=== PATIENT | male | born 1945 | race Caucasian/White ===

== ENCOUNTER 2017-09-13 08:02 | Inpatient (IN) | payer OTHER, SELFPAY ==
[2017-09-13] VITALS (16 sets, daily range): BP systolic 104–134; BP diastolic 61–92; PULSE 96–114; RESP 16–30; TEMP 36.9–38; O2SAT 88–96; BMI 31.6; BMI 31.0
--- NOTE | 2017-09-13 08:27 | EKG12_ITS ---
Test Reason : CP Blood Pressure : / mmHG Vent. Rate : 109 BPM Atrial Rate : 109 BPM P-R Int : 166 ms QRS Dur : 096 ms QT Int : 342 ms P-R-T Axes : 026 -07 092 degrees QTc Int : 460 ms Sinus tachycardia Left ventricular hypertrophy T wave abnormality, consider lateral ischemia Abnormal ECG Confirmed by DALJIT SNYDER, TOMAS ([id number]), publishing editor TRINA ROBLES ([id number]) on 09/20/2017 8:33:10 AM Referred By: JOSÉ LUIS Confirmed By:TOMAS BOCANEGRA MD
--- NOTE | 2017-09-13 08:27 | RAD_ITS ---
STUDY: X-RAY CHEST REASON FOR EXAM: Male, 72 years old. Chest pain. TECHNIQUE: AP and lateral views of the chest. COMPARISON: Comparison is made with prior study dated January 01, 2016. FINDINGS: EKG liquids are seen. Mild increased markings at the lung bases suggestive of atelectasis and/or early infiltrates. There is no demonstrated pleural abnormality. Sternal cerclage wires and vascular clips are present from a prior sternotomy and coronary artery bypass graft procedure (CABG). Borderline cardiomegaly. Normal mediastinum and nandini. Normal visualized pulmonary arteries. There is atherosclerotic tortuosity of the aortic arch and descending thoracic aorta. There are degenerative changes of the visualized thoracic spine. Normal visualized ribs, clavicles, and shoulders. There is no demonstrated abnormality of the visualized soft tissue structures of the upper abdomen. RAD/Chest PA and Lateral IMPRESSION: Increased linear markings at the lung bases suggestive basilar atelectasis and/or infiltrates. Follow-up is recommended. Electronically Signed: Andrei Quezada MD at 9:35 EST Tel [phone], Service support ,
--- NOTE | 2017-09-13 08:51 | ED.DCSUM_ITS ---
- ER Visit Summary Date of Service: 09/13/17 Chief Complaint: Chest pain History of Present Illness: The patient is a [address] Peralta and Dr. Peña. He reports that he woke with a left-sided chest pain this morning approximately 5 AM. He describes as an intermittent pressure that lasts minutes at a time. Is 10 out of 10 at worst and 2 out of 10 currently. Is worsened by nothing although he is not walked around. Is also relieved by nothing. He is ports he has been nauseated and vomited twice. No blood in his emesis. There is no radiation of his pain. Patient also reports that he has developed a subjective fever and chills overnight. He denies a sore throat or cough. He reports that he has abdominal pain that is 3 out of 10 severity and a headache that is annoying. 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 He states he has had left ankle swelling ever since that time. He denies any calf pain. Physical Examination: Vitals: 99.6, 117/62, 112, 30, 89% on room air which is hypoxic General: Well-nourished and well-developed. Head: Normocephalic atraumatic. Neck: Supple, no lymphadenopathy. No JVD. Nontender. Cardiovascular: Tachycardic regular rhythm. No murmurs. Respiratory: No respiratory distress. Clear to auscultation bilaterally. Abdominal: Soft, nontender, nondistended, normal bowel sounds. No guarding, rebound, or peritoneal signs. Back: Nontender. Extremities: Nontender, no edema. Skin: Normal color, no rash. Neurologic: Alert and oriented ?3. Cranial nerves II through XII are intact. Normal strength and sensation. Psych: Normal affect. Test Results: EKG is sinus tach at 109. He does have LVH with T-wave inversions in leads I and aVL. There is no old EKG for comparison. Repeat EKG is unchanged. CBC is more for white count of 15.8, segment neutrophils of 91, monocytes of 5. Chem-7 is more for BUN of 26 and glucose of 129. Troponin is negative. D-dimer is elevated 0.63. Influenza is negative. Chest x-ray shows poor inspiration and cardiomegaly. We were unable to obtain a an IV in the antecubital that could be used for an appropriate contrast bolus. Because of this Dopplers of his legs were obtained. 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 No acute DVT. Emergency Department Course and Treatment: Patient had an IV placed. He was treated with aspirin. He was treated with morphine and Zofran IV. He is resting comfortably. Treatment Plan: Patient was discussed with Dr. stack. He will be admitted to the hospital for further evaluation and treatment. Disposition: Admitted in serious condition. Impression: 1. Chest pain, atypical. 2. Hypoxia. 3. ADRIANO score of 3. 4. Chronic thrombus right gastrocnemius vein. This note was generated with [employer] dictation software. It may contain incorrect words, spelling, and punctuation that were not noted in review of the chart prior to signing ED Disposition - Plan for ED Patient: Chief Complaint: Chest Pain
[2017-09-13] MEDS: 0.9% Normal Saline 1,000 ML 150 ML IV ×3 (09:20→20:30)
[2017-09-13] MEDS: Aspirin 81 MG TAB.CHEW 324 MG PO (09:20)
--- NOTE | 2017-09-13 09:25 | ED.RN ---
Pt took asa 81mg x2 at home. Only given 2 here per verbal order of dr felder
[2017-09-13 09:34] LABS: Absolute Lymphocyte Count 0.79 X10^3/ul (0.83-4.51); Absolute Neutrophil Count 14.4 X10^3/uL (2.0-7.7); Basophil# 0.03 X10^3/uL; Basophil% 0.2 % (0-1); Hematocrit 42.9 % (40-54); Hemoglobin 14.6 g/dl (13.0-16.5); Lymphocyte # 0.79 X10^3/ul (4.0); Mean Corpuscular Hgb 31.7 pg (27.0-32.0); Mean Corpuscular Volume 93.1 fL (80-94); Mean Platelet Vol. 9.8 fl (6.2-12.0); Monocyte% 3.8 % (0-10); Neutrophil # 14.36 X10^3/uL (2.7-7.7); Neutrophil % 90.7 % (47-70); Platelet Count 182 K/mm3 (150-450); RBC Distribution Width CV 14.9 % (11.6-14.6); RBC Distribution Width SD 48.7 fl (35.1-43.9); Red Blood Count 4.61 M/mm3 (4.6-6.2); White Blood Count 15.8 K/mm3 (4.4-11.0)
[2017-09-13 09:35] LABS: POSITIVE COUNT NO; POSITIVE DIFFERENTIAL NO; POSITIVE MORPHOLOGY NO
[2017-09-13 09:51] LABS: Anion Gap 8 (5-15); BUN 26 mg/dL (7-18); BUN/Creat Ratio 22.2 RATIO (10-20); Calcium,Total 9.1 mg/dL (8.5-10.1); Chloride 106 mmol/L (98-107); Creatinine, Serum 1.17 mg/dL (0.70-1.30); EST Glomerular Filtration Rate 65 mL/min (>60); Est Glom Filt Rate - Afr Amer 78 mL/min (>60); Estimated Creatinine Clearance 46.38 ml/min; Glucose 129 mg/dL (70-110); Potassium 3.8 mmol/L (3.5-5.1); Sodium Level 140 mmol/L (136-145)
--- NOTE | 2017-09-13 09:54 | EKG12_ITS ---
Test Reason : REPEAT EKG Blood Pressure : / mmHG Vent. Rate : 112 BPM Atrial Rate : 112 BPM P-R Int : 170 ms QRS Dur : 094 ms QT Int : 324 ms P-R-T Axes : 033 009 078 degrees QTc Int : 442 ms Sinus tachycardia with frequent Premature ventricular complexes Nonspecific T wave abnormality Abnormal ECG Confirmed by DAJLIT SNYDER, TOMAS ([id number]), film or videotape editor TRINA ROBLES ([id number]) on 09/20/2017 8:34:37 AM Referred By: JOSÉ LUIS Confirmed By:TOMAS BOCANEGRA MD
[2017-09-13 09:57] LABS: D-Dimer Quantitative (DVT/PE) 0.63 FEU/ug/m (0.27-0.49)
[2017-09-13] MEDS: Ondansetron 4 MG/2 ML Vial IV (10:08)
--- NOTE | 2017-09-13 10:11 | VDLE_ITS ---
Reason For Study: elevated D-Dimer RIGHT LEFT GSV is normal. CFV is compressible, spontaneous, phasic, CFV is compressible, spontaneous, phasic, competent, and demonstrates normal competent and demonstrates normal augmentation. augmentation. FV is compressible, spontaneous, phasic, FV is compressible, spontaneous, phasic, competent and demonstrates normal competent and demonstrates normal augmentation. augmentation. POP V is compressible, spontaneous, phasic, POP V is compressible, spontaneous, phasic, competent and demonstrates normal competent and demonstrates normal augmentation. augmentation. T/P Trunk is compressible. T/P Trunk is compressible. PTV is compressible. PTV is compressible. LT PerV is compressible. RT PerV is compressible. GSV has been harvested. Gastroc vein is partially compresible with bright intraluminal echoes consistent with chronic DVT. Procedure Exam performed portable in ED. The exam was diagnostic. A preliminary report was called and/or faxed to Dr. Lomax. Interpretation Summary No evidence for acute deep venous thrombosis bilateral lower extremities. 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 Surgically removed left great saphenous vein. Ordering Physician: Aquilino Lomax Performed By: Nigel Noriega RVT
--- NOTE | 2017-09-13 11:07 | NURSING ---
DR CRISTOBAL ORDONEZ
--- NOTE | 2017-09-13 11:14 | NURSING ---
PCU ACUTE DYSPNEA KITTOE
--- NOTE | 2017-09-13 12:19 | NURSING ---
TELLO, IV THERAPY, IN WITH PATIENT
[2017-09-13] MEDS: Enoxaparin 100 MG/ML Syringe 80 MG SC (13:00)
--- NOTE | 2017-09-13 13:00 | CT_ITS ---
STUDY: CTA CHEST REASON FOR EXAM: Male, 72 years old. Elevated d-dimer. Shortness of breath and chest pain. RADIATION DOSAGE (If Supplied By Facility): CTDIvol = ( 14.28 ) mGy, DLP = ( 583.76 ) mGycm TECHNIQUE: The examination was performed with the intravenous administration of 100 ml of Isovue 370 contrast material. Post-processing of the angiographic images was performed, with multiplanar reformation and 3D reconstruction. Individualized dose optimization techniques were used for this CT. COMPARISON: Comparison is made with prior chest radiograph done earlier in the day. FINDINGS: Normal enhancement of the main pulmonary artery and right and left pulmonary arteries. Normal enhancement of the bilateral peripheral pulmonary arteries. There is no demonstrated pulmonary embolism. Normal thoracic aorta and visualized great vessels. There is no demonstrated aortic dissection. Normal heart and pericardium. Normal mediastinum. Normal hilar regions. Normal visualized trachea and bronchi. The lungs are well expanded. Mild degree of increased markings at the lung bases suggestive of bibasilar atelectasis. This is slightly worse on the right side. There is also evidence of underlying bronchiectasis and scarring at the lung bases. Normal pleura. Normal chest wall structures. There are degenerative changes of thoracic spine. Small hiatal hernia. CT/CTA Chest W/WO Contrast IMPRESSION: Findings suggesting scarring and atelectasis at the lung bases. This is slightly worse on the right side. There is no evidence of pulmonary embolism. Electronically Signed: Andrei Quezada MD at 13:53 EST Tel [phone], Service support ,
--- NOTE | 2017-09-13 14:05 | PCM.HP.STD ---
Problem List (1) Acute chest pain Status: Acute (2) CAD (coronary artery disease) Status: Chronic (3) Essential (primary) hypertension Status: Chronic History of Present Illness Date of Admission: 09/13/17 Chief Complaint: Chest pain The patient is a 72 year old M with past medical history significant for CAD with previous CABG, essential hypertension sent with chest pain. Patient symptoms started on the morning of his admission. Pain was located in the retrosternal region. Patient did not relate the pain to any activity pain located both at rest as well as with activity. Patient also did complain of shortness of breath. Patient was seen in the emergency department workup did reveal elevated d-dimer CTA of the chest was however negative for PE subsequently admitted to a monitored bed for further management Past Medical History Past Medical History (Chronic Problems): Chronic Problems CAD (coronary artery disease) (Chronic) Essential (primary) hypertension (Chronic) Allergies No Known Allergies Allergy (Verified 09/13/17 08:11) Home Medications: Ambulatory Orders Medication Instructions Recorded Aspirin [Aspirin, Baby] 81 mg PO DAILY@0800 09/13/17 Surgical History: coronary bypass surgery Smoking Status: Never smoker - *Family History Maternal History Items: No pertinent history Review of Systems Constitutional: Denies: Anorexia, Chills, Fever, Night Sweats, Weight Change HEENT: Denies: Head Aches, Sinus Congestion, Sinus Drainage Cardiovascular: Reports: Chest Pain. Denies: Orthopnea, Palpitations, Paroxysmal Noc. Dyspnea Respiratory: Denies: Cough, Shortness of breath at rest Gastrointestinal: Denies: Abdominal Pain, Hematemesis, Hematochezia, Nausea, Melena, Vomiting Genitourinary: Denies: Dysuria, Frequency, Hematuria, Urgency Musculoskeletal: Denies: Joint Pain, Joint Tenderness Skin: Denies: Rash Neurological: Denies: Focal weakness, Numbness, Tingling Psychiatric: Denies: Homicidal Ideations, Suicidal Ideations Hematologic/ Lymphatic: Denies: Easy Bruising, Easy Bleeding VTE Information - Inpt Only VTE Present on Admission: No VTE Mechan Device Prophylaxis: Knee High MICHAEL Hose VTE Pharm Prophylaxis ordered?: Yes Patient Problems: Active and Suspected Problems Acute chest pain (Acute) Objective: GENERAL: cooperative HEENT: Clear conjunctiva, NECK; supple, normal thyroid, CHEST: Diminished to auscultation bilaterally, HEART: Regular S1 S2, no audible murmurs ABDOMEN: soft, non-tender, normoactive bowel sounds, RECTAL: deferred EXTREMITIES: No edema, no clubbing, no cyanosis. CLINICAL ASSISTANT: Awake, no lateralizing signs. SKIN: Rash - Physical Exam Vital Signs Temp Pulse Resp BP Pulse Ox 100.4 F H 100 22 H 108/65 93 09/13/17 12:52 09/13/17 13:02 09/13/17 13:02 09/13/17 13:02 09/13/17 13:02 Oxygen Flow Rate 3 Oxygen Delivery Method Nasal Cannula Laboratory Tests Past 24 Hrs 09/13/17 12:45 Troponin I < 0.02 Assessment/Plan Active and Suspected Problems Acute chest pain (Acute) Patient is a 72-year-old male with history of CAD with previous CABG presented with chest pain 1. Chest pain: Patient admitted to monitored bed ordered serial cardiac enzymes to rule out [place]. Also ordered a 2D echo with plans for patient undergo a nuclear stress test in a.m. if [place] is ruled out 2. CAD status post CABG 3. Essential hypertension blood pressure currently stable 4. History of recurrent kidney stones currently astigmatic 5. Obesity with BMI of 31.0 6. DVT prophylaxis SC Lovenox.
--- NOTE | 2017-09-13 14:20 | ECHOCS_ITS ---
Reason For Study: chest pain Procedure This was a 2D Doppler, Color Flow transthoracic echocardiogram. The study was technically limited. The study was technically difficult. Due to body habitus and severe hiccups. Contrast injection was performed. Left Ventricle Normal LV size. Mild segmental systolic dysfunction (see wall motion). The estimated ejection fraction is 50 %. Mid-inferoseptal : Hypokinetic. Mid-anteroseptal : Hypokinetic. Right Ventricle Normal RV size. Normal systolic function. Atria The left atrium is mildly enlarged. Normal right atrium. No doppler evidence for ASD. Mitral Valve There is mild mitral annular calcification. Mild focal mitral valve calcification of the anterior leaflet. Trivial mitral valve insufficiency. Tricuspid Valve The tricuspid valve is not well visualized. Trivial tricuspid valve insufficiency. Unable to estimate RV systolic pressure/pulmonary artery pressure due to technically difficult study. Aortic Valve Trisinus/trileaflet aortic valve. Mild focal aortic valve thickening. Mild focal aortic valve calcification. Pulmonic Valve The pulmonic valve is not well visualized. Trivial pulmonic valve insufficiency. Great Vessels Normal sized aortic root. Pericardium/Pleural No pericardial effusion. Medication Definity0.4ml given slow IV push to enhance endocardial definition. MMode/2D Measurements & Calculations LVIDd: 5.4 cm IVSd: 1.2 cm Ao root diam: 3.4 cm LVIDs: 4.4 cm LVPWd: 1.1 cm LA dimension: 4.5 cm FS: 17.5 % Doppler Measurements & Calculations MV E max yury: 68.9 cm/sec Lat Peak E' Yury: 12.0 cm/sec Ao V2 max: 131.0 cm/sec MV A max yury: 101.1 cm/sec E/E' lat: 5.8 Ao max P.9 mmHg MV E/A: 0.68 LV V1 max: 95.7 cm/sec PA V2 max: 133.9 cm/sec LV V1 max P.7 mmHg Interpretation Summary The study was technically difficult. Contrast injection was performed. Mild segmental systolic dysfunction (see wall motion). The estimated ejection fraction is 50 %. The left atrium is mildly enlarged. There is mild mitral annular calcification. Mild focal mitral valve calcification of the anterior leaflet. Trivial mitral valve insufficiency. Trivial tricuspid valve insufficiency. Mild focal aortic valve thickening. Mild focal aortic valve calcification. Trivial pulmonic valve insufficiency. Unable to estimate RV systolic pressure/pulmonary artery pressure due to technically difficult study. Ordering Physician: Bo Mike Referring Physician: Boy Peralta Performed By: Lydia Russ, RENETTA, RVT
[2017-09-13 14:50] LABS: Magnesium 1.7 mg/dL (1.6-2.6); Thyroid Stim Hormone (TSH) 0.36 uIU/mL (0.358-3.74)
[2017-09-13] MEDS: oxyCODONE 5 MG Tablet PO ×2 (16:20→20:40)
[2017-09-13] MEDS: Magnesium Hydroxide 30 ML UDC PO (22:49)
[2017-09-13] MEDS: 0.9% NaCl Peripheral Flush Adult/Peds IV (22:49)
[2017-09-14] VITALS (17 sets, daily range): BP systolic 97–114; BP diastolic 43–61; PULSE 86–103; RESP 18–20; TEMP 37–38.7; O2SAT 84–98
[2017-09-14] MEDS: 0.9% Normal Saline 1,000 ML 150 ML IV ×3 (03:42→20:50)
[2017-09-14] MEDS: Acetaminophen 325 MG Tablet 650 MG PO ×3 (03:44→17:00)
--- NOTE | 2017-09-14 05:17 | RAD_ITS ---
STUDY: X-RAY CHEST REASON FOR EXAM: Male, 72 years old. Fever TECHNIQUE: PA and lateral COMPARISON: September 13, 2017 FINDINGS: Lungs are expanded. There is slight elevation of the RIGHT hemidiaphragm which is chronic. There is discoid atelectasis or fibrosis at the RIGHT lung base. There are NO acute infiltrates. There is no demonstrated pleural abnormality. The heart is mildly enlarged. There has been open heart surgery. Normal mediastinum and nandini. Normal visualized pulmonary arteries. Normal visualized aortic arch and descending thoracic aorta. Normal visualized thoracic spine. Normal visualized ribs, clavicles, and shoulders. There is no demonstrated abnormality of the visualized soft tissue structures of the upper abdomen. RAD/Chest PA and Lateral IMPRESSION: Lungs are expanded. There is slight elevation of the RIGHT hemidiaphragm which is chronic. There is discoid atelectasis or fibrosis at the RIGHT lung base. There are NO acute infiltrates. There is no demonstrated pleural abnormality. The heart is mildly enlarged. There has been open heart surgery. Electronically Signed: Tyree Alicia MD at 6:30 EST , Service support ,
--- NOTE | 2017-09-14 05:55 | EKG12_ITS ---
Test Reason : AM EKG Blood Pressure : / mmHG Vent. Rate : 087 BPM Atrial Rate : 087 BPM P-R Int : 170 ms QRS Dur : 100 ms QT Int : 356 ms P-R-T Axes : 036 004 073 degrees QTc Int : 428 ms Normal sinus rhythm Nonspecific T wave abnormality Abnormal ECG When compared with ECG of 13-SEP-2017 10:01, MANUAL COMPARISON REQUIRED, DATA IS UNCONFIRMED Confirmed by DALJIT SNYDER, TOMAS ([id number]), news copy editor TRINA ROBLES ([id number]) on 09/20/2017 8:48:07 AM Referred By: CRISTOBAL Confirmed By:TOMAS BOCANEGRA MD
[2017-09-14 06:03] LABS: Hematocrit 36.6 % (40-54); Mean Corp Hgb Conc 32.8 g/gl (32-36); Mean Corpuscular Hgb 31.3 pg (27.0-32.0); Mean Corpuscular Volume 95.6 fL (80-94); Mean Platelet Vol. 9.8 fl (6.2-12.0); Platelet Count 139 K/mm3 (150-450); RBC Distribution Width CV 15.2 % (11.6-14.6); RBC Distribution Width SD 51.1 fl (35.1-43.9); Red Blood Count 3.83 M/mm3 (4.6-6.2); Scan Indicated on CBC? Y/N NO; White Blood Count 9.4 K/mm3 (4.4-11.0)
[2017-09-14 06:30] LABS: BUN 26 mg/dL (7-18); Creatinine, Serum 1.15 mg/dL (0.70-1.30); Glucose 112 mg/dL (70-110)
[2017-09-14 06:31] LABS: Anion Gap 5 (5-15); BUN/Creat Ratio 22.6 RATIO (10-20); Calcium,Total 7.8 mg/dL (8.5-10.1); Chloride 110 mmol/L (98-107); EST Glomerular Filtration Rate 66 mL/min (>60); Est Glom Filt Rate - Afr Amer 80 mL/min (>60); Estimated Creatinine Clearance 47.19 ml/min; Potassium 3.9 mmol/L (3.5-5.1); Sodium Level 141 mmol/L (136-145)
[2017-09-14 06:32] LABS: Lactic Acid 0.9 mmol/L (0.4-2.0)
--- NOTE | 2017-09-14 08:03 | STEWCON_ITS ---
Reason For Study: Chest pain, Dyspnea Stress Results Protocol: Dobutamine Maximum Predicted HR: 146 bpm Target HR: 124 bpm% Maximum Predicted HR: 88 % DurationHeart Rate Stage (mm:ss) (bpm) BPDos e Comment Baseline 62 105/65 Definity 2 CC Stage 1 3:00 91 160/5810.001 CC definity Stage 2 3:25 12 9 134/9420.001 CC Definity Recovery 100 129/8 0 1 CC Definity Stress Duration: 6:25 mm:ss Maximum Stress HR: 129 bpm Baseline Echocardiogram Findings The estimated ejection fraction is 55 %. Stress Echo Wall motion Data Resting WMIntermediate WMStress WM Resting Wall Motion Wall Motion Stress Basal anteroseptal: Mildly Baseline anteroseptal wall hypokinetic. remained hypokinetic, but all Mid-Anterior : Mildly other leos contracted normally hypokinetic. with peak infusion. EKG Data Normal intervals are noted. The patient was titrated from 10 mcg to a maximum of 20 mcg of dobutamine during the stress. The maximum heart rate attained was 127 beats per minute. This was 86% of maximum predicted heart rate. During dobutamine infusion, there were no ST or T wave changes noted to suggest ischemia. No clinical angina was noted. Interpretation Summary The estimated ejection fraction is 55 %. Baseline anteroseptal wall remained hypokinetic, but all other leos contracted normally with peak infusion. The patient was titrated from 10 mcg to a maximum of 20 mcg of dobutamine during the stress. Normal adequate dobutamine echocardiogram. Negative for ischemia by EKG and echocardiographic criteria. Patient had baseline anteroseptal hypokinesis which remained about the same during infusion. All other leos contracted normally. Appropriate blood pressure response to dobutamine. Test terminated due to the attainment of target heart rate. Patient had no anginal symptoms prior to or during infusion. Rare PVCs noted. Final LVEF is 65%. Decreased sensitivity due to poor echo windows and need for Definity agent. Ordering Physician: Bo Mike Referring Physician: Bo Mike Performed By: Lydia Russ, RENETTA, RVT
[2017-09-14] MEDS: Aspirin 81 MG TAB.CHEW PO (10:07)
[2017-09-14 10:20] LABS: Bacteria 0 SEEN /hpf (None Seen); Mucous, Urine 0 SEEN /hpf (<or=2+); Squamous Epithelial Cells - UA 0 SEEN /hpf (0-5)
[2017-09-14 10:23] LABS: Color, Urine Yellow (Yellow); Glucose, Dipstick Normal (Normal); Ketone-Dipstick 5 mg/dl (Negative); Leukocyte Esterase-Dipstick 25 /ul (Negative); Nitrite-Dipstick Negative (Negative); Occult Blood-Urine 150 /ul (Negative); Protein-Dipstick 30 mg/dl (Negative); Urine Bilirubin Dipstick Negative (Negative); Urine Clarity Clear (Clear); Urine Urobilinogen Normal (Normal)
[2017-09-14 10:31] LABS: Red Blood Cells-Urine 0-5 SEEN /hpf (0-5); White Blood Cells 0-5 SEEN /hpf (0-5)
--- NOTE | 2017-09-14 10:42 | PCM.PN.HOSP ---
Patient Problems: Active and Suspected Problems Acute chest pain (Acute) Subjective: Patient is a 72-year-old gentleman admitted with chest pain; currently undergoing evaluation on a monitored bed to rule out myocardial ischemia. Patient did develop fever during the night with T-max of 101.7 blood cultures were drawn. Patient was found to have developed a mild area of erythema with some warmth involving the right lower extremities and assessment of cellulitis made that on antibiotics per protocol Objective: GENERAL: cooperative HEENT: Clear conjunctiva, NECK; supple, normal thyroid, CHEST: Diminished to auscultation bilaterally, HEART: Regular S1 S2, no audible murmurs ABDOMEN: soft, non-tender, normoactive bowel sounds, RECTAL: deferred EXTREMITIES: Area of erythema involving the distal one third of the right lower extremity VICE PRESIDENT [employer]ET INSIGHTS: Awake, no lateralizing signs. SKIN: Described above Vitals/I&O's: Vital Signs Temp Pulse Resp BP Pulse Ox 98.7 F 88 18 106/61 84 09/14/17 06:35 09/14/17 07:02 09/14/17 08:24 09/14/17 06:35 09/14/17 07:20 Oxygen Flow Rate 3 Oxygen Delivery Method Nasal Cannula Weight: 82 kg Body Mass Index (BMI) 31.0 Intake and Output for Last 24 Hours 09/12/17 09/13/17 09/14/17 23:59 23:59 23:59 Intake Total 343 / 343 2417 / 2417 Output Total 500 / 500 Balance 343 / 343 7 / 191 Laboratory Results 09/13/17 12:45: Troponin I < 0.02 09/13/17 12:45: Magnesium 1.7, TSH 0.36 09/13/17 17:00: Troponin I < 0.02 09/13/17 22:35: Troponin I < 0.02 09/14/17 05:40: Sodium 141, Potassium 3.9, Chloride 110 H, Carbon Dioxide 26.0, Anion Gap 5, BUN 26 H, Creatinine 1.15, Estim Creat Clear Calc 47.19, Est GFR (MDRD) Af Amer 80, Est GFR (MDRD) Non-Af 66, BUN/Creatinine Ratio 22.6 H, Glucose 112 H, Calcium 7.8 L 09/14/17 05:40: WBC 9.4, RBC 3.83 L, Hgb 12.0 L, Hct 36.6 L, MCV 95.6 H, MCH 31.3, MCHC 32.8, RDW 15.2 H, RDW Differential 51.1 H, Plt Count 139 L, MPV 9.8 09/14/17 05:40: Lactic Acid 0.9 09/14/17 10:00: Urine Color Yellow, Urine Clarity Clear, Urine pH 5.0, Ur Specific Muir 1.020, Urine Protein 30 H, Urine Glucose (UA) Normal, Urine Ketones 5 H, Urine Occult Blood 150 H, Urine Nitrite Negative, Urine Bilirubin Negative, Urine Urobilinogen Normal, Ur Leukocyte Esterase 25 H, Urine RBC 0-5 SEEN, Urine WBC 0-5 SEEN, Ur Squamous Epith Cells 0 SEEN, Urine Bacteria 0 SEEN, Urine Mucus 0 SEEN Current Medications Acetaminophen (Tylenol) 650 mg PO Q6H PRN PRN PRN Reason: Fever > 100.5 Last Admin: 09/14/17 10:11 Dose: 650 mg Al Hydroxide/Mg Hydroxide (Mylanta Ii) 30 ml PO Q6H PRN PRN PRN Reason: Gastric Burning Aspirin (Aspirin, Baby) 81 mg PO DAILY@0800 [facility] Last Admin: 09/14/17 10:07 Dose: 81 mg Docusate Sodium (Colace) 200 mg PO BID PRN PRN PRN Reason: Constipation Enoxaparin Sodium (Lovenox) 40 mg SC DAILY@1000 [facility] Sodium Chloride () 1,000 mls @ 150 mls/hr IV .Q6H40M [facility] Last Admin: 09/14/17 03:42 Dose: 150 mls/hr Piperacillin Sod/Tazobactam Sod (Zosyn) 3.375 gm in 50 mls @ 12.5 mls/hr IV Q8 [facility] Vancomycin HCl 1,500 mg/ (Dextrose) 280 mls @ 250 mls/hr IV RX TO DOSE ONE Stop: 09/14/17 11:12 Magnesium Hydroxide (Milk Of Magnesia) 30 ml PO DAILY PRN PRN Reason: Constipation Last Admin: 09/13/17 22:49 Dose: 30 ml Morphine Sulfate (Morphine) 4 mg IV Q4H PRN PRN PRN Reason: SEVERE PAIN (6-10/10) Nitroglycerin (Nitrostat) 0.4 mg SUBLINGUAL Q5M PRN PRN Reason: CHEST PAIN Ondansetron HCl (Zofran) 4 mg IV Q8H PRN PRN PRN Reason: Nausea Oxycodone HCl (Oxyir) 5 mg PO Q4H PRN PRN PRN Reason: SEVERE PAIN (6-10/10) Last Admin: 09/13/17 20:40 Dose: 5 mg Sodium Chloride () 5 - 30 ml IV UD PRN PRN Reason: SALINE FLUSH Last Admin: 09/13/17 22:49 Dose: 10 ml Zolpidem Tartrate (Ambien (Generic)) 5 mg PO QHS PRN PRN PRN Reason: INSOMNIA Assessment/Plan Active and Suspected Problems Acute chest pain (Acute) Patient is a 72-year-old male with history of CAD with previous CABG presented with chest pain 1. Chest pain: Patient admitted to monitored bed ordered serial cardiac enzymes to rule out [place]. Also ordered a 2D echo with plans for patient undergo a nuclear stress test in a.m. if [place] is ruled out 2. Lower extremity cellulitis: Blood cultures were sent patient started on antibiotics per protocol 3. CAD status post CABG 4. Essential hypertension blood pressure currently stable 5. History of recurrent kidney stones currently astigmatic 6. Obesity with BMI of 31.0 7. DVT prophylaxis SC Lovenox. Code Visit OBSV E&M: 34328 Subsequent observation care L3
--- NOTE | 2017-09-14 10:45 | PN_ITS ---
Patient Problems: Active and Suspected Problems Acute chest pain (Acute) Subjective: Patient is a 72-year-old gentleman admitted with chest pain; currently undergoing evaluation on a monitored bed to rule out myocardial ischemia. Patient did develop fever during the night with T-max of 101.7 blood cultures were drawn. Patient was found to have developed a mild area of erythema with some warmth involving the right lower extremities and assessment of cellulitis made that on antibiotics per protocol Objective: GENERAL: cooperative HEENT: Clear conjunctiva, NECK; supple, normal thyroid, CHEST: Diminished to auscultation bilaterally, HEART: Regular S1 S2, no audible murmurs ABDOMEN: soft, non-tender, normoactive bowel sounds, RECTAL: deferred EXTREMITIES: Area of erythema involving the distal one third of the right lower extremity SECTION CHIEF: Awake, no lateralizing signs. SKIN: Described above Vitals/I&O's: Vital Signs Temp Pulse Resp BP Pulse Ox 98.7 F 88 18 106/61 84 09/14/17 06:35 09/14/17 07:02 09/14/17 08:24 09/14/17 06:35 09/14/17 07:20 Oxygen Flow Rate 3 Oxygen Delivery Method Nasal Cannula Weight: 82 kg Body Mass Index (BMI) 31.0 Intake and Output for Last 24 Hours 09/12/17 09/13/17 09/14/17 23:59 23:59 23:59 Intake Total 343 / 343 2417 / 2417 Output Total 500 / 500 Balance 343 / 343 7 / 191 Laboratory Results 09/13/17 12:45: Troponin I < 0.02 09/13/17 12:45: Magnesium 1.7, TSH 0.36 09/13/17 17:00: Troponin I < 0.02 09/13/17 22:35: Troponin I < 0.02 09/14/17 05:40: Sodium 141, Potassium 3.9, Chloride 110 H, Carbon Dioxide 26.0, Anion Gap 5, BUN 26 H, Creatinine 1.15, Estim Creat Clear Calc 47.19, Est GFR ( MDRD) Af Amer 80, Est GFR (MDRD) Non-Af 66, BUN/Creatinine Ratio 22.6 H, Glucose 112 H, Calcium 7.8 L 09/14/17 05:40: WBC 9.4, RBC 3.83 L, Hgb 12.0 L, Hct 36.6 L, MCV 95.6 H, MCH 31.3, MCHC 32.8, RDW 15.2 H, RDW Differential 51.1 H, Plt Count 139 L, MPV 9.8 09/14/17 05:40: Lactic Acid 0.9 09/14/17 10:00: Urine Color Yellow, Urine Clarity Clear, Urine pH 5.0, Ur Specific [place] 1.020, Urine Protein 30 H, Urine Glucose (UA) Normal, Urine Ketones 5 H, Urine Occult Blood 150 H, Urine Nitrite Negative, Urine Bilirubin Negative, Urine Urobilinogen Normal, Ur Leukocyte Esterase 25 H, Urine RBC 0-5 SEEN, Urine WBC 0-5 SEEN, Ur Squamous Epith Cells 0 SEEN, Urine Bacteria 0 SEEN , Urine Mucus 0 SEEN Current Medications Acetaminophen (Tylenol) 650 mg PO Q6H PRN PRN PRN Reason: Fever > 100.5 Last Admin: 09/14/17 10:11 Dose: 650 mg Al Hydroxide/Mg Hydroxide (Mylanta Ii) 30 ml PO Q6H PRN PRN PRN Reason: Gastric Burning Aspirin (Aspirin, Baby) 81 mg PO DAILY@0800 [facility] Last Admin: 09/14/17 10:07 Dose: 81 mg Docusate Sodium (Colace) 200 mg PO BID PRN PRN PRN Reason: Constipation Enoxaparin Sodium (Lovenox) 40 mg SC DAILY@1000 [facility] Sodium Chloride () 1,000 mls @ 150 mls/hr IV .Q6H40M [facility] Last Admin: 09/14/17 03:42 Dose: 150 mls/hr Piperacillin Sod/Tazobactam Sod (Zosyn) 3.375 gm in 50 mls @ 12.5 mls/hr IV Q8 [facility] Vancomycin HCl 1,500 mg/ (Dextrose) 280 mls @ 250 mls/hr IV RX TO DOSE ONE Stop: 09/14/17 11:12 Magnesium Hydroxide (Milk Of Magnesia) 30 ml PO DAILY PRN PRN Reason: Constipation Last Admin: 09/13/17 22:49 Dose: 30 ml Morphine Sulfate (Morphine) 4 mg IV Q4H PRN PRN PRN Reason: SEVERE PAIN (6-10/10) Nitroglycerin (Nitrostat) 0.4 mg SUBLINGUAL Q5M PRN PRN Reason: CHEST PAIN Ondansetron HCl (Zofran) 4 mg IV Q8H PRN PRN PRN Reason: Nausea Oxycodone HCl (Oxyir) 5 mg PO Q4H PRN PRN PRN Reason: SEVERE PAIN (6-10/10) Last Admin: 09/13/17 20:40 Dose: 5 mg Sodium Chloride () 5 - 30 ml IV UD PRN PRN Reason: SALINE FLUSH Last Admin: 09/13/17 22:49 Dose: 10 ml Zolpidem Tartrate (Ambien (Generic)) 5 mg PO QHS PRN PRN PRN Reason: INSOMNIA Assessment/Plan Active and Suspected Problems Acute chest pain (Acute) Patient is a 72-year-old male with history of CAD with previous CABG presented with chest pain 1. Chest pain: Patient admitted to monitored bed ordered serial cardiac enzymes to rule out NV. Also ordered a 2D echo with plans for patient undergo a nuclear stress test in a.m. if NV is ruled out 2. Lower extremity cellulitis: Blood cultures were sent patient started on antibiotics per protocol 3. CAD status post CABG 4. Essential hypertension blood pressure currently stable 5. History of recurrent kidney stones currently astigmatic 6. Obesity with BMI of 31.0 7. DVT prophylaxis SC Lovenox. Code Visit OBSV E&M: 36299 Subsequent observation care L3
[2017-09-14] MEDS: Piperacil/Tazobactam 3.375 GM/50 ML ML IV ×2 (11:39→21:01)
[2017-09-14] MEDS: Enoxaparin 40 MG/0.4 ML Syringe SC (11:39)
--- NOTE | 2017-09-14 14:58 | CASEMGMT ---
JEAN PIERRE SHUKLA completed chart review. 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 Patient did develop fever during the night with T-max of 101.7 blood cultures were drawn. Patient was found to have developed a mild area of erythema with some warmth involving the right lower extremity an assessment of cellulitis made. JEAN PIERRE SHUKLA assessment: Patient is established with PCP, Dr. Peralta, and uses [employer] for insurance. The patient lives with family and is currently up in the room with assist of x1. Patient's plan is to return home at discharge. Transition Planning/Care Coordination: Will need to follow-up with patient prior to discharge for final Transition Planning and Care Coordination needs. Dispo: Anticipate home with no needs.
[2017-09-14] MEDS: Zolpidem Tartrate 5 MG Tablet PO (21:01)
[2017-09-15] VITALS (16 sets, daily range): BP systolic 101–140; BP diastolic 53–67; PULSE 85–103; RESP 16–30; TEMP 36.6–37.7; O2SAT 91–96
[2017-09-15] MEDS: 0.9% Normal Saline 1,000 ML 150 ML IV (03:38)
[2017-09-15] MEDS: Piperacil/Tazobactam 3.375 GM/50 ML ML IV ×3 (05:20→22:10)
[2017-09-15] MEDS: 0.9% NaCl Peripheral Flush Adult/Peds IV (05:20)
[2017-09-15 05:40] LABS: Hematocrit 34.1 % (40-54); Hemoglobin 11.2 g/dl (13.0-16.5); Mean Corp Hgb Conc 32.8 g/gl (32-36); Mean Corpuscular Hgb 31.8 pg (27.0-32.0); Mean Corpuscular Volume 96.9 fL (80-94); Mean Platelet Vol. 10.1 fl (6.2-12.0); Platelet Count 131 K/mm3 (150-450); RBC Distribution Width CV 15.4 % (11.6-14.6); RBC Distribution Width SD 52.7 fl (35.1-43.9); Red Blood Count 3.52 M/mm3 (4.6-6.2); White Blood Count 7.5 K/mm3 (4.4-11.0)
[2017-09-15 05:52] LABS: Scan Indicated on CBC? Y/N NO
[2017-09-15 06:02] LABS: Anion Gap 7 (5-15); BUN 20 mg/dL (7-18); BUN/Creat Ratio 21.3 RATIO (10-20); Calcium,Total 7.6 mg/dL (8.5-10.1); Chloride 109 mmol/L (98-107); Creatinine, Serum 0.94 mg/dL (0.70-1.30); EST Glomerular Filtration Rate 83 mL/min (>60); Est Glom Filt Rate - Afr Amer 101 mL/min (>60); Estimated Creatinine Clearance 57.73 ml/min; Glucose 106 mg/dL (70-110); Potassium 4.1 mmol/L (3.5-5.1); Sodium Level 141 mmol/L (136-145)
[2017-09-15] MEDS: Enoxaparin 40 MG/0.4 ML Syringe SC (09:33)
[2017-09-15] MEDS: Aspirin 81 MG TAB.CHEW PO (09:33)
--- NOTE | 2017-09-15 11:06 | PCM.PN.HOSP ---
Patient Problems: Active and Suspected Problems Acute chest pain (Acute) Subjective: Patient lower extremity erythema more pronounced than previous days however remains afebrile. Was noted to be experiencing some dyspnea with minimal activity Objective: GENERAL: cooperative HEENT: Clear conjunctiva, NECK; supple, normal thyroid, CHEST: Diminished to auscultation bilaterally, HEART: Regular S1 S2, no audible murmurs ABDOMEN: soft, non-tender, normoactive bowel sounds, RECTAL: deferred EXTREMITIES: Area of erythema involving the distal one third of the right lower extremity OUTSIDE OPERATOR: Awake, no lateralizing signs. SKIN: Described above Vitals/I&O's: Vital Signs Temp Pulse Resp BP Pulse Ox 98.4 F 92 18 116/67 92 09/15/17 09:00 09/15/17 09:00 09/15/17 09:00 09/15/17 09:00 09/15/17 09:35 Oxygen Flow Rate 3 Oxygen Delivery Method Nasal Cannula Weight: 82 kg Body Mass Index (BMI) 31.0 Intake and Output for Last 24 Hours 09/13/17 09/14/17 09/15/17 23:59 23:59 23:59 Intake Total 343 / 343 5695 / 5695 1438 / 1438 Output Total 500 / 500 500 / 500 Balance 343 / 343 5195 / 5195 938 / 938 Laboratory Results 09/15/17 05:20: Sodium 141, Potassium 4.1, Chloride 109 H, Carbon Dioxide 25.0, Anion Gap 7, BUN 20 H, Creatinine 0.94, Estim Creat Clear Calc 57.73, Est GFR (MDRD) Af Amer 101, Est GFR (MDRD) Non-Af 83, BUN/Creatinine Ratio 21.3 H, Glucose 106, Calcium 7.6 L 09/15/17 05:20: WBC 7.5, RBC 3.52 L, Hgb 11.2 L, Hct 34.1 L, MCV 96.9 H, MCH 31.8, MCHC 32.8, RDW 15.4 H, RDW Differential 52.7 H, Plt Count 131 L, MPV 10.1 Current Medications Acetaminophen (Tylenol) 650 mg PO Q6H PRN PRN PRN Reason: Fever > 100.5 Last Admin: 09/14/17 17:00 Dose: 650 mg Al Hydroxide/Mg Hydroxide (Mylanta Ii) 30 ml PO Q6H PRN PRN PRN Reason: Gastric Burning Aspirin (Aspirin, Baby) 81 mg PO DAILY@0800 [facility] Last Admin: 09/15/17 09:33 Dose: 81 mg Docusate Sodium (Colace) 200 mg PO BID PRN PRN PRN Reason: Constipation Enoxaparin Sodium (Lovenox) 40 mg SC DAILY@1000 [facility] Last Admin: 09/15/17 09:33 Dose: 40 mg Piperacillin Sod/Tazobactam Sod (Zosyn) 3.375 gm in 50 mls @ 12.5 mls/hr IV Q8 [facility] Last Admin: 09/15/17 05:20 Dose: 12.5 mls/hr Vancomycin HCl 1,250 mg/ (Sodium Chloride) 275 mls @ 183.333 mls/hr IV Q24H COUNT INCLUDES THE [facility] Magnesium Hydroxide (Milk Of Magnesia) 30 ml PO DAILY PRN PRN Reason: Constipation Last Admin: 09/13/17 22:49 Dose: 30 ml Morphine Sulfate (Morphine) 4 mg IV Q4H PRN PRN PRN Reason: SEVERE PAIN (6-10/10) Nitroglycerin (Nitrostat) 0.4 mg SUBLINGUAL Q5M PRN PRN Reason: CHEST PAIN Ondansetron HCl (Zofran) 4 mg IV Q8H PRN PRN PRN Reason: Nausea Oxycodone HCl (Oxyir) 5 mg PO Q4H PRN PRN PRN Reason: SEVERE PAIN (6-10/10) Last Admin: 09/13/17 20:40 Dose: 5 mg Sodium Chloride () 5 - 30 ml IV UD PRN PRN Reason: SALINE FLUSH Last Admin: 09/15/17 05:20 Dose: 20 ml Zolpidem Tartrate (Ambien (Generic)) 5 mg PO QHS PRN PRN PRN Reason: INSOMNIA Last Admin: 09/14/17 21:01 Dose: 5 mg Assessment/Plan Active and Suspected Problems Acute chest pain (Acute) Patient is a 72-year-old male with history of CAD with previous CABG presented with chest pain 1. Chest pain: Patient admitted to monitored bed ordered serial cardiac enzymes to rule out CT. Also ordered a 2D echo with plans for patient undergo a nuclear stress test in a.m. if CT is ruled out 2. Lower extremity cellulitis: Blood cultures were sent patient started on antibiotics per protocol 3. CAD status post CABG 4. Essential hypertension blood pressure currently stable 5. History of recurrent kidney stones currently astigmatic 6. Obesity with BMI of 31.0 7. DVT prophylaxis SC Lovenox. Code Visit Inpatient E&M: 27733 Subs Hosp L2
[2017-09-15] MEDS: Furosemide 100 MG/10 ML Vial 60 MG IV (11:43)
[2017-09-16] VITALS (10 sets, daily range): BP systolic 114–138; BP diastolic 63–77; PULSE 88–92; RESP 18–24; TEMP 36.7–37.2; O2SAT 90–94
[2017-09-16] MEDS: 0.9% NaCl Peripheral Flush Adult/Peds IV ×2 (06:12→11:51)
[2017-09-16] MEDS: Piperacil/Tazobactam 3.375 GM/50 ML ML IV (06:13)
[2017-09-16 06:45] LABS: Hematocrit 37.3 % (40-54); Hemoglobin 11.9 g/dl (13.0-16.5); Mean Corp Hgb Conc 31.9 g/gl (32-36); Mean Corpuscular Hgb 30.4 pg (27.0-32.0); Mean Corpuscular Volume 95.4 fL (80-94); Mean Platelet Vol. 10.1 fl (6.2-12.0); Platelet Count 150 K/mm3 (150-450); Red Blood Count 3.91 M/mm3 (4.6-6.2); Scan Indicated on CBC? Y/N NO; White Blood Count 6.9 K/mm3 (4.4-11.0)
[2017-09-16 07:19] LABS: Anion Gap 7 (5-15); BUN 19 mg/dL (7-18); BUN/Creat Ratio 19.1 RATIO (10-20); Chloride 108 mmol/L (98-107); Creatinine, Serum 0.99 mg/dL (0.70-1.30); EST Glomerular Filtration Rate 78 mL/min (>60); Est Glom Filt Rate - Afr Amer 95 mL/min (>60); Estimated Creatinine Clearance 54.81 ml/min; Glucose 100 mg/dL (70-110); Potassium 3.7 mmol/L (3.5-5.1); Sodium Level 143 mmol/L (136-145)
[2017-09-16] MEDS: Aspirin 81 MG TAB.CHEW PO (08:12)
[2017-09-16] MEDS: Enoxaparin 40 MG/0.4 ML Syringe SC (09:12)
[2017-09-16] MEDS: Furosemide 100 MG/10 ML Vial 60 MG IV (11:50)
[2017-09-16] MEDS: Cephalexin 500 MG Capsule PO (13:29)
--- NOTE | 2017-09-16 16:04 | CON.PCM_ITS ---
Problem List (1) Cellulitis Status: Acute Reason for Consult: cellulitis Consulted by: Dr. Mike History of Present Illness: The patient is a 72 year old M who presented with chest pain. Reports starting with fever and chills 09/12, by 09/14, noticed RLE redness, warmth, and swelling. No drainage. Came to hospital, admitted on zosyn. Leg feeling better, no n /v/d. Abx narrowed to keflex today. No further fever. Full ROS performed and neg except as noted above. - Medical History Past Medical History (Chronic Problems): Chronic Problems CAD (coronary artery disease) (Chronic) Essential (primary) hypertension (Chronic) Allergies/Adverse Reactions: Allergies No Known Allergies Allergy (Verified 09/13/17 08:11) Home Medications: Ambulatory Orders Medication Instructions Recorded Aspirin [Aspirin, Baby] 81 mg PO DAILY@0800 09/13/17 Cephalexin [Keflex] 500 mg PO Q8 #15 capsule 09/16/17 - Social History SMOKING STATUS:: Former smoker Vital Signs Temp Pulse Resp BP Pulse Ox 98.4 F 89 18 115/69 94 09/16/17 14:40 09/16/17 14:40 09/16/17 14:40 09/16/17 14:40 09/16/17 14:40 Oxygen Flow Rate [At REST on 0 Room Air] Oxygen Flow Rate 3 Oxygen Delivery Method Room Air Weight: 82 kg Body Mass Index (BMI) 31.0 Microbiology Past 72 Hours 09/14/17 05:40 Blood Culture - Preliminary Blood Culture (Wb) - Anticubital Left No growth in 48 hours. 09/14/17 05:45 Blood Culture - Preliminary Blood Culture (Wb) - Anticubital Left No growth in 48 hours. Laboratory Tests Past 24 Hrs 09/16/17 09/16/17 05:55 05:55 WBC 6.9 RBC 3.91 L Hgb 11.9 L Hct 37.3 L MCV 95.4 H MCH 30.4 MCHC 31.9 L RDW 15.0 H RDW Differential 52.0 H Plt Count 150 MPV 10.1 Sodium 143 Potassium 3.7 Chloride 108 H Carbon Dioxide 28.0 Anion Gap 7 BUN 19 H Creatinine 0.99 Estim Creat Clear Calc 54.81 Est GFR (MDRD) Af Amer 95 Est GFR (MDRD) Non-Af 78 BUN/Creatinine Ratio 19.1 Glucose 100 Calcium 8.0 L - Other Studies Radiology: [] reviewed Other Studies: [] Route of nutrition/ use of supplements: [] Nutritional Intake: [] IV Site: [] [place]za Catheter: [] - Physical Exam General: Alert, Oriented x3, Cooperative, No apparent distress HEENT: Atraumatic, PERRLA, EOMI Neck: Supple, No Nodes Lungs: Clear to auscultation, Normal air movement Cardiovascular: Regular rate, Regular Rhythm, No murmurs Abdomen: Bowel Sounds Present, Soft, Non Tender, Non-Distended Extremities: Edema Skin: Rash Present - RLE ye/calf redness and warmth IV Site: Peripheral, without redness Musculoskeletal: No Tenderness to Palpation of Joints or Extremities Neurological: Cranial nerves II-XII grossly intact - Assessment/Plan Antibiotics: [] Assessment/Plan: [] Active and Suspected Problems Acute chest pain (Acute) RLE cellulitis - fever resolved, cxs neg. On keflex. Ok for d/c home on po keflex 500mg tid for 7 more days. Thank you, will follow, d/w clinical case manager.
--- NOTE | 2017-09-16 16:05 | PCM.DC ---
- Discharge Diagnoses Current Active Problems: Current Active and Chronic Problems Acute chest pain (Acute) CAD (coronary artery disease) (Chronic) Essential (primary) hypertension (Chronic) You will use the following diet at home:: Cardiac Discharge Activity: Return to Normal Activity Allergies/Adverse Reactions: Allergies No Known Allergies Allergy (Verified 09/13/17 08:11) Medications to take at Discharge Aspirin [Aspirin, Baby] 81 mg PO DAILY@0800 09/13/17 Cephalexin [Keflex] 500 mg PO Q8 #15 cap 09/16/17 The following prescriptions were given: Cephalexin [Keflex] 500 mg PO Q8 #15 cap Primary Care Physician: Boy Peralta MD [Primary Care Provider] - Please follow up with your Primary Care Physician in: in 5-7 days Proposed Discharge Date: 09/16/17
--- NOTE | 2017-09-16 16:44 | PCM.DC.SUM ---
Discharge Date and Diagnosis - Problem List Patient Problems: Active and Suspected Problems Acute chest pain (Acute) Cellulitis (Acute) Date of Admission: 09/13/17 Date of Discharge: 09/16/17 - Primary Discharge Diagnosis Active and Suspected Problems Acute chest pain (Acute) Cellulitis (Acute) - Secondary Discharge Diagnosis Chronic Problems CAD (coronary artery disease) (Chronic) Essential (primary) hypertension (Chronic) Hospital Course and Treatment Imaging Results: Clinical Impression(s) from Imaging Studies Chest X-Ray 09/13/17 08:27 IMPRESSION: Increased linear markings at the lung bases suggestive basilar atelectasis and/or infiltrates. Follow-up is recommended. Electronically Signed: Andrei Quezada MD at 9:35 EST Tel [phone], Service support , Chest CTA 09/13/17 13:00 IMPRESSION: Findings suggesting scarring and atelectasis at the lung bases. This is slightly worse on the right side. There is no evidence of pulmonary embolism. Electronically Signed: Andrei Quezada MD at 13:53 EST Tel [phone], Service support , Chest X-Ray 09/14/17 05:17 IMPRESSION: Lungs are expanded. There is slight elevation of the RIGHT hemidiaphragm which is chronic. There is discoid atelectasis or fibrosis at the RIGHT lung base. There are NO acute infiltrates. There is no demonstrated pleural abnormality. The heart is mildly enlarged. There has been open heart surgery. Electronically Signed: Tyree Alicia MD at 6:30 EST , Service support , Summary of Care Provided: Patient is a 72-year-old male with history of CAD with previous CABG presented with chest pain 1. Chest pain: Patient admitted to monitored bed ordered serial cardiac enzymes to rule out SC. Patient subsequently underwent a stress echo which was negative for stress-induced ischemia 2. Lower extremity cellulitis: Blood cultures were sent patient started on antibiotics per protocol (initially with Zosyn and vancomycin) and subsequently D escalated to Keflex. Patient was also seen in consultation by Dr. Gonzales with infectious diseases note and recommendations reviewed 3. CAD status post CABG 4. Essential hypertension blood pressure currently stable 5. History of recurrent kidney stones currently asymptomatic 6. Obesity with BMI of 31.0 7. DVT prophylaxis SC Lovenox. Discharge Activity: Return to Normal Activity Home Medications: Medications to take at Discharge Aspirin [Aspirin, Baby] 81 mg PO DAILY@0800 09/13/17 Cephalexin [Keflex] 500 mg PO Q8 #15 cap 09/16/17 Following Prescrptions Were Given to Patient: Cephalexin [Keflex] 500 mg PO Q8 #15 cap Primary Care Physician: Boy Peralta MD [Primary Care Provider] - Please follow up with your Primary Care Physician in: in 5-7 days Please Follow Up With: Boy Peralta MD Disposition: Home Minutes spent on discharge:: 35 Patient Condition:: Stable Meaningful Use Info Meaningful Use Diagnoses (Choose all that apply): None applicable Code Visit Inpatient E&M: 77907 Disch Hosp
--- NOTE | 2017-09-16 16:47 | DS.PCM_ITS ---
Discharge Date and Diagnosis - Problem List Patient Problems: Active and Suspected Problems Acute chest pain (Acute) Cellulitis (Acute) Date of Admission: 09/13/17 Date of Discharge: 09/16/17 - Primary Discharge Diagnosis Active and Suspected Problems Acute chest pain (Acute) Cellulitis (Acute) - Secondary Discharge Diagnosis Chronic Problems CAD (coronary artery disease) (Chronic) Essential (primary) hypertension (Chronic) Hospital Course and Treatment Imaging Results: Clinical Impression(s) from Imaging Studies Chest X-Ray 09/13/17 08:27 IMPRESSION: Increased linear markings at the lung bases suggestive basilar atelectasis and/or infiltrates. Follow-up is recommended. Electronically Signed: Andrei Quezada MD at 9:35 EST Tel [phone], Service support , Chest CTA 09/13/17 13:00 IMPRESSION: Findings suggesting scarring and atelectasis at the lung bases. This is slightly worse on the right side. There is no evidence of pulmonary embolism. Electronically Signed: Andrei Quezada MD at 13:53 EST Tel [phone], Service support , Chest X-Ray 09/14/17 05:17 IMPRESSION: Lungs are expanded. There is slight elevation of the RIGHT hemidiaphragm which is chronic. There is discoid atelectasis or fibrosis at the RIGHT lung base. There are NO acute infiltrates. There is no demonstrated pleural abnormality. The heart is mildly enlarged. There has been open heart surgery. Electronically Signed: Tyree Alicia MD at 6:30 EST , Service support , Summary of Care Provided: Patient is a 72-year-old male with history of CAD with previous CABG presented with chest pain 1. Chest pain: Patient admitted to monitored bed ordered serial cardiac enzymes to rule out MD. Patient subsequently underwent a stress echo which was negative for stress-induced ischemia 2. Lower extremity cellulitis: Blood cultures were sent patient started on antibiotics per protocol (initially with Zosyn and vancomycin) and subsequently D escalated to Keflex. Patient was also seen in consultation by Dr. Gonzales with infectious diseases note and recommendations reviewed 3. CAD status post CABG 4. Essential hypertension blood pressure currently stable 5. History of recurrent kidney stones currently asymptomatic 6. Obesity with BMI of 31.0 7. DVT prophylaxis SC Lovenox. Discharge Activity: Return to Normal Activity Home Medications: Medications to take at Discharge Aspirin [Aspirin, Baby] 81 mg PO DAILY@0800 09/13/17 Cephalexin [Keflex] 500 mg PO Q8 #15 cap 09/16/17 Following Prescrptions Were Given to Patient: Cephalexin [Keflex] 500 mg PO Q8 #15 cap Primary Care Physician: Boy Peralta MD [Primary Care Provider] - Please follow up with your Primary Care Physician in: in 5-7 days Please Follow Up With: Boy Peralta MD Disposition: Home Minutes spent on discharge:: 35 Patient Condition:: Stable Meaningful Use Info Meaningful Use Diagnoses (Choose all that apply): None applicable Code Visit Inpatient E&M: 17049 Disch Hosp
== END 2017-09-16 17:10 | disposition home or self-care (01) | DRG 313 ==
LOC: ED 08:31 → PCU 11:21
PROVIDERS: Internal Medicine; Admitting Provider Internal Medicine; Emergency Provider Emergency Medicine; Family Provider Family Medicine; PCP Family Medicine; Visit Provider Internal Medicine
DX: R07.9 Chest pain, unspecified (principal); I25.10 Atherosclerotic heart disease of native coronary artery without angina pectoris; I82.5Z1 Chronic embolism and thrombosis of unspecified deep veins of right distal lower extremity; L03.115 Cellulitis of right lower limb; E66.9 Obesity, unspecified; I10 Essential (primary) hypertension; Z87.442 Personal history of urinary calculi; Z95.1 Presence of aortocoronary bypass graft; Z68.31 Body mass index [BMI] 31.0-31.9, adult; Z87.891 Personal history of nicotine dependence
CPT/HCPCS: 36415; 71046; 71275; 80048; 81001; 83605; 83735; 84443; 84484; 85025; 85027; 85379; 87040; 87804; 93005; 93017; 93306; 93350; 93970; 99285; J7030; J7050; Q9957; Q9967; A4216; C8928; C8929; J1940; J2405

== ENCOUNTER 2018-07-14 15:49 | Observation (INO) | payer OTHER, SELFPAY ==
[2018-07-14] VITALS (11 sets, daily range): BP systolic 107–132; BP diastolic 53–73; PULSE 94–118; RESP 16–26; TEMP 36.8–37.3; O2SAT 90–96; BMI 33.7; BMI 31.4
--- NOTE | 2018-07-14 16:09 | EKG12_ITS ---
Test Reason : WEAKNESS/CP Blood Pressure : / mmHG Vent. Rate : 114 BPM Atrial Rate : 114 BPM P-R Int : 166 ms QRS Dur : 094 ms QT Int : 304 ms P-R-T Axes : 043 010 081 degrees QTc Int : 419 ms Sinus tachycardia Nonspecific T wave abnormality Abnormal ECG Confirmed by KATRIN SNYDER, NABEEL ([id number]), communications editor TRINA ROBLES ([id number] on 07/18/2018 3:44:20 PM Referred By: MATIAS Confirmed By:NABEEL WILKES MD
--- NOTE | 2018-07-14 16:11 | RAD_ITS ---
STUDY: X-RAY CHEST REASON FOR EXAM: Male, 73 years old. Chest pain TECHNIQUE: A single frontal view of the chest was obtained. COMPARISON: September 14, 2017 FINDINGS: The lungs are underaerated. There is stable scarring in the right lung base. There are no focal airspace opacities. There is no demonstrated pleural abnormality. There is mild enlargement of the cardiac silhouette. Sternotomy wires are present. The mediastinum and hilar regions are unremarkable. Normal visualized pulmonary arteries. There is atherosclerotic calcification of the thoracic aorta. There are diffuse degenerative changes of the visualized spine. There are degenerative changes in both shoulders. There may be old surgical resection of the distal right clavicle. There is no demonstrated abnormality of the visualized upper abdomen. RAD/Chest 1 View (Portable) IMPRESSION: No acute cardiopulmonary abnormalities. There is stable mild enlargement of the cardiac silhouette without pulmonary edema or pleural effusion. Electronically Signed: Courtney Evans MD at 16:59 EST Tel Direct: [phone], Service support ,
[2018-07-14] MEDS: 0.9% Normal Saline 1,000 ML 1000 ML IV (16:21)
[2018-07-14 16:26] LABS: Absolute Lymphocyte Count 0.89 X10^3/ul (0.83-4.51); Absolute Neutrophil Count 11.6 X10^3/uL (2.0-7.7); Basophil# 0.02 X10^3/uL; Basophil% 0.2 % (0-1); Eosinophil# 0.02 X10^3/uL; Eosinophils% 0.2 % (0-5); Hematocrit 41.3 % (40-54); Hemoglobin 13.8 g/dl (13.0-16.5); Lymphocyte # 0.89 X10^3/ul (4.0); Lymphocyte % 6.7 % (19-41); Mean Corp Hgb Conc 33.4 g/gl (32-36); Mean Corpuscular Hgb 31.6 pg (27.0-32.0); Mean Corpuscular Volume 94.5 fL (80-94); Mean Platelet Vol. 9.7 fl (6.2-12.0); Monocyte# 0.79 X10^3/uL; Monocyte% 5.9 % (0-10); Neutrophil # 11.55 X10^3/uL (2.7-7.7); Neutrophil % 86.9 % (47-70); Platelet Count 183 K/mm3 (150-450); RBC Distribution Width CV 13.9 % (11.6-14.6); RBC Distribution Width SD 47.6 fl (35.1-43.9); Red Blood Count 4.37 M/mm3 (4.6-6.2); White Blood Count 13.3 K/mm3 (4.4-11.0)
[2018-07-14 16:29] LABS: POSITIVE COUNT NO; POSITIVE DIFFERENTIAL NO; POSITIVE MORPHOLOGY NO
[2018-07-14 16:44] LABS: Anion Gap 10 (5-15); BUN 32 mg/dL (7-18); BUN/Creat Ratio 27.4 RATIO (10-20); Calcium,Total 8.8 mg/dL (8.5-10.1); Chloride 106 mmol/L (98-107); Creatinine, Serum 1.17 mg/dL (0.70-1.30); EST Glomerular Filtration Rate 65 mL/min (>60); Est Glom Filt Rate - Afr Amer 78 mL/min (>60); Estimated Creatinine Clearance 45.68 ml/min; Glucose 118 mg/dL (74-106); Potassium 3.9 mmol/L (3.5-5.1); Sodium Level 139 mmol/L (136-145)
[2018-07-14 16:54] LABS: BNP,B-Type NATRIURETIC PEPTIDE 77.5 pg/mL (0-100)
--- NOTE | 2018-07-14 17:44 | ED.DCSUM_ITS ---
- ER Visit Summary Date of Service: 07/14/18 Chief Complaint: [Chest pain] History of Present Illness: The patient is a 73 M [presents the emergency department complaint chest pain that started around 9 AM this morning. Patient described it as a tightness or heaviness in his chest. Patient took some aspir in at home. Patient had the discomfort, throughout the day. He described feeling short of breath with it and nauseated. Patient described the pain radiating into his left arm. Patient does have a prior cardiac history with 5 vessel CABG about 2 years ago. Patient has history of hypertension and history of cellulitis. Patient does state that he has had a cough since summer but it has gotten worse over the last couple of days. He is bringing up some white phlegm at times. Patient had did have recent bus ride 3 weeks ago when he was on a bus for about 3 days. He denies any swelling in his legs. He denies any pleuritic symptoms.] Patient is currently pain-free. Physical Examination: [HEENT-PERRLA, EOMI. Cranial nerves II through XII grossly intact. TMs clear. Mucous membranes moist. No adenopathy. Cardiovascular-regular rate and rhythm without murmur or ectopy Lungs-clear to auscultation, chest wall stable without crepitus or subcu emphysema Abdomen-normoactive bowel sounds, soft, nontender, no rebound or rigidity, no peritoneal signs. Extremities-intact ?4, normal range of motion, normal pulses, atraumatic] Test Results: [EKG obtained arrival shows sinus rhythm with a ventricular rate of 114 bpm with some nonspecific ST changes. CBC with differential obtained showed a slightly elevated white count of 13,000, hemoglobin 13.8, hematocrit 41, platelets 183. Chemistries unremarkable. Troponin was less than 0.015. BNP was 77. Chest x-ray showed nothing acute.] Emergency Department Course and Treatment: [Patient had an IV line established and was given normal saline 125 cc an hour. Patient had already taken aspirin at home.] Treatment Plan: [Admit for further workup and evaluation. Etiology of his chest pain is unclear at this time. He does have a low-grade fever on arrival. Will check an influenza screen. This point my suspicion for PE is low.] Disposition: [Admit] Impression: [Chest pain-rule out acute coronary syndrome] This note was generated with Dragon dictation software. It may contain incorrect words, spelling, and punctuation that were not noted in review of the chart prior to signing ED Disposition - Plan for ED Patient: Chief Complaint: Chest Pain Referrals: Boy Peralta MD [Primary Care Provider] -
--- NOTE | 2018-07-14 18:20 | EKG12_ITS ---
Test Reason : CP ADMIT Blood Pressure : / mmHG Vent. Rate : 097 BPM Atrial Rate : 097 BPM P-R Int : 174 ms QRS Dur : 102 ms QT Int : 342 ms P-R-T Axes : 052 018 083 degrees QTc Int : 434 ms Normal sinus rhythm Possible Left atrial enlargement Nonspecific T wave abnormality Abnormal ECG Confirmed by KATRIN SNYDER, NABEEL ([id number]), manuscript editor TRINA ROBLES ([id number] on 07/20/2018 2:19:39 PM Referred By: DR SWAN Confirmed By:NABEEL WILKES MD
--- NOTE | 2018-07-14 18:48 | PCM.HP.STD ---
Problem List (1) Acute chest pain Status: Acute History of Present Illness Date of Admission: 07/14/18 Chief Complaint: chest pain The patient is a 73 year old M who was in his normal state of health today but around 10 AM, experienced chest pain. Chest pain went across his chest but was more prominent on the left side. He felt diaphoretic, short of breath, nauseated and pain radiated down his left arm. Patient's symptoms lasted until he presented to the emergency room in the. Patient's complaint now is only with some diaphoresis. Patient does have a history of coronary artery disease and has had a in the past and his symptoms are similar to him prior to his CABG. [] Past Medical History Past Medical History (Chronic Problems): Chronic Problems Essential (primary) hypertension (Chronic) CAD (coronary artery disease) (Chronic) Medical History: Medical History (Last Updated 07/14/18 @ 18:50 by Josh Donohue DO) CAD (coronary artery disease) I25.10 CVA (cerebral vascular accident) I63.9 HTN (hypertension) I10 Allergies No Known Allergies Allergy (Verified 09/13/17 08:11) Home Medications: Ambulatory Orders Medication Instructions Recorded Aloe Vera Nector 07/14/18 Aspirin E.C. [Ecotrin] 162 mg PO DAILY@0800 07/14/18 Co Q10 1 cap PO DAILY 07/14/18 Ferrous Sulfate 2 tab PO DAILY 07/14/18 Fish Oil 4 cap PO BID 07/14/18 Nattovena 2 tab PO DAILY 07/14/18 Surgical History: coronary bypass surgery Lives: Spouse/ Significant Other Smoking Status: Former smoker Tobacco Use: Non-smoker Alcohol: None Drugs: None - *Family History Maternal History Items: No pertinent history, - - No CAD Review of Systems Constitutional: Reports: Malaise. Denies: Anorexia, Chills, Fever Eyes: Denies: Blurred vision, Double vision HEENT: Reports: Nasal Congestion, Post Nasal Drip. Denies: Head Aches, Sinus Congestion, Sinus Drainage Cardiovascular: Reports: Chest Pain, Edema Respiratory: Reports: Cough - Chronic. Denies: Shortness of Breath Gastrointestinal: Reports: Nausea. Denies: Abdominal Pain, Vomiting Genitourinary: Denies: Dysuria Musculoskeletal: Denies: Joint Pain, Joint Tenderness Skin: Denies: Dryness, Jaundice Neurological: Denies: Numbness, Tingling, Focal weakness Psychiatric: Reports: Anxiety - With his chest pain episode. Denies: Depression Endocrine: Denies: Change in Body Habitus, Heat/ Cold Intolerance Hematologic/ Lymphatic: Denies: Easy Bruising, Easy Bleeding, Hx of blood clot Comment: A 10 point review of systems were negative except as mentioned in the history of present illness and the other review of systems. VTE Information - Inpt Only VTE Present on Admission: No VTE Mechan Device Prophylaxis: None VTE Pharm Prophylaxis ordered?: Yes - Physical Exam General: Alert, Cooperative, No apparent distress HEENT: Atraumatic, Normocephalic Oral: Moist Mucosa, No Gingival or Mucosal Lesions/ Ulcerations Neck: No Nodes, Thyroid Normal Size and Texture Lungs: Clear to auscultation, Normal air movement, No rhonchi, No wheeze Cardiovascular: Regular rate, Regular Rhythm, Normal S1, Normal S2, No murmurs Abdomen: Bowel Sounds Present, Soft, Non Tender, Non-Distended, No Hepato-splenomegaly Extremities: No Calf Tenderness, Edema Skin: No rashes, No breakdown Psych/Mental Status: Normal Affect, Appropriate Vital Signs Temp Pulse Resp BP Pulse Ox 37.3 C H 106 H 26 H 130/73 H 95 07/14/18 15:50 07/14/18 17:56 07/14/18 17:56 07/14/18 17:56 07/14/18 17:56 Oxygen Flow Rate (L/min) 2 Oxygen Delivery Method Room Air Weight: 89 kg Body Mass Index (BMI) 33.7 Laboratory Tests Past 24 Hrs 07/14/18 07/14/18 07/14/18 16:05 16:05 16:05 WBC 13.3 H RBC 4.37 L Hgb 13.8 Hct 41.3 MCV 94.5 H MCH 31.6 MCHC 33.4 RDW 13.9 RDW Differential 47.6 H Plt Count 183 MPV 9.7 Immature Gran % (Auto) 0.100 Neut % (Auto) 86.9 H Lymph % (Auto) 6.7 L [place] % (Auto) 5.9 Eos % (Auto) 0.2 Baso % (Auto) 0.2 Absolute Neuts (auto) 11.6 H Absolute Lymphs (auto) 0.89 Total Counted Not Reportable Sodium 139 Potassium 3.9 Chloride 106 Carbon Dioxide 23.0 Anion Gap 10 BUN 32 H Creatinine 1.17 Estim Creat Clear Calc 45.68 Est GFR (MDRD) Af Amer 78 Est GFR (MDRD) Non-Af 65 BUN/Creatinine Ratio 27.4 H Glucose 118 H Calcium 8.8 Troponin I < 0.015 B-Natriuretic Peptide 77.5 Assessment/Plan All Active Problems Cellulitis (Acute) Acute chest pain (Acute) 1. Chest pain/unstable angina Currently stable at this time and feeling better Check troponin series and nuclear stress test in the morning Continue with aspirin Check lipid panel Check an echocardiogram 2. DVT prophylaxis with Lovenox Code Visit OBSV E&M: 09824 Initial observation care L2
--- NOTE | 2018-07-14 18:52 | HP.PCM_ITS ---
Problem List (1) Acute chest pain Status: Acute History of Present Illness Date of Admission: 07/14/18 Chief Complaint: chest pain The patient is a 73 year old M who was in his normal state of health today but around 10 AM, experienced chest pain. Chest pain went across his chest but was more prominent on the left side. He felt diaphoretic, short of breath, nauseated and pain radiated down his left arm. Patient's symptoms lasted until he presented to the emergency room in the. Patient's complaint now is only with some diaphoresis. Patient does have a history of coronary artery disease and has had a in the past and his symptoms are similar to him prior to his CABG. [] Past Medical History Past Medical History (Chronic Problems): Chronic Problems Essential (primary) hypertension (Chronic) CAD (coronary artery disease) (Chronic) Medical History: Medical History (Last Updated 07/14/18 @ 18:50 by Josh Donohue DO) CAD (coronary artery disease) I25.10 CVA (cerebral vascular accident) I63.9 HTN (hypertension) I10 Allergies No Known Allergies Allergy (Verified 09/13/17 08:11) Home Medications: Ambulatory Orders Medication Instructions Recorded Aloe Vera Nector 07/14/18 Aspirin E.C. [Ecotrin] 162 mg PO DAILY@0800 07/14/18 Co Q10 1 cap PO DAILY 07/14/18 Ferrous Sulfate 2 tab PO DAILY 07/14/18 Fish Oil 4 cap PO BID 07/14/18 Nattovena 2 tab PO DAILY 07/14/18 Surgical History: coronary bypass surgery Lives: Spouse/ Significant Other Smoking Status: Former smoker Tobacco Use: Non-smoker Alcohol: None Drugs: None - *Family History Maternal History Items: No pertinent history, - - No CAD Review of Systems Constitutional: Reports: Malaise. Denies: Anorexia, Chills, Fever Eyes: Denies: Blurred vision, Double vision HEENT: Reports: Nasal Congestion, Post Nasal Drip. Denies: Head Aches, Sinus Congestion, Sinus Drainage Cardiovascular: Reports: Chest Pain, Edema Respiratory: Reports: Cough - Chronic. Denies: Shortness of Breath Gastrointestinal: Reports: Nausea. Denies: Abdominal Pain, Vomiting Genitourinary: Denies: Dysuria Musculoskeletal: Denies: Joint Pain, Joint Tenderness Skin: Denies: Dryness, Jaundice Neurological: Denies: Numbness, Tingling, Focal weakness Psychiatric: Reports: Anxiety - With his chest pain episode. Denies: Depression Endocrine: Denies: Change in Body Habitus, Heat/ Cold Intolerance Hematologic/ Lymphatic: Denies: Easy Bruising, Easy Bleeding, Hx of blood clot Comment: A 10 point review of systems were negative except as mentioned in the history of present illness and the other review of systems. VTE Information - Inpt Only VTE Present on Admission: No VTE Mechan Device Prophylaxis: None VTE Pharm Prophylaxis ordered?: Yes - Physical Exam General: Alert, Cooperative, No apparent distress HEENT: Atraumatic, Normocephalic Oral: Moist Mucosa, No Gingival or Mucosal Lesions/ Ulcerations Neck: No Nodes, Thyroid Normal Size and Texture Lungs: Clear to auscultation, Normal air movement, No rhonchi, No wheeze Cardiovascular: Regular rate, Regular Rhythm, Normal S1, Normal S2, No murmurs Abdomen: Bowel Sounds Present, Soft, Non Tender, Non-Distended, No Hepato- splenomegaly Extremities: No Calf Tenderness, Edema Skin: No rashes, No breakdown Psych/Mental Status: Normal Affect, Appropriate Vital Signs Temp Pulse Resp BP Pulse Ox 37.3 C H 106 H 26 H 130/73 H 95 07/14/18 15:50 07/14/18 17:56 07/14/18 17:56 07/14/18 17:56 07/14/18 17:56 Oxygen Flow Rate (L/min) 2 Oxygen Delivery Method Room Air Weight: 89 kg Body Mass Index (BMI) 33.7 Laboratory Tests Past 24 Hrs 07/14/18 07/14/18 07/14/18 16:05 16:05 16:05 WBC 13.3 H RBC 4.37 L Hgb 13.8 Hct 41.3 MCV 94.5 H MCH 31.6 MCHC 33.4 RDW 13.9 RDW Differential 47.6 H Plt Count 183 MPV 9.7 Immature Gran % (Auto) 0.100 Neut % (Auto) 86.9 H Lymph % (Auto) 6.7 L [place] % (Auto) 5.9 Eos % (Auto) 0.2 Baso % (Auto) 0.2 Absolute Neuts (auto) 11.6 H Absolute Lymphs (auto) 0.89 Total Counted Not Reportable Sodium 139 Potassium 3.9 Chloride 106 Carbon Dioxide 23.0 Anion Gap 10 BUN 32 H Creatinine 1.17 Estim Creat Clear Calc 45.68 Est GFR (MDRD) Af Amer 78 Est GFR (MDRD) Non-Af 65 BUN/Creatinine Ratio 27.4 H Glucose 118 H Calcium 8.8 Troponin I < 0.015 B-Natriuretic Peptide 77.5 Assessment/Plan All Active Problems Cellulitis (Acute) Acute chest pain (Acute) 1. Chest pain/unstable angina * Currently stable at this time and feeling better * Check troponin series and nuclear stress test in the morning * Continue with aspirin * Check lipid panel * Check an echocardiogram 2. DVT prophylaxis with Lovenox Code Visit OBSV E&M: 29425 Initial observation care L2
--- NOTE | 2018-07-14 19:37 | ECHOD_ITS ---
Reason For Study: CAD/ASHD Procedure This was a 2D Doppler, Color Flow transthoracic echocardiogram. The study was technically difficult. Exam performed portable in patient room. Left Ventricle Normal LV size. Segmental dysfunction with preserved ejection fraction (see wall motion). The estimated ejection fraction is 60 %. Diastolic function is indeterminate. Basal anteroseptal: Hypokinetic. Mid-inferoseptal : Hypokinetic. Mid-anteroseptal : Hypokinetic. Right Ventricle Normal RV size. Normal systolic function. Atria The left atrium is mildly enlarged. Normal right atrium. No doppler evidence for ASD. Mitral Valve There is mild mitral annular calcification. Mild focal mitral valve calcification of the anterior leaflet. Mild-Moderate (1-2+) mitral valve insufficiency. Tricuspid Valve Normal tricuspid valve. Trivial tricuspid valve insufficiency. Unable to estimate RV systolic pressure/pulmonary artery pressure due to technically difficult study. Aortic Valve Trisinus/trileaflet aortic valve. Mild diffuse aortic valve thickening. Mild focal aortic valve calcification. Aortic sclerosis, no stenosis. Pulmonic Valve The pulmonic valve is not well visualized. Great Vessels Normal sized aortic root. Pericardium/Pleural No pericardial effusion. MMode/2D Measurements & Calculations LVIDd: 5.0 cm IVSd: 1.3 cm Ao root diam: 3.5 cm LVIDs: 4.2 cm LVPWd: 1.2 cm LA dimension: 5.3 cm RVDd: 3.7 cm FS: 15.4 % LAV(MOD-bp): 78.6 ml LVAd ap4: 31.6 cm2 SV(MOD-sp4): 51.7 ml LAV(MOD-bp) Indexed: 41.8 ml/m2 EDV(MOD-sp4): 103.8 ml LAV(MOD-sp2): 71.4 ml EDV(sp4-el): 106.8 ml LAV(MOD-sp4): 82.5 ml LVAs ap4: 20.0 cm2 ESV(MOD-sp4): 52.0 ml ESV(sp4-el): 52.3 ml EF(MOD-sp4): 49.9 % EF(sp4-el): 51.0 % SV(sp4-el): 54.4 ml LA A4 area: 23.9 cm2 RA A4 area: 18.6 cm2 Time Measurements MV dec time: 0.19 sec Doppler Measurements & Calculations MV E max yury: 96.7 cm/sec Lat Peak E' Yury: 8.4 cm/sec Med Peak E' Yury: 7.2 cm/sec MV A max yury: 115.0 cm/sec E/E' lat: 11.5 E/E' med: 13.5 MV E/A: 0.84 MV V2 max: 125.2 cm/sec MV P1/2t max yury: 89.6 cm/sec Ao V2 max: 119.3 cm/sec MV max P.3 mmHg MV P1/2t: 98.7 msec Ao max P.7 mmHg MV V2 mean: 66.8 cm/sec MV mean P.1 mmHg MV dec slope: 265.8 cm/sec2 MV V2 VTI: 31.3 cm MVA(P1/2t): 2.2 cm2 LV V1 max: 92.3 cm/sec PA V2 max: 93.4 cm/sec LV V1 max P.4 mmHg Interpretation Summary The study was technically difficult. Segmental dysfunction with preserved ejection fraction (see wall motion). The estimated ejection fraction is 60 %. The left atrium is mildly enlarged. There is mild mitral annular calcification. Mild focal mitral valve calcification of the anterior leaflet. Mild-Moderate (1-2+) mitral valve insufficiency. Trivial tricuspid valve insufficiency. Aortic sclerosis, no stenosis. Unable to estimate RV systolic pressure/pulmonary artery pressure due to technically difficult study. Diastolic function is indeterminate. Ordering Physician: Josh Donohue Referring Physician: HALIMA VILLALPANDO Performed By: Marcellus Solano RCS
--- NOTE | 2018-07-14 19:45 | EKG12_ITS ---
Test Reason : CHEST PAIN Blood Pressure : / mmHG Vent. Rate : 102 BPM Atrial Rate : 102 BPM P-R Int : 170 ms QRS Dur : 096 ms QT Int : 328 ms P-R-T Axes : 040 002 081 degrees QTc Int : 427 ms Sinus tachycardia Possible Left atrial enlargement Poor R wave progression Borderline ECG Confirmed by KATRIN SNYDER, NABEEL ([id number]), dictionary editor TRINA ROBLES ([id number]) on 07/18/2018 3:45:13 PM Referred By: JOSIANE Confirmed By:NABEEL WILKES MD
[2018-07-14] MEDS: Fluticasone 0.05% 1 SPRAY NASAL.SRY NASAL (20:36)
[2018-07-14] MEDS: Ondansetron 4 MG/2 ML Vial IV (20:37)
[2018-07-14] MEDS: Zolpidem Tartrate 5 MG Tablet PO (21:50)
[2018-07-15] VITALS (9 sets, daily range): BP systolic 113–117; BP diastolic 59–64; PULSE 82–93; RESP 15–16; TEMP 36.6–36.9; O2SAT 91–94
[2018-07-15 02:58] LABS: Absolute Lymphocyte Count 1.53 X10^3/ul (0.83-4.51); Absolute Neutrophil Count 10.9 X10^3/uL (2.0-7.7); Basophil# 0.02 X10^3/uL; Basophil% 0.1 % (0-1); Eosinophil# 0.03 X10^3/uL; Eosinophils% 0.2 % (0-5); Hematocrit 38.5 % (40-54); Hemoglobin 12.9 g/dl (13.0-16.5); Lymphocyte # 1.53 X10^3/ul (4.0); Lymphocyte % 11.4 % (19-41); Mean Corp Hgb Conc 33.5 g/gl (32-36); Mean Corpuscular Hgb 32.2 pg (27.0-32.0); Monocyte# 0.91 X10^3/uL; Monocyte% 6.8 % (0-10); Neutrophil # 10.89 X10^3/uL (2.7-7.7); Neutrophil % 81.3 % (47-70); Platelet Count 175 K/mm3 (150-450); RBC Distribution Width CV 14.1 % (11.6-14.6); Red Blood Count 4.01 M/mm3 (4.6-6.2); White Blood Count 13.4 K/mm3 (4.4-11.0)
[2018-07-15 02:59] LABS: POSITIVE COUNT NO; POSITIVE DIFFERENTIAL NO; POSITIVE MORPHOLOGY NO
[2018-07-15 03:06] LABS: International Normalized Ratio 1.2; Prothrombin Time (Protime)PT. 14.7 SECONDS (11.7-14.9)
[2018-07-15 03:07] LABS: Partial Thromboplast Time 30.7 Seconds (24.1-36.2)
[2018-07-15 03:31] LABS: Anion Gap 7 (5-15); BUN 25 mg/dL (7-18); Calcium,Total 8.2 mg/dL (8.5-10.1); Chloride 109 mmol/L (98-107); Cholesterol 193 mg/dL (200); Creatinine, Serum 1.04 mg/dL (0.70-1.30); EST Glomerular Filtration Rate 74 mL/min (>60); Est Glom Filt Rate - Afr Amer 90 mL/min (>60); Estimated Creatinine Clearance 51.39 ml/min; Glucose 114 mg/dL (74-106); High Density Lipoprotein 43 mg/dL; Sodium Level 142 mmol/L (136-145); Thyroid Stim Hormone (TSH) 0.66 uIU/mL (0.358-3.74); Triglycerides 108 mg/dL; Very Low Density Lipoprotein 22 mg/dL (5-40)
--- NOTE | 2018-07-15 04:00 | EKG12_ITS ---
Test Reason : AM EKG Blood Pressure : / mmHG Vent. Rate : 086 BPM Atrial Rate : 086 BPM P-R Int : 176 ms QRS Dur : 100 ms QT Int : 342 ms P-R-T Axes : 042 -02 090 degrees QTc Int : 409 ms Normal sinus rhythm Possible Left atrial enlargement Nonspecific T wave abnormality Abnormal ECG Confirmed by KATRIN SNYDER, NABEEL ([id number]), visual effects editor TRINA ROBLES ([id number] on 07/20/2018 2:19:02 PM Referred By: DR SWAN Confirmed By:NABEEL WILKES MD
[2018-07-15] MEDS: oxyCODONE 5 MG Tablet PO (05:46)
[2018-07-15] MEDS: Aspirin E.C. 81 MG Tablet 162 MG PO (05:46)
[2018-07-15] MEDS: Fluticasone 0.05% 1 SPRAY NASAL.SRY NASAL (10:22)
[2018-07-15] MEDS: Ferrous Sulfate 325 MG Tablet PO (10:22)
--- NOTE | 2018-07-15 10:37 | DCINST_ITS ---
- Discharge Diagnoses Reason(s) for Visit for Discharge Instructions: Chest pain You will use the following diet at home:: Cardiac Your food should be the consistency of: Regular Your liquids should be the consistency of: Regular/Thin Discharge Activity: Return to Normal Activity Additional Instructions: Continue to follow a low salt, low fat diet. 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 Allergies/Adverse Reactions: Allergies No Known Allergies Allergy (Verified 09/13/17 08:11) Medications to take at Discharge Aloe Vera Nector 07/14/18 Aspirin E.C. [Ecotrin] 162 mg PO DAILY@0800 07/14/18 Co Q10 1 cap PO DAILY 07/14/18 Ferrous Sulfate 2 tab PO DAILY 07/14/18 Fish Oil 4 cap PO BID 07/14/18 Nattovena 2 tab PO DAILY 07/14/18 Pantoprazole Sodium 40 mg PO BID #60 tablet. 07/15/18 Primary Care Physician: Boy Peralta MD [Primary Care Provider] - Please follow up with your Primary Care Physician in: within 2 weeks Test Results: Test results from this visit will be discussed in further detail at your follow- up appointment, if applicable. Proposed Discharge Date: 07/15/18
--- NOTE | 2018-07-15 11:01 | STRESSREP ---
Stress Test Report Date: 07/15/2018 Procedure: Pharmacologic stress nuclear imaging study Indications: Chest pain; CAD; CABG; PCI Consent: Per the patient Procedure: The patient underwent pharmacologic (Regadenoson) evaluation with a peak heart rate of 91 beats per minute (62 predicted maximal heart rate) and a peak blood pressure of 126/68 mmHg. The baseline ECG demonstrated normal sinus rhythm; nonspecific T wave abnormality. The peak pharmacologic ECG demonstrated no obvious ECG changes. There was a rare PVC during recovery. There was no complaint of chest discomfort during pharmacologic infusion or recovery. The examination was discontinued secondary to completion of protocol. Impression: 1. Pharmacologic (Regadenoson) evaluation 2. Peak pharmacologic ECG with no obvious ECG changes. 3. There was a rare PVC during recovery. 4. Nuclear images pending Myocardial perfusion imaging study: Technique: The patient was injected with 11.9 millicuries of technetium 99m Cardiolite and subsequently rest SPECT Cardiolite nuclear imaging was obtained in the horizontal long, vertical long, and short axis views. The patient underwent pharmacologic (Regadenoson) evaluation with a peak heart rate of 91 beats per minute (62 % percent predicted maximal heart rate) and a peak blood pressure of 126/68 mmHg. The patient was injected with 36.0 millicuries of technetium 99m Cardiolite and subsequently stress SPECT Cardiolite nuclear imaging was obtained in the horizontal long, vertical long, and short axis views. A gated Cardiolite study at peak stress was obtained. Interpretation: Rest and stress SPECT Cardiolite nuclear imaging status post realignment, normalization, and attenuation correction demonstrate a lot of uniform tracer uptake and myocardial perfusion appearing within normal limits. There is end systolic thickening and brightening. The gated Cardiolite study demonstrates myocardial thickening and inward wall motion. The reported LVEF is 48 %. Impression: 1. Rest and stress SPECT Cardiolite nuclear imaging demonstrate relative uniform tracer uptake and myocardial perfusion appearing within normal limits. 2. The gated Cardiolite study reports an LVEF of 48 %. This note was generated with [employer] software. It may contain incorrect words, spelling, and punctuation that were not noted in checking the note before signing.
--- NOTE | 2018-07-15 12:05 | PCM.DC.SUM ---
Discharge Date and Diagnosis Date of Admission: 07/14/18 Date of Discharge: 07/15/18 - Primary Discharge Diagnosis Chest pain - Secondary Discharge Diagnosis Chronic Problems (Last Updated 07/14/18 @ 18:50 by Josh Donohue DO) CAD (coronary artery disease) (Chronic) Essential (primary) hypertension (Chronic) Hospital Course and Treatment Imaging Results: 07/15/18 05:55 Nuclear Stress Test - Chemical [NM] AM (NON MEDS) Clinical Impression(s) from Imaging Studies Chest X-Ray 07/14/18 16:11 IMPRESSION: No acute cardiopulmonary abnormalities. There is stable mild enlargement of the cardiac silhouette without pulmonary edema or pleural effusion. Electronically Signed: Courtney Evans MD at 16:59 EST Tel Direct: [phone], Service support , None Operations: None Procedures: Stress test Summary of Care Provided: The patient is a 73 year old M with past medical history of CAD status post CABG, hypertension, hyperlipidemia comes in with complaints of substernal and epigastric chest pain. Patient's mental EKG was unremarkable. Vitals were stable. Troponins x3 was negative. Patient underwent nuclear stress test that was negative. His 2D echo was unremarkable. He was discharged on pantoprazole BID. He will follow-up with cardiology and his primary care doctor in the outpatient. Subjective: On the day of discharge, patient denied any new complaints. Denied any chest pain or dizziness or palpitations. - Physical Exam General: Alert, Oriented x3, Cooperative, No apparent distress HEENT: Atraumatic, PERRLA, EOMI, Normocephalic Oral: Moist Mucosa Neck: Supple, No JVD, Negative Carotid Bruits Lungs: Clear to auscultation, Normal air movement Cardiovascular: Regular rate, Regular Rhythm, Normal S1, Normal S2, No murmurs Abdomen: Bowel Sounds Present, Soft, Non Tender, Non-Distended, No Hepato-splenomegaly Extremities: No edema Skin: No rashes, No breakdown Musculoskeletal: No Tenderness to Palpation of Joints or Extremities Lymphatic: No Cervical, Supraclavicular, or Inguinal Adenopathy Neurological: Cranial nerves II-XII grossly intact, Neuro grossly intact Psych/Mental Status: Normal Affect, Appropriate Vital Signs Temp Pulse Resp BP Pulse Ox 97.8 F 87 16 116/64 92 07/15/18 10:05 07/15/18 11:07 07/15/18 10:10 07/15/18 10:05 07/15/18 11:03 Oxygen Flow Rate (L/min) 2 Oxygen Delivery Method Nasal Cannula Weight: 82.9 kg Body Mass Index (BMI) 31.4 Intake and Output for Last 24 Hours 07/13/18 07/14/18 07/15/18 23:59 23:59 23:59 Intake Total 100 / 100 Balance 100 / 100 Microbiology Past 72 Hours 07/14/18 18:27 Influenza Types A,B Direct FA (SHOSHANA) - Final Mucosa - Nose Laboratory Tests Past 24 Hrs 07/14/18 07/14/18 07/14/18 16:05 16:05 16:05 WBC 13.3 H RBC 4.37 L Hgb 13.8 Hct 41.3 MCV 94.5 H MCH 31.6 MCHC 33.4 RDW 13.9 RDW Differential 47.6 H Plt Count 183 MPV 9.7 Immature Gran % (Auto) 0.100 Neut % (Auto) 86.9 H Lymph % (Auto) 6.7 L [place] % (Auto) 5.9 Eos % (Auto) 0.2 Baso % (Auto) 0.2 Absolute Neuts (auto) 11.6 H Absolute Lymphs (auto) 0.89 Total Counted Not Reportable PT INR APTT Sodium 139 Potassium 3.9 Chloride 106 Carbon Dioxide 23.0 Anion Gap 10 BUN 32 H Creatinine 1.17 Estim Creat Clear Calc 45.68 Est GFR (MDRD) Af Amer 78 Est GFR (MDRD) Non-Af 65 BUN/Creatinine Ratio 27.4 H Glucose 118 H Calcium 8.8 Troponin I < 0.015 B-Natriuretic Peptide 77.5 Triglycerides Cholesterol LDL Cholesterol VLDL Cholesterol HDL Cholesterol TSH 07/14/18 07/14/18 07/15/18 20:26 22:50 02:15 WBC RBC Hgb Hct MCV MCH MCHC RDW RDW Differential Plt Count MPV Immature Gran % (Auto) Neut % (Auto) Lymph % (Auto) [place] % (Auto) Eos % (Auto) Baso % (Auto) Absolute Neuts (auto) Absolute Lymphs (auto) Total Counted PT INR APTT Sodium 142 Potassium 4.0 Chloride 109 H Carbon Dioxide 26.0 Anion Gap 7 BUN 25 H Creatinine 1.04 Estim Creat Clear Calc 51.39 Est GFR (MDRD) Af Amer 90 Est GFR (MDRD) Non-Af 74 BUN/Creatinine Ratio 24.0 H Glucose 114 H Calcium 8.2 L Troponin I < 0.015 < 0.015 B-Natriuretic Peptide Triglycerides 108 Cholesterol 193 LDL Cholesterol 128 VLDL Cholesterol 22 HDL Cholesterol 43 TSH 0.66 07/15/18 07/15/18 07/15/18 02:15 02:15 02:15 WBC 13.4 H RBC 4.01 L Hgb 12.9 L Hct 38.5 L MCV 96.0 H MCH 32.2 H MCHC 33.5 RDW 14.1 RDW Differential 48.0 H Plt Count 175 MPV 10.0 Immature Gran % (Auto) 0.200 Neut % (Auto) 81.3 H Lymph % (Auto) 11.4 L [place] % (Auto) 6.8 Eos % (Auto) 0.2 Baso % (Auto) 0.1 Absolute Neuts (auto) 10.9 H Absolute Lymphs (auto) 1.53 Total Counted Not Reportable PT 14.7 INR 1.2 APTT 30.7 Sodium Potassium Chloride Carbon Dioxide Anion Gap BUN Creatinine Estim Creat Clear Calc Est GFR (MDRD) Af Amer Est GFR (MDRD) Non-Af BUN/Creatinine Ratio Glucose Calcium Troponin I < 0.015 B-Natriuretic Peptide Triglycerides Cholesterol LDL Cholesterol VLDL Cholesterol HDL Cholesterol TSH Discharge Diet: Low fat/ Low Cholesterol, 2000 mg Sodium Diet Discharge Activity: Return to Normal Activity Home Medications: Medications to take at Discharge Aloe Vera Nector 07/14/18 Aspirin E.C. [Ecotrin] 162 mg PO DAILY@0800 07/14/18 Co Q10 1 cap PO DAILY 07/14/18 Ferrous Sulfate 2 tab PO DAILY 07/14/18 Fish Oil 4 cap PO BID 07/14/18 Nattovena 2 tab PO DAILY 07/14/18 Pantoprazole Sodium 40 mg PO BID #60 tablet. 07/15/18 Following Prescrptions Were Given to Patient: Pantoprazole Sodium 40 mg PO BID #60 tablet. Primary Care Physician: Boy Peralta MD [Primary Care Provider] - Please follow up with your Primary Care Physician in: within 2 weeks Disposition: Home Minutes spent on discharge:: 38 Patient Condition:: Stable Medical Necessity - Tobacco Use Smoking Status: Former smoker Tobacco Use: Cigarettes Meaningful Use Info Meaningful Use Diagnoses (Choose all that apply): None applicable Code Visit OBSV E&M: 09877 Observation care discharge
--- OUTSIDE RECORDS SUMMARY | 2018-09-08 16:22 | XMS RPT_ITS ---
:1945 Author Organization OHIP Support Name Relationship Address Phone ILSA DIEGO Unavailable [address] + [place] [address] SUZANNE ROBLES Unavailable [address] [place] [address] NOT GIVEN Unavailable Unavailable Unavailable S Unavailable Unavailable Unavailable S Unavailable Unavailable Unavailable SUZANNE ROBLES Unavailable [address] + [place] [address] S Unavailable Unavailable Unavailable ILSA DIEGO Unavailable [address] + [place] [address] SUZANNE ROBLES Unavailable [address] [place] [address] NOT GIVEN Unavailable Unavailable Unavailable MARGARET SUZANNE Unavailable [address] + [place] [address] S Unavailable Unavailable Unavailable MARGARET SUZANNE Unavailable [address] + [place] [address] S Unavailable Unavailable Unavailable MARGARET SZUANNE Unavailable [address] + [place] [address] S Unavailable Unavailable Unavailable ILSA DIEGO Unavailable [address] + [place] [address] SUZANNE ROBLES Unavailable [address] [place] [address] NOT GIVEN Unavailable Unavailable Unavailable MARGARET SUZANNE Unavailable [address] [phone] [place] [address] S Unavailable Unavailable Unavailable SUZANNE ROBLES Unavailable [address] [phone] [place] [address] S Unavailable Unavailable Unavailable MARGARET SUZANNE Unavailable [address] [phone] [place] [address] S Unavailable Unavailable Unavailable ROBLES, SUZANNE Unavailable [address] [phone] [place] [address] S Unavailable Unavailable Unavailable ROBLES, SUZANNE Unavailable [address] [phone] [place] [address] S Unavailable Unavailable Unavailable ROBLES, SUZANNE Unavailable [address] [phone] [place] [address] S Unavailable Unavailable Unavailable ROBLES, SUZANNE Unavailable [address] [phone] [place] [address] S Unavailable Unavailable Unavailable Care Team Providers Name Role Phone VILLALPANDO, HALIMA A Admitting Unavailable VILLALPANDO, HALIMA A Attending Unavailable VILLALPANDO, HALIMA A Primary Care Unavailable VILLALPANDO, HALIMA A Consulting Unavailable PROVIDER, UNKNOWN Consulting Unavailable PROVIDER, UNKNOWN Consulting Unavailable PROVIDER, UNKNOWN Consulting Unavailable VILLALPANDO, HALIMA A Consulting Unavailable FRANCISCO MELGAR MD Admitting Unavailable FRANCISCO MELGAR MD Attending Unavailable FRANCISCO MELGAR MD Primary Care Unavailable PROVIDER, UNKNOWN Consulting Unavailable PROVIDER, UNKNOWN Consulting Unavailable PROVIDER, UNKNOWN Consulting Unavailable VILLALPANDO, HALIMA A Admitting Unavailable VILLALPANDO, HALIMA A Attending Unavailable VILLALPANDO, HALIMA A Primary Care Unavailable VILLALPANDO, HALIMA A Consulting Unavailable PROVIDER, UNKNOWN Consulting Unavailable PROVIDER, UNKNOWN Consulting Unavailable PROVIDER, UNKNOWN Consulting Unavailable Americo, Piper Attending Unavailable Nirav Peña Attending Unavailable Villalpando, Halima Referring Unavailable Villalpando, Halima Primary Care Unavailable KittoeBo Admitting Unavailable Kittoe, Bo Attending Unavailable Halima Gonzales Consulting Unavailable Kittoe, Bo Admitting Unavailable Kittotoño, Bo Attending Unavailable Villalpando, Halima Primary Care Unavailable Kittotoño, Bo Consulting Unavailable Kittoe, Bo Admitting Unavailable Kittoe, Bo Attending Unavailable Villalpando, Halima Primary Care Unavailable Kittoe, Bo Consulting Unavailable Kittoe, Bo Admitting Unavailable Kittoe, Bo Attending Unavailable Villalpando, Halima Primary Care Unavailable Kittoe, Bo Consulting Unavailable Kittoe, Bo Admitting Unavailable Kittoe, Bo Attending Unavailable Villalpando, Halima Primary Care Unavailable Halima Gonzales Consulting Unavailable Kittotoño, Bo Consulting Unavailable Juwan Wilkes Attending Unavailable Bo Mike Referring Unavailable CebulHalima Attending Unavailable Kittoe, Bo Referring Unavailable Villalpando, Halima Primary Care Unavailable Josh Donohue Admitting Unavailable Paintsil, Montrose Attending Unavailable Jopperi, Josh Admitting Unavailable Jopperi, Josh Attending Unavailable Halima Villalpando Primary Care Unavailable Diptipperi, Josh Consulting Unavailable Diptipprichie, Josh Admitting Unavailable Paintsil, [place] Attending Unavailable Halima Villalpando Primary Care Unavailable Paintsil, [place] Consulting Unavailable PROBLEMS PROBLEMS DATE TYPE CONDITION / CODE ATTENDING STATUS SOURCE 07/27/2018 Unknown Z95.1 - Presence of [place]iana, [place] Active [place] aortocoronary bypass Community graft / Hospital Z95.1(ICD-10) Repository 07/27/2018 Unknown I10 - Essential Mariana, [place] Active [facility] (primary) Community hypertension / Hospital I10(ICD-10) Repository 07/27/2018 Unknown E78.5 - Mariana, [place] Active [facility] Hyperlipidemia, Community unspecified / Hospital E78.5(ICD-10) Repository 07/27/2018 Unknown I48.0 - Paroxysmal Mariana, Nirav Active [facility] atrial fibrillation Community / I48.0(ICD-10) Hospital Repository 07/19/2018 Admitting Shortness of breath FRANCISCO MELGAR Active [facility] [place] Diagnosis / R0602(ICD-10) [facility] Hospital Repository 07/19/2018 Principle Sepsis, unspecified RADHA, FRANCISCO Active [facility] Diagnosis organism / [facility] A419(ICD-10) Hospital Repository 07/19/2018 Secondary Pneumonia, RADHA, FRANCISCO Active [facility] Diagnosis unspecified organism [facility] / J189(ICD-10) Hospital Repository 07/19/2018 Secondary Acute respiratory RADHA, FRANCISCO Active [facility] Diagnosis failure with hypoxia [facility] / J9601(ICD-10) Hospital Repository 07/19/2018 Secondary Severe sepsis RADHA, FRANCISCO Active [facility] Diagnosis without septic shock [facility] / R6520(ICD-10) Hospital Repository 07/19/2018 Secondary Atherosclerotic RADHA, FRANCISCO Active [facility] Diagnosis heart disease of [facility] [place] coronary [facility] artery without Repository angina pectoris / I2510(ICD-10) 07/19/2018 Secondary Other disorder of FRANCISCO MELGAR Active [facility] [place] Diagnosis circulatory system / [facility] I998(ICD-10) Hospital Repository 07/19/2018 Secondary Gastro-esophageal RADHA, FRANCISCO Active [facility] Diagnosis reflux disease [facility] without esophagitis Hospital / K219(ICD-10) Repository 07/19/2018 Secondary Weakness / FRANCISCO MELGAR Active [facility] Diagnosis R531(ICD-10) [facility] Repository 07/19/2018 Secondary Presence of FRANCISCO MELGAR Active [facility] Diagnosis aortocoronary bypass [facility] graft / Z951(ICD-10) Hospital Repository 07/19/2018 Secondary Personal history of FRANCISCO MELGAR Active [facility] Diagnosis transient ischemic [facility] cerebral infarction Repository without residual deficits / Z8673(ICD-10) 07/20/2018 Unknown R07.9 - Chest pain, [place], [place] Active [place] unspecified / Community R07.9(ICD-10) Hospital Repository 04/21/2018 Admitting Cough / R05(ICD-10) HALIMA VILLALPANDO Active [facility] Diagnosis [facility] Repository 04/21/2018 Principle Cough / R05(ICD-10) AHLIMA VILLALPANDO Active [facility] Diagnosis [facility] Repository 10/18/2017 Unknown R06.02 - Shortness [place], Active [facility] of breath / [facility] R06.02(ICD-10) Hospital Repository PROCEDURES PROCEDURES No Procedure Records FoundRESULTS RESULTS CARDIOLOGY VISIT Observed: 07/26/2018 Status: F Source: [facility] REPORT 12:21 PM [facility] REPOSITORY [facility] [address] [place] [address] OFFICE VISIT Date of Service: 07/26/18 MR#: [id number] Acct: [id number] Name: JUWAN ROBLES Rep #: [id number] : 1945 Provider: Nirav Peña MD Age/Sex: 73/M Location: [facility] Status: Signed [facility] Chief Complaint: Follow up Details: JUWAN ROBLES, is a 73 M who presents to the office today for a follow-up visit. He was last seen here in 2015. At that time he had been diagnosed with coronary artery disease in 2007 he had progressive disease of the left anterior descending artery which was treated with a stent. In 2015 he had chest discomfort and throat discomfort and underwent a cardiac catheterization which demonstrated significant triple-vessel disease. Medical therapy was however recommended for his condition. He had also had a brainstem infarct in 2014 and received TPA and also had had a DVT. He did present to [facility] in 2016 after having angina for a year to a year and a half which he said had been stable. An echocardiogram was done at that hospital which demonstrated an ejection fraction of 35% he was transferred to the hospital in [place] where he underwent a cardiac catheterization which demonstrated left main coronary artery and a percent stenosis left anterior descending artery with 50% mid segment stenosis 80% distal vessel stenosis and a proximal 80% stenosis. The first diagonal had a 70% stenosis the second diagonal had moderate diffuse disease. The left circumflex had a previous stent which was patent and there was a 70% proximal stenosis the right coronary artery had an 80% stenosis in the distal vessel had a 95% stenosis. The posterolateral vessel had a 70% lesion. He underwent five-vessel coronary artery bypass surgery as well as a repair of an atrial septal defect. He had a left internal mammary artery to the left anterior descending artery, saphenous vein graft to the first diagonal branch, first obtuse marginal branch, saphenous vein graft to the posterior descending artery and acute marginal. Postoperatively he did develop atrial fibrillation for which she was seen by the electrophysiology group and subsequently treated. He had done fairly well until June of this year when he was admitted to [facility] again for pneumonia and was transferred to [facility]. He underwent a stress test we did not demonstrate any evidence of ischemia. His gated ejection fraction was noted to be 48%. An echocardiogram performed demonstrated an ejection fraction of 60% with segmental wall motion abnormalities involving the anterior septal wall mitral annular calcification was noted and 1-2+ mitral regurgitation was present. At this time he appears to be doing well though he does have some shortness of breath. His physical exam is significant for bilateral fine rales regular rate and rhythm and no pedal edema. Intake Vital Signs07/26/18 Height 5 ft 4 in Intake Visit Reasons: f/up (CABG @ [place] Aug then CVC) Allergies No Known Allergies Allergy (Verified 07/26/18 10:57) Medications Aloe Vera Nector 07/14/18 [History Confirmed 07/26/18] Aspirin E.C. [Ecotrin] 162 mg PO DAILY@0800 07/14/18 [History Confirmed 07/26/18] Co Q10 1 cap PO DAILY 07/14/18 [History Confirmed 07/26/18] Ferrous Sulfate 2 tab PO DAILY 07/14/18 [History Confirmed 07/26/18] Fish Oil 4 cap PO BID 07/14/18 [History Confirmed 07/26/18] Nattovena 2 tab PO DAILY 07/14/18 [History Confirmed 07/26/18] Pantoprazole Sodium 40 mg PO BID #60 tablet. 07/15/18 [Rx Confirmed 07/26/18] cefdinir 300 mg capsule 300 mg PO Q12H 07/26/18 [History Confirmed 07/26/18] furosemide 20 mg tablet 20 mg PO DAILY #90 tab 07/26/18 [Rx Confirmed 07/26/18] metoprolol succinate ER 25 mg tablet,extended release 24 hr 25 mg PO DAILY #90 tab 07/26/18 [Rx Confirmed 07/26/18] [facility] Medical History Nonrheumatic mitral (valve) insufficiency (Chronic) Paroxysmal atrial fibrillation (Chronic) Hyperlipidemia (Chronic) Atherosclerotic heart disease [place] coronary artery w/angina pectoris (Chronic) Essential (primary) hypertension (Chronic) History of cataract (Chronic) Type 2 diabetes mellitus without complication (Chronic) Atrial septal defect (Resolved) History of DVT (deep vein thrombosis) (Resolved) History of diverticulitis (Resolved) History of ileus (Resolved) History of nephrolithiasis (Resolved) Paradoxical embolus (Resolved) CVA (cerebral vascular accident) (Resolved 2014) CAD (coronary artery disease) (Inactive) Surgical History History of atrial septal defect repair (Resolved 09/10/16) History of coronary artery stent placement (Resolved) H/O coronary artery bypass surgery (Resolved 09/10/16) History of hemorrhoidectomy (Resolved) History of tonsillectomy (Resolved) Family History Father , Age 76 CVA (cerebral vascular accident) Uncle , age 83 Myocardial infarction Social History Smoking Status: Former smoker quit date: 06/15/15 alcohol intake: never caffeine: Yes Type: coffee Number of servings: 2 ROS Const Const: Positive for fatigue; negative for weakness, difficulty sleeping, frequent falls, excessive sweating or headache(s) Eyes Eyes: Negative for loss of peripheral vision, transient loss of vision, blurry vision, tunnel vision or double vision ENT ENT: Negative for headache(s), dizziness, Nosebleed/epistaxis or balance problems Cardio Chest Pain: No Palpitations: No Edema: Bilateral Muscle aches with walking: None Resp Respiratory: Positive for crackles (Coarse crackles LLL); negative for SOB with activity, SOB at rest, SOB orthopnea\SOB lying down, paroxysmal nocturnal dyspnea or Cough Additional Details: Taking antibiotic for pneumonia GI GI: Negative nausea, heartburn, black,tarry stools or vomiting : Negative for hematuria Musc Musc: Negative for balance problems, muscle aches/ myalgia, muscle weakness or joint pain Skin Skin: Negative non-healing lesions, unusual bruising or rash Neuro Neuro: Negative for weakness, frequent falls, headache(s), blurry vision, double vision, dizziness, lightheadedness, orthostatic symptoms, near syncope, syncope or lack of coordination Phi Hematologic/Lymphatic: Negative for easy bruising or easy bleeding Endo Endo: Positive for fatigue; negative for excessive sweating or increased thirst/drinking Psych Psych: Negative for anxiety or depression Allergy Allergy/Immunology: Negative for hives, Negative for rash Cardiology Exam Const Appearance: cooperative, healthy appearing, well developed, well groomed and no acute distress Nutritional Appearance: well nourished and average body habitus Orientation: alert, awake and oriented x3 Head Head: normal to inspection, normocephalic and atraumatic Ears: hearing grossly normal bilaterally and external ears normal Nose: external nose normal, nasal mucous membranes and turbinates normal, nares normal, septum normal, no nasal discharge Face and Sinus: face symmetric Mouth: oral mucosae normal, tongue normal, oropharynx normal and moist mucous membranes Teeth and gingiva: dentition normal Throat: posterior oropharynx normal, tonsils normal and uvula midline Eyes General: appearance normal, both eyes and all related structures Eyelids: eyelids normal Conjunctivae: conjunctivae normal Pupils: PERRL, normal by confrontation and accommodation normal EOM: EOM intact bilaterally Neck Neck: normal visual inspection, trachea midline and no JVD JVD: +5 Carotids: normal carotid upstroke and bounding pulses Chest Chest inspection: normal inspection of the chest, symmetric chest movement and normal respiratory effort Auscultation: Bilateral: Rales GI GI: normal to inspection, soft, no hepatosplenomegaly and bowel sounds present Neuro General: alert, awake, oriented x3, no focal sensory deficit, gait normal and moves all extremities Skin Skin: no rashes or lesions noted Extremities Pulses: Normal: Right Femoral Pulse, Left Femoral Pulse, Right Dorsalis Pedis Pulse, Left Dorsalis Pedis Pulse, Right Posterior Tibial Pulse, Left Posterior Tibial Pulse, Right Radial Pulse, Left Radial Pulse Lower Extremity Edema: None: Bilateral Musculoskel Musculoskeletal: No joint tenderness Psych Psychological: normal affect Assessment AND Plan 1. H/O coronary artery bypass surgery Z95.1 CABG x 5-LOPEZ to LAD, reverse saphenous vein graft to the first diagonal, first obtuse marginal, reverse saphenous vein graft to the PDA, sequenced to the acute marginal. Plan He is status post coronary bypass surgery he appears to be doing fairly well with respect to the above. My recommendation would be for him to continue his current medical therapy I would like us to reinstitute the beta-danny as well as risk factor modification with the aspirin. His last stress test was reassuring. He does have mild fluid in his lungs and I will like him to be on Lasix 20 mg a day. 2. Essential (primary) hypertension I10 Plan He has a history of hypertension which is well controlled and we will continue to follow him with no changes. 3. Hyperlipidemia E78.5 Plan His most recent lipid profile demonstrated a total cholesterol 193, HDL of 43 and LDL of 128. No changes were made with respect to the above. 4. Paroxysmal atrial fibrillation I48.0 Plan He does have a history of paroxysmal atrial fibrillation but appears to be maintaining sinus rhythm at this particular time. He will continue with low- dose beta-danny. Thank you for allowing me to participate in the care of your patient. Please don't hesitate to call if any issues arise Plan Detail Other Medications New: Follow Up 4 4 Months (jhr) Coding Level of Care Code Off vis,est,level 5 Diagnoses H/O coronary artery bypass surgery Z95.1 Essential (primary) hypertension I10 Hyperlipidemia E78.5 Paroxysmal atrial fibrillation I48.0 Coding Level of Care Code Off vis,est,level 5 Diagnoses H/O coronary artery bypass surgery Z95.1 Essential (primary) hypertension I10 Hyperlipidemia E78.5 Paroxysmal atrial fibrillation I48.0 07/26/18 1221 <Electronically signed by Nirav Peña MD> Date Nirav Peña MD Cosigner Signature: Date (if applicable) CC: Halima Villalpando MD CHEST 2 VIEWS Observed: 07/21/2018 Status: F Source: [facility] 12:19 PM [facility] REPOSITORY [place] [address] Patient: JUWAN ROBLES Phone#: : 1945 Age: 73 Gender: M Pt. Type: In Account: [id number] Location: [facility] Ordering: FRANCISCO MELGAR Exam Date: 07/21/2018/12:02 Family Phys: HALIMA VILLALPANDO Charge Code: 505610 Physician: Archuleta Order #: [id number] DLP Dose#: PROCEDURE: X-RAY CHEST 2 VIEWS COMPARISON: [facility], XR, CHEST 2 VIEWS, 04/21/2018, 14:54. [facility], XR, CHEST 1 VIEW, 07/19/2018, 12:16. INDICATIONS: Cough FINDINGS: LUNGS: Bilateral lung base patchy ill-defined densities. The right lung base worsened compared to prior. VASCULATURE: Normal. Unremarkable pulmonary vasculature. CARDIAC: Mild cardiomegaly. MEDIASTINUM: Aortic arch calcifications. PLEURA: Blunting of the bilateral costophrenic angles. BONES: Degenerative changes of the spine. There appears to have been remote distal right clavicular partial resection. OTHER: Median sternotomy wires are present. CONCLUSION: 1. Bilateral lung base infiltrates. Right mildly worsened compared to prior. Dictated by: Sully Hugo MD on 07/21/2018 at 12:27 Approved by: Sully Hugo MD on 07/21/2018 at 12:27 CBC Collected: 07/21/2018 Status: F Source: [facility] 5:24 AM [facility] REPOSITORY TYPE CODE TESTS RESULT OUT OF RANGE REFERENCE UNITS LAB CBC(LOINC) CBC Result Comment: CBC-COMPLETE BLOOD COUNT LAB WBC(LOINC) 4.5 - 10.8 x 10EE3/UL WBC 9.5 LAB RBC(LOINC) 4.50 - x 10EE6/UL 6.00 RBC Low 3.85 LAB HEMOGLOBIN(LOINC) 13.0 - g/dl 17.5 Low HEMOGLOBIN 11.9 LAB HEMATOCRIT(LOINC) 40.0 - % 52.0 Low HEMATOCRIT 35.9 LAB MCV(LOINC) 81 - 98 fl MCV 93 LAB MCH(LOINC) 27 - 33 pg MCH 31 LAB MCHC(LOINC) 32 - 36 X10 3 MCHC 33 LAB RDW/CV(LOINC) 12.0 - % 15.6 RDW/CV 13.7 LAB PLATELET(LOINC) 150 - 450 x10EE3/UL PLATELET 263 LAB MPV(LOINC) 6.4 - 10.5 fl MPV 8.2 Result Comment: AUTOMATED DIFFERENTIAL LAB NEUT %(LOINC) 46.0 - 76.0 % NEUT % 72.0 LAB LYMPH %(LOINC) 20.0 - 45.0 % Low LYMPH % 14.3 LAB MONOS %(LOINC) 0.0 - 10.0 % MONOS % High 11.0 LAB EO %(LOINC) 0.0 - 7.0 % EO % 2.0 LAB BASO %(LOINC) 0.0 - 2.0 % BASO % 0.7 LAB Lymph #(LOINC) 0.80 - 2.80 x10EE3/U L Lymph # 1.40 LAB Neut #(LOINC) 1.50 - 7.10 x10EE3/U L Neut # 6.90 LAB [place] #(LOINC) 0.20 - 1.00 x10EE3/U L [place] # 1.00 LAB EO #(LOINC) 0.00 - 0.50 x10EE3/U L EO # 0.20 LAB Baso #(LOINC) 0.00 - 0.10 x10EE3/U L Baso # 0.10 LAB MANUAL DIFF(LOINC) MANUAL DIFF N/A LAB MORPHOLOGY(LOINC ) MORPHOLOGY N/A Result Comment: {CD] Performed By: #### [id number] #### [facility],[address] [place], [place] [id number] BMP WITH EGFR Collected: 07/21/2018 Status: F Source: [facility] 5:24 AM [facility] REPOSITORY TYPE CODE TESTS RESULT OUT OF RANGE REFERENCE UNITS LAB BMP with eGFR(LOINC) BMP with eGFR Result Comment: BASIC METABOLIC PANEL LAB SODIUM(LOINC) 136 - 145 mmol/l SODIUM 141 LAB POTASSIUM(LOINC) 3.5 - 5.1 mmol/L POTASSIUM 3.6 LAB CHLORIDE(LOINC) 98 - 107 mmol/L CHLORIDE 106 LAB CO2(LOINC) 21.0 - mmol/L 31.0 CO2 26.4 LAB GLUCOSE(LOINC) 74 - 106 mg/dl GLUCOSE 104 LAB BUN(LOINC) 6 - 20 mg/dl BUN 19 LAB CREATININE(LOINC) 0.7 - 1.3 mg/dl CREATININE 0.9 LAB CALCIUM(LOINC) 8.6 - mg/dl 10.2 CALCIUM 8.7 LAB ANION GAP(LOINC) 10 - 20 mmol/L ANION GAP 12 LAB AGE(LOINC) years AGE 73 LAB eGFR(LOINC) 60 - 999 ML/MINUTE eGFR >60 LAB eGFR(AA)(LOINC) 60 - 999 ML/MINUTE eGFR(AA) >60 Result Comment: ACCORDING TO THE NATIONAL KIDNEY DISEASE EDUCATION PROGRAM(NKDE), A NORMAL eGFR IS A VALUE GREATER THAN OR EQUAL TO 60 ML/MIN/1.73 SQ METERS. CHRONIC KIDNEY DISEASE: <60mL/MIN/1.73 SQ METERS KIDNEY FAILURE: <15mL/MIN/1.73 SQ METERS THIS TEST SHOULD ONLY BE USED FOR PATIENTS 18 YEARS OF AGE AND OLDER. Performed By: #### [id number] #### [facility],[address] [place], [place] [id number] 12 LEAD ELECTROCARDIOGRAM Observed: 07/20/2018 Status: F Source: [facility] 2:19 PM [facility] REPOSITORY [facility] Cardiovascular Services [address] [place] [id number] 12 Lead EKG 07/15/18 0549 MR#: [id number] Acct: [id number] Name: JUWAN ROBLES Shirin Rep #: [id number] : 1945 73 From: Juwan Wilkes MD Attending Dr: Isabel Villeda MD Status: DIS CODY Ordering Dr: Josh Donohue DO Date: 07/15/18 Location: U Sex: M C Admitted: 07/14/18 Test Reason : AM EKG Blood Pressure : / mmHG Vent. Rate : 086 BPM Atrial Rate : 086 BPM P-R Int : 176 ms QRS Dur : 100 ms QT Int : 342 ms P-R-T Axes : 042 -02 090 degrees QTc Int : 409 ms Normal sinus rhythm Possible Left atrial enlargement Nonspecific T wave abnormality Abnormal ECG Confirmed by JUWAN WILKES MD ([id number]), industrial editor TRINA ROBLES ([id number]) on 07/20/2018 2:19:02 PM Referred By: DR DONOHUE Confirmed By:JUWAN WILKES MD 07/20/18 141 Date Juwan Wilkes MD CC: Isabel Villeda MD; Josh Donohue DO; Halima Villalpando MD Signed 12 LEAD ELECTROCARDIOGRAM Observed: 07/20/2018 Status: F Source: [facility] 2:19 PM [facility] REPOSITORY [facility] Cardiovascular Services [address] [place] [id number] 12 Lead EKG 07/14/181950 MR#: [id number] Acct: [id number] Name: JUWAN ROBLES Rep #: [id number] : 1945 73 From: Juwan Wilkes MD Attending Dr: Isabel Villeda MD Status: DIS CODY Ordering Dr: Alejandro Hanna DO Date: 07/14/18 Location: U Sex: M C Admitted: 07/14/18 Test Reason : CP ADMIT Blood Pressure : / mmHG Vent. Rate : 097 BPM Atrial Rate : 097 BPM P-R Int : 174 ms QRS Dur : 102 ms QT Int : 342 ms P-R-T Axes : 052 018 083 degrees QTc Int : 434 ms Normal sinus rhythm Possible Left atrial enlargement Nonspecific T wave abnormality Abnormal ECG Confirmed by JUWAN WILKES MD ([id number]), industrial editor TRINA ROBLES ([id number]) on 07/20/2018 2:19:39 PM Referred By: DR DONOHUE Confirmed By:JUWAN WILKES MD 07/20/18 1419 Date Juwan Wilkes MD CC: Isabel Villeda MD; Alejandro Hanna DO; Halima Villalpando MD Signed CBC Collected: 07/20/2018 Status: F Source: [facility] 5:40 [facility] REPOSITORY TYPE CODE TESTS RESULT OUT OF RANGE REFERENCE UNITS LAB CBC(LOINC) CBC Result Comment: CBC-COMPLETE BLOOD COUNT LAB WBC(LOINC) 4.5 - 10.8 x 10EE3/UL WBC High 11.7 LAB RBC(LOINC) 4.50 - x 10EE6/UL 6.00 RBC Low 3.85 LAB HEMOGLOBIN(LOINC 13.0 - g/dl ) 17.5 Low HEMOGLOBIN 12.1 LAB HEMATOCRIT(LOINC 40.0 - % ) 52.0 Low HEMATOCRIT 35.9 LAB MCV(LOINC) 81 - 98 fl MCV 93 LAB MCH(LOINC) 27 - 33 pg MCH 31 LAB MCHC(LOINC) 32 - 36 X10 3 MCHC 34 LAB RDW/CV(LOINC) 12.0 - % 15.6 RDW/CV 13.4 LAB PLATELET(LOINC) 150 - 450 x10EE3/UL PLATELET 234 LAB MPV(LOINC) 6.4 - 10.5 fl MPV 8.0 Result Comment: AUTOMATED DIFFERENTIAL LAB NEUT %(LOINC) 46.0 - 76.0 % NEUT % High 78.9 LAB LYMPH %(LOINC) 20.0 - 45.0 % Low LYMPH % 10.4 LAB MONOS %(LOINC) 0.0 - 10.0 % MONOS % 9.2 LAB EO %(LOINC) 0.0 - 7.0 % EO % 0.9 LAB BASO %(LOINC) 0.0 - 2.0 % BASO % 0.6 LAB Lymph #(LOINC) 0.80 - 2.80 x10EE3/U L Lymph # 1.20 LAB Neut #(LOINC) 1.50 - 7.10 x10EE3/U L Neut # High 9.20 LAB [place] #(LOINC) 0.20 - 1.00 x10EE3/U L [place] # High 1.10 LAB EO #(LOINC) 0.00 - 0.50 x10EE3/U L EO # 0.10 LAB Baso #(LOINC) 0.00 - 0.10 x10EE3/U L Baso # 0.10 LAB MANUAL DIFF(LOINC) MANUAL DIFF N/A LAB MORPHOLOGY(LOINC ) MORPHOLOGY N/A Result Comment: {CD] Performed By: #### [id number] #### [facility],[address] [place] [id number] BMP WITH EGFR Collected: 07/20/2018 Status: F Source: [facility] 5:40 AM [facility] REPOSITORY TYPE CODE TESTS RESULT OUT OF RANGE REFERENCE UNITS LAB BMP with eGFR(LOINC) BMP with eGFR Result Comment: BASIC METABOLIC PANEL LAB SODIUM(LOINC) 136 - 145 mmol/l SODIUM 138 LAB POTASSIUM(LOINC) 3.5 - 5.1 mmol/L POTASSIUM 3.7 LAB CHLORIDE(LOINC) 98 - 107 mmol/L CHLORIDE 105 LAB CO2(LOINC) 21.0 - mmol/L 31.0 CO2 21.5 LAB GLUCOSE(LOINC) 74 - 106 mg/dl GLUCOSE 106 LAB BUN(LOINC) 6 - 20 mg/dl BUN 20 LAB CREATININE(LOINC) 0.7 - 1.3 mg/dl CREATININE 0.9 LAB CALCIUM(LOINC) 8.6 - mg/dl 10.2 CALCIUM 8.7 LAB ANION GAP(LOINC) 10 - 20 mmol/L ANION GAP 15 LAB AGE(LOINC) years AGE 73 LAB eGFR(LOINC) 60 - 999 ML/MINUTE eGFR >60 LAB eGFR(AA)(LOINC) 60 - 999 ML/MINUTE eGFR(AA) >60 Result Comment: ACCORDING TO THE NATIONAL KIDNEY DISEASE EDUCATION PROGRAM(NKDE), A NORMAL eGFR IS A VALUE GREATER THAN OR EQUAL TO 60 ML/MIN/1.73 SQ METERS. CHRONIC KIDNEY DISEASE: <60mL/MIN/1.73 SQ METERS KIDNEY FAILURE: <15mL/MIN/1.73 SQ METERS THIS TEST SHOULD ONLY BE USED FOR PATIENTS 18 YEARS OF AGE AND OLDER. Performed By: #### [id number] #### [facility],[address] [place], [place] [id number] TROPONIN Collected: 07/20/2018 Status: F Source: [facility] 12:45 AM [facility] REPOSITORY TYPE CODE TESTS RESULT OUT OF REFERENCE UNITS RANGE LAB TROPONIN 0.00 - 0.05 ng/ml I(LOINC) TROPONIN I 0.01 Result Comment: Elevated troponin (above the 99th percentile) usually indicates myocardial ischemia. Results must be interpreted within the clinical setting. 1.Non-ischemic pathology can also cause elevated troponin levels (e.g., acute pulmonary embolism, myocarditis, pericarditis, heart failure, intracranial injury, rhabdomyolisis, sepsis, shock and renal insufficiency). 2.Approximately 1% of healthy adults have elevated troponin levels. 3.Analytical false positive results rarely occur(due to multiple interferences such as heterophile antibodies). Performed By: #### [id number] #### [place] [id number] URINALYSIS Collected: 07/19/2018 Status: F Source: [facility] R[facility] 10:30 PM [facility] REPOSITORY TYPE CODE TESTS RESULT OUT OF REFERENCE UNITS RANGE LAB URINALYSIS (LOINC) URINALYSIS Result Comment: URINALYSIS LAB Specimen Type(LOINC) Specimen Type Clean catch LAB Color(LOINC) NORMAL: YELLOW Color cristina LAB Clarity(LOINC) NORMAL: CLEAR Clarity clear LAB ph(LOINC) NORMAL: 5.0-8.0 ph 5 LAB Protein(LOINC) NORMAL: NEGATIVE Protein Abnormal 30 LAB Glucose(LOINC) NORMAL: NORMAL Glucose NORM LAB Ketone(LOINC) NORMAL: NEGATIVE Ketone Abnormal 50 LAB Bilirubin(LOINC) NORMAL: NEGATIVE Bilirubin NEG LAB Blood(LOINC) NORMAL: NEGATIVE Blood Abnormal 50 LAB Urobilinog(LOINC) NORMAL: NORMAL Urobilinog NORM LAB Sp [place](LOINC) NORMAL: 1.010-1.030 Sp [place] 1.020 LAB Nitrite(LOINC) NORMAL: NEGATIVE Nitrite NEG LAB Leukocytes(LOINC) NORMAL: NEGATIVE Leukocytes NEG LAB Microscopic(LOINC ) Microscopic SEE BELOW Result Comment: MICROSCOPIC LAB Wbc(LOINC) 0-5/hpf Wbc NONE LAB Rbc(LOINC) 0-3/hpf Rbc 10-15 LAB Casts(LOINC) Casts NONE LAB Crystals(LOINC) Crystals NONE LAB Amorphous(LOINC) Amorphous TRACE LAB Bacteria(LOINC) Bacteria 2+ LAB Epi Cells([facility]) Epi Cells NONE LAB Mucous(INC) Mucous TRACE LAB Yeast([facility]) Yeast NONE Performed By: #### [id number] #### [facility],[address] [place] [id number] Observed: 07/19/2018 Status: F Source: [facility] RAYMOND CULTURE URINE 10:30 PM [facility] REPOSITORY CULTURE URINE _URINE CULTURE_ M I C R O B I O L O G Y R E P O R T FINAL Antimicrobial Susceptibility and Organism Identification Report Specimen Number : [id number] Requested : 07/19/18 Specimen Source : CLEAN CATCH URINE Collected : 07/19/18 22:30 Guo of Isolation : Med/Surg Received : 07/19/18 22:30 Requesting Physician : ROYCE Patient/Specimen Tests and Comments Specimen Comments FINAL REPORT: NO GROWTH AT 18 - 24 HOURS NO GROWTH AT 48 HOURS Tech : Source : CLEAN CATCH URINE ID # : [id number] FINAL Report Date : / / : Collected : 07/19/18 22:30 07/22/18.JLN. 07/21/18.JLN. 07/22/18.JLN.COMPLETE Performed By: #### [id number] #### [place] [address] TROPONIN Collected: 07/19/2018 Status: F Source: [facility] 6:20 PM [facility] REPOSITORY TYPE CODE TESTS RESULT OUT OF REFERENCE UNITS RANGE LAB TROPONIN 0.00 - 0.05 ng/ml I(LOINC) TROPONIN I 0.02 Result Comment: Elevated troponin (above the 99th percentile) usually indicates myocardial ischemia. Results must be interpreted within the clinical setting. 1.Non-ischemic pathology can also cause elevated troponin levels (e.g., acute pulmonary embolism, myocarditis, pericarditis, heart failure, intracranial injury, rhabdomyolisis, sepsis, shock and renal insufficiency). 2.Approximately 1% of healthy adults have elevated troponin levels. 3.Analytical false positive results rarely occur(due to multiple interferences such as heterophile antibodies). Performed By: #### [id number] #### [place] [id number] TROPONIN Collected: 07/19/2018 Status: F Source: [facility] 3:25 PM [facility] REPOSITORY TYPE CODE TESTS RESULT OUT OF REFERENCE UNITS RANGE LAB TROPONIN 0.00 - 0.05 ng/ml I(LOINC) TROPONIN I 0.03 Result Comment: Elevated troponin (above the 99th percentile) usually indicates myocardial ischemia. Results must be interpreted within the clinical setting. 1.Non-ischemic pathology can also cause elevated troponin levels (e.g., acute pulmonary embolism, myocarditis, pericarditis, heart failure, intracranial injury, rhabdomyolisis, sepsis, shock and renal insufficiency). 2.Approximately 1% of healthy adults have elevated troponin levels. 3.Analytical false positive results rarely occur(due to multiple interferences such as heterophile antibodies). Performed By: #### [id number] #### [facility],[address] [place] [id number] DISCHARGE SUMMARY Observed: 07/19/2018 Status: F Source: [facility] 2:48 PM [facility] DISCHARGE SUMMARY NAME ACCOUNT SEX AGE ADMIT DISCHARGE PT MED. RECORD# NUMBER DATE DATE TYPE JUWAN ROBLES [id number] M 73 07/19/18 07/22/18 1 [id number] ROOM: [facility] DATE OF : 1945 DICTATING PHYSICIAN: Francisco Melgar FINAL DIAGNOSES: 1. Community acquired bilateral pneumonia. 2. Severe sepsis secondary to the above. 3. Hypoxic respiratory failure secondary to severe sepsis. 4. Coronary artery disease . 5. Ischemia. HOSPITAL COURSE: Mr. Robles is a very pleasant man who comes in with shortness of breath and was found to have a bilateral community acquired pneumonia and sepsis. He was placed on IV antibiotics here in the hospital. His functional status improved significantly and actually improved a bit quicker than expected. We were able to wean him off the oxygen by July 22, 2018. He was tolerating antibiotics and returned to his baseline level of function. Due to these findings, we felt as though he was stable for discharge home to continue antibiotics at that time. DISPOSITION: He is discharged home in stable condition. DISCHARGE INSTRUCTIONS/PLAN: He is to follow up with primary care physician in 3-5 days. We recommend a chest x-ray in 4 weeks to ensure resolution. Dictated By: Francisco Melgar MD 07/22/18 11:21 JOB #: [id number] Transcribed By: darrel 07/22/18 21:10 Electronically signed by: ZELALEM Melgar M.D. 07/26/18 08:41 Page 1 of 1 ROBLES JUWAN Carpio [place] Discharge Summary HISTORY AND PHYSICAL Observed: 07/19/2018 Status: F Source: [facility] 2:48 PM [facility] HISTORY & PHYSICAL NAME ACCOUNT SEX AGE ADMIT DISCHARGE PT MED. RECORD# NUMBER DATE DATE TYPE JUWAN ROBLES [id number] M 73 07/19/18 1 [place] [address] ROOM: 304 DATE OF : [birth year] DICTATING PHYSICIAN: Francisco Melgar CHIEF COMPLAINT: Shortness of breath. HISTORY OF PRESENT ILLNESS: Mr. Robles is a very pleasant man who comes in with shortness of breath, cough, and not feeling well over the past several days. He had been having low-grade fevers at home and went to the [place] ER, at which point, they felt that he had gastroesophageal reflux disease. He followed up with his primary care physician as instructed and saw Dr. Villalpando and he was a bit hypoxic in the office at that time. Given that, he was sent to the ER here. He was diagnosed with pneumonia and admitted to the hospital overnight. He states that he is still having significant cough. He feels quite weak. He is having no chest pain or palpitations. He does have some sputum production, which has increased from yesterday to today. He states that he did not get much rest last night at all. PAST MEDICAL HISTORY: (1) History of CVA. (2) Status post cardiac bypass grafting with coronary artery disease. (3) Gastroesophageal reflux disease. (4) Previously on Warfarin for anticoagulation; however, is not on that at this time. MEDICATIONS: Current medication list reviewed. Please refer to EHR for complete reconciliation. ALLERGIES: No known drug allergies. FAMILY HISTORY: Reviewed. No conditions to the patient's acute presentation. SOCIAL HISTORY: He presents with his . He ambulates without assisted device. REVIEW OF SYSTEMS: Twelve systems reviewed and all pertinent positives and negatives noted in the history of present illness. PHYSICAL EXAMINATION GENERAL APPEARANCE: The patient is lying in the hospital bed, coughing throughout the examination and appears somewhat short of breath. VITAL SIGNS: Reviewed. He is a bit hypoxic still. HEENT: Normocephalic and atraumatic. Extraocular movements intact. Page 1 of 3 JUWAN ROBLES History & Physical NECK: Neck is supple. No elevated jugular venous pulse pulsation. LUNGS: Diminished, coarse, particularly on the right side. HEART: S1, S2 normal. No extra audible heart tones appreciated. ABDOMEN: Soft, nondistended, and nontender. EXTREMITIES: No edema, palpable peripheral pulses. NEUROLOGIC: Grossly intact. No focal deficits. DIAGNOSTIC DATA: Laboratory data reviewed. The patient does have a leukocytosis of 12,000 with 83% neutrophils. D-dimer is somewhat elevated as well. IMPRESSION: 1. Community acquired pneumonia. 2. Severe sepsis secondary to the above. 3. Acute hypoxic respiratory failure secondary to severe sepsis. 4. Severe sepsis based on the criteria of tachycardic with a presenting pulse of 120 in conjunction with his leukocytosis and hypoxia. 5. Coronary artery disease. PLAN: 1. Plan at this point is the patient is admitted. He is on dual-antibiotic therapy. We will discontinue his IV fluids. We will give one dose of Lasix as he does appear a bit hypervolemic. 2. Discussed with Respiratory Therapy. We will continue pulmonary toileting aggressively with Acapella and incentive spirometer. 3. We will try acetylcysteine treatments, as well as his scheduled aerosols here today. 4. Temazepam for sleep tonight. 5. Discussed with family at bedside. Dictated By: Francisco Melgar MD 07/20/18 12:14 JOB #: [id number] Transcribed By: am 07/20/18 12:56 Electronically signed by: ZELALEM Melgar M.D. 07/26/18 08:41 Page 2 of 3 JUWAN ROBLES History & Physical Update to H&P: [ ] No changes: I have examined the patient and reviewed the H&P and there are no changes. [ ] As previously dictated with the following changes: PHYSICIAN SIGNATURE: TIME: DATE: Page 3 of 3 JUWAN ROBLES History & Physical PROGRESS NOTES Observed: 07/19/2018 Status: F Source: [facility] M[facility] 2:48 PM [facility] PROGRESS NOTE NAME ACCOUNT SEX AGE ADMIT DISCHARGE PT MED. RECORD# NUMBER DATE DATE TYPE JUWAN ROBLES [id number] M 73 07/19/18 1 [id number] ROOM: [facility] DATE OF : 1945 DICTATING PHYSICIAN: Francisco Melgar DATE OF SERVICE: July 21, 2018 CHIEF COMPLAINT: Shortness of breath. SUBJECTIVE: Mr. Robles is a very pleasant man who comes in with shortness of breath and was diagnosed with sepsis and community-acquired pneumonia. He states that he is feeling somewhat better here today. He is coughing less and feels as though he is a bit stronger. He was able to ambulate to the restroom this morning and clean up. He did sleep very well last night as well, which is a change. No chest pain or palpitations. He does have a bit of an earache here this morning. OBJECTIVE: Vital signs reviewed. The patient remains on 3 liters per nasal cannula, but he is 97% here this morning. General: The patient is sitting in the hospital chair comfortably and responding to questions appropriately. He does still have some mild cough present during examination. Cardiovascular: S1, S2 normal. No extra audible heart tones appreciated. Respiratory is a bit diminished and a bit coarse but better air exchange than yesterday. Abdomen is soft, nondistended and nontender. Extremities with no edema. Palpable peripheral pulses. Neurologic is grossly intact. No focal deficits. DIAGNOSTIC DATA: Laboratory data is reviewed. The patient's white count has improved to normal here today. Electrolytes are unremarkable. ASSESSMENT: 1. Community-acquired pneumonia. 2. Severe sepsis secondary to the above. 3. Acute hypoxic respiratory failure secondary to severe sepsis. 4. Coronary artery disease. 5. Asthenia, improving. PLAN: At this point, the patient is doing quite well. We will continue dual antibiotic therapy. Wean oxygen as able. We will check a two-view x- ray, as he only had a portable on admission. Continue pulmonary toileting aggressively with Acapella incentive spirometer. Continue temazepam for sleep. Cortisporin drops for earache. Page 1 of 2 JUWAN ROBLES Progress Note Discussed with at bedside. Dictated By: Francisco Melgar MD 07/21/18 11:43 JOB #: [id number] Transcribed By: eder 07/21/18 12:26 Electronically signed by: ZELALEM Melgar M.D. 07/26/18 08:41 Page 2 of 2 JUWAN ROBLES Progress Note Observed: 07/19/2018 Status: F Source: [facility] INFLUENZA VIRUS RAPID 2:35 PM [facility] A/B REPOSITORY INFLUENZA A NEGATIVE INFLUENZA B NEGATIVE INTERNAL NEG QC PASS INTERNAL POS QC PASS EXTERNAL QC DONE? YES A NEGATIVE TEST RESULT DOES NOT EXCLUDE INFECTION WITH INFLUENZA A OR B. THEREFORE, THE RESULTS OBTAINED FROM THIS FLU TEST SHOULD BE USED IN CONJUCTION WITH CLINICAL FINDINGS TO MAKE AN ACCURATE DIAGNOSIS. A POSITIVE RESULT DOES NOT RULE OUT CO-INFECTIONS WITH OTHER PATHOGENS OR IDENTIFY ANY SPECIFIC INFLUENZA A VIRUS SUBTYPE.CO-INFECTION WITH INFLUENZA A AND B IS RARE. IT IS RECOMMENDED THAT DUAL POSITIVE RESULTS BE CONFIRMED BY VIRAL CULTURE OR AN FDA-CLEARED INFLUENZA A AND B MOLECULAR ASSAY. INDIVIDUALS WHO HAVE RECEIVED NASALLY ADMINISTERED INFLUENZA A VACCINE MAY TEST POSITIVE IN COMMERCIALLY AVAILABLE INFLUENZA RAPID DIAGNOSTIC TESTS FOR UP TO THREE DAYS. Performed By: #### [id number] #### [facility],[address] [place] [address] ARTERIAL BLOOD GAS Collected: 07/19/2018 Status: F Source[facility] 1:17 PM [facility] REPOSITORY TYPE CODE TESTS RESULT OUT OF REFERENCE UNITS RANGE LAB ARTERIAL BLOOD GAS ANALYSIS(LOINC ) ARTERIAL BLOOD GAS ANALYSIS Result Comment: ARTERIAL BLOOD GAS LAB pH(LOINC) 7.35 - 7.45 7.43 pH LAB PCO2(LOINC) 35 - 45 mm Hg 35 PCO2 LAB PO2(LOINC) 80 - 105 mm Hg Low 70 PO2 LAB HCO3(LOINC) 22 - 26 mmol/L 23 HCO3 LAB BE(LOINC) -2 - 3 -1 BE LAB SaO2(LOINC) 95 - 98 95 SaO2 Result Comment: TIME RESULT CALLED _1315 07/19/18.1317.CEH. { FIO2/LPM 5L LAB MODALITY(LOINC) MODALITY NC LAB SPO2(LOINC) SPO2 88 LAB TOTAL RR(LOINC) TOTAL RR 18 LAB PULSE(LOINC) PULSE 110 LAB SAMPLE SITE([facility]) SAMPLE SITE RR LAB VENT([facility]) VENT N/A LAB ALLENS TEST([facility]) ALLENS TEST + Result Comment: { TIME CALLED 1315 Performed By: #### [id number] #### [facility],[address] [place] [address] CT BRAIN W/O CONTRAST Observed: 07/19/2018 Status: F Source: [facility] 12:54 PM [place] [address] Patient: JUWAN ROBLES Phone#: : 1945 Age: 73 Gender: M Pt. Type: ER Account: [id number] Location: [facility] Ordering: DR. TARIQ CRANE Exam Date: 07/19/2018/12:45 Family Phys: HALIMA VILLALPANDO Charge Code: [id number] Physician: Archuleta Order #: [id number] DLP Dose#: PROCEDURE: CT BRAIN WITHOUT CONTRAST COMPARISON: [facility], CT, BRAIN W/O CON, 09/05/2016, 15:33. INDICATIONS: Headache TECHNIQUE: CT images were obtained without contrast material. All CT scans at this facility use dose modulation, iterative reconstruction, and/or weight based dosing when appropriate to reduce radiation dose to as low as reasonably achievable. IV CONTRAST: No IV contrast used,0ml TOTAL DOSE: 52.3 CTDIvol(mGy) FINDINGS: CEREBRUM: Age-appropriate atrophy is present, without visible acute hemorrhage or lesion. There has been no change since previousexam. CEREBELLUM: No edema, hemorrhage, mass, acute infarction, or inappropriate atrophy. BRAINSTEM: No edema, hemorrhage, mass, acute infarction, or inappropriate atrophy. CSF SPACES: Ventricles, cisterns, and sulci are appropriate for age. No hydrocephalus, subarachnoid hemorrhage, or mass. SKULL: No mass or other significant visible lesion. SINUSES: There is near-complete opacification of the right ethmoid sinuses. Mucosal thickening is present in the left ethmoid sinuses. Small amount of fluid is present in the base of the maxillary sinuses sphenoid sinuses. Mucosal thickening is present in the right maxillary sinus. These findings are new since previous exam. There is a small amount of fluid in the right mastoid air cells. ORBITS: Limited views are unremarkable. OTHER: Negative. CONCLUSION: Continued Report - Page 2 of 2 Patient: JUWAN ROBLES Phone#: : 1945 Age: 73 Gender: M Pt. Type: ER Account: [id number] Location: 052 Ordering: DR. TARIQ CRANE Exam Date: 07/19/2018/12:45 Family Phys: HALIMA VILLALPANDO Charge Code: [id number] Physician: Archuleta Order #: [id number] DLP Dose#: 1. Paranasal sinusitis new since prior exam. 2. There is no evidence of acute intracranial abnormality. Dictated by: Nancy Souza MD on 07/19/2018 at 12:59 Approved by: Nancy Souza MD on 07/19/2018 at 12:59 CHEST 1 VIEW Observed: 07/19/2018 Status: F Source: [facility] 12:48 PM [place] [address] Patient: JUWAN ROBLES Phone#: : 1945 Age: 73 Gender: M Pt. Type: ER Account: [id number] Location: 052 Ordering: DR. TARIQ CRANE Exam Date: 07/19/2018/12:16 Family Phys: HALIMA VILLALPANDO Charge Code: [id number] Physician: Archuleta Order #: [id number] DLP Dose#: PROCEDURE: X-RAY CHEST 1 VIEW COMPARISON: [facility], XR, CHEST 2 VIEWS, 04/21/2018, 14:54. INDICATIONS: Cough FINDINGS: LUNGS: Chronic interstitial changes are present. There is mild patchy density in the right lung base suspicious for early infiltrate. VASCULATURE: Normal. Unremarkable pulmonary vasculature. CARDIAC: Mild stable cardiomegaly. MEDIASTINUM: Aorta is ectatic. PLEURA: Normal. No effusion or pleural thickening. BONES: Normal. No fracture or visible bony lesion. OTHER: Sternotomy sutures are present. CONCLUSION: 1. Mild patchy increased density in the right lung base suspicious for early infiltrate. Dictated by: Nancy Souza MD on 07/19/2018 at 13:01 Approved by: Nancy Souza MD on 07/19/2018 at 13:01 CBC Collected: 07/19/2018 Status: F Source: [facility] 12:32 PM [facility] REPOSITORY TYPE CODE TESTS RESULT OUT OF RANGE REFERENCE UNITS LAB CBC(LOINC) CBC Result Comment: CBC-COMPLETE BLOOD COUNT LAB WBC(LOINC) 4.5 - 10.8 x 10EE3/UL WBC High 12.0 LAB RBC(LOINC) 4.50 - x 10EE6/UL 6.00 RBC Low 4.39 LAB HEMOGLOBIN(LOINC 13.0 - g/dl ) 17.5 HEMOGLOBIN 13.6 LAB HEMATOCRIT(LOINC 40.0 - % ) 52.0 HEMATOCRIT 40.9 LAB MCV(LOINC) 81 - 98 fl MCV 93 LAB MCH(LOINC) 27 - 33 pg MCH 31 LAB MCHC(LOINC) 32 - 36 X10 3 MCHC 33 LAB RDW/CV(LOINC) 12.0 - % 15.6 RDW/CV 13.6 LAB PLATELET(LOINC) 150 - 450 x10EE3/UL PLATELET 242 LAB MPV(LOINC) 6.4 - 10.5 fl MPV 8.1 Result Comment: AUTOMATED DIFFERENTIAL LAB NEUT %(LOINC) 46.0 - 76.0 % NEUT % High 82.6 LAB LYMPH %(LOINC) 20.0 - 45.0 % Low LYMPH % 6.7 LAB MONOS %(LOINC) 0.0 - 10.0 % MONOS % High 10.2 LAB EO %(LOINC) 0.0 - 7.0 % EO % 0.1 LAB BASO %(LOINC) 0.0 - 2.0 % BASO % 0.4 LAB Lymph #(LOINC) 0.80 - 2.80 x10EE3/U L Lymph # 0.80 LAB Neut #(LOINC) 1.50 - 7.10 x10EE3/U L Neut # High 9.90 LAB [place] #(LOINC) 0.20 - 1.00 x10EE3/U L [place] # High 1.20 LAB EO #(LOINC) 0.00 - 0.50 x10EE3/U L EO # 0.00 LAB Baso #(LOINC) 0.00 - 0.10 x10EE3/U L Baso # 0.00 LAB MANUAL DIFF(LOINC) MANUAL DIFF N/A LAB MORPHOLOGY(LOINC ) MORPHOLOGY N/A Result Comment: {CD] Performed By: #### [id number] #### [place] [address] D-DIMER, QUANTITATIVE Collected: 07/19/2018 Status: F Source: [facility] 12:[address] [place] [address] REPOSITORY TYPE CODE TESTS RESULT OUT OF REFERENCE UNITS RANGE LAB D-DIMER, QUANTITATI VE(LOINC) D-DIMER, QUANTITATIVE Result Comment: QUANT D-DIMER LAB D-DIMER 0 - 230 ng/ml QUANT(LOINC) High D-DIMER QUANT 317 Performed By: #### [id number] #### [place] [id number] LACTATE Collected: 07/19/2018 Status: F Source: [facility] 12:[address] [place] [address] REPOSITORY TYPE CODE TESTS RESULT OUT OF REFERENCE UNITS RANGE LAB LACTATE(OPHELIA 4.5 - 18.0 mg/dL NC) LACTATE 13.4 Performed By: #### [id number] #### [place] [address] TROPONIN Collected: 07/19/2018 Status: F Source: [facility] 12:[address] [place] [address] REPOSITORY TYPE CODE TESTS RESULT OUT OF REFERENCE UNITS RANGE LAB TROPONIN 0.00 - 0.05 ng/ml I(LOINC) TROPONIN I 0.01 Result Comment: Elevated troponin (above the 99th percentile) usually indicates myocardial ischemia. Results must be interpreted within the clinical setting. 1.Non-ischemic pathology can also cause elevated troponin levels (e.g., acute pulmonary embolism, myocarditis, pericarditis, heart failure, intracranial injury, rhabdomyolisis, sepsis, shock and renal insufficiency). 2.Approximately 1% of healthy adults have elevated troponin levels. 3.Analytical false positive results rarely occur(due to multiple interferences such as heterophile antibodies). Performed By: #### [id number] #### [facility],[address] [place] [address] CMP WITH EGFR Collected: 07/19/2018 Status: F Source: [facility] 12:32 PM [facility] REPOSITORY TYPE CODE TESTS RESULT OUT OF RANGE REFERENCE UNITS LAB CMP with eGFR(LOINC) CMP with eGFR Result Comment: COMPREHENSIVE METABOLIC PANEL LAB SODIUM(LOINC) 136 - 145 mmol/l SODIUM 137 LAB POTASSIUM(LOINC) 3.5 - 5.1 mmol/L POTASSIUM 3.9 LAB CHLORIDE(LOINC) 98 - 107 mmol/L CHLORIDE 99 LAB CO2(LOINC) 21.0 - mmol/L 31.0 CO2 24.9 LAB GLUCOSE(LOINC) 74 - 106 mg/dl GLUCOSE High 116 LAB BUN(LOINC) 6 - 20 mg/dl BUN High 24 LAB CREATININE(LOINC) 0.7 - 1.3 mg/dl CREATININE 1.0 LAB AST/SGOT(LOINC) 13 - 39 U/L AST/SGOT 15 LAB ALK PHOS(LOINC) 38 - 126 U/L ALK PHOS 50 LAB CALCIUM(LOINC) 8.6 - mg/dl 10.2 CALCIUM 9.6 LAB TOTAL 6.4 - 8.3 g/dl PROTEIN(LOINC) TOTAL PROTEIN 8.3 LAB ALBUMIN(LOINC) 3.4 - 4.8 g/dL ALBUMIN 4.0 LAB GLOBULIN(LOINC) 1.5 - 3.8 G/DL GLOBULIN High 4.3 LAB A/G RATIO(LOINC) 0.9 - 1.6 A/G RATIO 0.9 LAB TOTAL BILI(LOINC) 0.0 - 1.5 mg/dl TOTAL BILI 0.7 LAB B/C RATIO(LOINC) 0 - 30 ratio B/C RATIO 24 LAB ALT/SGPT(LOINC) 10 - 40 U/L ALT/SGPT 16 LAB ANION GAP(LOINC) 10 - 20 mmol/L ANION GAP 17 LAB AGE(LOINC) years AGE 73 LAB eGFR(LOINC) 60 - 999 ML/MINUTE eGFR >60 LAB eGFR(AA)(LOINC) 60 - 999 ML/MINUTE eGFR(AA) >60 Result Comment: ACCORDING TO THE NATIONAL KIDNEY DISEASE EDUCATION PROGRAM(NKDE), A NORMAL eGFR IS A VALUE GREATER THAN OR EQUAL TO 60 ML/MIN/1.73 SQ METERS. CHRONIC KIDNEY DISEASE: <60mL/MIN/1.73 SQ METERS KIDNEY FAILURE: <15mL/MIN/1.73 SQ METERS THIS TEST SHOULD ONLY BE USED FOR PATIENTS 18 YEARS OF AGE AND OLDER. Performed By: #### [id number] #### [facility],[address] [place] [address] Observed: 07/19/2018 Status: F Source: [facility] CULTURE BLOOD 12:32 PM [facility] REPOSITORY CULTURE BLOOD CULTURE BLOOD SET: 2 of 2 24HOUR REPORT NEGATIVE 48HOUR REPORT NEGATIVE 72HOUR REPORT NEGATIVE M I C R O B I O L O G Y R E P O R T FINAL Antimicrobial Susceptibility and Organism Identification Report Specimen Number : [id number] Requested : 07/19/18 Specimen Source : BLOOD Collected : 07/19/18 12:32 Guo of Isolation : Emergency Room Received : 07/19/18 12:32 Requesting Physician : ROYCE Patient/Specimen Tests and Comments Specimen Comments FINAL REPORT: No Growth at 5 Days Tech : Source : BLOOD ID # : [id number] FINAL Report Date : / / : Collected : 07/19/18 12:32 07/25/18.708.DARYLO. 07/25/18.BKO.COMPLETE Performed By: #### [id number] #### [facility],[address] [place] [address] Observed: 07/19/2018 Status: F Source: [facility] CULTURE BLOOD 12:32 PM [facility] REPOSITORY CULTURE BLOOD CULTURE BLOOD SET: 1 of 2 24HOUR REPORT NEGATIVE 48HOUR REPORT NEGATIVE 72HOUR REPORT NEGATIVE M I C R O B I O L O G Y R E P O R T FINAL Antimicrobial Susceptibility and Organism Identification Report Specimen Number : [id number] Requested : 07/19/18 Specimen Source : BLOOD Collected : 07/19/18 12:32 Guo of Isolation : Med/Surg Received : 07/19/18 12:32 Requesting Physician : ROYCE Patient/Specimen Tests and Comments Specimen Comments FINAL REPORT: No Growth at 5 Days Tech : Source : BLOOD ID # : [id number] FINAL Report Date : / / : Collected : 07/19/18 12:32 07/25/18.709.DARYLO. 07/25/18.DIANE.COMPLETE Performed By: #### [id number] #### [facility],[address] [place] [address] 12 LEAD ELECTROCARDIOGRAM Observed: 07/18/2018 Status: F Source: [place] 3:45 PM [facility] REPOSITORY [facility] Cardiovascular Services [address] [place] [address] 12 Lead EKG 07/14/18 1822 MR#: [id number] Acct: [id number] Name: JUWAN ROBLES Rep #: [id number] : 1945 73 From: Juwan Wilkes MD Attending Dr: Isabel Villeda MD Status: DIS CODY Ordering Dr: Josh Donohue DO Date: 07/14/18 Location: [facility] Sex: M C Admitted: 07/14/18 Test Reason : CHEST PAIN Blood Pressure : / mmHG Vent. Rate : 102 BPM Atrial Rate : 102 BPM P-R Int : 170 ms QRS Dur : 096 ms QT Int : 328 ms P-R-T Axes : 040 002 081 degrees QTc Int : 427 ms Sinus tachycardia Possible Left atrial enlargement Poor R wave progression Borderline ECG Confirmed by KATRIN SNYDER, JUWAN ([id number]), industrial editor TRINA ROBLES ([id number]) on 07/18/2018 3:45:13 PM Referred By: JOSIANE Confirmed By:JUWAN WILKES MD 07/18/18 1545 Date Juwan Wilkes MD CC: Isabel Villeda MD; Josh Donohue DO; Halima Villalpando MD Signed 12 LEAD ELECTROCARDIOGRAM Observed: 07/18/2018 Status: F Source: ANGIE 3:44 PM [facility] REPOSITORY [facility] Cardiovascular Services [address] [place] [address] 12 Lead EKG 07/14/18 1607 MR#: [id number] Acct: [id number] Name: JUWAN ROBLES Rep #: [id number] : 1945 73 From: Juwan Wilkes MD Attending Dr: Isabel Villeda MD Status: DIS CODY Ordering Dr: Alejandro Hanna DO Date: 07/14/18 Location: U Sex: M C Admitted: 11/30/18 Test Reason : WEAKNESS/CP Blood Pressure : / mmHG Vent. Rate : 114 BPM Atrial Rate : 114 BPM P-R Int : 166 ms QRS Dur : 094 ms QT Int : 304 ms P-R-T Axes : 043 010 081 degrees QTc Int : 419 ms Sinus tachycardia Nonspecific T wave abnormality Abnormal ECG Confirmed by KATRIN SNYDER, JUWAN ([id number]), industrial editor TRINA ROBLES ([id number]) on 07/18/2018 3:44:20 PM Referred By: MATIAS Confirmed By:JUWAN WILKES MD 07/18/18 1544 Date Juwan Wilkes MD CC: Isabel Villeda MD; Alejandro Hanna DO; Halima Villalpando MD Signed DISCHARGE SUMMARY Observed: 07/15/2018 Status: F Source: [place] 2:11 PM [facility] REPOSITORY [facility] Medical Records Department [address] [place] [address] Discharge Summary 07/15/18 1205 MR#: [id number] Acct: [id number] Name: JUWAN ROBLES Rep #: [id number] : 1945 73 From: Isabel Villeda MD PCP: Halima Villalpando MD Status: DIS CODY Y Location: [place] [address] Discharge Date and Diagnosis Date of Admission: 07/14/18 Date of Discharge: 07/15/18 - Primary Discharge Diagnosis Chest pain - Secondary Discharge Diagnosis Chronic Problems (Last Updated 07/14/18 @ 18:50 by Josh Donohue DO) CAD (coronary artery disease) (Chronic) Essential (primary) hypertension (Chronic) Hospital Course and Treatment Imaging Results: 07/15/18 05:55 Nuclear Stress Test - Chemical [NM] AM (NON MEDS) Clinical Impression(s) from Imaging Studies Chest X-Ray 07/14/18 16:11 IMPRESSION: No acute cardiopulmonary abnormalities. There is stable mild enlargement of the cardiac silhouette without pulmonary edema or pleural effusion. Electronically Signed: Courtney Evans MD at 16:59 EST Tel Direct: [phone], Service support , None Operations: None Procedures: Stress test Summary of Care Provided: The patient is a 73 year old M with past medical history of CAD status post CABG, hypertension, hyperlipidemia comes in with complaints of substernal and epigastric chest pain. Patient's mental EKG was unremarkable. Vitals were stable. Troponins x3 was negative. Patient underwent nuclear stress test that was negative. His 2D echo was unremarkable. He was discharged on pantoprazole BID. He will follow-up with cardiology and his primary care doctor in the outpatient. Subjective: On the day of discharge, patient denied any new complaints. Denied any chest pain or dizziness or palpitations. - Physical Exam General: Alert, Oriented x3, Cooperative, No apparent distress HEENT: Atraumatic, PERRLA, EOMI, Normocephalic Oral: Moist Mucosa Neck: Supple, No JVD, Negative Carotid Bruits Lungs: Clear to auscultation, Normal air movement Cardiovascular: Regular rate, Regular Rhythm, Normal S1, Normal S2, No murmurs Abdomen: Bowel Sounds Present, Soft, Non Tender, Non-Distended, No Hepato-splenomegaly Extremities: No edema Skin: No rashes, No breakdown Musculoskeletal: No Tenderness to Palpation of Joints or Extremities Lymphatic: No Cervical, Supraclavicular, or Inguinal Adenopathy Neurological: Cranial nerves II-XII grossly intact, Neuro grossly intact Psych/Mental Status: Normal Affect, Appropriate Vital Signs Temp Pulse Resp BP Pulse Ox 97.8 F 87 16 116/64 92 07/15/18 10:05 07/15/18 11:07 07/15/18 10:10 07/15/18 10:05 07/15/18 11:03 Oxygen Flow Rate (L/min) 2 Oxygen Delivery Method Nasal Cannula Weight: 82.9 kg Body Mass Index (BMI) 31.4 Intake and Output for Last 24 Hours Intake Total 100 / 100 Balance 100 / 100 Microbiology Past 72 Hours 07/14/18 18:27 Influenza Types A,B Direct FA (SHOSHANA) - Final Mucosa - Nose Laboratory Tests Past 24 Hrs WBC 13.3 H RBC 4.37 L Hgb 13.8 Hct 41.3 MCV 94.5 H MCH 31.6 MCHC 33.4 RDW 13.9 RDW Differential 47.6 H WBC RBC Hgb Hct WBC 13.4 H RBC 4.01 L Hgb 12.9 L Hct 38.5 L MCV 96.0 H Discharge Diet: Low fat/ Low Cholesterol, 2000 mg Sodium Diet Discharge Activity: Return to Normal Activity Home Medications: Medications to take at Discharge Aloe Vera Nector 07/14/18 Aspirin E.C. [Ecotrin] 162 mg PO DAILY@0800 07/14/18 Co Q10 1 cap PO DAILY 07/14/18 Ferrous Sulfate 2 tab PO DAILY 07/14/18 Fish Oil 4 cap PO BID 07/14/18 Nattovena 2 tab PO DAILY 07/14/18 Pantoprazole Sodium 40 mg PO BID #60 tablet. 07/15/18 Following Prescrptions Were Given to Patient: Pantoprazole Sodium 40 mg PO BID #60 tablet. Primary Care Physician: Halima Villalpando MD [Primary Care Provider] - Please follow up with your Primary Care Physician in: within 2 weeks Disposition: Home Minutes spent on discharge:: 38 Patient Condition:: Stable Medical Necessity - Tobacco Use Smoking Status: Former smoker Tobacco Use: Cigarettes Meaningful Use Info Meaningful Use Diagnoses (Choose all that apply): None applicable Code Visit OBSV E AND M: 14007 Observation care discharge 07/15/18 1411 <Electronically signed by Isabel Villeda MD> Date Isabel Villeda MD Cosigner Signature (if applicable): Date CC: Isabel Villeda MD; Halima Villalpando MD Signed DISCHARGE INSTRUCTION Observed: 07/15/2018 Status: F Source: [place]GIE 12:05 PM [facility] REPOSITORY [facility] Medical Records Department [address] [place] [address] Instructions for Home/Discharge Instructions 07/15/18 1036 MR#: [id number] Acct: [id number] Name: JUWAN ROBLES Rep #: [id number] : 1945 73 From: Isabel Villeda MD PCP: Halima Villalpando MD Status: ADM CODY - Discharge Diagnoses Reason(s) for Visit for Discharge Instructions: Chest pain You will use the following diet at home:: Cardiac Your food should be the consistency of: Regular Your liquids should be the consistency of: Regular/Thin Discharge Activity: Return to Normal Activity Additional Instructions: Continue to follow a low salt, low fat diet. Follow-up with your public improvement inspector within 2 weeks. Allergies/Adverse Reactions: Allergies No Known Allergies Allergy (Verified 09/13/17 08:11) Medications to take at Discharge Aloe Vera Nector 07/14/18 Aspirin E.C. [Ecotrin] 162 mg PO DAILY@0800 07/14/18 Co Q10 1 cap PO DAILY 07/14/18 Ferrous Sulfate 2 tab PO DAILY 07/14/18 Fish Oil 4 cap PO BID 07/14/18 Nattovena 2 tab PO DAILY 07/14/18 Pantoprazole Sodium 40 mg PO BID #60 tablet. 07/15/18 Primary Care Physician: Halima Villalpando MD [Primary Care Provider] - Please follow up with your Primary Care Physician in: within 2 weeks Test Results: Test results from this visit will be discussed in further detail at your follow-up appointment, if applicable. Proposed Discharge Date: 07/15/18 07/15/18 1205 <Electronically signed by Isabel Villeda MD> Date Isabel Villeda MD CC: Halima Villalpando MD ECHOCARDIOGRAM COMPLETE Observed: 07/15/2018 Status: F Source: [place] 11:33 [facility] REPOSITORY [facility] Cardiovascular Services [address] [place] [address] Echo Complete 07/15/18 0641 MR#: [id number] Acct: [id number] Name: JUWAN ROBLES Rep #: [id number] : 1945 73 From: Juwan Wilkes MD Attending Dr: Isabel Villeda MD Status: ADM CODY Ordering Dr: Josh Donohue DO Date: 07/14/18 Location: [facility] Sex: M C Admitted: 07/14/18 Reason For Study: CAD/ASHD Procedure This was a 2D Doppler, Color Flow transthoracic echocardiogram. The study was technically difficult. Exam performed portable in patient room. Left Ventricle Normal LV size. Segmental dysfunction with preserved ejection fraction (see wall motion). The estimated ejection fraction is 60 %. Diastolic function is indeterminate. Basal anteroseptal: Hypokinetic. Mid-inferoseptal : Hypokinetic. Mid-anteroseptal : Hypokinetic. Right Ventricle Normal RV size. Normal systolic function. Atria The left atrium is mildly enlarged. Normal right atrium. No doppler evidence for ASD. Mitral Valve There is mild mitral annular calcification. Mild focal mitral valve calcification of the anterior leaflet. Mild-Moderate (1-2+) mitral valve insufficiency. Tricuspid Valve Normal tricuspid valve. Trivial tricuspid valve insufficiency. Unable to estimate RV systolic pressure/pulmonary artery pressure due to technically difficult study. Aortic Valve Trisinus/trileaflet aortic valve. Mild diffuse aortic valve thickening. Mild focal aortic valve calcification. Aortic sclerosis, no stenosis. Pulmonic Valve The pulmonic valve is not well visualized. Great Vessels Normal sized aortic root. Pericardium/Pleural No pericardial effusion. MMode/2D Measurements AND Calculations LVIDd: 5.0 cm IVSd: 1.3 cm Ao root diam: 3.5 cm LVIDs: 4.2 cm LVPWd: 1.2 cm LA dimension: 5.3 cm RVDd: 3.7 cm FS: 15.4 % LAV(MOD-bp): 78.6 ml LVAd ap4: 31.6 cm2 SV(MOD-sp4): 51.7 ml LAV(MOD-bp) Indexed: 41.8 ml/m2 EDV(MOD-sp4): 103.8 ml LAV(MOD-sp2): 71.4 ml EDV(sp4-el): 106.8 ml LAV(MOD-sp4): 82.5 ml LVAs ap4: 20.0 cm2 ESV(MOD-sp4): 52.0 ml ESV(sp4-el): 52.3 ml EF(MOD-sp4): 49.9 % EF(sp4-el): 51.0 % SV(sp4-el): 54.4 ml LA A4 area: 23.9 cm2 RA A4 area: 18.6 cm2 Time Measurements MV dec time: 0.19 sec Doppler Measurements AND Calculations MV E max nader: 96.7 cm/sec Lat Peak E' Nader: 8.4 cm/sec Med Peak E' Nader: 7.2 cm/sec MV A max nader: 115.0 cm/sec E/E' lat: 11.5 E/E' med: 13.5 MV E/A: 0.84 MV V2 max: 125.2 cm/sec MV P1/2t max nader: 89.6 cm/sec Ao V2 max: 119.3 cm/sec MV max P.3 mmHg MV P1/2t: 98.7 msec Ao max P.7 mmHg MV V2 mean: 66.8 cm/sec MV mean P.1 mmHg MV dec slope: 265.8 cm/sec2 MV V2 VTI: 31.3 cm MVA(P1/2t): 2.2 cm2 LV V1 max: 92.3 cm/sec PA V2 max: 93.4 cm/sec LV V1 max P.4 mmHg Interpretation Summary The study was technically difficult. Segmental dysfunction with preserved ejection fraction (see wall motion). The estimated ejection fraction is 60 %. The left atrium is mildly enlarged. There is mild mitral annular calcification. Mild focal mitral valve calcification of the anterior leaflet. Mild-Moderate (1-2+) mitral valve insufficiency. Trivial tricuspid valve insufficiency. Aortic sclerosis, no stenosis. Unable to estimate RV systolic pressure/pulmonary artery pressure due to technically difficult study. Diastolic function is indeterminate. Ordering Physician: Josh Donohue Referring Physician: HALIMA VILLALPANDO Performed By: Marcellus Solano RCS 07/15/18 1132 Date Juwan Wilkes MD CC: Isabel Villeda MD; Josh Donohue DO; Halima Villalpando MD Date Dictated: 07/15/18 0641 Date Transcribed: 07/15/18 113 Buckle Sorter: Signed STRESS REPORT Observed: 07/15/2018 Status: F Source: ANGIE 11:04 AM [facility] REPOSITORY [facility] [place] [address] MR#: [id number] Acct: [id number] Name: JUWAN ROBLES Rep #: [id number] : 1945 73 From: Juwan Wilkes MD Primary Care: Halima Villalpando MD Status: ADM CODY Ordering Dr: Sex: M C Stress Test Report Date: 07/15/2018 Procedure: Pharmacologic stress nuclear imaging study Indications: Chest pain; CAD; CABG; PCI Consent: Per the patient Procedure: The patient underwent pharmacologic (Regadenoson) evaluation with a peak heart rate of 91 beats per minute (62 predicted maximal heart rate) and a peak blood pressure of 126/68 mmHg. The baseline ECG demonstrated normal sinus rhythm; nonspecific T wave abnormality. The peak pharmacologic ECG demonstrated no obvious ECG changes. There was a rare PVC during recovery. There was no complaint of chest discomfort during pharmacologic infusion or recovery. The examination was discontinued secondary to completion of protocol. Impression: 1. Pharmacologic (Regadenoson) evaluation 2. Peak pharmacologic ECG with no obvious ECG changes. 3. There was a rare PVC during recovery. 4. Nuclear images pending Myocardial perfusion imaging study: Technique: The patient was injected with 11.9 millicuries of technetium 99m Cardiolite and subsequently rest SPECT Cardiolite nuclear imaging was obtained in the horizontal long, vertical long, and short axis views. The patient underwent pharmacologic (Regadenoson) evaluation with a peak heart rate of 91 beats per minute (62 % percent predicted maximal heart rate) and a peak blood pressure of 126/68 mmHg. The patient was injected with 36.0 millicuries of technetium 99m Cardiolite and subsequently stress SPECT Cardiolite nuclear imaging was obtained in the horizontal long, vertical long, and short axis views. A gated Cardiolite study at peak stress was obtained. Interpretation: Rest and stress SPECT Cardiolite nuclear imaging status post realignment, normalization, and attenuation correction demonstrate a lot of uniform tracer uptake and myocardial perfusion appearing within normal limits. There is end systolic thickening and brightening. The gated Cardiolite study demonstrates myocardial thickening and inward wall motion. The reported LVEF is 48 %. Impression: 1. Rest and stress SPECT Cardiolite nuclear imaging demonstrate relative uniform tracer uptake and myocardial perfusion appearing within normal limits. 2. The gated Cardiolite study reports an LVEF of 48 %. This note was generated with Litebiation software. It may contain incorrect words, spelling, and punctuation that were not noted in checking the note before signing. 07/15/18 1104 <Electronically signed by Juwan Wilkes MD> Date Juwan Wilkes MD CC: Isabel Villeda MD; Halima Villalpando MD Date Dictated: 07/15/181100 Date Transcribed: 07/15/181100 Buckle Sorter: PM Signed CBC W/DIFF, AUTOMATED Collected: 07/15/2018 Status: F Source: [place] 2:15 AM [facility] REPOSITORY TYPE CODE TESTS RESULT OUT OF RANGE REFERENCE UNITS LAB L100.1000 4.4-11.0 K/mm3 High WBC 13.4 LAB L100.1200 4.6-6.2 M/mm3 Low RBC 4.01 LAB L100.1300 13.0-16.5 g/dl Low HGB 12.9 LAB L100.1400 40-54 % Low HCT 38.5 LAB L100.1500 80-94 fL High MCV 96.0 LAB L100.1600 27.0-32.0 pg High MCH 32.2 LAB L100.1700 32-36 g/gl Normal MCHC 33.5 LAB L100.1810 11.6-14.6 % Normal RDW CV 14.1 LAB L100.1820 35.1-43.9 fl High RDW SD 48.0 LAB L100.1900 150-450 K/mm3 Normal PLT 175 LAB L100.2000 6.2-12.0 fl Normal MPV 10.0 LAB L100.2100 47-70 % High NEUT% 81.3 LAB L100.2200 19-41 % Low LY% 11.4 LAB L100.2300 0-10 % Normal MONO% 6.8 LAB L100.2400 0-5 % Normal EO% 0.2 LAB L100.2500 0-1 % Normal BASO% 0.1 LAB L100.2550 0.0-0.9 % Normal IM GRAN % 0.200 Result Comment: IG% - Immature Granulocytes (promyelocytes, myelocytes and metamyelocytes) > 1% indicates that a LEFT SHIFT is Present. LAB L100.2620 2.0-7.7 X10 3/uL High Absolute Neut 10.9 LAB L100.2720 0.83-4.51 X10 3/ul Normal Absolute Lymph 1.53 Performed By: #### L100.0100 #### [facility] Laboratory [address] [place], [address] PROTHROMBIN TIME W/INR Collected: 07/15/2018 Status: F Source: [place] 2:15 AM [facility] REPOSITORY TYPE CODE TESTS RESULT OUT OF RANGE REFERENCE UNITS LAB L300.4150 11.7-14.9 SECONDS Normal PROTIME 14.7 LAB L300.4200 Normal INR 1.2 Performed By: #### L300.3900, L300.4310 #### [facility] Laboratory [address] [place], [address] PARTIAL THROMBOPLAST Collected: 07/15/2018 Status: F Source: [place] TIME 2:15 AM [facility] REPOSITORY TYPE CODE TESTS RESULT OUT OF RANGE REFERENCE UNITS LAB L300.4310 24.1-36.2 Seconds Normal PTT 30.7 Performed By: #### L300.3900, L300.4310 #### [facility] Laboratory [address] [place], [address] TROPONIN-I Collected: 07/15/2018 Status: F Source: [place] 2:15 AM [facility] REPOSITORY Order Comment: 'TROP' Serial specimen #1, #2 or #3: 3 TYPE CODE TESTS RESULT OUT OF RANGE REFERENCE UNITS LAB L501.4010 <0.045 ng/mL Normal < 0.015 TROPONIN-I Result Comment: TROPONIN-I EXPECTED VALUES <0.045 Negative 0.045 - 0.590 Consistent with Cardiac Damage > OR = 0.600 Critical Value Not every elevated troponin is indicative of PA. These values should be used with clinical judgement in examining the patient's clinical picture for diagnosis. To establish a diagnosis of PA versus myocardial injury, there must be a demonstrated rise and/or fall in the troponin values, in addition to ischemic symptoms, EKG changes, new regional wall motion abnormality, and/or angiographical evidence. PLEASE NOTE: REFERENCE RANGES EDITED 17 Performed By: #### L501.4010 #### [facility] [address] [place], [address] BASIC METABOLIC Collected: 07/15/2018 Status: F Source: [place] PROFILE (BMP) 2:15 AM [facility] REPOSITORY TYPE CODE TESTS RESULT OUT OF RANGE REFERENCE UNITS LAB L501.0100 74-106 mg/dL High GLU 114 Result Comment: Fasting Glucose result from 100 to 125 mg/dL suggests IMPAIRED HOMEOSTASIS per A.D.A. criteria. Please note revised GLUCOSE reference range effective 2017. LAB L501.1000 7-18 mg/dL High BUN 25 LAB L501.1100 0.70-1.30 mg/dL Normal CREAT,SERUM 1.04 Result Comment: The validity of the calculated GFR AND GFRAA in patients over 70 years has not been determined. Clinical correlation is essential. LAB L501.1110 >60 mL/min Normal EST GFR 74 Result Comment: Non- GFR Calc LAB L501.1115 >60 mL/min Normal EST GFR - AA 90 Result Comment: GFR Calc LAB L501.1255 ml/min Normal Estimated CRCL 51.39 LAB L501.1300 10-20 RATIO High BUN/CRE 24.0 LAB L501.2200 8.5-10 mg/dL Low .1 CA 8.2 LAB L501.5300 136-14 mmol/L Normal 5 NA 142 LAB L501.5600 3.5-5. mmol/L Normal 1 K 4.0 LAB L501.5900 98-107 mmol/L High CL 109 LAB L501.6100 21.0-3 mmol/L Normal 2.0 CO2 26.0 LAB L501.6200 5-15 Normal GAP 7 Performed By: #### L500.2500, L500.4100, L501.9520 #### [facility] Laboratory [facility] [place], [place], [address] LIPID PROFILE Collected: 07/15/2018 Status: F Source: [place]GIE 2:15 AM [facility] REPOSITORY TYPE CODE TESTS RESULT OUT OF RANGE REFERENCE UNITS LAB L501.4900 200 mg/dL Normal CHOL 193 Result Comment: <200 mg/dL Desirable 200-240 mg/dL Borderline >240 mg/dL High Risk LAB L501.5000 mg/dL Normal TRIG 108 Result Comment: The drugs N-Acetylcysteine and Metamizole may falsely depress this assay. Serum Triglycerides Reference Interval Normal <150 mg/dL Borderline high 150 - 199 mg/dL High 200 - 499 mg/dL Very High > or = 500 mg/dL LAB L501.6400 mg/dL Normal HDL 43 Result Comment: The drugs N-Acetylcysteine and Metamizole may falsely depress this assay. Reference Range HDL <40 mg/dL Low HDL Cholesterol HDL >or= 60 mg/dL High HDL Cholesterol LAB L501.6500 0-130 mg/dL Normal LDL 128 LAB L501.6600 5-40 mg/dL Normal VLDL 22 Performed By: #### L500.2500, L500.4100, L501.9520 #### [facility] [address] [place], [address] THYROID STIM HORMONE Collected: 07/15/2018 Status: F Source: [place] (TSH) 2:15 AM [facility] REPOSITORY TYPE CODE TESTS RESULT OUT OF RANGE REFERENCE UNITS LAB L501.9520 0.358-3.74 uIU/mL Normal TSH 0.66 Performed By: #### L500.2500, L500.4100, L501.9520 #### [facility] [address] [place], [address] TROPONIN-I Collected: 07/14/2018 Status: F Source: [place] 10:50 PM [facility] REPOSITORY Order Comment: 'TROP' Serial specimen #1, #2 or #3: 2 TYPE CODE TESTS RESULT OUT OF RANGE REFERENCE UNITS LAB L501.4010 <0.045 ng/mL Normal < 0.015 TROPONIN-I Result Comment: TROPONIN-I EXPECTED VALUES <0.045 Negative 0.045 - 0.590 Consistent with Cardiac Damage > OR = 0.600 Critical Value Not every elevated troponin is indicative of PA. These values should be used with clinical judgement in examining the patient's clinical picture for diagnosis. To establish a diagnosis of PA versus myocardial injury, there must be a demonstrated rise and/or fall in the troponin values, in addition to ischemic symptoms, EKG changes, new regional wall motion abnormality, and/or angiographical evidence. PLEASE NOTE: REFERENCE RANGES EDITED 17 Performed By: #### L501.4010 #### [facility] [address] [place], [place], [address] TROPONIN-I Collected: 07/14/2018 Status: F Source: OSAGE 8:26 PM [facility] REPOSITORY Order Comment: 'TROP' Serial specimen #1, #2 or #3: 1 TYPE CODE TESTS RESULT OUT OF RANGE REFERENCE UNITS LAB L501.4010 <0.045 ng/mL Normal < 0.015 TROPONIN-I Result Comment: TROPONIN-I EXPECTED VALUES <0.045 Negative 0.045 - 0.590 Consistent with Cardiac Damage > OR = 0.600 Critical Value Not every elevated troponin is indicative of PA. These values should be used with clinical judgement in examining the patient's clinical picture for diagnosis. To establish a diagnosis of PA versus myocardial injury, there must be a demonstrated rise and/or fall in the troponin values, in addition to ischemic symptoms, EKG changes, new regional wall motion abnormality, and/or angiographical evidence. PLEASE NOTE: REFERENCE RANGES EDITED 17 Performed By: #### L501.4010 #### [facility] [address] [place], [address] HISTORY AND PHYSICAL Observed: 07/14/2018 Status: F Source: OSAGE EXAM 6:53 PM [facility] REPOSITORY [facility] Medical Records Department [address] [place] [address] History and Physical 07/14/18 1848 MR#: [id number] Acct: [id number] Name: JUWAN ROBLES Rep #: [id number] : 1945 73 From: Josh Donohue DO PCP: Halima Villalpando MD Status: ADM CODY Y Location: [place] [address] Problem List (1) Acute chest pain Status: Acute History of Present Illness Date of Admission: 07/14/18 Chief Complaint: chest pain The patient is a 73 year old M who was in his normal state of health today but around 10 AM, experienced chest pain. Chest pain went across his chest but was more prominent on the left side. He felt diaphoretic, short of breath, nauseated and pain radiated down his left arm. Patient's symptoms lasted until he presented to the emergency room in the. Patient's complaint now is only with some diaphoresis. Patient does have a history of coronary artery disease and has had a in the past and his symptoms are similar to him prior to his CABG. [] Past Medical History Past Medical History (Chronic Problems): Chronic Problems Essential (primary) hypertension (Chronic) CAD (coronary artery disease) (Chronic) Medical History: Medical History (Last Updated 07/14/18 @ 18:50 by Josh Donohue DO) CAD (coronary artery disease) I25.10 CVA (cerebral vascular accident) I63.9 HTN (hypertension) I10 Allergies No Known Allergies Allergy (Verified 09/13/17 08:11) Home Medications: Ambulatory Orders Medication Instructions Recorded Dustin Danielsor 07/14/18 Surgical History: coronary bypass surgery Lives: Spouse/ Significant Other Smoking Status: Former smoker Tobacco Use: Non-smoker Alcohol: None Drugs: None - *Family History Maternal History Items: No pertinent history, - - No CAD Review of Systems Constitutional: Reports: Malaise. Denies: Anorexia, Chills, Fever Eyes: Denies: Blurred vision, Double vision HEENT: Reports: Nasal Congestion, Post Nasal Drip. Denies: Head Aches, Sinus Congestion, Sinus Drainage Cardiovascular: Reports: Chest Pain, Edema Respiratory: Reports: Cough - Chronic. Denies: Shortness of Breath Gastrointestinal: Reports: Nausea. Denies: Abdominal Pain, Vomiting Genitourinary: Denies: Dysuria Musculoskeletal: Denies: Joint Pain, Joint Tenderness Skin: Denies: Dryness, Jaundice Neurological: Denies: Numbness, Tingling, Focal weakness Psychiatric: Reports: Anxiety - With his chest pain episode. Denies: Depression Endocrine: Denies: Change in Body Habitus, Heat/ Cold Intolerance Hematologic/ Lymphatic: Denies: Easy Bruising, Easy Bleeding, Hx of blood clot Comment: A 10 point review of systems were negative except as mentioned in the history of present illness and the other review of systems. VTE Information - Inpt Only VTE Present on Admission: No VTE Mechan Device Prophylaxis: None VTE Pharm Prophylaxis ordered?: Yes - Physical Exam General: Alert, Cooperative, No apparent distress HEENT: Atraumatic, Normocephalic Oral: Moist Mucosa, No Gingival or Mucosal Lesions/ Ulcerations Neck: No Nodes, Thyroid Normal Size and Texture Lungs: Clear to auscultation, Normal air movement, No rhonchi, No wheeze Cardiovascular: Regular rate, Regular Rhythm, Normal S1, Normal S2, No murmurs Abdomen: Bowel Sounds Present, Soft, Non Tender, Non-Distended, No Hepato-splenomegaly Extremities: No Calf Tenderness, Edema Skin: No rashes, No breakdown Psych/Mental Status: Normal Affect, Appropriate Vital Signs Temp Pulse Resp BP Pulse Ox 37.3 C H 106 H 26 H 130/73 H 95 07/14/18 15:50 07/14/18 17:56 07/14/18 17:56 07/14/18 17:56 07/14/18 17:56 Oxygen Flow Rate (L/min) 2 Oxygen Delivery Method Room Air Weight: 89 kg Body Mass Index (BMI) 33.7 Laboratory Tests Past 24 Hrs Assessment/Plan All Active Problems Cellulitis (Acute) Acute chest pain (Acute) 1. Chest pain/unstable angina * Currently stable at this time and feeling better * Check troponin series and nuclear stress test in the morning * Continue with aspirin * Check lipid panel * Check an echocardiogram 2. DVT prophylaxis with Lovenox Code Visit OBSV E AND M: 45236 Initial observation care L2 07/14/18 279 <Electronically signed by Josh Donohue DO> Date Josh Donohue DO Cosigner Signature: Date (if applicable) CC: Josh Donohue DO; Halima Villalpando MD Signed Observed: 07/14/2018 Status: F Source: ANGIE INFLUENZA A+B (RAPID 6:27 PM [facility]) REPOSITORY Has pt arrived? Y FLU A/B Rapid Negative test results should be confirmed by culture. Order Rapid Viral Culture for Influenzae A+B ([id number]) if clinically indicated. Influenza Ag, Direct Presumptive NEGATIVE for Influenza A/B Antigen (See Note) Performed By: #### M101.0101 #### [facility] [address] [place], [address] EMERGENCY DEPARTMENT Observed: 07/14/2018 Status: F Source: ANGIE SUMMARY 5:44 PM [facility] REPOSITORY [facility] Medical Records Department [address] [place] [address] Emergency Department Summary 07/14/18 1740 MR#: [id number] Acct: [id number] Name: JUWAN ROBLES Rep #: [id number] : 1945 73 From: Alejandro Barbourharis LEIGH PCP: Halima Villalpando MD Status: REG ER - ER Visit Summary Date of Service: 07/14/18 Chief Complaint: [Chest pain] History of Present Illness: The patient is a 73 M [presents the emergency department complaint chest pain that started around 9 AM this morning. Patient described it as a tightness or heaviness in his chest. Patient took some aspirin at home. Patient had the discomfort, throughout the day. He described feeling short of breath with it and nauseated. Patient described the pain radiating into his left arm. Patient does have a prior cardiac history with 5 vessel CABG about 2 years ago. Patient has history of hypertension and history of cellulitis. Patient does state that he has had a cough since summer but it has gotten worse over the last couple of days. He is bringing up some white phlegm at times. Patient had did have recent bus ride 3 weeks ago when he was on a bus for about 3 days. He denies any swelling in his legs. He denies any pleuritic symptoms.] Patient is currently pain-free. Physical Examination: [HEENT-PERRLA, EOMI. Cranial nerves II through XII grossly intact. TMs clear. Mucous membranes moist. No adenopathy. Cardiovascular-regular rate and rhythm without murmur or ectopy Lungs-clear to auscultation, chest wall stable without crepitus or subcu emphysema Abdomen-normoactive bowel sounds, soft, nontender, no rebound or rigidity, no peritoneal signs. Extremities-intact 4, normal range of motion, normal pulses, atraumatic] Test Results: [EKG obtained arrival shows sinus rhythm with a ventricular rate of 114 bpm with some nonspecific ST changes. CBC with differential obtained showed a slightly elevated white count of 13,000, hemoglobin 13.8, hematocrit 41, platelets 183. Chemistries unremarkable. Troponin was less than 0.015. BNP was 77. Chest x-ray showed nothing acute.] Emergency Department Course and Treatment: [Patient had an IV line established and was given normal saline 125 cc an hour. Patient had already taken aspirin at home.] Treatment Plan: [Admit for further workup and evaluation. Etiology of his chest pain is unclear at this time. He does have a low-grade fever on arrival. Will check an influenza screen. This point my suspicion for PE is low.] Disposition: [Admit] Impression: [Chest pain-rule out acute coronary syndrome] This note was generated with [employer] dictation software. It may contain incorrect words, spelling, and punctuation that were not noted in review of the chart prior to signing ED Disposition - Plan for ED Patient: Chief Complaint: Chest Pain Referrals: Halima Villalpando MD [Primary Care Provider] - What to do if you have Problems For any increased pain, shortness of breath, bleeding, nausea or vomiting, chest pain, or any unexpected problems, contact your Primary Care Provider. Call [facility] ([phone]) or report to the closest Emergency Room. Call 911 if necessary. 07/14/18 1744 <Electronically signed by Alejandro Hanna DO> Date Alejandro Hanna DO Cosigner Signature (If Indicated): Date CC: Halima Villalpando MD CHEST 1 VIEW Observed: 07/14/2018 Status: F Source: OSAGE (PORTABLE) 4:11 PM [facility] REPOSITORY [facility] Imaging Services [address] [place] [address] Chest 1 View (Portable) MR#: [id number] Acct: [id number] Name: JUWAN ROBLES Rep #: [id number] : 1945 M 73 From: Courtney Evans MD PCP: Halima Villalpando MD Status: REG ER Study: Chest 1 View (Portable) Date of Exam: 07/14/18 Exam# [id number] Ordering Dr: Alejandro Hanna DO STUDY: X-RAY CHEST REASON FOR EXAM: Male, 73 years old. Chest pain TECHNIQUE: A single frontal view of the chest was obtained. COMPARISON: September 14, 2017 FINDINGS: The lungs are underaerated. There is stable scarring in the right lung base. There are no focal airspace opacities. There is no demonstrated pleural abnormality. There is mild enlargement of the cardiac silhouette. Sternotomy wires are present. The mediastinum and hilar regions are unremarkable. Normal visualized pulmonary arteries. There is atherosclerotic calcification of the thoracic aorta. There are diffuse degenerative changes of the visualized spine. There are degenerative changes in both shoulders. There may be old surgical resection of the distal right clavicle. There is no demonstrated abnormality of the visualized upper abdomen. RAD/Chest 1 View (Portable) IMPRESSION: No acute cardiopulmonary abnormalities. There is stable mild enlargement of the cardiac silhouette without pulmonary edema or pleural effusion. Electronically Signed: Courtney Evans MD at 16:59 EST Tel Direct: [phone], Service support , CC: Alejandro Hanna DO; Halima Villalpando MD Buckle Sorter: Signed CBC W/DIFF, AUTOMATED Collected: 07/14/2018 Status: F Source: OSAGE 4:05 PM [facility] REPOSITORY TYPE CODE TESTS RESULT OUT OF RANGE REFERENCE UNITS LAB L100.1000 4.4-11.0 K/mm3 High WBC 13.3 LAB L100.1200 4.6-6.2 M/mm3 Low RBC 4.37 LAB L100.1300 13.0-16.5 g/dl Normal HGB 13.8 LAB L100.1400 40-54 % Normal HCT 41.3 LAB L100.1500 80-94 fL High MCV 94.5 LAB L100.1600 27.0-32.0 pg Normal MCH 31.6 LAB L100.1700 32-36 g/gl Normal MCHC 33.4 LAB L100.1810 11.6-14.6 % Normal RDW CV 13.9 LAB L100.1820 35.1-43.9 fl High RDW SD 47.6 LAB L100.1900 150-450 K/mm3 Normal PLT 183 LAB L100.2000 6.2-12.0 fl Normal MPV 9.7 LAB L100.2100 47-70 % High NEUT% 86.9 LAB L100.2200 19-41 % Low LY% 6.7 LAB L100.2300 0-10 % Normal MONO% 5.9 LAB L100.2400 0-5 % Normal EO% 0.2 LAB L100.2500 0-1 % Normal BASO% 0.2 LAB L100.2550 0.0-0.9 % Normal IM GRAN % 0.100 Result Comment: IG% - Immature Granulocytes (promyelocytes, myelocytes and metamyelocytes) > 1% indicates that a LEFT SHIFT is Present. LAB L100.2620 2.0-7.7 X10 3/uL High Absolute Neut 11.6 LAB L100.2720 0.83-4.51 X10 3/ul Normal Absolute Lymph 0.89 Performed By: #### L100.0100 #### [facility] [address] [place], [address] BASIC METABOLIC Collected: 07/14/2018 Status: F Source: OSAGE PROFILE ([facility]) 4:05 PM [facility] REPOSITORY TYPE CODE TESTS RESULT OUT OF RANGE REFERENCE UNITS LAB L501.0100 74-106 mg/dL High GLU 118 Result Comment: Fasting Glucose result from 100 to 125 mg/dL suggests IMPAIRED HOMEOSTASIS per A.D.A. criteria. Please note revised GLUCOSE reference range effective 2017. LAB L501.1000 7-18 mg/dL High BUN 32 LAB L501.1100 0.70-1.30 mg/dL Normal CREAT,SERUM 1.17 Result Comment: The validity of the calculated GFR AND GFRAA in patients over 70 years has not been determined. Clinical correlation is essential. LAB L501.1110 >60 mL/min Normal EST GFR 65 Result Comment: Non- GFR Calc LAB L501.1115 >60 mL/min Normal EST GFR - AA 78 Result Comment: GFR Calc LAB L501.1255 ml/min Normal Estimated CRCL 45.68 LAB L501.1300 10-20 RATIO High BUN/CRE 27.4 LAB L501.2200 8.5-10 mg/dL Normal .1 CA 8.8 LAB L501.5300 136-14 mmol/L Normal 5 NA 139 LAB L501.5600 3.5-5. mmol/L Normal 1 K 3.9 LAB L501.5900 98-107 mmol/L Normal CL 106 LAB L501.6100 21.0-3 mmol/L Normal 2.0 CO2 23.0 LAB L501.6200 5-15 Normal GAP 10 Performed By: #### L500.2500, L501.4010 #### [facility] [address] [place], [address] TROPONIN-I Collected: 07/14/2018 Status: F Source: ANGIE 4:05 PM [facility] REPOSITORY TYPE CODE TESTS RESULT OUT OF RANGE REFERENCE UNITS LAB L501.4010 <0.045 ng/mL Normal < 0.015 TROPONIN-I Result Comment: TROPONIN-I EXPECTED VALUES <0.045 Negative 0.045 - 0.590 Consistent with Cardiac Damage > OR = 0.600 Critical Value Not every elevated troponin is indicative of PA. These values should be used with clinical judgement in examining the patient's clinical picture for diagnosis. To establish a diagnosis of PA versus myocardial injury, there must be a demonstrated rise and/or fall in the troponin values, in addition to ischemic symptoms, EKG changes, new regional wall motion abnormality, and/or angiographical evidence. PLEASE NOTE: REFERENCE RANGES EDITED 17 Performed By: #### L500.2500, L501.4010 #### [facility] [address] [place], [address] BNP,B-TYPE NATRIURETIC Collected: 07/14/2018 Status: F Source: OSAGE PEPTIDE 4:05 PM [facility] REPOSITORY TYPE CODE TESTS RESULT OUT OF RANGE REFERENCE UNITS LAB L503.6620 0-100 pg/mL Normal B-TYPE 77.5 CASSIE PEP Performed By: #### L503.6620 #### [facility] [address] [place], [address] CHEST 2 VIEWS Observed: 04/21/2018 Status: F Source: CONSTANTINE RAYMOND 3:07 PM [facility] REPOSITORY [facility] [address] [place] [address] Patient: JUWAN ROBLES Phone#: : 1945 Age: 73 Gender: M Pt. Type: Out Account: [id number] Location: [facility] Ordering: HALIMA VILLALPANDO Exam Date: 04/21/2018/14:54 Family Phys: Charge Code: 659216 Physician: Archuleta Order #: [id number] DLP Dose#: PROCEDURE: X-RAY CHEST 2 VIEWS COMPARISON: [facility], XR, CHEST PA/LAT, 09/05/2016, 17:46. INDICATIONS: Chronic cough FINDINGS: LUNGS: Normal. No significant pulmonary parenchymal abnormalities. VASCULATURE: Normal. Unremarkable pulmonary vasculature. CARDIAC: Mild cardiomegaly. MEDIASTINUM: Normal. No visible mass or adenopathy. PLEURA: Normal. No effusion or pleural thickening. BONES: There are degenerative changes of the spine. OTHER: Median sternotomy wires are present. CONCLUSION: No acute disease. Dictated by: Sully Hugo MD on 04/21/2018 at 17:12 Approved by: Sully Hugo MD on 04/21/2018 at 17:12 12 LEAD ELECTROCARDIOGRAM Observed: 09/20/2017 Status: F Source: OSAGE 8:48 AM [facility] REPOSITORY [facility] Cardiovascular Services [address] [place] [address] 12 Lead EKG 09/14/17 0551 MR#: [id number] Acct: [id number] Name: JUWAN ROBLES Rep #: [id number] : 1945 72 From: Nirav Peña MD Attending Dr: Bo Mike MD Status: DIS IN Ordering Dr: Diomedes Nicholson DO Date: 09/14/17 Location: U Sex: M C Admitted: 09/13/17 Test Reason : AM EKG Blood Pressure : / mmHG Vent. Rate : 087 BPM Atrial Rate : 087 BPM P-R Int : 170 ms QRS Dur : 100 ms QT Int : 356 ms P-R-T Axes : 036 004 073 degrees QTc Int : 428 ms Normal sinus rhythm Nonspecific T wave abnormality Abnormal ECG When compared with ECG of 13-SEP-2017 10:01, MANUAL COMPARISON REQUIRED, DATA IS UNCONFIRMED Confirmed by NIRAV PEÑA MD ([id number]), industrial editor TRINA ROBLES ([id number]) on 09/20/2017 8:48:07 AM Referred By: CRISTOBAL Confirmed By:NIRAV PEÑA MD 09/20/17 0848 Date Nirav Peña MD CC: Diomedes Nicholson DO; Halima Villalpando MD Signed 12 LEAD ELECTROCARDIOGRAM Observed: 09/20/2017 Status: F Source: OSAGE 8:34 AM [facility] Cardiovascular Services [address] [place] [address] 12 Lead EKG 09/13/17 1001 MR#: [id number] Acct: [id number] Name: JUWAN ROBLES Rep #: [id number] : 1945 72 From: Nirav Peña MD Attending Dr: Bo Mike MD Status: DIS IN Ordering Dr: Aquilino Lomax MD Date: 09/13/17 Location: [facility] Sex: M C Admitted: 09/13/17 Test Reason : REPEAT EKG Blood Pressure : / mmHG Vent. Rate : 112 BPM Atrial Rate : 112 BPM P-R Int : 170 ms QRS Dur : 094 ms QT Int : 324 ms P-R-T Axes : 033 009 078 degrees QTc Int : 442 ms Sinus tachycardia with frequent Premature ventricular complexes Nonspecific T wave abnormality Abnormal ECG Confirmed by NIRAV PEÑA MD ([id number]), industrial editor TRINA ROBLES ([id number]) on 09/20/2017 8:34:37 AM Referred By: JOSÉ LUIS Confirmed By:NIRAV PEÑA MD 09/20/17 0834 Date Nirav Peña MD CC: Halima Villalpando MD; Aquilino Lomax MD Signed 12 LEAD ELECTROCARDIOGRAM Observed: 09/20/2017 Status: F Source: ANGIE 8:33 AM [facility] Cardiovascular Services [address] [place] [address] 12 Lead EKG 09/13/17 0805 MR#: [id number] Acct: [id number] Name: JUWAN ROBLES Rep #: [id number] : 1945 72 From: Nirav Peña MD Attending Dr: Bo Mike MD Status: DIS IN Ordering Dr: Aquilino Lomax MD Date: 09/13/17 Location: [facility] Sex: M C Admitted: 09/13/17 Test Reason : CP Blood Pressure : / mmHG Vent. Rate : 109 BPM Atrial Rate : 109 BPM P-R Int : 166 ms QRS Dur : 096 ms QT Int : 342 ms P-R-T Axes : 026 -07 092 degrees QTc Int : 460 ms Sinus tachycardia Left ventricular hypertrophy T wave abnormality, consider lateral ischemia Abnormal ECG Confirmed by NIRAV PEÑA MD ([id number]), industrial editor TRINA ROBLES ([id number]) on 09/20/2017 8:33:10 AM Referred By: JOSÉ LUIS Confirmed By:NIRAV PEÑA MD 09/20/17 0833 Date Nirav Peña MD CC: Halima Villalpando MD; Aquilino Lomax MD Signed DISCHARGE SUMMARY Observed: 09/16/2017 Status: F Source: ANGIE 4:47 PM [facility] Medical Records Department [address] [place] [address] Discharge Summary 09/16/17 1644 MR#: [id number] Acct: [id number] Name: JUWAN ROBLES Rep #: [id number] : 1945 72 From: Bo Mike MD PCP: Halima Villalpando MD Status: ADM IN Y Location: [place] [address] Discharge Date and Diagnosis - Problem List Patient Problems: Active and Suspected Problems Acute chest pain (Acute) Cellulitis (Acute) Date of Admission: 09/13/17 Date of Discharge: 09/16/17 - Primary Discharge Diagnosis Active and Suspected Problems Acute chest pain (Acute) Cellulitis (Acute) - Secondary Discharge Diagnosis Chronic Problems CAD (coronary artery disease) (Chronic) Essential (primary) hypertension (Chronic) Hospital Course and Treatment Imaging Results: Clinical Impression(s) from Imaging Studies Chest X-Ray 09/13/17 08:27 IMPRESSION: Increased linear markings at the lung bases suggestive basilar atelectasis and/or infiltrates. Follow-up is recommended. Electronically Signed: Andrei Quezada MD at 9:35 EST Tel [phone], Service support , Chest CTA 09/13/17 13:00 IMPRESSION: Findings suggesting scarring and atelectasis at the lung bases. This is slightly worse on the right side. There is no evidence of pulmonary embolism. Electronically Signed: Andrei Quezada MD at 13:53 EST Tel [phone], Service support , Chest X-Ray 09/14/17 05:17 IMPRESSION: Lungs are expanded. There is slight elevation of the RIGHT hemidiaphragm which is chronic. There is discoid atelectasis or fibrosis at the RIGHT lung base. There are NO acute infiltrates. There is no demonstrated pleural abnormality. The heart is mildly enlarged. There has been open heart surgery. Electronically Signed: Tyree Alicia MD at 6:30 EST , Service support , Summary of Care Provided: Patient is a 72-year-old male with history of CAD with previous CABG presented with chest pain 1. Chest pain: Patient admitted to monitored bed ordered serial cardiac enzymes to rule out PA. Patient subsequently underwent a stress echo which was negative for stress-induced ischemia 2. Lower extremity cellulitis: Blood cultures were sent patient started on antibiotics per protocol (initially with Zosyn and vancomycin) and subsequently D escalated to Keflex. Patient was also seen in consultation by Dr. Gonzales with infectious diseases note and recommendations reviewed 3. CAD status post CABG 4. Essential hypertension blood pressure currently stable 5. History of recurrent kidney stones currently asymptomatic 6. Obesity with BMI of 31.0 7. DVT prophylaxis SC Lovenox. Discharge Activity: Return to Normal Activity Home Medications: Medications to take at Discharge Aspirin [Aspirin, Baby] 81 mg PO DAILY@0800 09/13/17 Cephalexin [Keflex] 500 mg PO Q8 #15 cap 09/16/17 Following Prescrptions Were Given to Patient: Cephalexin [Keflex] 500 mg PO Q8 #15 cap Primary Care Physician: Halima Villalpando MD [Primary Care Provider] - Please follow up with your Primary Care Physician in: in 5- 7 days Please Follow Up With: Halima Villalpando MD Disposition: Home Minutes spent on discharge:: 35 Patient Condition:: Stable Meaningful Use Info Meaningful Use Diagnoses (Choose all that apply): None applicable Code Visit Inpatient E AND M: 08862 Disch Hosp 09/16/17 1647 <Electronically signed by Bo Mike MD> Date Bo Mike MD Cosigner Signature (if applicable): Date CC: Bo Mike MD; Halima Villalpando MD Signed DISCHARGE INSTRUCTION Observed: 09/16/2017 Status: F Source: OSAGE 4:07 PM [facility] REPOSITORY [facility] Medical Records Department [address] [place] [address] Instructions for Home/Discharge Instructions 09/16/17 1605 MR#: [id number] Acct: [id number] Name: JUWAN ROBLES Rep #: [id number] : 1945 72 From: Bo Mike MD PCP: Halima Villalpando MD Status: ADM IN - Discharge Diagnoses Current Active Problems: Current Active and Chronic Problems Acute chest pain (Acute) CAD (coronary artery disease) (Chronic) Essential (primary) hypertension (Chronic) You will use the following diet at home:: Cardiac Discharge Activity: Return to Normal Activity Allergies/Adverse Reactions: Allergies No Known Allergies Allergy (Verified 09/13/17 08:11) Medications to take at Discharge Aspirin [Aspirin, Baby] 81 mg PO DAILY@0800 09/13/17 Cephalexin [Keflex] 500 mg PO Q8 #15 cap 09/16/17 The following prescriptions were given: Cephalexin [Keflex] 500 mg PO Q8 #15 cap Primary Care Physician: Halima Villalpando MD [Primary Care Provider] - Please follow up with your Primary Care Physician in: in 5- 7 days Proposed Discharge Date: 09/16/17 09/16/17 1607 <Electronically signed by Bo Mike MD> Date Bo Mike MD CC: Halima Villalpando MD; Halima Gonzales MD CONSULTATION Observed: 09/16/2017 Status: F Source: OSAGE 4:04 PM [facility] REPOSITORY [facility] Medical Records Department [address] [place] [id number] Consultation 09/16/17 1558 MR#: [id number] Acct: [id number] Name: JUWAN ROBLES Rep #: [id number] : 1945 72 From: Halima Gonzales MD PCP: Halima Villalpando MD Status: ADM IN Y Location: [place] [address]-1 Problem List (1) Cellulitis Status: Acute Reason for Consult: cellulitis Consulted by: Dr. Mike History of Present Illness: The patient is a 72 year old M who presented with chest pain. Reports starting with fever and chills 09/12, by 09/14, noticed RLE redness, warmth, and swelling. No drainage. Came to hospital, admitted on zosyn. Leg feeling better, no n/v/d. Abx narrowed to keflex today. No further fever. Full ROS performed and neg except as noted above. - Medical History Past Medical History (Chronic Problems): Chronic Problems CAD (coronary artery disease) (Chronic) Essential (primary) hypertension (Chronic) Allergies/Adverse Reactions: Allergies No Known Allergies Allergy (Verified 09/13/17 08:11) Home Medications: Ambulatory Orders Medication Instructions Recorded Aspirin [Aspirin, Baby] 81 mg PO DAILY@0800 09/13/17 Cephalexin [Keflex] 500 mg PO Q8 #15 capsule 09/16/17 - Social History SMOKING STATUS:: Former smoker Vital Signs Temp Pulse Resp BP Pulse Ox 98.4 F 89 18 115/69 94 09/16/17 14:40 09/16/17 14:40 09/16/17 14:40 09/16/17 14:40 09/16/17 14:40 Oxygen Flow Rate [At REST on 0 Room Air] Oxygen Flow Rate 3 Oxygen Delivery Method Room Air Weight: 82 kg Body Mass Index (BMI) 31.0 Microbiology Past 72 Hours 09/14/17 05:40 Blood Culture - Preliminary Laboratory Tests Past 24 Hrs WBC 6.9 RBC 3.91 L Hgb 11.9 L Hct 37.3 L - Other Studies Radiology: [] reviewed Other Studies: [] Route of nutrition/ use of supplements: [] Nutritional Intake: [] IV Site: [] De La Garza Catheter: [] - Physical Exam General: Alert, Oriented x3, Cooperative, No apparent distress HEENT: Atraumatic, PERRLA, EOMI Neck: Supple, No Nodes Lungs: Clear to auscultation, Normal air movement Cardiovascular: Regular rate, Regular Rhythm, No murmurs Abdomen: Bowel Sounds Present, Soft, Non Tender, Non-Distended Extremities: Edema Skin: Rash Present - RLE ye/calf redness and warmth IV Site: Peripheral, without redness Musculoskeletal: No Tenderness to Palpation of Joints or Extremities Neurological: Cranial nerves II-XII grossly intact - Assessment/Plan Antibiotics: [] Assessment/Plan: [] Active and Suspected Problems Acute chest pain (Acute) RLE cellulitis - fever resolved, cxs neg. On keflex. Ok for d/c home on po keflex 500mg tid for 7 more days. Thank you, will follow, d/w manager of case management. 09/16/17 3077 <Electronically signed by Halima Gonzales MD> Date Halima Gonzales MD Cosigner Signature (if applicable): Date CC: Halima Villalpando MD; Halima Gonzales MD Signed CBC-COMPLETE BLOOD CNT Collected: 09/16/2017 Status: F Source: ANGIE NO DIFF 5:55 AM [facility] REPOSITORY TYPE CODE TESTS RESULT OUT OF RANGE REFERENCE UNITS LAB L100.1000 4.4-11.0 K/mm3 Normal WBC 6.9 LAB L100.1200 4.6-6.2 M/mm3 Low RBC 3.91 LAB L100.1300 13.0-16.5 g/dl Low HGB 11.9 LAB L100.1400 40-54 % Low HCT 37.3 LAB L100.1500 80-94 fL High MCV 95.4 LAB L100.1600 27.0-32.0 pg Normal MCH 30.4 LAB L100.1700 32-36 g/gl Low MCHC 31.9 LAB L100.1810 11.6-14.6 % High RDW CV 15.0 LAB L100.1820 35.1-43.9 fl High RDW SD 52.0 LAB L100.1900 150-450 K/mm3 Normal PLT 150 LAB L100.2000 6.2-12.0 fl Normal MPV 10.1 Performed By: #### L100.0500 #### [facility] [place], [place], [address] BASIC METABOLIC Collected: 09/16/2017 Status: F Source: ANGIE PROFILE (BMP) 5:55 AM [facility] REPOSITORY TYPE CODE TESTS RESULT OUT OF RANGE REFERENCE UNITS LAB L501.0100 70-110 mg/dL Normal GLU 100 LAB L501.1000 7-18 mg/dL High BUN 19 LAB L501.1100 0.70-1.30 mg/dL Normal 0.99 CREAT,SERUM Result Comment: The validity of the calculated GFR AND GFRAA in patients over 70 years has not been determined. Clinical correlation is essential. LAB L501.1110 >60 mL/min Normal EST GFR 78 Result Comment: Non- GFR Calc LAB L501.1115 >60 mL/min Normal EST GFR - AA 95 Result Comment: GFR Calc LAB L501.1255 ml/min Normal Estimated CRCL 54.81 LAB L501.1300 10-20 RATIO Normal BUN/CRE 19.1 LAB L501.2200 8.5-10 mg/dL Low .1 CA 8.0 LAB L501.5300 136-14 mmol/L Normal 5 NA 143 LAB L501.5600 3.5-5. mmol/L Normal 1 K 3.7 LAB L501.5900 98-107 mmol/L High CL 108 LAB L501.6100 21.0-3 mmol/L Normal 2.0 CO2 28.0 LAB L501.6200 5-15 Normal GAP 7 Performed By: #### L500.2500 #### [facility] [address] [place], [place], [id number] CBC-COMPLETE BLOOD CNT Collected: 09/15/2017 Status: F Source: ANGIE NO DIFF 5:20 AM [facility] REPOSITORY Order Comment: SPECIMEN OBTAINED FROM LINE DRAW TYPE CODE TESTS RESULT OUT OF RANGE REFERENCE UNITS LAB L100.1000 4.4-11.0 K/mm3 Normal WBC 7.5 LAB L100.1200 4.6-6.2 M/mm3 Low RBC 3.52 LAB L100.1300 13.0-16.5 g/dl Low HGB 11.2 LAB L100.1400 40-54 % Low HCT 34.1 LAB L100.1500 80-94 fL High MCV 96.9 LAB L100.1600 27.0-32.0 pg Normal MCH 31.8 LAB L100.1700 32-36 g/gl Normal MCHC 32.8 LAB L100.1810 11.6-14.6 % High RDW CV 15.4 LAB L100.1820 35.1-43.9 fl High RDW SD 52.7 LAB L100.1900 150-450 K/mm3 Low PLT 131 LAB L100.2000 6.2-12.0 fl Normal MPV 10.1 Performed By: #### L100.0500 #### [facility] [address] [facility]. [place], [place], [id number] BASIC METABOLIC Collected: 09/15/2017 Status: F Source: ANGIE PROFILE (BMP) 5:20 AM [facility] REPOSITORY Order Comment: SPECIMEN OBTAINED FROM LINE DRAW TYPE CODE TESTS RESULT OUT OF RANGE REFERENCE UNITS LAB L501.0100 70-110 mg/dL Normal GLU 106 LAB L501.1000 7-18 mg/dL High BUN 20 LAB L501.1100 0.70-1.30 mg/dL Normal 0.94 CREAT,SERUM Result Comment: The validity of the calculated GFR AND GFRAA in patients over 70 years has not been determined. Clinical correlation is essential. LAB L501.1110 >60 mL/min Normal EST GFR 83 Result Comment: Non- GFR Calc LAB L501.1115 >60 mL/min Normal EST GFR - AA 101 Result Comment: GFR Calc LAB L501.1255 ml/min Normal Estimated CRCL 57.73 LAB L501.1300 10-20 RATIO High BUN/CRE 21.3 LAB L501.2200 8.5-10 mg/dL Low .1 CA 7.6 LAB L501.5300 136-14 mmol/L Normal 5 NA 141 LAB L501.5600 3.5-5. mmol/L Normal 1 K 4.1 LAB L501.5900 98-107 mmol/L High CL 109 LAB L501.6100 21.0-3 mmol/L Normal 2.0 CO2 25.0 LAB L501.6200 5-15 Normal GAP 7 Performed By: #### L500.2500 #### [facility] [address] [facility] [place], [address] STRESS TEST ECHO W/ Observed: 09/14/2017 Status: F Source: OSAGE CONTRAST 10:25 AM [facility] REPOSITORY [facility] Cardiovascular Services [address] [place] [address] Stress Test Echo W/Contrast MR#: [id number] Acct: [id number] Name: JUWAN ROBLES Rep #: [id number] : 1945 72 From: Gurinder Escobedo MD Primary Care: Halima Villalpando MD Status: ADM IN Ordering Dr: Bo Mike MD Sex: M C Reason For Study: Chest pain, Dyspnea Stress Results Protocol: Dobutamine Maximum Predicted HR: 146 bpm Target HR: 124 bpm% Maximum Predicted HR: 88 % DurationHeart Rate Stage (mm:ss) (bpm) BPDos e Comment Baseline 62 105/65 Definity 2 CC Stage 1 3:00 91 160/5810.001 CC definity Stage 2 3:25 12 9 134/9420.001 CC Definity Recovery 100 129/8 0 1 CC Definity Stress Duration: 6:25 mm:ss Maximum Stress HR: 129 bpm Baseline Echocardiogram Findings The estimated ejection fraction is 55 %. Stress Echo Wall motion Data Resting WMIntermediate WMStress WM Resting Wall Motion Wall Motion Stress Basal anteroseptal: Mildly Baseline anteroseptal wall hypokinetic. remained hypokinetic, but all Mid-Anterior : Mildly other leos contracted normally hypokinetic. with peak infusion. EKG Data Normal intervals are noted. The patient was titrated from 10 mcg to a maximum of 20 mcg of dobutamine during the stress. The maximum heart rate attained was 127 beats per minute. This was 86% of maximum predicted heart rate. During dobutamine infusion, there were no ST or T wave changes noted to suggest ischemia. No clinical angina was noted. Interpretation Summary The estimated ejection fraction is 55 %. Baseline anteroseptal wall remained hypokinetic, but all other leos contracted normally with peak infusion. The patient was titrated from 10 mcg to a maximum of 20 mcg of dobutamine during the stress. Normal adequate dobutamine echocardiogram. Negative for ischemia by EKG and echocardiographic criteria. Patient had baseline anteroseptal hypokinesis which remained about the same during infusion. All other leos contracted normally. Appropriate blood pressure response to dobutamine. Test terminated due to the attainment of target heart rate. Patient had no anginal symptoms prior to or during infusion. Rare PVCs noted. Final LVEF is 65%. Decreased sensitivity due to poor echo windows and need for Definity agent. Ordering Physician: Bo Mike Referring Physician: Bo Mike Performed By: Lydia Russ, RENETTA, RVT 09/14/17 1025 Date Gurinder Escobedo MD CC: Bo Mike MD; Halima Villalpando MD Date Dictated: 09/14/17 0854 Date Transcribed: 09/14/17 1025 Buckle Sorter: Signed URINALYSIS, COMPLETE Collected: 09/14/2017 Status: F Source: ANGIE 10:00 AM [facility] REPOSITORY Order Comment: Order Date: 09/14/17 How was Urine Obtained? CLEAN CATCH TYPE CODE TESTS RESULT OUT OF RANGE REFERENCE UNITS LAB L400.3000 Yellow COLOR Normal Yellow LAB L400.3050 Clear Normal CLARITY Clear LAB L400.3200 Normal mg/dl Normal GLUCOSE, UR Normal LAB L400.3300 Negative mg/dL Normal BILIRUBIN URINE Negative LAB L400.3400 Negative mg/dl High 5 KETONE UR LAB L400.3465 1.002-1.030 Normal SP.GR. DIPSTX 1.020 LAB L400.3550 5.0 - 8.0 pH UR Normal 5.0 LAB L400.3600 Negative mg/dl High PROT 30 DIPSTX LAB L400.3700 Normal mg/dl Normal UROBILI Normal LAB L400.3750 Negative Normal NITRITE UR Negative LAB L400.3780 Negative /ul High OCCULT BLOOD-UR 150 LAB L400.3800 Negative /ul High LEUK 25 ESTERASE LAB L400.4050 0-5 /hpf WBC Normal 0-5 SEEN LAB L400.4100 0-5 /hpf Normal RBC-UA 0-5 SEEN LAB L400.4150 0-5 /hpf SQUAM 0 Normal EPI SEEN LAB L400.4300 None Seen /hpf 0 Normal BACTERIA SEEN LAB L400.4350 <or=2+ /hpf 0 Normal MUCUS, URINE SEEN Performed By: #### L503.6005, L400.0001 #### [facility] [address] [place], [place], [id number] CBC-COMPLETE BLOOD CNT Collected: 09/14/2017 Status: F Source: ANGIE NO DIFF 5:40 AM [facility] REPOSITORY TYPE CODE TESTS RESULT OUT OF RANGE REFERENCE UNITS LAB L100.1000 4.4-11.0 K/mm3 Normal WBC 9.4 LAB L100.1200 4.6-6.2 M/mm3 Low RBC 3.83 LAB L100.1300 13.0-16.5 g/dl Low HGB 12.0 LAB L100.1400 40-54 % Low HCT 36.6 LAB L100.1500 80-94 fL High MCV 95.6 LAB L100.1600 27.0-32.0 pg Normal MCH 31.3 LAB L100.1700 32-36 g/gl Normal MCHC 32.8 LAB L100.1810 11.6-14.6 % High RDW CV 15.2 LAB L100.1820 35.1-43.9 fl High RDW SD 51.1 LAB L100.1900 150-450 K/mm3 Low PLT 139 LAB L100.2000 6.2-12.0 fl Normal MPV 9.8 Performed By: #### L100.0500 #### [facility] [address] [place], [address] BASIC METABOLIC Collected: 09/14/2017 Status: F Source: OSAGE PROFILE (BMP) 5:40 AM [facility] REPOSITORY TYPE CODE TESTS RESULT OUT OF RANGE REFERENCE UNITS LAB L501.0100 70-110 mg/dL High GLU 112 Result Comment: Fasting Glucose result from 110 to <126 mg/dL suggests IMPAIRED HOMEOSTASIS per A.D.A. criteria. LAB L501.1000 7-18 mg/dL High BUN 26 LAB L501.1100 0.70-1.30 mg/dL Normal CREAT,SERUM 1.15 Result Comment: The validity of the calculated GFR AND GFRAA in patients over 70 years has not been determined. Clinical correlation is essential. LAB L501.1110 >60 mL/min Normal EST GFR 66 Result Comment: Non- GFR Calc LAB L501.1115 >60 mL/min Normal EST GFR - AA 80 Result Comment: GFR Calc LAB L501.1255 ml/min Normal Estimated CRCL 47.19 LAB L501.1300 10-20 RATIO High BUN/CRE 22.6 LAB L501.2200 8.5-10 mg/dL Low .1 CA 7.8 LAB L501.5300 136-14 mmol/L Normal 5 NA 141 LAB L501.5600 3.5-5. mmol/L Normal 1 K 3.9 LAB L501.5900 98-107 mmol/L High CL 110 LAB L501.6100 21.0-3 mmol/L Normal 2.0 CO2 26.0 LAB L501.6200 5-15 Normal GAP 5 Performed By: #### L500.2500 #### [facility] [address] [facility] [place], [address] LACTIC ACID Collected: 09/14/2017 Status: F Source: OSAGE 5:40 AM [facility] REPOSITORY Order Comment: Yes/No query for Sepsis Lactate Rule Y TYPE CODE TESTS RESULT OUT OF RANGE REFERENCE UNITS LAB L503.6005 0.4-2.0 mmol/L Normal LACTIC ACID 0.9 Performed By: #### L503.6005, L400.0001 #### [facility] [address] [place], [address] Observed: 09/14/2017 Status: F Source: OSAGE CULTURE, BLOOD (WB) 5:40 AM [facility] REPOSITORY Has pt arrived? Y BC No growth in 5 days. Performed By: #### M200.1000 #### [facility] [address] [place], [place], [address] CHEST PA AND LATERAL Observed: 09/14/2017 Status: F Source: OSAGE 5:19 AM [facility] REPOSITORY [facility] Imaging Services [address] [place] [address] Chest PA and Lateral MR#: [id number] Acct: [id number] Name: JUWAN ROBLES Rep #: [id number] : 1945 M 72 From: Tyree Alicia PCP: Halima Villalpando MD Status: ADM IN Study: Chest PA and Lateral Date of Exam: 09/14/17 Exam# [id number] Ordering Dr: Diomedes Nicholson DO STUDY: X-RAY CHEST REASON FOR EXAM: Male, 72 years old. Fever TECHNIQUE: PA and lateral COMPARISON: September 13, 2017 FINDINGS: Lungs are expanded. There is slight elevation of the RIGHT hemidiaphragm which is chronic. There is discoid atelectasis or fibrosis at the RIGHT lung base. There are NO acute infiltrates. There is no demonstrated pleural abnormality. The heart is mildly enlarged. There has been open heart surgery. Normal mediastinum and nandini. Normal visualized pulmonary arteries. Normal visualized aortic arch and descending thoracic aorta. Normal visualized thoracic spine. Normal visualized ribs, clavicles, and shoulders. There is no demonstrated abnormality of the visualized soft tissue structures of the upper abdomen. RAD/Chest PA and Lateral IMPRESSION: Lungs are expanded. There is slight elevation of the RIGHT hemidiaphragm which is chronic. There is discoid atelectasis or fibrosis at the RIGHT lung base. There are NO acute infiltrates. There is no demonstrated pleural abnormality. The heart is mildly enlarged. There has been open heart surgery. Electronically Signed: Tyree Alicia MD at 6:30 EST , Service support , CC: Diomedes Nicholson DO; Halima Villalpando MD Buckle Sorter: Signed TROPONIN-I Collected: 09/13/2017 Status: F Source: OSAGE 10:35 PM [facility] REPOSITORY Order Comment: 'TROP' Serial specimen #1, #2, #3, or #4: 4 TYPE CODE TESTS RESULT OUT OF RANGE REFERENCE UNITS LAB L501.4010 <0.06 ng/mL Normal < 0.02 TROPONIN-I Result Comment: TROPONIN-I EXPECTED VALUES <0.05 NEGATIVE 0.06 - 0.59 AT RISK OF PA > OR = 0.60 SUGGEST PA Performed By: #### L501.4010 #### [facility] [address] [facility] [place], [address] ECHO, COMPLETE W/ Observed: 09/13/2017 Status: F Source: OSAGE CONTRAST 5:10 PM [facility] REPOSITORY [facility] Cardiovascular Services [address] [place] [address] Echo Complete W/ Contrast 09/13/17 1517 MR#: [id number] Acct: [id number] Name: JUWAN ROBLES Rep #: [id number] : 1945 72 From: Juwan Wilkes MD Attending Dr: Bo Mike MD Status: ADM IN Ordering Dr: Bo Mike MD Date: 09/13/17 Location: [facility] Sex: M C Admitted: 09/13/17 Reason For Study: chest pain Procedure This was a 2D Doppler, Color Flow transthoracic echocardiogram. The study was technically limited. The study was technically difficult. Due to body habitus and severe hiccups. Contrast injection was performed. Left Ventricle Normal LV size. Mild segmental systolic dysfunction (see wall motion). The estimated ejection fraction is 50 %. Mid-inferoseptal : Hypokinetic. Mid-anteroseptal : Hypokinetic. Right Ventricle Normal RV size. Normal systolic function. Atria The left atrium is mildly enlarged. Normal right atrium. No doppler evidence for ASD. Mitral Valve There is mild mitral annular calcification. Mild focal mitral valve calcification of the anterior leaflet. Trivial mitral valve insufficiency. Tricuspid Valve The tricuspid valve is not well visualized. Trivial tricuspid valve insufficiency. Unable to estimate RV systolic pressure/pulmonary artery pressure due to technically difficult study. Aortic Valve Trisinus/trileaflet aortic valve. Mild focal aortic valve thickening. Mild focal aortic valve calcification. Pulmonic Valve The pulmonic valve is not well visualized. Trivial pulmonic valve insufficiency. Great Vessels Normal sized aortic root. Pericardium/Pleural No pericardial effusion. Medication Definity0.4ml given slow IV push to enhance endocardial definition. MMode/2D Measurements AND Calculations LVIDd: 5.4 cm IVSd: 1.2 cm Ao root diam: 3.4 cm LVIDs: 4.4 cm LVPWd: 1.1 cm LA dimension: 4.5 cm FS: 17.5 % Doppler Measurements AND Calculations MV E max nader: 68.9 cm/sec Lat Peak E' Nader: 12.0 cm/sec Ao V2 max: 131.0 cm/sec MV A max nader: 101.1 cm/sec E/E' lat: 5.8 Ao max P.9 mmHg MV E/A: 0.68 LV V1 max: 95.7 cm/sec PA V2 max: 133.9 cm/sec LV V1 max P.7 mmHg Interpretation Summary The study was technically difficult. Contrast injection was performed. Mild segmental systolic dysfunction (see wall motion). The estimated ejection fraction is 50 %. The left atrium is mildly enlarged. There is mild mitral annular calcification. Mild focal mitral valve calcification of the anterior leaflet. Trivial mitral valve insufficiency. Trivial tricuspid valve insufficiency. Mild focal aortic valve thickening. Mild focal aortic valve calcification. Trivial pulmonic valve insufficiency. Unable to estimate RV systolic pressure/pulmonary artery pressure due to technically difficult study. Ordering Physician: Bo Mike Referring Physician: Halima Villalpando Performed By: Lydia Russ, RENETTA, RVT 09/13/17 3959 Date Juwan Wilkes MD CC: Bo Mike MD; Halima Villalpando MD Date Dictated: 09/13/17 1517 Date Transcribed: 09/13/17 495 Buckle Sorter: Signed TROPONIN-I Collected: 09/13/2017 Status: F Source: ANGIE 5:00 PM [facility] REPOSITORY Order Comment: 'TROP' Serial specimen #1, #2, #3, or #4: 3 TYPE CODE TESTS RESULT OUT OF RANGE REFERENCE UNITS LAB L501.4010 <0.06 ng/mL Normal < 0.02 TROPONIN-I Result Comment: TROPONIN-I EXPECTED VALUES <0.05 NEGATIVE 0.06 - 0.59 AT RISK OF PA > OR = 0.60 SUGGEST PA Performed By: #### L501.4010 #### [facility] [address] [place], [address] VENOUS DUPLEX LOWER Observed: 09/13/2017 Status: F Source: OSAGE EXTREMITY 4:35 PM [facility] REPOSITORY [facility] Cardiovascular Services [address] [place] [address] Venous Duplex US - Luis Extrem 09/13/17 1044 MR#: [id number] Acct: [id number] Name: JUWAN ROBLES Rep #: [id number] : 1945 72 From: Halima Luis MD Attending Dr: Bo Mike MD Status: ADM IN Ordering Dr: Aquilino Lomax MD Date: 09/13/17 Location: [facility] Sex: M C Admitted: 09/13/17 Reason For Study: elevated D-Dimer RIGHT LEFT GSV is normal. CFV is compressible, spontaneous, phasic, CFV is compressible, spontaneous, phasic, competent, and demonstrates normal competent and demonstrates normal augmentation. augmentation. FV is compressible, spontaneous, phasic, FV is compressible, spontaneous, phasic, competent and demonstrates normal competent and demonstrates normal augmentation. augmentation. POP V is compressible, spontaneous, phasic, POP V is compressible, spontaneous, phasic, competent and demonstrates normal competent and demonstrates normal augmentation. augmentation. T/P Trunk is compressible. T/P Trunk is compressible. PTV is compressible. PTV is compressible. LT PerV is compressible. RT PerV is compressible. GSV has been harvested. Gastroc vein is partially compresible with bright intraluminal echoes consistent with chronic DVT. Procedure Exam performed portable in ED. The exam was diagnostic. A preliminary report was called and/or faxed to Dr. Lomax. Interpretation Summary No evidence for acute deep venous thrombosis bilateral lower extremities. 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 Surgically removed left great saphenous vein. Ordering Physician: Aquilino Lomax Performed By: Nigel Noriega RVKamilla 09/13/17 1635 Date Halima Luis MD CC: Halima Villalpando MD; Aquilino Lomax MD Date Dictated: 09/13/17 1044 Date Transcribed: 09/13/171634 Buckle Sorter: Signed EMERGENCY DEPARTMENT Observed: 09/13/2017 Status: F Source: OSAGE SUMMARY 4:03 PM [facility] REPOSITORY [facility] Medical Records Department [address] [place] [address] Emergency Department Summary 09/13/17 0848 MR#: [id number] Acct: [id number] Name: JUWAN ROBLES Rep #: [id number] : 1945 72 From: Aquilino Lomax MD PCP: Halima Villalpando MD Status: ADM IN - ER Visit Summary Date of Service: 09/13/17 Chief Complaint: Chest pain History of Present Illness: The patient is a [address] Villalpando and Dr. Peña. He reports that he woke with a left-sided chest pain this morning approximately 5 AM. He describes as an intermittent pressure that lasts minutes at a time. Is 10 out of 10 at worst and 2 out of 10 currently. Is worsened by nothing although he is not walked around. Is also relieved by nothing. He is ports he has been nauseated and vomited twice. No blood in his emesis. There is no radiation of his pain. Patient also reports that he has developed a subjective fever and chills overnight. He denies a sore throat or cough. He reports that he has abdominal pain that is 3 out of 10 severity and a headache that is annoying. 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 He states he has had left ankle swelling ever since that time. He denies any calf pain. Physical Examination: Vitals: 99.6, 117/62, 112, 30, 89% on room air which is hypoxic General: Well-nourished and well-developed. Head: Normocephalic atraumatic. Neck: Supple, no lymphadenopathy. No JVD. Nontender. Cardiovascular: Tachycardic regular rhythm. No murmurs. Respiratory: No respiratory distress. Clear to auscultation bilaterally. Abdominal: Soft, nontender, nondistended, normal bowel sounds. No guarding, rebound, or peritoneal signs. Back: Nontender. Extremities: Nontender, no edema. Skin: Normal color, no rash. Neurologic: Alert and oriented 3. Cranial nerves II through XII are intact. Normal strength and sensation. Psych: Normal affect. Test Results: EKG is sinus tach at 109. He does have LVH with T-wave inversions in leads I and aVL. There is no old EKG for comparison. Repeat EKG is unchanged. CBC is more for white count of 15.8, segment neutrophils of 91, monocytes of 5. Chem-7 is more for BUN of 26 and glucose of 129. Troponin is negative. D-dimer is elevated 0.63. Influenza is negative. Chest x-ray shows poor inspiration and cardiomegaly. We were unable to obtain a an IV in the antecubital that could be used for an appropriate contrast bolus. Because of this Dopplers of his legs were obtained. 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 No acute DVT. Emergency Department Course and Treatment: Patient had an IV placed. He was treated with aspirin. He was treated with morphine and Zofran IV. He is resting comfortably. Treatment Plan: Patient was discussed with Dr. stack. He will be admitted to the hospital for further evaluation and treatment. Disposition: Admitted in serious condition. Impression: 1. Chest pain, atypical. 2. Hypoxia. 3. ADRIANO score of 3. 4. Chronic thrombus right gastrocnemius vein. This note was generated with Litebiation software. It may contain incorrect words, spelling, and punctuation that were not noted in review of the chart prior to signing ED Disposition - Plan for ED Patient: Chief Complaint: Chest Pain What to do if you have Problems For any increased pain, shortness of breath, bleeding, nausea or vomiting, chest pain, or any unexpected problems, contact your Primary Care Provider. Call [facility] ([phone]) or report to the closest Emergency Room. Call 911 if necessary. 09/13/17 1602 <Electronically signed by Aquilino Lomax MD> Date Aquilino Lomax MD Cosigner Signature (If Indicated): Date CC: Halima Villalpando MD HISTORY AND PHYSICAL Observed: 09/13/2017 Status: F Source: OSAGE EXAM 3:04 PM [facility] REPOSITORY [facility] Medical Records Department [address] [place] [address] History and Physical 09/13/17 1405 MR#: [id number] Acct: [id number] Name: JUWAN ROBLES Rep #: [id number] : 1945 72 From: Bo Mike MD PCP: Halima Villalpando MD Status: ADM IN Location: [place] [address]-1 ADDENDUM by Bo Mike MD on 09/13/17 at 1504 Code Visit OBSV E AND M: [id number] Initial observation care L3 09/13/17 1504 <Electronically signed by Bo Mike MD> Date Bo Mike MD cc: Bo Mike MD; Halima Villalpando MD * Signed Problem List (1) Acute chest pain Status: Acute (2) CAD (coronary artery disease) Status: Chronic (3) Essential (primary) hypertension Status: Chronic History of Present Illness Date of Admission: 09/13/17 Chief Complaint: Chest pain The patient is a 72 year old M with past medical history significant for CAD with previous CABG, essential hypertension sent with chest pain. Patient symptoms started on the morning of his admission. Pain was located in the retrosternal region. Patient did not relate the pain to any activity pain located both at rest as well as with activity. Patient also did complain of shortness of breath. Patient was seen in the emergency department workup did reveal elevated d-dimer CTA of the chest was however negative for PE subsequently admitted to a monitored bed for further management Past Medical History Past Medical History (Chronic Problems): Chronic Problems CAD (coronary artery disease) (Chronic) Essential (primary) hypertension (Chronic) Allergies No Known Allergies Allergy (Verified 09/13/17 08:11) Home Medications: Ambulatory Orders Medication Instructions Recorded Aspirin [Aspirin, Baby] 81 mg PO DAILY@0800 09/13/17 Surgical History: coronary bypass surgery Smoking Status: Never smoker - *Family History Maternal History Items: No pertinent history Review of Systems Constitutional: Denies: Anorexia, Chills, Fever, Night Sweats, Weight Change HEENT: Denies: Head Aches, Sinus Congestion, Sinus Drainage Cardiovascular: Reports: Chest Pain. Denies: Orthopnea, Palpitations, Paroxysmal Noc. Dyspnea Respiratory: Denies: Cough, Shortness of breath at rest Gastrointestinal: Denies: Abdominal Pain, Hematemesis, Hematochezia, Nausea, Melena, Vomiting Genitourinary: Denies: Dysuria, Frequency, Hematuria, Urgency Musculoskeletal: Denies: Joint Pain, Joint Tenderness Skin: Denies: Rash Neurological: Denies: Focal weakness, Numbness, Tingling Psychiatric: Denies: Homicidal Ideations, Suicidal Ideations Hematologic/ Lymphatic: Denies: Easy Bruising, Easy Bleeding VTE Information - Inpt Only VTE Present on Admission: No VTE Mechan Device Prophylaxis: Knee High MICHAEL Hose VTE Pharm Prophylaxis ordered?: Yes Patient Problems: Active and Suspected Problems Acute chest pain (Acute) Objective: GENERAL: cooperative HEENT: Clear conjunctiva, NECK; supple, normal thyroid, CHEST: Diminished to auscultation bilaterally, HEART: Regular S1 S2, no audible murmurs ABDOMEN: soft, non-tender, normoactive bowel sounds, RECTAL: deferred EXTREMITIES: No edema, no clubbing, no cyanosis. 3RD PRESSMAN: Awake, no lateralizing signs. SKIN: Rash - Physical Exam Vital Signs Temp Pulse Resp BP Pulse Ox 100.4 F H 100 22 H 108/65 93 09/13/17 12:52 09/13/17 13:02 09/13/17 13:02 09/13/17 13:02 09/13/17 13:02 Oxygen Flow Rate 3 Oxygen Delivery Method Nasal Cannula Laboratory Tests Past 24 Hrs Troponin I < 0.02 Assessment/Plan Active and Suspected Problems Acute chest pain (Acute) Patient is a 72-year-old male with history of CAD with previous CABG presented with chest pain 1. Chest pain: Patient admitted to monitored bed ordered serial cardiac enzymes to rule out PA. Also ordered a 2D echo with plans for patient undergo a nuclear stress test in a.m. if PA is ruled out 2. CAD status post CABG 3. Essential hypertension blood pressure currently stable 4. History of recurrent kidney stones currently astigmatic 5. Obesity with BMI of 31.0 6. DVT prophylaxis SC Lovenox. 09/13/17 1458 <Electronically signed by Bo Mike MD> Date Bo Mike MD Cosigner Signature: Date (if applicable) CC: Bo Mike MD; Halima Villalpando MD Signed CTA CHEST W/WO Observed: 09/13/2017 Status: F Source: ANGIE CONTRAST 1:01 PM [facility] REPOSITORY [facility] Imaging Services [address] [place] [address] CTA Chest W/WO Contrast MR#: [id number] Acct: [id number] Name: JUWAN ROBLES Rep #: [id number] : 1945 M 72 From: Andrei Quezada MD PCP: Halima Villalpando MD Status: ADM IN Study: CTA Chest W/WO Contrast Date of Exam: 09/13/17 Exam# [id number] Ordering Dr: Aquilino Lomax MD STUDY: CTA CHEST REASON FOR EXAM: Male, 72 years old. Elevated d-dimer. Shortness of breath and chest pain. RADIATION DOSAGE (If Supplied By Facility): CTDIvol = ( 14.28 ) mGy, DLP = ( 583.76 ) mGycm TECHNIQUE: The examination was performed with the intravenous administration of 100 ml of Isovue 370 contrast material. Post-processing of the angiographic images was performed, with multiplanar reformation and 3D reconstruction. Individualized dose optimization techniques were used for this CT. COMPARISON: Comparison is made with prior chest radiograph done earlier in the day. FINDINGS: Normal enhancement of the main pulmonary artery and right and left pulmonary arteries. Normal enhancement of the bilateral peripheral pulmonary arteries. There is no demonstrated pulmonary embolism. Normal thoracic aorta and visualized great vessels. There is no demonstrated aortic dissection. Normal heart and pericardium. Normal mediastinum. Normal hilar regions. Normal visualized trachea and bronchi. The lungs are well expanded. Mild degree of increased markings at the lung bases suggestive of bibasilar atelectasis. This is slightly worse on the right side. There is also evidence of underlying bronchiectasis and scarring at the lung bases. Normal pleura. Normal chest wall structures. There are degenerative changes of thoracic spine. Small hiatal hernia. CT/CTA Chest W/WO Contrast IMPRESSION: Findings suggesting scarring and atelectasis at the lung bases. This is slightly worse on the right side. There is no evidence of pulmonary embolism. Electronically Signed: Andrei Quezada MD at 13:53 EST Tel [phone], Service support , CC: Halima Villalpando MD; Aquilino Lomax MD Buckle Sorter: Signed TROPONIN-I Collected: 09/13/2017 Status: F Source: ANGIE 12:45 PM [facility] REPOSITORY Order Comment: 'TROP' Serial specimen #1, #2, #3, or #4: 2 TYPE CODE TESTS RESULT OUT OF RANGE REFERENCE UNITS LAB L501.4010 <0.06 ng/mL Normal < 0.02 TROPONIN-I Result Comment: TROPONIN-I EXPECTED VALUES <0.05 NEGATIVE 0.06 - 0.59 AT RISK OF PA > OR = 0.60 SUGGEST PA Performed By: #### L501.4010 #### [facility] Laboratory [address] [place], [address] MAGNESIUM Collected: 09/13/2017 Status: F Source: OSAGE 12:45 PM [facility] REPOSITORY TYPE CODE TESTS RESULT OUT OF RANGE REFERENCE UNITS LAB L501.5200 1.6-2.6 mg/dL Normal MG 1.7 Result Comment: Please note revised Magnesium reference range effective 2017. Performed By: #### L501.5200, L501.9520 #### [facility] Laboratory [address] [place], [place], [address] THYROID STIM HORMONE Collected: 09/13/2017 Status: F Source: OSAGE (TSH) 12:45 PM [facility] REPOSITORY TYPE CODE TESTS RESULT OUT OF RANGE REFERENCE UNITS LAB L501.9520 0.358-3.74 uIU/mL Normal TSH 0.36 Performed By: #### L501.5200, L501.9520 #### [facility] Laboratory [address] [place], [address] CBC W/DIFF, AUTOMATED Collected: 09/13/2017 Status: F Source: ANGIE 9:25 AM [facility] REPOSITORY TYPE CODE TESTS RESULT OUT OF RANGE REFERENCE UNITS LAB L100.1000 4.4-11.0 K/mm3 High WBC 15.8 LAB L100.1200 4.6-6.2 M/mm3 Normal RBC 4.61 LAB L100.1300 13.0-16.5 g/dl Normal HGB 14.6 LAB L100.1400 40-54 % Normal HCT 42.9 LAB L100.1500 80-94 fL Normal MCV 93.1 LAB L100.1600 27.0-32.0 pg Normal MCH 31.7 LAB L100.1700 32-36 g/gl Normal MCHC 34.0 LAB L100.1810 11.6-14.6 % High RDW CV 14.9 LAB L100.1820 35.1-43.9 fl High RDW SD 48.7 LAB L100.1900 150-450 K/mm3 Normal PLT 182 LAB L100.2000 6.2-12.0 fl Normal MPV 9.8 LAB L100.2100 47-70 % High NEUT% 90.7 LAB L100.2200 19-41 % Low LY% 5.0 LAB L100.2300 0-10 % Normal MONO% 3.8 LAB L100.2400 0-5 % Normal EO% 0.0 LAB L100.2500 0-1 % Normal BASO% 0.2 LAB L100.2550 0.0-0.9 % Normal IM GRAN % 0.300 Result Comment: IG% - Immature Granulocytes (promyelocytes, myelocytes and metamyelocytes) > 1% indicates that a LEFT SHIFT is Present. LAB L100.2620 2.0-7.7 X10 3/uL High Absolute Neut 14.4 LAB L100.2720 0.83-4.51 X10 3/ul Low Absolute Lymph 0.79 Performed By: #### L100.0100 #### [facility] Laboratory [address] [place], [address] BASIC METABOLIC Collected: 09/13/2017 Status: F Source: OSAGE PROFILE (BMP) 9:25 AM [facility] REPOSITORY Order Comment: 'TROP' Serial specimen #1, #2, #3, or #4: 1 TYPE CODE TESTS RESULT OUT OF RANGE REFERENCE UNITS LAB L501.0100 70-110 mg/dL High GLU 129 Result Comment: Fasting Glucose result greater than or equal to 126 mg/dL suggests DIABETES MELLITUS per A.D.A. criteria. LAB L501.1000 7-18 mg/dL High BUN 26 LAB L501.1100 0.70-1.30 mg/dL Normal CREAT,SERUM 1.17 Result Comment: The validity of the calculated GFR AND GFRAA in patients over 70 years has not been determined. Clinical correlation is essential. LAB L501.1110 >60 mL/min Normal EST GFR 65 Result Comment: Non- GFR Calc LAB L501.1115 >60 mL/min Normal EST GFR - AA 78 Result Comment: GFR Calc LAB L501.1255 ml/min Normal Estimated CRCL 46.38 LAB L501.1300 10-20 RATIO High BUN/CRE 22.2 LAB L501.2200 8.5-10 mg/dL Normal .1 CA 9.1 LAB L501.5300 136-14 mmol/L Normal 5 NA 140 LAB L501.5600 3.5-5. mmol/L Normal 1 K 3.8 LAB L501.5900 98-107 mmol/L Normal CL 106 LAB L501.6100 21.0-3 mmol/L Normal 2.0 CO2 26.0 LAB L501.6200 5-15 Normal GAP 8 Performed By: #### L500.2500, L501.4010 #### [facility] Laboratory [address] [place], [place], [address] TROPONIN-I Collected: 09/13/2017 Status: F Source: ANGIE 9:25 AM [facility] REPOSITORY Order Comment: 'TROP' Serial specimen #1, #2, #3, or #4: 1 TYPE CODE TESTS RESULT OUT OF RANGE REFERENCE UNITS LAB L501.4010 <0.06 ng/mL Normal < 0.02 TROPONIN-I Result Comment: TROPONIN-I EXPECTED VALUES <0.05 NEGATIVE 0.06 - 0.59 AT RISK OF PA > OR = 0.60 SUGGEST PA Performed By: #### L500.2500, L501.4010 #### [facility] Laboratory [address] [place], [place], [address] D-DIMER QUANTITATIVE Collected: 09/13/2017 Status: F Source: ANGIE (DVT/PE) 9:25 AM [facility] REPOSITORY TYPE CODE TESTS RESULT OUT OF RANGE REFERENCE UNITS LAB L300.8000 0.27-0.49 FEU/ug/m High alert D-DIMER 0.63 QUANT Result Comment: D-Dimer ELEVATED (>0.49): Additional studies and clinical assessments are indicated to conclude diagnosis of: Deep Vein Thrombosis (DVT) or Pulmonary Embolism (PE) CRITICAL VALUE VERIFIED. CALLED TO APRYL GREENFIELD 09/13/17 0956 Homero Aguirre. RESULTS READ BACK BY SAME. Performed By: #### L300.8000 #### [facility] Laboratory [address] [place], [address] Observed: 09/13/2017 Status: F Source: OSAGE INFLUENZA A+B (RAPID 8:50 AM [facility]) REPOSITORY FLU A/B Rapid Negative test results should be confirmed by culture. Order Rapid Viral Culture for Influenzae A+B (172049) if clinically indicated. Influenza Ag, Direct Presumptive NEGATIVE for Influenza A/B Antigen (See Note) Performed By: #### M101.0101 #### [facility] Laboratory [address] [facility] [place], [address] CHEST PA AND LATERAL Observed: 09/13/2017 Status: F Source: OSAGE 8:29 AM [facility] REPOSITORY [facility] Imaging Services [address] [facility] [place] [address] Chest PA and Lateral MR#: [id number] Acct: [id number] Name: JUWAN ROBLES Rep #: [id number] : 1945 M 72 From: Andrei Quezada MD PCP: Halima Villalpando MD Status: ADM IN Study: Chest PA and Lateral Date of Exam: 09/13/17 Exam# [id number] Ordering Dr: Aquilino Lomax MD STUDY: X-RAY CHEST REASON FOR EXAM: Male, 72 years old. Chest pain. TECHNIQUE: AP and lateral views of the chest. COMPARISON: Comparison is made with prior study dated January 01, 2016. FINDINGS: EKG liquids are seen. Mild increased markings at the lung bases suggestive of atelectasis and/or early infiltrates. There is no demonstrated pleural abnormality. Sternal cerclage wires and vascular clips are present from a prior sternotomy and coronary artery bypass graft procedure (CABG). Borderline cardiomegaly. Normal mediastinum and nandini. Normal visualized pulmonary arteries. There is atherosclerotic tortuosity of the aortic arch and descending thoracic aorta. There are degenerative changes of the visualized thoracic spine. Normal visualized ribs, clavicles, and shoulders. There is no demonstrated abnormality of the visualized soft tissue structures of the upper abdomen. RAD/Chest PA and Lateral IMPRESSION: Increased linear markings at the lung bases suggestive basilar atelectasis and/or infiltrates. Follow-up is recommended. Electronically Signed: Andrei Quezada MD at 9:35 EST Tel [phone], Service support , CC: Halima Villalpando MD; Aquilino Lomax MD Buckle Sorter: Signed ALLERGIES ALLERGIES DATE TYPE / CODE NAME / CODE REACTION SEVERITY SOURCE 07/26/2018 Drug No Known Unknown [place] Allergy/082633556(S Allergies/F0019 [facility] NOMED CT) [address](RXNORM) Hospital Repository Miscellaneous No Known Drug Moderate Constantine Pomgwen Allergy/389759959(S Allergies ([facility] NOMED [facility]) Modifier) Hospital (Qualifier Repository Value) ENCOUNTERS ENCOUNTERS ADMIT/DISCHARGE ACCOUNT ADMITTING ENCOUNTER LOCATION SOURCE NUMBER CLASS 08/01/2018 [id number] HALIMA VILLALPANDO [facility] Repository 07/26/2018/ [id number] Ambulatory BMSBuilding:B [place] [address] [facility] Repository 07/26/2018 [id number] Ambulatory BMSBuilding:B Ang[place] [address] [facility] Repository 07/19/2018/ [id number] [place], Inpatient Build[address] [place] [address] FRANCISCO SNYDER Encounter oom: [address] [place] [address] Repository 07/14/2018/ [id number] Josh Donohue Ambulatory Angie [place] 8 8 [facility] ing:PCURoom: Repository [id number]: 1 07/14/2018 [id number] Josh Donohue Ambulatory BMSBuilding:B [place] 8 [facility] Repository 07/14/2018 [id number] Josh Donohue Ambulatory BMSBuilding:B [place] 9 [facility] Repository 04/21/2018/ [id number] HALIMA VILLALPANDO [address] Repository 09/13/2017/ [id number] Bo Mike Inpatient [place] 8 3 Encounter [facility] ing:PCURoom: Repository [id number]: 1 09/13/2017 [id number] Bo Mike Ambulatory BMSBuilding:B [place] 1 [facility] Repository 09/13/2017 [id number] Bo Mike Ambulatory BMSBuilding:B [place] 3 [facility] Repository 09/13/2017 [id number] Bo Mike Ambulatory BMSBuilding:B [place] 3 [facility] Repository 09/13/2017 [id number] Bo Mike Ambulatory BMSBuilding:B [place] 9 [facility] Repository 09/13/2017/ [id number] Ambulatory BMSBuilding:W [place] 8 7 [facility] Repository 09/13/2017/ [id number] Ambulatory BMSBuilding:B [place] 8 1 MS.[facility]Critical access hospital Repository PAYERS PAYERS ENCOUNTER GUARANTOR PAYER SUBSCRIBER SOURCE 08/01/2018 JUWAN A Primary JUWAN LOPEZB: Insurance:[facility]: [facility] [id number] [facility] [id number] Number: [address] [place] [address] Date: [facility], [place] [id number]: [phone] () 07/26/2018 JUWAN A Primary NOT GIVENMAKAYLA Angie [id number] TR Insurance:SELF PAY [address] [address]Zkn: (330) Number: Effective Repository [phone] () Date:2018-07-12 07/26/2018 JUWAN A Primary JUWAN Shirin Angie [id number] TR Insurance:[facility]: [address] [id number] Hospital [address]Jjj: (330) [facility]: Repository [phone] () [id number] Date: TW RD [address] [place] [address] [id number]: 07/26/2018 Secondary NOT GIVENUNK [place] Insurance:SELF PAY [facility] Number: Effective Repository Date:2018-07-26 07/19/2018 JUWAN A Primary JUWAN ROBLESDOB: Insurance:DENOMINATIONAL MILLERDOB: [facility] [id number] [facility] [id number] [address] Number: [address] Repository [place] Date: [place] [id number]: [phone] (HP) 07/14/2018 JUWAN A Primary JUWAN Carpio Angie [id number] TR Insurance:DENOMINATIONAL MILLERDOB: [facility] [place] [facility] [id number] [facility] [address]Vmj: (330) GROUPPolicy Number: Repository [phone] () [id number] Date: T[address] [place] [address] [id number]: 07/14/2018 Secondary NOT GIVENUNK [place] Insurance:SELF PAY Community [facility] Number: Effective Repository Date:2018-07-14 07/14/2018 JUWAN [id number] Primary JUWAN LOPEZB: [place]DENOM[place] [id number] [facility] [address]Vrd: (316) [facility] [phone] (HP) GROUPPolicy Number: Repository [id number] Date: T[address] [place] [address] [id number]: 07/14/2018 Secondary NOT GIVENUNK [place] Insurance:SELF PAY Community [facility] Hospital Number: Effective Repository Date:2018-07-14 07/14/2018 JUWAN [id number] Primary JUWAN LOPEZB: [place] [address] [place]DENOM[place] [id number] [facility] 91122Ult: (330) [facility] [phone] (HP) GROUPPolicy Number: Repository [id number] Date: T[address] [place] [address] [id number]: 07/14/2018 Secondary NOT GIVENUNK [place] Insurance:SELF PAY Community [facility] Number: Effective Repository Date:2018-07-14 04/21/2018 JUWAN Shirin Primary JUWAN LOPEZB: [facility] [id number] PACKAGEPolicy Number: [id number] Effective Date: [address] Repository [place] [id number]: [phone] (HP) 09/13/2017 JUWAN [id number] Primary JUWAN LOPEZB: [place] [address] [id number] [facility] [address]Mym: (066) [facility] [phone] () GROUPPolicy Number: Repository [id number] Date: T[address] [place] [address] [id number]: 09/13/2017 Secondary NOT GIVENUNK Ang[place] Insurance:SELF PAY Community [facility] Number: Effective Repository Date:2017-09-13 09/13/2017 JUWAN [id number] Primary JUWAN LOPEZB: [place] [facility] Insurance:DENOMINATIONAL [id number] [facility] [address] [facility] [place] [address]Zrr: (330) GROUPPolicy Number: Repository [phone] () [id number] Date: T[address] [place] [address] [id number]: 09/13/2017 Secondary NOT GIVENUNK Ang[place] Insurance:SELF PAY Community [facility] Number: Effective Repository Date:2017-09-13 09/13/2017 JUWAN [id number] Primary JUWAN LOPEZB: [place] [address] [place]OM[place] [id number] [facility] [address]Erw: (330) [facility] [place] [phone] (HP) GROUPPolicy Number: Repository [id number] Date: T[address] [place] [address] [id number]: 09/13/2017 Secondary NOT GIVENUNK [place] Insurance:SELF PAY Community [facility] Number: Effective Repository Date:2017-09-13 09/13/2017 JUWAN [id number] Primary JUWAN ROBLESDOB: [place] [address]OM[place] [id number] [facility] 87057Git: (330) [facility] [id number] () GROUPPolicy Number: Repository [id number] Date: TW RD [address] [place] [address] [id number]: 09/13/2017 Secondary NOT GIVENUNK Ang[place] Insurance:SELF PAY Community [facility] Number: Effective Repository Date:2017-09-13 09/13/2017 JUWAN [id number] Primary JUWAN ROBLESDOB: [place] [address] [id number] [facility] 369[address]Ubg: (330) [facility] [place] [id number] () GROUPPolicy Number: Repository [id number] Date: TW RD [address] [place] [address] [id number]: 09/13/2017 Secondary NOT GIVENUNK Ang[place] Insurance:SELF PAY Community [facility] Number: Effective Repository Date:2017-09-13 09/13/2017 JUWAN [id number] Primary JUWAN ROBLESDOB: [place] [address]DENOM[place] [id number] [facility] [address]Ibr: (330) [facility] [place] [id number] () GROUPPolicy Number: Repository [id number] Date: TW RD [address] [place] [address] [id number]: 09/13/2017 Secondary NOT GIVENUNK Ang[place] Insurance:SELF PAY Community [facility] Number: Effective Repository Date:2017-09-13 09/13/2017 JUWAN [id number] Primary JUWAN ROBLESDOB: [place] [address] [place]OM[place] [id number] [facility] [address]Xad: (330) [facility] [place] [phone] () GROUPPolicy Number: Repository [id number] Date: [address] [address]VT: 09/13/2017 Secondary NOT GIVENUNK Ang[place] Insurance:SELF PAY Community [facility] Number: Effective Repository Date:2017-09-13
== END 2018-07-15 10:35 | disposition home or self-care (01) ==
LOC: ED 16:31 → PCU 18:10
PROVIDERS: Emergency Provider Emergency Medicine; Family Provider Family Medicine; PCP Family Medicine; Visit Provider Internal Medicine
DX: R07.89 Other chest pain (principal); I10 Essential (primary) hypertension; I25.10 Atherosclerotic heart disease of native coronary artery without angina pectoris; Z79.82 Long term (current) use of aspirin; Z95.1 Presence of aortocoronary bypass graft; R06.02 Shortness of breath; Z86.73 Personal history of transient ischemic attack (TIA), and cerebral infarction without residual deficits; Z79.899 Other long term (current) drug therapy; Z87.891 Personal history of nicotine dependence
CPT/HCPCS: 36415; 71045; 78452; 80048; 80061; 83880; 84443; 84484; 85025; 85610; 85730; 87804; 93005; 93017; 93306; 96374; 99218; 99285; A9500; Q9957; A4216; G0378; J2405; J2785

== ENCOUNTER 2020-02-24 07:58 | Inpatient (IN) | payer OTHER, SELFPAY ==
[2019-06-19 14:25] VITALS: BMI 32.2
[2020-02-24] VITALS (7 sets, daily range): BP systolic 114–143; BP diastolic 63–83; PULSE 83–99; RESP 16–20; TEMP 36.1–36.6; O2SAT 90–96; BMI 30.7
--- NOTE | 2020-02-24 17:39 | EKG12_ITS ---
Test Reason : PRE OP Blood Pressure : / mmHG Vent. Rate : 086 BPM Atrial Rate : 086 BPM P-R Int : 174 ms QRS Dur : 096 ms QT Int : 378 ms P-R-T Axes : 052 014 054 degrees QTc Int : 452 ms Sinus rhythm with Premature supraventricular complexes Otherwise normal ECG When compared with ECG of 15-JUL-2018 05:49, Premature supraventricular complexes are now Present Nonspecific T wave abnormality, improved in Lateral leads Confirmed by DALJIT SNYDER, TOMAS ([id number]), editor managing newspaper JOE HERRERA ([id number]) on 02/26/2020 10:10:53 AM Referred By: MEL Confirmed By:TOMAS BOCANEGRA MD
--- NOTE | 2020-02-24 17:54 | PCM.HP.STD ---
Problem List (1) Right ureteral calculus Status: Acute History of Present Illness Date of Admission: 02/24/20 Chief Complaint: Obstructing right ureteral calculi severe right flank pain The patient is a 74 year old male who presented to the outside emergency room with severe flank pain on Tuesday he then represented on Tuesday morning with severe flank pain I was called to accept the patient as a transfer as the pain was difficult to control. He was transferred over up to [facility] from [facility]. On the admission his pain is finally settled down so organ to proceed with a cystoscopy and stent placement on the right side to unobstruct the right kidney. Past Medical History Past Medical History (Chronic Problems): Chronic Problems (Last Reviewed 06/19/19 @ 15:[address] Nirav Peña MD) Atherosclerotic heart disease [place] coronary artery w/angina pectoris (Chronic) CABG x 5-LOPEZ to LAD, SVG-D1, SVG-OM1, Sequential SVG-RPDA and acute marginal 09/10/2016 Paroxysmal atrial fibrillation (Chronic) Essential (primary) hypertension (Chronic) Hyperlipidemia (Chronic) Medical History: Medical History (Last Reviewed 02/24/20 @ 17:[address] Parker Bundy MD) Atherosclerotic heart disease [place] coronary artery w/angina pectoris (Chronic) I25.119 CABG x 5-LOPEZ to LAD, SVG-D1, SVG-OM1, Sequential SVG-RPDA and acute marginal 09/10/2016 Paroxysmal atrial fibrillation (Chronic) I48.0 Essential (primary) hypertension (Chronic) I10 Hyperlipidemia (Chronic) E78.5 CVA (cerebral vascular accident) (Resolved) Onset Date: 2014 I63.9 History of cataract Z86.69 Type 2 diabetes mellitus without complication E11.9 Atrial septal defect (Resolved) Q21.1 History of DVT (deep vein thrombosis) Z86.718 History of diverticulitis Z87.19 History of ileus Z87.19 History of nephrolithiasis Z87.442 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 Parker Bundy MD) H/O coronary artery bypass surgery (Resolved) Onset Date: 09/10/16 Z95.1 CABG x 5-LOPEZ to LAD, SVG-D1, SVG-OM1, Sequential SVG-RPDA and acute marginal 09/10/2016 History of atrial septal defect repair (Resolved) Onset Date: 09/10/16 Z87.74 repair of large sinus venous ASD History of coronary artery stent placement (Resolved) Onset Date: 08/22/08 Z95.5 [id number] LCx 01/10/2008; RFI-WXEN-Uhbw Ramus 08/22/2008 History of hemorrhoidectomy Z98.890 History of tonsillectomy Z90.89 Surgical History: coronary bypass surgery Lives: Spouse/ Significant Other Smoking Status: Former smoker Tobacco Use: Non-smoker Alcohol: None Drugs: None - *Family History Maternal Family History: Family History (Last Reviewed 06/19/19 @ 15:[address] Nirav Peña MD) Father CVA (cerebral vascular accident) Uncle Myocardial infarction History Items: No pertinent history, - - No CAD Review of Systems Constitutional: Denies: Chills, Fever, Weight Change HEENT: Denies: Head Aches, Sinus Congestion, Sinus Drainage Cardiovascular: Denies: Chest Pain, Palpitations Respiratory: Denies: Cough, Shortness of breath at rest, Sputum production Gastrointestinal: Denies: Abdominal Pain, Nausea, Vomiting Genitourinary: Denies: Dysuria Musculoskeletal: Denies: Joint Pain, Joint Tenderness Skin: Denies: Rash, Wounds Neurological: Denies: Numbness, Tingling, Focal weakness Psychiatric: Denies: Anxiety, Depression, Homicidal Ideations, Suicidal Ideations Hematologic/ Lymphatic: Denies: Easy Bruising, Easy Bleeding VTE Information - Inpt Only VTE Present on Admission: No VTE Mechan Device Prophylaxis: SCD's Patient Problems: Active and Suspected Problems (Last Reviewed 06/19/19 @ 15:[address] Nirav Peña MD) Right ureteral calculus (Acute) - Physical Exam Vitals/I&O's: Weight: 81.647 kg Body Mass Index (BMI) 30.7 General: Alert, Oriented x3, Cooperative HEENT: Atraumatic, PERRLA, EOMI, Normocephalic Neck: Supple, No JVD, Negative Carotid Bruits Lungs: Clear to auscultation, Normal air movement Cardiovascular: Regular rate, No murmurs Abdomen: Bowel Sounds Present, Soft, Non Tender Extremities: No edema, Capillary Refill Less than 3 Seconds Skin: No rashes, No breakdown Musculoskeletal: No Tenderness to Palpation of Joints or Extremities Neurological: Cranial nerves II-XII grossly intact Psych/Mental Status: Normal Affect, Appropriate Assessment/Plan All Active Problems (Last Reviewed 06/19/19 @ 15:[address] Nirav Peña MD) Right ureteral calculus (Acute) Dizziness (Acute) H/O coronary artery bypass surgery (Resolved 09/10/16) History of atrial septal defect repair (Resolved 09/10/16) History of coronary artery stent placement (Resolved 08/22/08) CVA (cerebral vascular accident) (Resolved 2014) Atrial septal defect (Resolved) Plan to proceed with a cystoscopy and right stent placement, will do a test for the virus but the patient states he has had no contact with anybody known to be positive with a virus. Spoke to anesthesia they are okay with proceeding with precautions. Plan to do a cystoscopy and right stent placement unobstruct the right kidney.
[2020-02-24 18:10] LABS: Hematocrit 41.3 % (40-54); Hemoglobin 13.5 g/dL (13.0-16.5); Mean Corp Hgb Conc 32.7 g/dL (32-36); Mean Corpuscular Hgb 31.8 pg (27.0-32.0); Mean Corpuscular Volume 97.2 fL (80-94); Mean Platelet Vol. 10.8 fl (6.2-12.0); Platelet Count 173 K/mm3 (150-450); RBC Distribution Width CV 13.5 % (11.6-14.6); RBC Distribution Width SD 48.4 fl (35.1-43.9); Red Blood Count 4.25 M/mm3 (4.6-6.2); White Blood Count 9.3 K/mm3 (4.4-11.0)
--- NOTE | 2020-02-24 18:39 | DCINST_ITS ---
Discharge Diet: Light diet - advance as tolerated Discharge Activity: Return to Normal Activity, May not drive while taking narcotic pain medications., May Shower Call your doctor if you observe: Fever of 101 or Higher Suture Line Care: Avoid Pulling/Pushing, Avoid Pinching/Bending Allergies/Adverse Reactions: Allergies No Known Allergies Allergy (Verified 06/19/19 14:25) Medications to take at Discharge Aloe Vera Nector 07/14/18 Co Q10 1 cap PO DAILY 07/14/18 Fish Oil 4 cap PO BID 07/14/18 Nattovena 2 tab PO DAILY 07/14/18 Primary Care Physician: Boy Peralta MD [Primary Care Provider] - Test Results: Test results from this visit will be discussed in further detail at your follow- up appointment, if applicable. Please Follow Up With: Parker Bundy MD - [phone] When: please call to make an appointment.
[2020-02-24 18:46] LABS: Bedside Glucose 94 mg/dL (70-110)
[2020-02-24] MEDS: Cefazolin 1 GM/50 ML BAG IV ×2 (18:50→21:23)
[2020-02-24 18:55] LABS: Anion Gap 5 (5-15); BUN 33 mg/dL (7-18); BUN/Creat Ratio 23.7 RATIO (10-20); Chloride 109 mmol/L (98-107); Creatinine, Serum 1.39 mg/dL (0.70-1.30); EST Glomerular Filtration Rate 53 mL/min (>60); Est Glom Filt Rate - Afr Amer 64 mL/min (>60); Estimated Creatinine Clearance 37.86 ml/min; Glucose 96 mg/dL (74-106); Potassium 4.5 mmol/L (3.5-5.1); Sodium Level 139 mmol/L (136-145)
[2020-02-24 19:02] LABS: Probe Check PASS; Specimen Processing Control PASS
--- NOTE | 2020-02-24 19:21 | PCM.OPRPT ---
Problem List (1) Right ureteral calculus Status: Acute Report of Operation Date of Procedure: 02/24/20 Pre-Operative Diagnosis: Right ureteral calculi distal 6 mm Post-Operative Diagnosis: Same Surgery/Procedure Performed:: Cystoscopy, balloon dilation of the right ureter, right ureteroscopy laser lithotripsy of stone and right stent placement. Description of Surgical Findings:: 74-year-old male presented to the emergency room second time in outside hospital severe pain in the right side from a distal stone he was then transferred to [facility] for further care talk to the patient without management options and today were taken back to surgery possibly to laser the stone if we can get to the stone safely. He also need a stent afterwards Patient was taken back to the operating room after smooth induction of general anesthesia he was placed in dorsolithotomy position. The penis and testicles were prepped and draped in usual sterile fashion. His penis was normal uncircumcised normal testicles. Went into the urethra with a 21 Fijian rigid cystourethroscope entire length the urethra was normal the sphincter was normal the prostate was normal slightly enlarged slightly high riding bladder neck but no obstruction. Once inside the bladder identified the right ureteral orifice cannulated this with a wire advanced a wire up past the stone in the fluoroscopy and then I balloon dilated the distal ureter with a 12 Fijian balloon dilator. After this then I left the wire in place next the wire went in with a 8 Fijian Olympus offset ureteroscope and was able to get into the ureter quite easily I then encountered the stone and used a 200 ?m laser fiber and perform laser lithotripsy of the stone with energy settings mostly 0.2 and 20 Hz. After the stone was lasered completely into small stones then I put a stent it on the right side stent went up in the kidney of the bladder coiled in the kidney and bladder good position. Left the string on the stent but cut it short to prevent early extraction. Patient anesthetic was reversed he was taken back to the PACU in good condition he will be kept overnight for pain control and discharged home tomorrow to see about a week to remove the stent in the office. Type of Anesthesia:: General Drains: stent right side - Admit VTE Documentation VTE Present on Admission: No VTE Mechan Device Prophylaxis: SCD's
[2020-02-24 19:46] LABS: Bedside Glucose 106 mg/dL (70-110)
[2020-02-24] MEDS: 0.9% Normal Saline 1,000 ML 50 ML IV (20:30)
[2020-02-24] MEDS: Famotidine 20 MG Tablet PO (21:23)
[2020-02-24 22:10] LABS: Bedside Glucose 96 mg/dL (70-110)
[2020-02-25] VITALS (7 sets, daily range): BP systolic 123–132; BP diastolic 62–76; PULSE 52–84; RESP 16; TEMP 36.2–36.7; O2SAT 91–95
--- NOTE | 2020-02-25 01:52 | NURSING ---
Pt put on continuous pulse ox/O2 @ 3L. Pt sats between 85%-88% on RA and awake. While sleeping sats drop quickly down to 50-70's. Pt mentioned was to have a sleep study but refused to go. Discussed with pt the importance of sleep study, stated he would go.
--- NOTE | 2020-02-25 03:47 | NURSING ---
Pt placed on venturi mask @ 35%; O2 @ 8L by RT to help sats while sleeping.
[2020-02-25] MEDS: Cefazolin 1 GM/50 ML BAG IV (04:55)
[2020-02-25 05:31] LABS: Absolute Lymphocyte Count 0.72 X10^3/uL (0.83-4.51); Absolute Neutrophil Count 4.6 X10^3/uL (2.0-7.7); Basophil# 0.01 X10^3/uL; Basophil% 0.2 % (0-1); Hematocrit 39.4 % (40-54); Hemoglobin 12.8 g/dL (13.0-16.5); Lymphocyte # 0.72 X10^3/ul (4.0); Lymphocyte % 13.2 % (19-41); Mean Corp Hgb Conc 32.5 g/dL (32-36); Mean Corpuscular Hgb 31.5 pg (27.0-32.0); Mean Platelet Vol. 9.9 fl (6.2-12.0); Monocyte# 0.08 X10^3/uL; Monocyte% 1.5 % (0-10); NRBC Flagged by Analyzer 0 % (0-5); Neutrophil % 84.5 % (47-70); Platelet Count 156 K/mm3 (150-450); RBC Distribution Width CV 13.4 % (11.6-14.6); RBC Distribution Width SD 47.8 fl (35.1-43.9); Red Blood Count 4.06 M/mm3 (4.6-6.2); White Blood Count 5.4 K/mm3 (4.4-11.0)
[2020-02-25 05:49] LABS: ALB/GLOB Ratio 0.7 RATIO (0.9-2.4); AST(SGOT) 23 U/L (15-37); Alanine Aminotransfer ALT/SGPT 48 U/L (16-61); Albumin, Serum 2.9 g/dL (3.2-5.0); Alkaline Phosphatase 52 U/L (45-117); Anion Gap 8 (5-15); BUN 32 mg/dL (7-18); BUN/Creat Ratio 24.4 RATIO (10-20); Calcium,Total 7.9 mg/dL (8.5-10.1); Chloride 106 mmol/L (98-107); Creatinine, Serum 1.31 mg/dL (0.70-1.30); EST Glomerular Filtration Rate 56 mL/min (>60); Est Glom Filt Rate - Afr Amer 68 mL/min (>60); Estimated Creatinine Clearance 40.17 ml/min; Globulin 4.1 g/dL (2.2-4.2); Glucose 156 mg/dL (74-106); Potassium 4.3 mmol/L (3.5-5.1); Sodium Level 137 mmol/L (136-145)
[2020-02-25 06:55] LABS: Bedside Glucose 152 mg/dL (70-110)
[2020-02-25] MEDS: Famotidine 20 MG Tablet PO (09:22)
--- NOTE | 2020-02-25 10:15 | CASEMGMT ---
JEAN PIERRE SHUKLA Face to Face with patient for initial transition planning/care coordination assessment. JEAN PIERRE SHUKLA introduced self and role at [facility]. Patient lying in bed, alert and oriented. Patient willing to participate in assessment and is able to answer all questions appropriately. Care providers, pharmacy, and demographics verified. Patient wishes to discharge home, denies need for home health at this time. Patient states he has no further needs or concerns at this time. CM to follow for discharge planning needs that may arise. PCP: Fabian Specialists: Mariana, heading machine operator; Niharika urologist Preferred Pharmacy: [facility] in [place] Insurance: [employer] Prescription Benefit: none Living Will/HPOA: none LNOK: Living Arrangements: Patient lives with in 2 story home with bed and bath on first floor. 2 steps and railing to enter the home. Patient states he is independent at home. Transportation: Driving service DME/HHC: Patient states he has walker and cane at home. Patient states he was to have a sleep study but he canceled it. JEAN PIERRE SHUKLA encouraged patient to follow-up with PCP and to complete sleep study. Disposition Plan: Patient to discharge home with family support and follow-up plans in place. Jennifer OLSON, RN, CM
--- NOTE | 2020-02-25 11:28 | PHA.DC.MC ---
Pharmacy Service has performed discharge medication reconciliation and counseling for this patient. The patient was counseled on the following discharge medications and changes in medications for homegoing were reviewed. Also discussed with patient to hold herbal medications while on short term abx/pain medications, as these meds were not able to be determined safe to take with prescriptions. 1. CIPRO 2. NORCO The Reason for Use, instructions for use, and potential side effects were reviewed for all new medications. The patient's questions regarding all of their medications were answered. The patient was able to verbally demonstrate an understanding of their discharge medications. Home Medications Aloe Vera Nector 07/14/18 Co Q10 1 cap PO DAILY 07/14/18 Fish Oil 4 cap PO BID 07/14/18 Nattovena 2 tab PO DAILY 07/14/18 Ciprofloxacin [Cipro] 500 mg PO BID #6 tab 02/24/20 Hydrocodone/Acetaminophen [[place] 5-325 Tablet] 1 ea PO Q4H PRN PRN #14 tab 02/24/20 The patient's discharge medication list was reviewed for discrepancies and discrepancies were resolved.
[2020-02-25 12:00] LABS: Bedside Glucose 135 mg/dL (70-110)
== END 2020-02-25 12:29 | disposition home or self-care (01) | DRG 661 ==
PROVIDERS: Admitting Provider Urology; PCP Family Medicine; Visit Provider Urology
PROC: 0TF68ZZ Fragmentation in Right Ureter, Via Natural or Artificial Opening Endoscopic (ICD-10-PCS; principal; 2020-02-24 18:10)
DX: N20.1 Calculus of ureter (principal); F32.9 Major depressive disorder, single episode, unspecified; I34.0 Nonrheumatic mitral (valve) insufficiency; I48.0 Paroxysmal atrial fibrillation; I25.119 Atherosclerotic heart disease of native coronary artery with unspecified angina pectoris; I10 Essential (primary) hypertension; E78.5 Hyperlipidemia, unspecified; Z95.1 Presence of aortocoronary bypass graft; Z95.5 Presence of coronary angioplasty implant and graft; Z86.73 Personal history of transient ischemic attack (TIA), and cerebral infarction without residual deficits; Z87.74 Personal history of (corrected) congenital malformations of heart and circulatory system; Z87.442 Personal history of urinary calculi; Z87.891 Personal history of nicotine dependence
CPT/HCPCS: 36415; 76000; 80048; 80053; 82962; 85025; 85027; 87635; 93005; G2023; J7030; C1769; C2617; J2405; U0003

== ENCOUNTER → 2022-11-02 | Outpatient (CLI) | payer OTHER, SELFPAY ==
[2022-11-02 16:31] LABS: Anion Gap 7 (5-15); BUN 54 mg/dL (7-18); BUN/Creat Ratio 40.3 RATIO (10-20); Calcium,Total 9.1 mg/dL (8.5-10.1); Chloride 107 mmol/L (98-107); Creatinine, Serum 1.34 mg/dL (0.70-1.30); EST Glomerular Filtration Rate 55 mL/min (>60); Est Glom Filt Rate - Afr Amer 66 mL/min (>60); Glucose 121 mg/dL (74-106); Potassium 4.2 mmol/L (3.5-5.1); Sodium Level 139 mmol/L (136-145)
== END | disposition home or self-care (01) ==
PROVIDERS: PCP Physician Assistant; Referring Provider Nurse Practitioner Family; Visit Provider Nurse Practitioner Family
DX: I42.9 Cardiomyopathy, unspecified (principal)
CPT/HCPCS: 36415; 80048

== ENCOUNTER → 2022-12-17 | Outpatient (CLI) | payer SELFPAY, OTHER ==
--- NOTE | 2022-12-17 14:41 | ECHOCS_ITS ---
Reason For Study: Dispnea Procedure This was a 2D Doppler, Color Flow transthoracic echocardiogram. Contrast injection was performed. Exam performed in department. Left Ventricle Normal LV size. Left ventricular systolic function is lower limits of normal. The estimated ejection fraction is 50 %. Stage 1 diastolic dysfunction. Mid-anteroseptal : Hypokinetic. There are regional wall motion abnormalities as specified. Right Ventricle Normal RV size. Normal systolic function. Atria The left atrium is mildly enlarged. Normal right atrium. Mitral Valve Normal mitral valve. Tricuspid Valve Normal tricuspid valve. Mild (1+) tricuspid valve insufficiency. Pulmonary artery systolic pressure is 30 mmHg. Aortic Valve Trisinus/trileaflet aortic valve. Mild focal aortic valve calcification. Pulmonic Valve The pulmonic valve is not well visualized. Great Vessels Normal aortic root. The pulmonary artery is normal size. Normal inferior vena cava. Pericardium/Pleural No pericardial effusion. Medication Diluted definity 4ml given slow IV push to enhance endocardial definition. MMode/2D Measurements & Calculations LVIDd: 5.9 cm IVSd: 1.1 cm Ao root diam: 3.6 cm LVIDs: 4.7 cm LVPWd: 1.3 cm RVDd: 2.8 cm FS: 20.9 % LAV(MOD-bp): 65.1 ml LVAd ap4: 33.8 cm2 SV(MOD-sp4): 44.7 ml LAV(MOD-bp) Indexed: 31.9 ml/m2 LVLd ap4: 7.6 cm LAV(MOD-sp2): 53.8 ml EDV(MOD-sp4): 123.7 ml LAV(MOD-sp4): 69.8 ml EDV(sp4-el): 127.7 ml LVAs ap4: 25.6 cm2 LVLs ap4: 7.1 cm ESV(MOD-sp4): 79.0 ml ESV(sp4-el): 77.7 ml EF(MOD-sp4): 36.1 % EF(sp4-el): 39.1 % SV(sp4-el): 50.0 ml LA A4 area: 22.6 cm2 LA dimension(2D): 5.8 cm RA A4 area: 13.6 cm2 Time Measurements MV dec time: 0.30 sec Doppler Measurements & Calculations MV E max yury: 59.1 cm/sec Lat Peak E' Yury: 4.2 cm/sec Med Peak E' Yury: 6.0 cm/sec MV A max yury: 79.5 cm/sec E/E' lat: 14.2 E/E' med: 9.8 MV E/A: 0.74 MV dec slope: 200.2 cm/sec2 Ao V2 max: 127.8 cm/sec LV V1 max: 85.0 cm/sec Ao max P.5 mmHg LV V1 max P.9 mmHg Ao V2 mean: 89.7 cm/sec Ao mean P.7 mmHg Ao V2 VTI: 27.2 cm PA V2 max: 97.2 cm/sec PI end-d yury: 103.7 cm/sec TR max yury: 257.9 cm/sec TR max P.6 mmHg ECHO/Echo Complete W/ Contrast Interpretation Summary Normal LV size. Left ventricular systolic function is lower limits of normal. The estimated ejection fraction is 50 %. Stage 1 diastolic dysfunction. Mild (1+) tricuspid valve insufficiency. The left atrium is mildly enlarged. Contrast injection was performed. Ordering Physician: Geoff Virk Referring Physician: Gamaliel Noriega Performed By: Mervat Virk, RENETTA, RVT
== END | disposition home or self-care (01) ==
LOC: CVS 14:41
PROVIDERS: PCP Physician Assistant; Referring Provider Nurse Practitioner Family; Visit Provider Nurse Practitioner Family
DX: I42.9 Cardiomyopathy, unspecified (principal); R06.00 Dyspnea, unspecified
CPT/HCPCS: 93306; Q9957; A4216; C8929

== ENCOUNTER → 2024-01-05 | Outpatient (CLI) | payer SELFPAY, OTHER ==
--- NOTE | 2024-01-05 12:32 | CT_ITS ---
INDICATION: severe R ICA stenosis EXAMINATION: CTA HEAD - CTA Head and Neck W/ Contrast Injection (and W/O Contrast Images if performed) TECHNIQUE: [place]/head CT angiogram protocol was performed following IV contrast. Routine carotid CT angiogram protocol was performed without and with IV contrast. NASCET criteria using the distal ICAs for comparison were used for evaluation of stenoses. 3D reconstructions were reviewed of the CT angiogram head and neck. A radiation dose optimization technique was used for this scan. IV Contrast dosage and agent: 100 cc Isovue-370 COMPARISON: None. FINDINGS: No hemorrhage or mass effect. No acute ischemia. Areas of diminished white matter density noted within both cerebral hemispheres suggestive of chronic microvascular change. Prominence of the cortical sulci and ventricles related to volume loss change. --Anterior cerebral circulation: ACAs: No significant stenosis at the visualized segments. ACOM: Present. MCAs: No significant stenosis at the visualized segments. --Posterior cerebral circulation: PCOMs: P-comm''s are present bilaterally. network control technician: No significant stenosis at the visualized segments. BASILAR ARTERY: No significant stenosis. --Carotid and vertebral circulation: AORTIC ARCH AND BRANCHES: Left common carotid artery arises from a common trunk with the right innominate artery. RIGHT CCA: No occlusion, significant stenosis or dissection. RIGHT ICA: Extensive calcific plaquing at the right carotid bulb associated with 5 mm ulceration and with dyspnea greater than 70% stenosis at the origin of the right ICA. Right ICA is markedly tortuous. LEFT CCA: No occlusion, significant stenosis or dissection. LEFT ICA: Prominent calcific plaquing at the left carotid bulb resulting in approximately 50% stenosis of the left ICA. RIGHT VERTEBRAL ARTERY: No occlusion, significant stenosis or dissection. LEFT VERTEBRAL ARTERY: No occlusion, significant stenosis or dissection. NECK SOFT TISSUES: Unremarkable. LUNG APICES: Clear. BONES: Unremarkable. CT/CTA Head AND Neck W/ Contrast IMPRESSION: 1. 2. No intracranial stenosis, occlusion or aneurysm. Electronically Signed: Indio Duke MD at 16:59 EDT ,
[2024-01-05 12:55] LABS: CREATININE FINGERSTICK < 1.0 mg/dL (0.70-1.30); EGFR FINGERSTICK > 60.0000 mL/min (>60)
== END | disposition home or self-care (01) ==
PROVIDERS: PCP Physician Assistant; Referring Provider Physician Assistant; Visit Provider Physician Assistant
DX: I65.21 Occlusion and stenosis of right carotid artery (principal)
CPT/HCPCS: 70496; 70498; Q9967

== ENCOUNTER → 2024-02-15 | Outpatient (CLI) | payer OTHER, SELFPAY ==
--- NOTE | 2024-02-15 07:56 | ECHOCS_ITS ---
Reason For Study: PRE-OP Procedure This was a 2D Doppler, Color Flow transthoracic echocardiogram. The study was technically difficult. Exam performed in department. Left Ventricle Moderately dilated left ventricle. The left ventricular ejection fraction is 20 %. Stage 2 diastolic dysfunction. There is severe global hypokinesis of the left ventricle. Right Ventricle Normal RV size. Normal systolic function. Atria The left atrium is moderately enlarged. Normal right atrium. Mitral Valve Bileaflet diffuse mitral valve thickening. Mild focal mitral valve calcification. Moderate (2+) eccentric mitral valve insufficiency. Tricuspid Valve Normal tricuspid valve. Mild tricuspid valve insufficiency. Pulmonary artery systolic pressure is 25 mmHg. Aortic Valve Trisinus/trileaflet aortic valve. Moderate focal aortic valve thickening. Pulmonic Valve Normal pulmonic valve. Great Vessels Normal aortic root. The pulmonary artery is normal size. Normal inferior vena cava. Pericardium/Pleural No pericardial effusion. Medication 22 gauge I.V. with prn adaptor inserted into right arm. Diluted definity 3ml given slow IV push to enhance endocardial definition. MMode/2D Measurements & Calculations LVIDd: 6.0 cm IVSd: 0.90 cm Ao root diam: 3.4 cm LVIDs: 5.2 cm LVPWd: 1.3 cm RVDd: 3.3 cm FS: 14.1 % LAV(MOD-bp): 79.8 ml LVAd ap4: 48.1 cm2 SV(MOD-sp4): 66.2 ml LAV(MOD-bp) Indexed: 40.6 ml/m2 LVLd ap4: 9.5 cm LAV(MOD-sp2): 75.4 ml EDV(MOD-sp4): 201.6 ml LAV(MOD-sp4): 74.9 ml EDV(sp4-el): 206.3 ml LVAs ap4: 36.2 cm2 LVLs ap4: 8.2 cm ESV(MOD-sp4): 135.4 ml ESV(sp4-el): 134.7 ml EF(MOD-sp4): 32.8 % EF(sp4-el): 34.7 % SV(sp4-el): 71.5 ml LA A4 area: 24.4 cm2 LA dimension(2D): 5.7 cm RA A4 area: 16.9 cm2 TAPSE: 1.6 cm Time Measurements MV dec time: 0.21 sec Doppler Measurements & Calculations MV E max yury: 116.8 cm/sec Lat Peak E' Yury: 8.5 cm/sec Med Peak E' Yury: 6.4 cm/sec MV A max yury: 100.7 cm/sec E/E' lat: 13.8 E/E' med: 18.2 MV E/A: 1.2 MV V2 max: 144.5 cm/sec Ao V2 max: 114.4 cm/sec LV V1 max: 68.4 cm/sec MV max P.4 mmHg Ao max P.2 mmHg LV V1 max P.9 mmHg MV V2 mean: 96.8 cm/sec LV V1 mean P.97 mmHg MV mean P.2 mmHg LV V1 mean: 45.2 cm/sec MV V2 VTI: 32.0 cm LV V1 VTI: 13.0 cm PA V2 max: 84.8 cm/sec TR max yury: 236.1 cm/sec TR max P.3 mmHg ECHO/Echo Complete W/ Contrast Interpretation Summary The left ventricular ejection fraction is 20 %. Moderately dilated left ventricle. There is severe global hypokinesis of the left ventricle. The left atrium is moderately enlarged. Moderate (2+) eccentric mitral valve insufficiency. Stage 2 diastolic dysfunction. Compared to previous study, the left ventricular systolic function has worsened .. Ordering Physician: Nirav Peña Referring Physician: Nirav Peña Performed By: Nevin Laura RDCS
== END | disposition home or self-care (01) ==
LOC: CVS 07:53
PROVIDERS: PCP Physician Assistant; Referring Provider Internal Medicine Cardiovascular Disease; Visit Provider Internal Medicine Cardiovascular Disease
DX: Z95.1 Presence of aortocoronary bypass graft (principal); I51.7 Cardiomegaly
CPT/HCPCS: 93306; Q9957; C8929

== ENCOUNTER → 2024-03-05 | Outpatient (CLI) | payer SELFPAY, OTHER ==
--- NOTE | 2024-03-05 10:45 | STRESSREP ---
Stress Test Report Pharmacologic myocardial perfusion stress test. 78-year-old man with a history of ischemic cardiomyopathy and preop evaluation Resting EKG demonstrates sinus rhythm with a rate of 87 bpm. Resting blood pressure is 120/82 mmHg. 0.4 mg of regadenoson was infused per usual protocol followed by rapid intravenous saline flush injection. Continuous EKG monitoring was performed. The maximum heart rate was 96 bpm which was 68% of max impacted heart rate the maximum workload was 1 metabolic equivalent. At rest there were no ST or T wave changes noted to suggest ischemia and at peak infusion nonspecific ST changes were noted which did not meet the criteria for ischemia. No clinical angina is noted. The final blood pressure was 110/70 mmHg. Myocardial perfusion protocol. 11.5 mCi of technetium 99m sestamibi was injected at rest. 0.4 mg of regadenoson was infused per usual protocol. At peak infusion 34.3 mCi of technetium 99m sestamibi was injected stress images were obtained stress and rest images were reconstructed and compared in the short axis vertical long and horizontal long axis. Gated images were also obtained. Perfusion SPECT analysis: Review of the stress images demonstrate normal uptake of tracer noted in all areas of the myocardium. The resting images similar demonstrated normal uptake of tracer noted in all areas of the myocardium. No areas of reversibility are noted to suggest ischemia and no previous infarct is noted. Gated SPECT analysis: The gated ejection fraction is 31%. Conclusion: Normal pharmacologic myocardial perfusion stress test. Reduced ejection fraction. Cardiomyopathy present
== END | disposition home or self-care (01) ==
LOC: CVS 06:57
PROVIDERS: PCP Physician Assistant; Referring Provider Internal Medicine Cardiovascular Disease; Visit Provider Internal Medicine Cardiovascular Disease
DX: I65.21 Occlusion and stenosis of right carotid artery (principal); I48.0 Paroxysmal atrial fibrillation; I42.9 Cardiomyopathy, unspecified; Q21.10 Atrial septal defect, unspecified; I25.119 Atherosclerotic heart disease of native coronary artery with unspecified angina pectoris; Z95.5 Presence of coronary angioplasty implant and graft; Z87.74 Personal history of (corrected) congenital malformations of heart and circulatory system; Z95.1 Presence of aortocoronary bypass graft
CPT/HCPCS: 78452; 93017; A9500; A4216; J2785

== ENCOUNTER 2024-03-13 16:00 | Inpatient (IN) | payer OTHER, SELFPAY ==
[2024-02-15 10:22] LABS: Hematocrit 43.8 % (40-54); Hemoglobin 14.2 g/dL (13.0-16.5); Mean Corp Hgb Conc 32.4 g/dL (32-36); Mean Corpuscular Hgb 31.1 pg (27.0-32.0); Mean Corpuscular Volume 95.8 fL (80-94); Mean Platelet Vol. 10.7 fl (6.2-12.0); Platelet Count 186 K/mm3 (150-450); RBC Distribution Width CV 14.1 % (11.6-14.6); RBC Distribution Width SD 49.5 fl (35.1-43.9); Red Blood Count 4.57 M/mm3 (4.6-6.2); White Blood Count 7.2 K/mm3 (4.4-11.0)
[2024-02-15 10:44] LABS: Anion Gap 5 (5-15); BUN 29 mg/dL (7-18); BUN/Creat Ratio 27.9 RATIO (10-20); Calcium,Total 9.1 mg/dL (8.5-10.1); Chloride 106 mmol/L (98-107); Creatinine, Serum 1.04 mg/dL (0.70-1.30); EST Glomerular Filtration Rate 73 mL/min (>60); Est Glom Filt Rate - Afr Amer 88 mL/min (>60); Glucose 104 mg/dL (74-106); Potassium 4.1 mmol/L (3.5-5.1); Sodium Level 137 mmol/L (136-145)
[2024-03-13] VITALS (23 sets, daily range): BP systolic 84–118; BP diastolic 48–103; PULSE 62–104; RESP 16–27; TEMP 36.1–36.7; O2SAT 91–98; BMI 32.5; BMI 32.8
[2024-03-13] MEDS: Lactated Ringers 1,000 ML 15 ML IV (10:28)
[2024-03-13 11:10] LABS: Bedside Glucose 116 mg/dL (74-106)
--- NOTE | 2024-03-13 11:25 | PRE.ANES_ITS ---
ASA Classification* ASA Classification ASA Classification: 3 Assessment & Plan Anesthesia* Anesthesia Assessment Anesthesia Assessment: Discussed sedation and/or anesthesia options, risks, benefits, and alternatives with patient/parents/legal guardian/POA. Questions invited. The patient/parents/legal guardian/POA seems to understand and agrees to proceed with anesthesia plan. Reviewed the physical assessment, medical history, allergy history and patient home medications list prior to surgery/procedure/anesthetic and documented any changes. Performed airway and anesthesia risk assessments. Anesthesia Type Anesthesia Type: General History Source History Obtained from:: Patient and Chart Anesthesia Focused Assessment* Temperature: 97.3 F Pulse Rate: 73 Blood Pressure: 113/69 Respiratory Rate: 18 Pulse Ox: 98 Oxygen Delivery Method: Room Air Airway Assessment Mouth opens: >3 cm Mallampati Score: II Teeth Condition: Dentures (Dentures are out) and Full Neck Range of motion (ROM): Full ROM Pertinent Findings EKG Pertinent Findings:: Sinus rhythm left atrial enlargement. Nonspecific T wave abnormality. Stress Test Pertinent Findings:: March 05, 2024. Ejection fraction is 31% no ischemia. ECHO Pertinent Findings:: February 15, 2024. Ejection fraction is 20% indicating severe global hypokinesis. Pulmonary artery systolic pressure is 25 mmHg. Consults Pertinent Findings:: February 07, 2024. Seen by Dr. Casanova. #1 history of cardiomyopathy patient will have a recheck of his echo. #2 patient has history of coronary artery bypass past graft no ischemia on last stress test. #3 atrial septal defect will be evaluated with a next echo. Focused Labs Anesthesia Preop lab: CBC WBC 7.2 K/mm3 (4.4-11.0) 02/15/24 09:41 RBC 4.57 M/mm3 (4.6-6.2) L 02/15/24 09:41 Hgb 14.2 g/dL (13.0-16.5) 02/15/24 09:41 Hct 43.8 % (40-54) 02/15/24 09:41 Plt Count 186 K/mm3 (150-450) 02/15/24 09:41 CHEMISTRY Potassium 4.1 mmol/L (3.5-5.1) 02/15/24 09:41 Sodium 137 mmol/L (136-145) 02/15/24 09:41 Magnesium 1.7 mg/dL (1.6-2.6) 09/13/17 12:45 BUN 29 mg/dL (7-18) H 02/15/24 09:41 Creatinine 1.04 mg/dL (0.70-1.30) 02/15/24 09:41 Glucose 104 mg/dL (74-106) 02/15/24 09:41 POC Glucose 116 mg/dL (74-106) H 03/13/24 10:01 TSH 0.66 uIU/mL (0.358-3.74) 07/15/18 02:15 COAG PT 14.7 SECONDS (11.7-14.9) 07/15/18 02:15 Pre-Assessment Diagnosis/Proposed Procedure Planned Operative Procedure(s): RIGHT CAROTID ENDARTERECTOMY Anesthesia History Anesthesia History - transportation officer: Anesthesia History - transportation officer Hx Hospitalization No 02/15/24 09:20 Any Problems With Anesthesia No 02/15/24 09:20 Cholinesterase deficiency No 02/15/24 09:20 You/Your Family Experience No 02/15/24 09:20 fever (hyperthermia) with Relationship Recent Exposure to Contagious No 03/13/24 10:31 Disease Does patient have nerve No 02/15/24 09:20 stimulator Patient instructed to have device shut off --Does patient have Pacemaker No 03/13/24 10:31 or ICD? When Was Last Pacemaker Check QUESTION #4 FULL TEXT: You/Your Family Experience fever (hyperthermia) with Anesthesia Last Oral Intake Last Oral intake: Last Oral Intake NPO since 00:00 03/13/24 10:31 Meds taken in AM with sips of Yes 03/13/24 10:31 water? Meds patient instructed to pristiq 03/13/24 10:31 take am of surgery entresto PONV PONV - transportation officer: PONV - transportation officer Female No 02/15/24 09:20 HX of Motion Sickness No 02/15/24 09:20 HX of N/V After Surgery No 02/15/24 09:20 Non-Smoker Yes 02/15/24 09:20 Duration of Surgery greater Yes 02/15/24 09:20 than 60 minutes Number of Risk Factors 2 02/15/24 09:20 PONV Score Moderate Risk 02/15/24 09:20 Height & Weight Height & Weight: Anesthesia: Height & Weight Height 5 ft 4 in 03/13/24 10:31 Weight: 86.183 kg 03/13/24 10:31 Body Mass Index (BMI) 32.5 03/13/24 10:31 Respiratory Assessment Respiratory Assessment - transportation officer: Respiratory Tract Infection Hx - transportation officer Hx Respiratory Tract Infection No 02/15/24 09:20 STOP Sleep Apnea STOP Sleep Apnea - transportation officer: STOP Sleep Apnea - transportation officer Hx Hypertension Yes: CONTROLLED WITH MED/ 02/15/24 09:20 RUNS LOW Hx Sleep Apnea No 02/15/24 09:20 CPAP No 02/24/20 17:39 BIPAP No 02/24/20 17:39 Do you snore loudly (louder Yes 02/15/24 09:20 than talking or can be heard Do you often feel tired/ Yes 02/15/24 09:20 fatigued/ sleepy during daytime? Has anyone observed you stop Yes 02/15/24 09:20 breathing during sleep? STOP Results Positive 02/15/24 09:20 QUESTION #5 FULL TEXT : Do you snore loudly (louder than talking or can be heard through closed doors)? Tobacco Use History Tobacco Use History - transportation officer: Tobacco Use History - transportation officer Tobacco Use Smoking Status Former smoker 02/15/24 09:20 Hx Tobacco Use No 02/15/24 09:20 Years Smoking Packs Smoked per Day Smoking Cessation Date was Yes - quit smoking within 15 02/15/24 09:20 within the last 15 years years Hx Smoking Cessation Date 08/15/14 02/15/24 09:20 Hx Smoking Cessation No 02/15/24 09:20 Counseling Hematologic Medial History Hematologic Hx - transportation officer: Hematologic Medical Hx - aeronautical engineering technologist Hx of Blood Transfusion No 02/15/24 09:20 Hx of Transfusion in last 3 No 02/15/24 09:20 Months Date of Last Transfusion (if within last 3 months) Ever experience any problems No 02/15/24 09:20 with transfusion(s)? Specify any problems Hx of Preganancy in last 3 N/A 02/15/24 09:20 Months Nurse Filling Out Transfusion DSCHRIBER 02/15/24 09:20 & Questions: Date: 07/03/24 07/03/24 09:20 Time: 09:21 07/03/24 09:20 Patient unable to answer at this time (ie. confused, unrespo /Reproduction History /Reproductive History - transportation officer: /Reproductive Hx- transportation officer Hx Now No 02/15/24 09:20 Gestational Age (in weeks): EDC: Hx Hx Para Hx Section SAB No 02/15/24 09:20 Active Medications Active Medications: Current Medications Generic Name Dose Route Start Last Admin Trade Name Freq PRN Reason Stop Dose Admin Cefazolin Sodium 2 gm/ Sodium 110 mls @ 150 mls/hr 03/13/24 12:05 Chloride IV 03/13/24 12:48 PREOP ONE Sodium Chloride 1,000 mls @ 1 mls/hr 03/13/24 09:40 IV .Q48H PRN Saline Flush Lactated Ringer's 1,000 mls @ 15 mls/hr 03/13/24 09:45 03/13/24 10:28 IV 15 mls/hr .Q48H MINO Administration PFSH Medical History Loss of hearing Wears glasses Wears dentures Depression Cellulitis Prostate disease Back pain Migraine headache Injury of head and neck Syncope History of IBS Former smoker History of edema History of stress test History of echocardiogram Cardiology follow-up encounter History of CHF (congestive heart failure) Postoperative atrial fibrillation (08/2016) Right ureteral calculus Nonrheumatic mitral (valve) insufficiency History of cataract History of nephrolithiasis Type 2 diabetes mellitus without complication History of ileus Paradoxical embolus History of diverticulitis History of DVT (deep vein thrombosis) Paroxysmal atrial fibrillation Atrial septal defect Hyperlipidemia Atherosclerotic heart disease [place] coronary artery w/angina pectoris CVA (cerebral vascular accident) (2014) CAD (coronary artery disease) Essential (primary) hypertension Home Medications ?Medication ?Instructions ?Recorded ?Last Taken ?Type furosemide 20 mg tablet 20 mg PO DAILY Dose decreased to 08/12/23 03/12/24 Rx 20 mg daily #90 tabs desvenlafaxine succinate 50 mg 50 mg PO DAILY DEPRESSION 12/29/23 03/13/24 History tablet,extended release 24 hr (Pristiq) sacubitril 24 mg-valsartan 26 mg 1 tab PO BID BP #180 tabs 02/01/24 03/13/24 08:00 Rx tablet (Entresto) NATAKENSIS 3 cap PO DAILY SUPPLEMENT 02/15/24 02/15/24 History aspirin 81 mg capsule 81 mg PO DAILY HEART 02/15/24 03/12/24 22:00 History clopidogrel 75 mg tablet 75 mg PO DAILY BLOOD THINNER 02/15/24 03/12/24 22:00 History Allergy/AdvReac Type Severity Reaction Status Date / Time No Known Allergies Allergy Verified 03/13/24 10:26 Family History Father , Age 76 CVA (cerebral vascular accident) Uncle , age 83 Myocardial infarction Surgical History History of ureter stent (02/2020) History of lithotripsy (02/2020) History of tonsillectomy History of hemorrhoidectomy History of atrial septal defect repair (09/10/16) History of coronary artery stent placement (08/22/08) H/O coronary artery bypass surgery (09/10/16) Social History Smoking Status: Former smoker quit date: 06/15/15 alcohol intake: never substance use type: does not use caffeine: Yes Type: coffee Number of servings: 5 Review of Systems (Anesthesia) ROS Narrative System reviewed and no additional complaints, except as documented.
--- NOTE | 2024-03-13 12:05 | PLAQ_PTH ---
PATIENT: NABEEL ROBLES LOC: ICU U#:[id number] AGE/SX: 78/M ROOM: [place] [address] RE03/13/[address]: Dr. Josh Aclocer MD : [id number] BED: 1 DIS: 03/14/2024 SPEC #: [id number] RECD: 03/13/24 18:26 STATUS: ELLI REQ #: [id number] GERRI: 03/13/24 12:[address]: Josh Alcocer DEPT: SURGICAL PATHOLOGY RECD BY: Camille Bishop ENTERED: 03/14/24 08:15 SP TYPE: PLAQUE OTHR DR: MD Gamaliel Stevens PA Tissues: PLAQUE Procedures: Decalcification bone/plaque Surgery Specimen Level III HEADER OPERATION: Carotid endarterectomy PRE-OP DIAGNOSIS: Carotid stenosis, right TISSUE SUBMITTED: Right carotid plaque MICROSCOPIC DIAGNOSIS Right carotid plaque, endarterectomy: A piece of atherosclerotic tissue with marked calcifications (plaque). LEONARD/ 03/19/2024 GROSS DESCRIPTION Received in fixative is one container labeled with the patient's name and designated Right carotid plaque. The specimen consists of multiple irregular and calcified fragments of yellow-montgomery soft tissue measuring in aggregate 4.0 x 1.0 x 1.0cm. The specimen is sectioned and totally submitted in one cassette after decalcification. DAMION/ 03/14/2024 TC:5 CPT:64861,54613
--- NOTE | 2024-03-13 12:15 | PCM.HP.STD ---
HPI - General General Date of Admission: 03/13/24 HPI Narrative NABEEL ROBLES, is a 78 M who presents with severe right carotid stenosis, asymptomatic. Remote history of stroke many years prior with no residual deficits. [facility], LAT[facility] Medical History Loss of hearing Wears glasses Wears dentures Depression Cellulitis Prostate disease Back pain Migraine headache Injury of head and neck Syncope History of IBS Former smoker History of edema History of stress test History of echocardiogram Cardiology follow-up encounter History of CHF (congestive heart failure) Postoperative atrial fibrillation (08/2016) Right ureteral calculus Nonrheumatic mitral (valve) insufficiency History of cataract History of nephrolithiasis Type 2 diabetes mellitus without complication History of ileus Paradoxical embolus History of diverticulitis History of DVT (deep vein thrombosis) Paroxysmal atrial fibrillation Atrial septal defect Hyperlipidemia Atherosclerotic heart disease [place] coronary artery w/angina pectoris CVA (cerebral vascular accident) (2014) CAD (coronary artery disease) Essential (primary) hypertension Home Medications ?Medication ?Instructions ?Recorded ?Last Taken ?Type furosemide 20 mg tablet 20 mg PO DAILY Dose decreased to 08/12/23 03/12/24 Rx 20 mg daily #90 tabs desvenlafaxine succinate 50 mg 50 mg PO DAILY DEPRESSION 12/29/23 03/13/24 History tablet,extended release 24 hr (Pristiq) sacubitril 24 mg-valsartan 26 mg 1 tab PO BID BP #180 tabs 02/01/24 03/13/24 08:00 Rx tablet (Entresto) NATAKENSIS 3 cap PO DAILY SUPPLEMENT 02/15/24 02/15/24 History aspirin 81 mg capsule 81 mg PO DAILY HEART 02/15/24 03/12/24 22:00 History clopidogrel 75 mg tablet 75 mg PO DAILY BLOOD THINNER 02/15/24 03/12/24 22:00 History Allergy/AdvReac Type Severity Reaction Status Date / Time No Known Allergies Allergy Verified 03/13/24 10:26 Family History Father , Age 76 CVA (cerebral vascular accident) Uncle , age 83 Myocardial infarction Surgical History History of ureter stent (02/2020) History of lithotripsy (02/2020) History of tonsillectomy History of hemorrhoidectomy History of atrial septal defect repair (09/10/16) History of coronary artery stent placement (08/22/08) H/O coronary artery bypass surgery (09/10/16) Social History Smoking Status: Former smoker quit date: 06/15/15 alcohol intake: never substance use type: does not use caffeine: Yes Type: coffee Number of servings: 5 ROS Constitutional Constitutional: Denies chills, fever(s), frequent falls, lethargy or weakness Eyes Eyes: Denies blind spots, change in vision or loss of vision ENT HEENT: Denies bleeding gums, hoarseness or sore throat Cardiovascular Cardiovascular: Denies abdominal pain, bluish discoloration of hand/feet, chest pain with activity, claudication, cold extremities, cyanosis, dyspnea on exertion, erythema on extremities, irregular heart rhythm, leg edema, leg ulcers, numbness in extremities or weakness in extremities Respiratory/Chest Respiratory/Chest: Denies cough, excessive phlegm production, shortness of breath at rest, shortness of breath with exertion or wheezing Gastrointestinal Gastrointestinal: Denies anorexia, change in stool character, constipation, diarrhea, melena or rectal bleeding Genitourinary Genitourinary: Denies dysuria or hematuria Musculoskeletal Musculoskeletal: Denies abnormal gait Integumentary Integumentary: Reports other Details: ; Denies erythema, non-healing lesions or wounds Neurologic Neurologic: Denies abnormal speech, focal weakness, headache(s), loss of vision, numbness, paresthesias or sensory deficit Hematologic/Lymphatic Hematologic/Lymphatic: Denies easy bleeding, easy bruising or lymphadenopathy Vital Signs Vital Signs Vital Signs: 03/13/24 10:31 03/13/24 10:31 03/13/24 11:39 Temperature 97.3 F L 97.3 F L Temperature Source Temporal Pulse Rate 73 73 Respiratory Rate 18 18 Respiratory Pattern Normal Blood Pressure 113/69 113/69 Blood Pressure Mean 83 Blood Pressure Source Monitor Blood Pressure Position Semi-Fowlers Blood Pressure Location Right Arm Pulse Ox 98 98 Oxygen Delivery Method Room Air Room Air Weight Weight: 190 lb Body Mass Index (BMI) 32.5 Physical Exam Const alert, oriented x3, no apparent distress and healthy appearing General Appearance: cooperative; Negative for combative or lethargic Orientation / Consciousness: awake Exam Limitations: no limitations HEENT Head and Scalp: normocephalic and atraumatic Eyes EOMs intact bilaterally General Eye: normal appearance of both eyes Neck full ROM, no lymphadenopathy and thyroid normal General: trachea midline; Negative for lymphadenopathy or tenderness Thyroid: thyroid normal Resp normal respiratory effort and no use of accessory muscles Effort and Inspection: Negative for labored, stridor or audible wheezes Cardio regular rate and regular rhythm Back/Spine Cervical Spine: cervical ROM normal Extremity full ROM, normal capillary refill and no clubbing, cyanosis or edema Skin no rashes or lesions noted and no wounds Neuro oriented x3, CN's II-XII intact bilaterally, no focal motor deficits and no sensory deficits noted Psych thought process normal, cooperative, affect normal, speech normal and activity/motor behavior normal Results Lab / Micro Data 02/15/24 09:41 02/15/24 09:41 Labs: Laboratory Results - last 24 hr 03/13/24 10:01: POC Glucose 116 H 03/13/24 10:55: Blood Type A POSITIVE, Antibody Screen NEGATIVE Assessment & Plan Assessment/Plan (1) Carotid stenosis, right: PLAN: -right carotid endarterectomy
[2024-03-13] MEDS: Cefazolin 2 GM in 0.9% Normal Saline (100mL Bag) 100 ML IV (13:05)
[2024-03-13] MEDS: 0.9% Normal Saline (1000mL) 1,000 ML IV (13:10)
[2024-03-13] MEDS: Heparin Injection (Vial) 5,000 UNIT/ML VIAL 5000 UNIT (13:41)
--- NOTE | 2024-03-13 15:59 | PCM.OPRPT ---
Report of Operation Date of Procedure: 03/13/24 Pre-Operative Diagnosis: right carotid stenosis Post-Operative Diagnosis: same Surgery/Procedure Performed:: right carotid endarterectomy Surgeon: Josh Alcocer Type of Anesthesia: General Drains: 19 Fr CHARO Estimated Blood Loss (mL): 18 Description of Procedure: HPI: Patient is an 79-year-old male with severe asymptomatic right carotid artery stenosis. He presents now for right carotid endarterectomy for stroke risk reduction. Description of procedure: Upon obtaining form consent and verification correct patient procedure site patient was taken to the operating was placed under general anesthesia. He was then positioned prepped and draped in usual fashion timeout was performed. Oblique incision was made along the anterior border of the sternocleidomastoid and Bovie electrocautery was dissect down through the subcutaneous tissue to the platysma. The platysma was divided self-retaining retractor put in position and further dissection carried down to the sternocleidomastoid. This was freed along its anterior border and found to be retracted posterior laterally exposing the carotid sheath. Sharp dissection used to dissect free the jugular vein and the facial vein was identified, ligated with silk ties, and divided. The jugular vein was then retracted laterally exposing the carotid artery. Sharp dissection used to dissect free the proximal common carotid artery with care taken to identify and protect the vagus nerve. Was used to place a vessel loop and attention was then turned distally. Sharp dissection used to dissect free the internal carotid artery beyond the area of palpable and visible plaque and care was taken to identify and protect the hypoglossal nerve. A right angle used to place a vessel loop distal to the plaque and the patient was then heparinized and allowed to circulate for 3 minutes. Subsequent heparin dosing was performed based on ACT results. During heparin circulation Sharp dissection was used to dissect free the internal carotid artery and a right angle used to place a vessel loop. Vessels then occluded first the internal followed by the common and external and longitudinal arteriotomy was created with 11 blade on the common carotid artery. This was then extended onto the internal carotid artery with Cowan scissors beyond the area of plaque. A 12 [place] shunt was then placed first distally into the internal carotid artery and allowed to backbleed before placing proximally into the common carotid artery. The shunt was then interrogated and found a patent level resistant signal. We then performed her endarterectomy with a freer elevator with satisfactory endpoint distally onto the internal carotid artery and eversion endarterectomy of the external carotid artery. 7-0 Prolene tacking sutures in placed at the distal endpoint. The lumen was then flushed with heparinized saline to clear debris and a bovine pericardial patch secured in position with a 6-0 Prolene in running fashion. Prior to completing the suture line the shunt was withdrawn and the vessels back flushed. After completing the suture line the internal carotid artery was allowed to backbleed into the bifurcation then reoccluded at its origin. We then really released the clamps on the external and common carotid artery allowing 10 heartbeats of antegrade flow to flush before reestablishing antegrade flow into the internal carotid artery. After releasing the clamps satisfactory stasis was noted and the vessels were interrogated with Doppler. The internal carotid artery was patent with low resistance signal in the external carotid artery was patent with normal signal. Heparin was then reversed with protamine and the incision inspected for hemostasis. Floseal topical hemostatic was applied and a 19 [place] CHARO was placed via separate stab incision. The incision was then closed with 2-0 Vicryl, 3-0 Vicryl, 4 Monocryl and Dermabond for the skin. At the conclusion the case of the patient was away from anesthesia moving all extremities with cranial nerves intact. He was then taken to the recovery room with anticipated mission to the intensive care unit for hemodynamic and neurologic monitoring.
[2024-03-13 16:07] LABS: ACT Activated Clotting Time 140 sec (74-137)
[2024-03-13 16:07] LABS: ACT Activated Clotting Time 208 sec (74-137)
[2024-03-13 16:07] LABS: ACT Activated Clotting Time 256 sec (74-137)
[2024-03-13 16:07] LABS: ACT Activated Clotting Time 226 sec (74-137)
[2024-03-13] MEDS: Bupivacaine 0.25% 30 ML Vial (16:09)
--- NOTE | 2024-03-13 16:56 | SUR.PHASEI ---
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 AFTER ANESTHESIA REVERSAL PER ALBA MOROCHO. PATIENT PULLED OUT ARTERIAL LINE AND IV ACCESS DURING HIS THRASHING.
--- NOTE | 2024-03-13 17:21 | PCM.POST.ANE ---
Anesthesia: Postop Eval I Current Vital Signs Temperature: 97 F Pulse Rate: 90 Blood Pressure: 118/73 Respiratory Rate: 22 Pulse Ox: 95 Oxygen Delivery Method: Simple Mask Oxygen Flow Rate (L/min): 6 Assessment Airway patent: Yes Spontaneous unlabored respirations: Yes Mental status: Confused (agitated, but calming down) nausea: No Vomiting: No Anesthesia Complication: No Fluid Hydration Crystalloid volume administer (ml): 2,000 Total IV fluid infused: 2,000 Progress Note Anesthesia document: Postop Eval 1 completed: Yes
[2024-03-13 17:49] LABS: Bedside Glucose 182 mg/dL (74-106)
[2024-03-13] MEDS: 0.45% Normal Saline 1,000 ML 100 ML IV (20:57)
[2024-03-13] MEDS: Cefazolin 1 GM/50 ML BAG IV (21:04)
[2024-03-13] MEDS: Acetaminophen 500 MG Tablet 1000 MG PO (21:04)
[2024-03-13] MEDS: MELATONIN 3 MG TABLET PO (21:04)
--- NOTE | 2024-03-13 22:22 | PCM.POSTANE2 ---
Anesthesia Postop Eval I Sum Postop Eval Completion status Anesthesia document: Postop Eval 1 completed: Yes Anesthesia Postop Eval I Summary Anesthesia Postop Eval I Summary: Anesthesia Postop Eval I: Assessment Summary Airway patent Yes 03/13/24 17:22 CRYPTOLOGIC LINGUIST.SKOBY Spontaneous unlabored Yes 03/13/24 17:22 CRYPTOLOGIC LINGUIST.SHIVANI respirations Mental status Confused - 03/13/24 17:22 CRYPTOLOGIC LINGUIST.SKOBY agitated, but calming down nausea No 03/13/24 17:22 CRYPTOLOGIC LINGUIST.SINOBY Vomiting No 03/13/24 17:22 CRYPTOLOGIC LINGUIST.SINOBDean Anesthesia Postop Eval I: Fluid Summary Crystalloid volume administer 2,000 03/13/24 17:22 CRYPTOLOGIC LINGUIST.SKOBY (ml) Colloids volume administered ( ml) Blood Product volume administered (ml) Total IV fluid infused 2,000 03/13/24 17:22 CRYPTOLOGIC LINGUIST.SINOBDean Anesthesia Postop Eval I: Summary Notes Anesthesia Complication No 03/13/24 17:22 CRYPTOLOGIC LINGUIST.SHIVANI Anesthesia Complication Comment: Post-operative progress note Anesthesia: Postop Eval II Evaluation Mental status: Awake and Calm Pain Level: 2 nausea: No Vomiting: No Progress Note Post-operative progress note: Patient has become calmer over his PACU stay. His blood pressures have become unstable. Patient was placed in Trendelenburg position for a while. Along with small boluses of fluid patient's blood pressure did eventually stabilize. No signs of congestive heart failure were noted. Eventually patient was able to be discharged from PACU. Complications Anesthesia Complication: Yes Anesthesia Complication Comment:: Patient was initially confused upon awakening. This subsided with time in the PACU. He then developed lower blood pressures which were treated with Trendelenburg position, fluids and time. Patient was eventually discharged in stable condition.
[2024-03-14] VITALS (16 sets, daily range): BP systolic 82–104; BP diastolic 48–73; PULSE 59–77; RESP 14–22; TEMP 36.6–36.8; O2SAT 88–99; BMI 33.2
[2024-03-14] MEDS: 0.9% Normal Saline (500mL Bag) 500 ML 999 ML IV (00:35)
[2024-03-14] MEDS: Albumin Human 25% (100 mL) 25 GM/100 ML BAG IV ×2 (01:14→02:52)
[2024-03-14] MEDS: Acetaminophen 500 MG Tablet 1000 MG PO ×2 (04:40→13:13)
[2024-03-14] MEDS: 0.9% Saline Lock 10 ML Syringe IV (04:43)
[2024-03-14] MEDS: Cefazolin 1 GM/50 ML BAG IV (04:46)
[2024-03-14] MEDS: 0.9% Normal Saline (250mL Bag) 250 ML 15 ML IV (04:47)
[2024-03-14 04:49] LABS: Absolute Lymphocyte Count 0.75 X10^3/uL (0.83-4.51); Absolute Neutrophil Count 6.5 X10^3/uL (2.0-7.7); Basophil# 0.01 X10^3/uL; Basophil% 0.1 % (0-1); Hematocrit 30.8 % (40-54); Lymphocyte # 0.75 X10^3/ul (0.83-4.51); Lymphocyte % 9.9 % (19-41); Mean Corp Hgb Conc 32.5 g/dL (32-36); Mean Corpuscular Hgb 31.2 pg (27.0-32.0); Mean Platelet Vol. 10.1 fl (6.2-12.0); Monocyte# 0.36 X10^3/uL; Monocyte% 4.7 % (0-10); NRBC Flagged by Analyzer 0 % (0-5); Neutrophil # 6.45 X10^3/uL (2.7-7.7); Neutrophil % 84.8 % (47-70); Platelet Count 127 K/mm3 (150-450); RBC Distribution Width CV 14.4 % (11.6-14.6); RBC Distribution Width SD 50.7 fl (35.1-43.9); Red Blood Count 3.21 M/mm3 (4.6-6.2); White Blood Count 7.6 K/mm3 (4.4-11.0)
[2024-03-14] MEDS: 0.45% Normal Saline 1,000 ML 100 ML IV (05:48)
[2024-03-14] MEDS: Enoxaparin 40 MG/0.4 ML Syringe SC (07:54)
[2024-03-14] MEDS: Venlafaxine XR 37.5 MG Capsule PO (07:54)
[2024-03-14] MEDS: Clopidogrel Bisulfate 75 MG Tablet PO (07:54)
[2024-03-14] MEDS: Furosemide 20 MG Tablet PO (07:55)
[2024-03-14] MEDS: SACUBITRIL/VALSARTAN 24/26 MG TABLET 1 EACH PO (07:55)
[2024-03-14] MEDS: Aspirin 81 MG TAB.CHEW PO (07:55)
--- NOTE | 2024-03-14 09:15 | CASEMGMT ---
JEAN PIERRE SHUKLA Assessment Face to Face with patient for initial transition planning/care coordination assessment. JEAN PIERRE SHUKLA introduced self and role at [facility], pt voices understanding. Pt is A&Ox4 and is resting comfortably in the chair and is calm. Care providers, pharmacy, and demographics verified. 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 Transportation: Pt and pt family do not drive. 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 Denies concerns DME: BGM and supplies. FWW and cane but does not use. BP Monitor. Pulse Ox. Pt may qualify for home oxygen. A verbal list of Local in-network DME companies provided to the pt at this time. Pt prefers [facility]. HHC/SNF: Denies history or needs Pt?s goal: Home Plan: Home with family support and potential oxygen. Pt denies the need for HHC, OP Tx, or SNF. Pt states that he feels safe discharging home once he is medically ready. Per ICU rounds, the pt may be able to DC today. CM to follow. Johanna Alvarado RN, CM
--- NOTE | 2024-03-14 12:40 | PCM.PN.SRG ---
Subjective Subjective Mr. Alvarado was seen resting comfortably in bed this morning. He reports that he had a slight headache earlier but this resolved. He tolerated liquid diet yesterday evening. He has been voiding with some hesitancy which is his baseline. He required 6 L O@ overnight but saturating okay on room air today, this is also a chronic issue for him. His BP remain low but he is asymptomatic, he reports his blood pressures at home are low 100s systolic typically. Objective Data Objective Data Vital Signs: Vital Signs Temp Pulse Resp BP Pulse Ox O2 Del Method O2 Flow Rate 98.3 F 74 18 104/61 92 Room Air 2 03/14/24 10:02 03/14/24 11:47 03/14/24 11:47 03/14/24 11:47 03/14/24 11:47 03/14/24 11:47 03/14/24 07:00 Oxygen Flow Rate (L/min) 2 Oxygen Delivery Method Room Air Weight: 194 lb 10.691 oz Body Mass Index (BMI) 33.2 Intake & Output: Intake and Output for Last 24 Hours 03/12/24 03/13/24 03/14/24 23:59 23:59 23:59 Intake Total 2304.25 / 2304.25 2560 / 2560 Output Total 305 / 315 Balance 25 / 1988. 2540 / 2540 Lab / Micro Data 03/14/24 04:36 02/15/24 09:41 Labs: Laboratory Results - last 24 hr 03/13/24 13:25: Activated Clotting Time 140 H 03/13/24 14:19: Activated Clotting Time 256 H 03/13/24 14:54: Activated Clotting Time 208 H 03/13/24 15:29: Activated Clotting Time 226 H 03/13/24 16:57: POC Glucose 182 H 03/14/24 04:36: WBC 7.6, RBC 3.21 L, Hgb 10.0 L, Hct 30.8 L, MCV 96.0 H, MCH 31.2, MCHC 32.5, RDW Std Deviation 50.7 H, RDW Coeff of Arabella 14.4, Plt Count 127 L, MPV 10.1, Immature Gran % (Auto) 0.500, Neut % (Auto) 84.8 H, Lymph % (Auto) 9.9 L, [place] % (Auto) 4.7, Eos % (Auto) 0.0, Baso % (Auto) 0.1, Absolute Neuts (auto) 6.5, Absolute Lymphs (auto) 0.75 L, Nucleated RBC % 0 Physical Exam Const oriented x3 and no apparent distress HEENT normocephalic, head/scalp atraumatic, hearing grossly normal bilaterally, external ears normal and external nose normal Eyes EOMs intact bilaterally General Eye: normal appearance of both eyes Neck Neck Narrative: R neck incision site with surgical glue intact, no dehiscence. Soft to palpation, mild swelling, minimal ecchymosis. CHARO drain with serosanguineous output. Resp normal respiratory effort and clear to auscultation bilaterally Cardio regular rate and regular rhythm Extremity normal to inspection and no clubbing, cyanosis or edema Skin no rashes or lesions noted General Skin Exam: no breakdown Trauma: no lacerations or abrasions Neuro oriented x3, CN's II-XII intact bilaterally, moves all extremities, no focal motor deficits and no sensory deficits noted Speech: speech normal Psych mental status grossly normal Appearance: grossly normal Attitude: calm and engaged Activity / Motor Behavior: appropriate eye contact Speech: normal speech Mood & Affect: euthymic mood Thought Process: normal thought process Judgement: judgement good Assessment & Plan Assessment/Plan (1) Carotid stenosis, right: PLAN: He is POD#1 from R CEA. CHARO drain was removed this morning without issue and he tolerated this well. He has been neurologically intact. His BPs have been on the low side but overall stable and he has not had any lightheadedness/dizziness. Will progress to normal diet today. Will have him up to chair and ambulate with nursing. Continue to monitor BP. Anticipate discharge this afternoon.
--- NOTE | 2024-03-14 13:12 | DS.PCM_ITS ---
Providers Date of Admission: 03/13/24 Primary Care Physician: KATHERINE Bustillos Reason For Visit: Carotid Endarterectomy Diagnosis Discharge Diagnosis (1) Carotid stenosis, right: Status: Acute Code(s): I65.21 - Occlusion and stenosis of right carotid artery Plan: He is POD#1 from R CEA. CHARO drain was removed this morning without issue and he tolerated this well. He has been neurologically intact. His BPs have been on the low side but overall stable and he has not had any lightheadedness/dizziness. Will progress to normal diet today. Will have him up to chair and ambulate with nursing. Continue to monitor BP. Anticipate discharge this afternoon. Medications at Discharge Home Medications furosemide 20 mg tablet 20 mg PO DAILY Dose decreased to 20 mg daily #90 tabs 08/12/23 desvenlafaxine succinate 50 mg tablet,extended release 24 hr (Pristiq) 50 mg PO DAILY DEPRESSION 12/29/23 sacubitril 24 mg-valsartan 26 mg tablet (Entresto) 1 tab PO BID BP #180 tabs 02/01/24 NATAKENSIS 3 cap PO DAILY SUPPLEMENT 02/15/24 aspirin 81 mg capsule 81 mg PO DAILY HEART 02/15/24 clopidogrel 75 mg tablet 75 mg PO DAILY BLOOD THINNER 02/15/24 oxycodone 5 mg tablet 5 mg PO Q8H PRN PRN Pain Score 4-10 3 days #9 tabs 03/14/24 Hospital Course Operations - (R CEA) Summary of Care Provided Hospital Course: Mr. Juwan Alvarado is a 78 y/o male who underwent Right Carotid Endarterectomy on 03/13/24. He tolerated the procedure well and he was routinely admitted to the ICU postoperatively for hemodynamic and neurologic monitoring. CHARO drain was removed on POD#1 without issue. The incision site is satisfactory in appearance with no evidence of hematoma. He has remained neurologically intact and stable throughout this admission. His blood pressures have been on the lower side but near his reported baseline and he has ambulated without any lightheadedness/dizziness. He has tolerated a normal diet. He has been voiding without difficulty. He is saturating on room air at his usual baseline. He is medically stable for discharge home with scheduled outpatient follow-up. Physical Exam Const oriented x3 and no apparent distress HEENT normocephalic, head/scalp atraumatic, hearing grossly normal bilaterally, external ears normal and external nose normal Eyes EOMs intact bilaterally General Eye: normal appearance of both eyes Neck Neck Narrative: R neck incision site with surgical glue intact, no dehiscence. Soft to palpation, mild swelling, minimal ecchymosis. CHARO drain with serosanguineous output. Resp normal respiratory effort and clear to auscultation bilaterally Cardio regular rate and regular rhythm Extremity normal to inspection and no clubbing, cyanosis or edema Skin no rashes or lesions noted General Skin Exam: no breakdown Trauma: no lacerations or abrasions Neuro oriented x3, CN's II-XII intact bilaterally, moves all extremities, no focal motor deficits and no sensory deficits noted Speech: speech normal Psych mental status grossly normal Appearance: grossly normal Attitude: calm and engaged Activity / Motor Behavior: appropriate eye contact Speech: normal speech Mood & Affect: euthymic mood Thought Process: normal thought process Judgement: judgement good Weight / BMI Weight Weight: 194 lb 10.691 oz Body Mass Index (BMI) 33.2 ABG / Lab / Microbiology Data 03/14/24 04:36 02/15/24 09:41 Laboratory: Laboratory Results - last 24 hr 03/13/24 13:25: Activated Clotting Time 140 H 03/13/24 14:19: Activated Clotting Time 256 H 03/13/24 14:54: Activated Clotting Time 208 H 03/13/24 15:29: Activated Clotting Time 226 H 03/13/24 16:57: POC Glucose 182 H 03/14/24 04:36: WBC 7.6, RBC 3.21 L, Hgb 10.0 L, Hct 30.8 L, MCV 96.0 H, MCH 31.2, MCHC 32.5, RDW Std Deviation 50.7 H, RDW Coeff of Arabella 14.4, Plt Count 127 L, MPV 10.1, Immature Gran % (Auto) 0.500, Neut % (Auto) 84.8 H, Lymph % (Auto) 9.9 L, [place] % (Auto) 4.7, Eos % (Auto) 0.0, Baso % (Auto) 0.1, Absolute Neuts (auto) 6.5, Absolute Lymphs (auto) 0.75 L, Nucleated RBC % 0 D/C Instructions Discharge Diet: No restrictions May shower in (days): 1 Weight Bearing Status: Weight bearing as tolerated Lifting Restricted to (Lbs): 20 Lifting Restrictions: Do not lift greater than 20 pounds for 3 weeks Call your doctor if your incision/area has: Sudden Increased Bleeding, Increased Pain/ Swelling and Foul Smelling Discharge Call your doctor if you observe: Fever of 101 or Higher and Uncontrolled pain Remove Dressing in: 1 day Additional Instructions: You have a small bandage over the site from which the surgical drain was removed. You may remove this bandage tomorrow after you shower. As long as there is no residual drainage, you may leave this open to air. If you do notice some continued drainage, you may re-cover with a Band-Aid. Your incision site is covered with surgical glue which will continue to protect it. The surgical glue will peel/flake off on its own over the next few weeks. Please do not pick at it. You may shower tomorrow. It is okay for soap and water to rinse over the incision site, pat to dry. Do not submerge the incision site in water such as to take a bath or go swimming etc. for 3 weeks. Do not lift greater than 20 pounds for 3 weeks. Otherwise, please continue with activity as tolerated. Do not drive until you can turn your head well enough to safely check your blind spots. I have prescribed a prescription pain medication oxycodone 5 mg tablets to be taken by mouth every 8 hours as needed for pain. This is an opioid pain medication and is to be taken only as directed and as needed. Do not take in combination with any other prescription pain medications. You may take this in addition to Tylenol or ibuprofen as allowed. Follow-up in the office in 2 to 4 weeks. If an appointment has not already been scheduled then please contact the office at [phone] to make your appointment. Please call or return to the office sooner as needed. Please Follow Up With: Keyona Rodriguez PA When: 2-4 weeks Meaningful Use Info Meaningful Use Meaningful Use Diagnoses (Choose all that apply): None applicable Ischemic Stroke Statin Dosing Therapy Reference: STATIN DOSE THERAPY REFERENCE: * Patients > 75 years receive moderate or high dose statin therapy. * Patients 75 years or YOUNGER should receive HIGH intensity statin dose unless contraindicated. You will be required to document reason for non-treatment if statin daily dose does not meet guidelines. HIGH DOSE STATIN THERAPY DAILY Atorvastatin > than or = to 40 mg Rosuvastatin > than or = to 20 mg Amlodipine + Atorvastatin > than or = to 2.5/40 mg Ezetimibe + Simvastatin 10/80 mg Simvastatin 80mg Discharge Plan Admission Admit Date/Time: 03/13/24 16:00 Primary Reason for Your Visit: Right carotid endarterectomy Attending Provider: Josh Alcocer Primary Care Provider: Gamaliel Noriega Consulting Providers: Josh Flanagan Instructions Additional Instructions / Restrictions: You have a small bandage over the site from which the surgical drain was removed. You may remove this bandage tomorrow after you shower. As long as there is no residual drainage, you may leave this open to air. If you do notice some continued drainage, you may re-cover with a Band-Aid. Your incision site is covered with surgical glue which will continue to protect it. The surgical glue will peel/flake off on its own over the next few weeks. Please do not pick at it. You may shower tomorrow. It is okay for soap and water to rinse over the incision site, pat to dry. Do not submerge the incision site in water such as to take a bath or go swimming etc. for 3 weeks. Do not lift greater than 20 pounds for 3 weeks. Otherwise, please continue with activity as tolerated. Do not drive until you can turn your head well enough to safely check your blind spots. I have prescribed a prescription pain medication oxycodone 5 mg tablets to be taken by mouth every 8 hours as needed for pain. This is an opioid pain medication and is to be taken only as directed and as needed. Do not take in combination with any other prescription pain medications. You may take this in addition to Tylenol or ibuprofen as allowed. Follow-up in the office in 2 to 4 weeks. If an appointment has not already been scheduled then please contact the office at [phone] to make your appointment. Please call or return to the office sooner as needed. Discharge Orders/Prescriptions Prescriptions: New oxycodone 5 mg Tablet 5 mg PO Q8H PRN PRN (Reason: Pain Score 4-10) 3 Days Qty: 9 0RF Continued desvenlafaxine succinate [Pristiq] 50 mg tablet extended release 24 hr 50 mg PO DAILY clopidogrel 75 mg tablet 75 mg PO DAILY aspirin 81 mg capsule 81 mg PO DAILY NATAKENSIS 3 cap PO DAILY furosemide 20 mg tablet 20 mg PO DAILY Qty: 90 3RF Entresto 24-26 mg tablet 1 tab PO BID Qty: 180 3RF Referrals / Follow Up: Gamaliel Noriega PA [Primary Care Provider] - Disposition Disposition (needs filled in before D/C Order can be placed): Home, Self Care
--- NOTE | 2024-03-14 13:29 | CASEMGMT ---
Per the pt RN, the pt did not qualify for home oxygen. The RN states that the pt has been up ind in the room. Pt continues to deny needs moving forward and is ready for DC home today with family support.
== END 2024-03-14 14:00 | disposition home or self-care (01) | DRG 39 ==
LOC: ICU 16:18
PROVIDERS: Anesthesiology; Admitting Provider Surgery Trauma Surgery; PCP Physician Assistant; Referring Provider Surgery Trauma Surgery; Visit Provider Surgery Trauma Surgery
PROC: 03CK0ZZ Extirpation of Matter from Right Internal Carotid Artery, Open Approach (ICD-10-PCS; CPT 35301; principal; 2024-03-13 11:45)
DX: I65.21 Occlusion and stenosis of right carotid artery (principal); E78.5 Hyperlipidemia, unspecified; I10 Essential (primary) hypertension; I48.0 Paroxysmal atrial fibrillation; I25.10 Atherosclerotic heart disease of native coronary artery without angina pectoris; Z95.1 Presence of aortocoronary bypass graft; Z95.5 Presence of coronary angioplasty implant and graft; Z79.02 Long term (current) use of antithrombotics/antiplatelets; Z79.82 Long term (current) use of aspirin; Z79.899 Other long term (current) drug therapy; Z86.73 Personal history of transient ischemic attack (TIA), and cerebral infarction without residual deficits; Z87.891 Personal history of nicotine dependence
CPT/HCPCS: 36415; 80048; 82962; 83036; 85025; 85027; 85347; 86850; 86900; 86901; 88304; 88311; 94668; 94762; 97802; 99252; A4648; J7030; J7040; J7050; J7120; P9047; A4216; G0463; J2405

== ENCOUNTER → 2024-03-23 | Outpatient (CLI) | payer SELFPAY, OTHER ==
--- NOTE | 2024-03-23 10:44 | CDU_ITS ---
Reason For Study: s/p Rt CEA, Swelling/Tenderness Rt. Velocities/BP Lt. Velocities/BP Prox CCA 74/14 cm/sec. Prox CCA 63/20 cm/sec. Mid CCA 36/4 cm/sec. Mid CCA 59/17 cm/sec. Dist CCA 69/15 cm/sec. Dist CCA 80/21 cm/sec. Prox ICA 46/11 cm/sec. Prox ICA 87/27 cm/sec. Mid ICA 63/24 cm/sec. Mid ICA 138/43 cm/sec. Dist ICA 66/30 cm/sec. Dist ICA 79/22 cm/sec. Rt. ICA/CCA = 1.8. Lt. ICA/CCA = 2.3. Prox ECA 63/5 cm/sec. Prox ECA 120/0 cm/sec. Rt. Vert. 47/14 cm/sec. Lt. Vert. 66/19 cm/sec. Right Extracranial There is heterogeneous, irregular atherosclerotic plaque noted in the right common carotid artery. Hypoechoic, non vascular structure noted anterior to the CCA measuring 3.16cm x 1.24cm (s/p Rt CEA 10 days ago). There is no significant atherosclerotic plaque noted in the right internal carotid artery. There is no significant atherosclerotic plaque noted in the right external carotid artery. Antegrade flow is noted in the right vertebral artery. Left Extracranial There is heterogeneous, irregular atherosclerotic plaque noted in the left common carotid artery. There is heterogeneous, irregular atherosclerotic plaque noted in the left internal carotid artery. The atherosclerotic plaque causes acoustic shadowing. There is heterogeneous, irregular atherosclerotic plaque noted in the left external carotid artery. Antegrade flow is noted in the left vertebral artery. Procedure Carotid Duplex 53602. This is a Carotid Duplex examination using B-mode, color flow and specral Doppler. Exam performed in department. VL/Carotid Duplex Ultrasound Interpretation Summary Normal right extracranial internal carotid. Small fluid collection/hematoma. Moderate (50-69%) stenosis left extracranial internal carotid. Patent and antegrade vertebrals bilaterally. Ordering Physician: Keyona Rodriguez Referring Physician: Gamaliel Noriega Performed By: Mervat Virk, RENETTA, RVT
== END | disposition home or self-care (01) ==
PROVIDERS: PCP Physician Assistant; Referring Provider Physician Assistant; Visit Provider Physician Assistant
DX: Z48.812 Encounter for surgical aftercare following surgery on the circulatory system (principal); I65.21 Occlusion and stenosis of right carotid artery
CPT/HCPCS: 93880

== ENCOUNTER 2024-05-06 07:49 | Inpatient (IN) | payer OTHER, SELFPAY ==
[2024-05-06] VITALS (9 sets, daily range): BP systolic 94–135; BP diastolic 63–89; PULSE 62–96; RESP 14–18; TEMP 36.1–36.6; O2SAT 91–99; BMI 32.7; BMI 32.3
--- NOTE | 2024-05-06 08:03 | EKG12_ITS ---
Test Reason : SOB Blood Pressure : / mmHG Vent. Rate : 100 BPM Atrial Rate : 100 BPM P-R Int : 144 ms QRS Dur : 114 ms QT Int : 370 ms P-R-T Axes : 055 -13 081 degrees QTc Int : 477 ms Normal sinus rhythm Minimal voltage criteria for LVH, may be normal variant ( [place] product ) Nonspecific T wave abnormality Prolonged QT Abnormal ECG Confirmed by Tre Maravilla ([id number]), editor newspaper SULTANA FERRARO ([id number]) on 05/08/2024 9:26:22 AM Referred By: TB Confirmed By:Tre Maravilla
[2024-05-06 08:15] LABS: Absolute Lymphocyte Count 1.68 X10^3/uL (0.83-4.51); Absolute Neutrophil Count 4.6 X10^3/uL (2.0-7.7); Basophil# 0.08 X10^3/uL; Basophil% 1.1 % (0-1); Eosinophil# 0.11 X10^3/uL; Eosinophils% 1.5 % (0-5); Hematocrit 40.3 % (40-54); Lymphocyte # 1.68 X10^3/ul (0.83-4.51); Lymphocyte % 23.5 % (19-41); Mean Corp Hgb Conc 32.3 g/dL (32-36); Mean Corpuscular Hgb 31.1 pg (27.0-32.0); Mean Corpuscular Volume 96.4 fL (80-94); Mean Platelet Vol. 10.2 fl (6.2-12.0); Monocyte# 0.64 X10^3/uL; Monocyte% 8.9 % (0-10); NRBC Flagged by Analyzer 0 % (0-5); Neutrophil # 4.62 X10^3/uL (2.7-7.7); Neutrophil % 64.6 % (47-70); Platelet Count 191 K/mm3 (150-450); RBC Distribution Width SD 53.1 fl (35.1-43.9); Red Blood Count 4.18 M/mm3 (4.6-6.2); White Blood Count 7.2 K/mm3 (4.4-11.0)
[2024-05-06] MEDS: 0.9% Normal Saline (1000mL) 1,000 ML 999 ML IV (08:17)
[2024-05-06 08:35] LABS: BNP,B-Type NATRIURETIC PEPTIDE 490.6 pg/mL (0-100)
[2024-05-06 08:38] LABS: Anion Gap 6 (5-15); BUN 31 mg/dL (7-18); BUN/Creat Ratio 27.4 RATIO (10-20); Calcium,Total 9.1 mg/dL (8.5-10.1); Chloride 108 mmol/L (98-107); Creatinine, Serum 1.13 mg/dL (0.70-1.30); EST Glomerular Filtration Rate 66 mL/min (>60); Est Glom Filt Rate - Afr Amer 80 mL/min (>60); Estimated Creatinine Clearance 50.85 ml/min; Glucose 125 mg/dL (74-106); Potassium 4.3 mmol/L (3.5-5.1); Sodium Level 139 mmol/L (136-145); Troponin-I HS (w/2H Reflex) 26 pg/mL (3.0-78.0)
--- NOTE | 2024-05-06 08:41 | EX.ED.DYSGE1 ---
HPI History of Present Illness Chief Complaint: Shortness of Breath Narrative Narrative: Patient is a 79-year-old male past medical history of IBS, CHF, type 2 diabetes, DVT, paroxysmal atrial fibrillation not on anticoagulation, CVA, CAD, hypertension who presented to the emerged part with chief complaint of shortness of breath and not feeling well. Per states that yesterday he was feeling his normal self and when he woke up this morning he felt very short of breath. He states that if he has minimal exertion he feels that he has difficulty breathing. Patient states that given he was not feeling his normal self brought himself here further evaluation management. Patient states that he is not on nasal cannula chronically. States that he has been compliant with his medications including his water pill not missing doses. Patient denies any recent travel history. Denies any sick contacts. [facility] Medical History Loss of hearing Wears glasses Wears dentures Depression Cellulitis Prostate disease Back pain Migraine headache Injury of head and neck Syncope History of IBS Former smoker History of edema History of stress test History of echocardiogram Cardiology follow-up encounter History of CHF (congestive heart failure) Postoperative atrial fibrillation (08/2016) Right ureteral calculus Nonrheumatic mitral (valve) insufficiency History of cataract History of nephrolithiasis Type 2 diabetes mellitus without complication History of ileus Paradoxical embolus History of diverticulitis History of DVT (deep vein thrombosis) Paroxysmal atrial fibrillation Atrial septal defect Hyperlipidemia Atherosclerotic heart disease [place] coronary artery w/angina pectoris CVA (cerebral vascular accident) (2014) CAD (coronary artery disease) Essential (primary) hypertension Home Medications ?Medication ?Instructions ?Recorded ?Last Taken ?Type furosemide 20 mg tablet 20 mg PO DAILY Dose decreased to 08/12/23 05/05/24 Rx 20 mg daily #90 tabs desvenlafaxine succinate 50 mg 50 mg PO DAILY DEPRESSION 12/29/23 05/05/24 History tablet,extended release 24 hr (Pristiq) NATAKENSIS 3 cap PO DAILY SUPPLEMENT 02/15/24 05/05/24 History aspirin 81 mg tablet,delayed 81 mg PO DAILY 05/06/24 Unknown History release Allergy/AdvReac Type Severity Reaction Status Date / Time No Known Allergies Allergy Verified 04/11/24 15:40 Family History Father , Age 76 CVA (cerebral vascular accident) Uncle , age 83 Myocardial infarction Surgical History History of ureter stent (02/2020) History of lithotripsy (02/2020) History of tonsillectomy History of hemorrhoidectomy History of atrial septal defect repair (09/10/16) History of coronary artery stent placement (08/22/08) H/O coronary artery bypass surgery (09/10/16) Social History Smoking Status: Former smoker quit date: 06/15/15 alcohol intake: never substance use type: does not use caffeine: Yes Type: coffee Number of servings: 5 ROS ROS ED ROS Narrative Constitutional: Denies fevers, chills, lightheadedness, dizziness, headaches Eyes: Denies change in vision double vision blurry vision Cardiovascular: Denies chest pain or palpitations Respiratory: Complains of shortness of breath as noted above denies coughing wheezing Abdomen: Complains of diarrhea denies abdominal pain nausea vomiting denies any dark stools or blood in stool : Denies any urinary symptoms Neurological: Denies numbness, weakness, tingling Musculoskeletal: Denies back pain Skin: Denies rashes or lesions EXAM Physical Exam Narrative Exam Narrative: General: Patient lying in bed rest comfortably did not appear to be in acute distress Head: Atraumatic, normocephalic Eyes: PERRL bilateral, EOMI bilateral, no conjunctival injection noted Neck: Soft, supple, trachea midline Cardiovascular: Regular rate and rhythm no murmurs gallops rubs noted Respiratory: Clear to auscultation bilaterally no rales rhonchi or wheezes noted Abdomen: Soft, nondistended, nontender to palpation can bowel sounds present x 4 Extremities: Radial pulses +2/4 in the bilateral upper extremities, no pedal edema on exam, +5/5 strength noted in the bilateral upper and lower extremities Neurological: Patient following commands knew that he was at [facility] 2023 Skin: Warm, dry, intact Const Vital Signs: 05/06/24 07:49 05/06/24 08:00 05/06/24 08:03 Temperature 97.9 F Temperature Source Temporal Pulse Rate 96 Respiratory Rate 14 Respiratory Effort Blood Pressure 126/89 H Blood Pressure Mean 101 Pulse Ox 91 93 Oxygen Delivery Method Room Air Nasal Cannula Nasal Cannula Oxygen Flow Rate (L/min) 2 05/06/24 08:14 05/06/24 09:49 05/06/24 11:00 Temperature Temperature Source Pulse Rate 87 82 Respiratory Rate 16 16 Respiratory Effort Normal Blood Pressure 107/70 110/69 Blood Pressure Mean 82 82 Pulse Ox 95 99 Oxygen Delivery Method Nasal Cannula Nasal Cannula Oxygen Flow Rate (L/min) 2 MDM MDM MDM Narrative Medical decision making narrative: Patient is a 79-year-old male who presented to the emergency department chief complaint of dyspnea on exertion and not feeling well. Patient will have a workup performed here on the differential diagnose includes but not limited to ACS, NSTEMI, CHF exacerbation, COVID, flu, upper respiratory infection second viral etiology. Once workup is obtained reviewed he will be reevaluated. Patient be given IV fluids. He was noted be hypoxic he was placed on 2 L nasal cannula. Patient's EKG was reviewed and independently interpreted by myself which showed sinus rhythm with a rate of 100 bpm with evidence of a left bundle branch block no sgarbossa criteria were met. Patient CBC reviewed showed no evidence of leukocytosis white blood count normal at 7.2, hemoglobin stable 13, platelet count normal at 191. Patient sodium normal 139, potassium was normal at 4.3, creatinine was 1.13. Patient's proBNP elevated to 490 he was given 40 mg of IV Lasix. Patient troponin was noted be normal at 26 with a delta troponin normal at 26 as well. Patient TSH normal at 1.61. Patient's x-ray of his chest showed chronic interstitial changes in both lung kang without any acute superimposed cardiopulmonary processes. At this point time do believe the patient will warrant admission to the hospital for his hypoxia and CHF exacerbation. Patient's case will be discussed with hospitalist. Discussed case with hospitalist Dr. Quezada who accept patient for admission. Did discuss the results with the patient he was notified he is agreeable this plan all question concerns were answered. Lab Data Labs: Laboratory Results - last 24 hr 05/06/24 05/06/24 08:05 10:35 WBC 7.2 RBC 4.18 L Hgb 13.0 Hct 40.3 MCV 96.4 H MCH 31.1 MCHC 32.3 RDW Std Deviation 53.1 H RDW Coeff of Arabella 15.0 H Plt Count 191 MPV 10.2 Immature Gran % (Auto) 0.400 Neut % (Auto) 64.6 Lymph % (Auto) 23.5 [place] % (Auto) 8.9 Eos % (Auto) 1.5 Baso % (Auto) 1.1 H Absolute Neuts (auto) 4.6 Absolute Lymphs (auto) 1.68 Nucleated RBC % 0 Sodium 139 Potassium 4.3 Chloride 108 H Carbon Dioxide 25.0 Anion Gap 6 BUN 31 H Creatinine 1.13 Estim Creat Clear Calc 50.85 Est GFR (MDRD) Af Amer 80 Est GFR (MDRD) Non-Af 66 BUN/Creatinine Ratio 27.4 H Glucose 125 H Calcium 9.1 Troponin I High Sens 26 26 B-Natriuretic Peptide 490.6 H TSH 1.610 Radiography Diagnostic Testing: Clinical Impression(s) from Imaging Studies Chest X-Ray 05/06/24 08:47 IMPRESSION: Chronic interstitial changes in both lung kang without a superimposed acute pulmonary process. Electronically Signed: Henrik Arthur MD at 9:02 EDT , Discharge Plan Triage Chief Complaint: Shortness of Breath ED Provider: Surendra Sotelo Dx/Rx/DC Orders Clinical Impression: CHF exacerbation, Hypoxia Primary Care Provider: Gamaliel Noriega
--- NOTE | 2024-05-06 08:47 | RAD_ITS ---
STUDY: X-RAY CHEST REASON FOR EXAM: Male, 79 years old. Chest pain/pressure TECHNIQUE: PA and lateral views of the chest. COMPARISON: 09/14/2017 FINDINGS: EKG leads overlie the chest Lungs are expanded with chronic interstitial changes, no superimposed acute pulmonary process. Sternal cerclage wires and vascular clips are present from a prior sternotomy and coronary artery bypass graft procedure (CABG). Normal mediastinum and nandini. Normal visualized pulmonary arteries. Normal visualized aortic arch and descending thoracic aorta. There are diffuse degenerative changes of the visualized thoracic spine. Normal visualized ribs, clavicles, and shoulders. There is no demonstrated abnormality of the visualized soft tissue structures of the upper abdomen. RAD/Chest PA and Lateral IMPRESSION: Chronic interstitial changes in both lung kang without a superimposed acute pulmonary process. Electronically Signed: Henrik Arthur MD at 9:02 EDT ,
[2024-05-06 10:10] LABS: Reflex Troponin-HS? (from REC) Y
[2024-05-06] MEDS: Furosemide 40 MG/4 ML Vial IV ×2 (10:58→18:37)
[2024-05-06 11:05] LABS: Troponin-I HS 26 pg/mL (3.0-78.0)
--- NOTE | 2024-05-06 11:35 | HP.PCM.HOS_ITS ---
HPI - General General Date of Admission: 05/06/24 HPI Narrative NABEEL ROBLES, is a 79 M who presents [facility] Medical History Loss of hearing Wears glasses Wears dentures Depression Cellulitis Prostate disease Back pain Migraine headache Injury of head and neck Syncope History of IBS Former smoker History of edema History of stress test History of echocardiogram Cardiology follow-up encounter History of CHF (congestive heart failure) Postoperative atrial fibrillation (08/2016) Right ureteral calculus Nonrheumatic mitral (valve) insufficiency History of cataract History of nephrolithiasis Type 2 diabetes mellitus without complication History of ileus Paradoxical embolus History of diverticulitis History of DVT (deep vein thrombosis) Paroxysmal atrial fibrillation Atrial septal defect Hyperlipidemia Atherosclerotic heart disease [place] coronary artery w/angina pectoris CVA (cerebral vascular accident) (2014) CAD (coronary artery disease) Essential (primary) hypertension Home Medications ?Medication ?Instructions ?Recorded ?Last Taken ?Type furosemide 20 mg tablet 20 mg PO DAILY Dose decreased to 08/12/23 05/05/24 Rx 20 mg daily #90 tabs desvenlafaxine succinate 50 mg 50 mg PO DAILY DEPRESSION 12/29/23 05/05/24 History tablet,extended release 24 hr (Pristiq) NATAKENSIS 3 cap PO DAILY SUPPLEMENT 02/15/24 05/05/24 History aspirin 81 mg tablet,delayed 81 mg PO DAILY 05/06/24 Unknown History release Allergy/AdvReac Type Severity Reaction Status Date / Time No Known Allergies Allergy Verified 04/11/24 15:40 Family History Father , Age 76 CVA (cerebral vascular accident) Uncle , age 83 Myocardial infarction Surgical History History of ureter stent (02/2020) History of lithotripsy (02/2020) History of tonsillectomy History of hemorrhoidectomy History of atrial septal defect repair (09/10/16) History of coronary artery stent placement (08/22/08) H/O coronary artery bypass surgery (09/10/16) Social History Smoking Status: Former smoker quit date: 06/15/15 alcohol intake: never substance use type: does not use caffeine: Yes Type: coffee Number of servings: 5 Vital Signs Vital Signs Vital Signs: 05/06/24 07:49 05/06/24 08:00 05/06/24 08:03 Temperature 97.9 F Temperature Source Temporal Pulse Rate 96 Respiratory Rate 14 Respiratory Effort Blood Pressure 126/89 H Blood Pressure Mean 101 Pulse Ox 91 93 Oxygen Delivery Method Room Air Nasal Cannula Nasal Cannula Oxygen Flow Rate (L/min) 2 05/06/24 08:14 05/06/24 09:49 05/06/24 11:00 Temperature Temperature Source Pulse Rate 87 82 Respiratory Rate 16 16 Respiratory Effort Normal Blood Pressure 107/70 110/69 Blood Pressure Mean 82 82 Pulse Ox 95 99 Oxygen Delivery Method Nasal Cannula Nasal Cannula Oxygen Flow Rate (L/min) 2 Weight Weight: 190 lb 11.198 oz Body Mass Index (BMI) 32.7 Results Lab / Micro Data 05/06/24 08:05 05/06/24 08:05 Labs: Laboratory Results - last 24 hr 05/06/24 08:05: WBC 7.2, RBC 4.18 L, Hgb 13.0, Hct 40.3, MCV 96.4 H, MCH 31.1, MCHC 32.3, RDW Std Deviation 53.1 H, RDW Coeff of Arabella 15.0 H, Plt Count 191, MPV 10.2, Immature Gran % (Auto) 0.400, Neut % (Auto) 64.6, Lymph % (Auto) 23.5, [place] % (Auto) 8.9, Eos % (Auto) 1.5, Baso % (Auto) 1.1 H, Absolute Neuts (auto) 4.6, Absolute Lymphs (auto) 1.68, Nucleated RBC % 0, Sodium 139, Potassium 4.3, Chloride 108 H, Carbon Dioxide 25.0, Anion Gap 6, BUN 31 H, Creatinine 1.13, Estim Creat Clear Calc 50.85, Est GFR (MDRD) Af Amer 80, Est GFR (MDRD) Non-Af 66, BUN/Creatinine Ratio 27.4 H, Glucose 125 H, Calcium 9.1, Troponin I High Sens 26, B-Natriuretic Peptide 490.6 H, TSH 1.610 05/06/24 10:35: Troponin I High Sens 26 Micro: Microbiology 05/06/24 08:20 Mucosa - Nose SARS-CoV-2, Influenza & RSV (PCR) - Final Imaging Radiology Impression Chest X-Ray 05/06/24 08:47 IMPRESSION: Chronic interstitial changes in both lung kang without a superimposed acute pulmonary process. Electronically Signed: Henrik Arthur MD at 9:02 EDT ,
[2024-05-06 14:33] LABS: Troponin-I HS 24 pg/mL (3.0-78.0)
--- NOTE | 2024-05-06 15:43 | HP.PCM.HOS_ITS ---
[facility] - General General Date of Admission: 05/06/24 Date of Service: 05/16/24 HPI Narrative NABEEL ROBLES, is a 79 M with a past medical history as outlined including history of heart failure who claims compliance with his Lasix. He was admitted through the ED on 05/06/2024 with a complaint of shortness of breath which started the night before admission. His was by his bedside. He says shortness of breath came on acutely. It was worse with lying down and relieved by sitting up. He also admitted some mild lower extremity edema. He denied any chest pain, dizziness or lightheadedness, nausea vomiting or any other symptoms. As stated he claimed compliance with his Lasix. He usually follows up with cardiology as well. Review of symptoms otherwise negative. Vitals in the ED were temperature of 97.7 Fahrenheit, pulse rate of 83, blood pressure 105/63, respiratory rate of 16 and she was saturating at 95% on 2 L of oxygen. CBC showed hemoglobin of 13 with WBC of 7.2 and platelets of 191. Chemistry showed sodium of 139 with potassium of 4.3 and bicarb of 25. Anion gap was 6. Creatinine was 1.13. BNP was elevated at 490.6. Chest x-ray showed chronic interstitial changes in both lung kang without superimposed acute pulmonary process. Respiratory panel was negative. He has been admitted to be managed for acute exacerbation of heart failure with preserved ejection fraction. [facility] Medical History Loss of hearing Wears glasses Wears dentures Depression Cellulitis Prostate disease Back pain Migraine headache Injury of head and neck Syncope History of IBS Former smoker History of edema History of stress test History of echocardiogram Cardiology follow-up encounter History of CHF (congestive heart failure) Postoperative atrial fibrillation (08/2016) Right ureteral calculus Nonrheumatic mitral (valve) insufficiency History of cataract History of nephrolithiasis Type 2 diabetes mellitus without complication History of ileus Paradoxical embolus History of diverticulitis History of DVT (deep vein thrombosis) Paroxysmal atrial fibrillation Atrial septal defect Hyperlipidemia Atherosclerotic heart disease [place] coronary artery w/angina pectoris CVA (cerebral vascular accident) (2014) CAD (coronary artery disease) Essential (primary) hypertension Home Medications ?Medication ?Instructions ?Recorded ?Last Taken ?Type furosemide 20 mg tablet 20 mg PO DAILY Dose decreased to 08/12/23 05/05/24 Rx 20 mg daily #90 tabs desvenlafaxine succinate 50 mg 50 mg PO DAILY DEPRESSION 12/29/23 05/05/24 History tablet,extended release 24 hr (Pristiq) NATAKENSIS 3 cap PO DAILY SUPPLEMENT 02/15/24 05/05/24 History aspirin 81 mg tablet,delayed 81 mg PO DAILY 05/06/24 Unknown History release Allergy/AdvReac Type Severity Reaction Status Date / Time No Known Allergies Allergy Verified 04/11/24 15:40 Family History Father , Age 76 CVA (cerebral vascular accident) Uncle , age 83 Myocardial infarction Surgical History History of ureter stent (02/2020) History of lithotripsy (02/2020) History of tonsillectomy History of hemorrhoidectomy History of atrial septal defect repair (09/10/16) History of coronary artery stent placement (08/22/08) H/O coronary artery bypass surgery (09/10/16) Social History Smoking Status: Former smoker quit date: 06/15/15 alcohol intake: never substance use type: does not use caffeine: Yes Type: coffee Number of servings: 5 ROS Constitutional Constitutional: Reports fatigue, malaise and weakness; Denies anorexia, chills or fever(s) Eyes Eyes: Denies change in vision ENT HEENT: Denies dysphagia, headache(s), hearing loss, sinus pressure or sore throat Cardiovascular Cardiovascular: Reports dyspnea on exertion, edema, orthopnea and paroxysmal nocturnal dyspnea; Denies chest pain, lightheadedness, palpitations, rapid heart rate or syncope Respiratory/Chest Respiratory/Chest: Reports cough, dyspnea, shortness of breath at rest and shortness of breath with exertion; Denies productive cough or wheezing Gastrointestinal Gastrointestinal: Denies abdominal pain, constipation, diarrhea, nausea or vomiting Genitourinary Genitourinary: Denies burning urination or dysuria Musculoskeletal Musculoskeletal: Denies arthralgias Neurologic Neurologic: Denies confusion, dizziness, focal weakness, headache(s), numbness or syncope Psychiatric Psychiatric: Denies anxiety or depression Endocrine Endocrinology: Denies change in body appearance Vital Signs Vital Signs Vital Signs: 05/06/24 07:49 05/06/24 08:00 05/06/24 08:03 Temperature 97.9 F Temperature Source Temporal Pulse Rate 96 Respiratory Rate 14 Respiratory Effort Respiratory Depth Respiratory Pattern Blood Pressure 126/89 H Blood Pressure Mean 101 Blood Pressure Source Blood Pressure Position Blood Pressure Location Pulse Ox 91 93 Oxygen Delivery Method Room Air Nasal Cannula Nasal Cannula Oxygen Flow Rate (L/min) 2 05/06/24 08:14 05/06/24 09:49 05/06/24 11:00 Temperature Temperature Source Pulse Rate 87 82 Respiratory Rate 16 16 Respiratory Effort Normal Respiratory Depth Respiratory Pattern Blood Pressure 107/70 110/69 Blood Pressure Mean 82 82 Blood Pressure Source Blood Pressure Position Blood Pressure Location Pulse Ox 95 99 Oxygen Delivery Method Nasal Cannula Nasal Cannula Oxygen Flow Rate (L/min) 2 05/06/24 12:58 05/06/24 13:07 05/06/24 14:51 Temperature 97.0 F L 97.7 F L Temperature Source Oral Pulse Rate 62 83 Respiratory Rate 16 16 Respiratory Effort Normal Non-Labored Respiratory Depth Normal Respiratory Pattern Normal Blood Pressure 106/68 105/63 Blood Pressure Mean 80 77 Blood Pressure Source Monitor Blood Pressure Position Semi-Fowlers Blood Pressure Location Right Arm Pulse Ox 96 95 Oxygen Delivery Method Nasal Cannula Nasal Cannula Oxygen Flow Rate (L/min) 2 2 Weight Weight: 188 lb 0.869 oz Body Mass Index (BMI) 32.3 Physical Exam Const alert, oriented x3 and no apparent distress General Appearance: cooperative HEENT normocephalic, head/scalp atraumatic, hearing grossly normal bilaterally, moist oral mucous membranes and oropharynx normal Eyes PERRL, EOMs intact bilaterally and conjunctivae normal Neck no lymphadenopathy and supple Resp Resp Narrative: Moderately diminished breath sounds bibasilarly. Few crackles. On 2 L of oxygen by nasal cannula. Cardio regular rate, regular rhythm, S1 normal heart sound, S2 normal heart sound and no murmurs GI normal to inspection, nondistended, normoactive bowel sounds, soft to palpation, non-tender and non-distended Extremity normal to inspection and full ROM Extremity Narrative: 2+ bipedal pitting edema. Neuro oriented x3, CN's II-XII intact bilaterally, moves all extremities and no focal motor deficits Motor Exam: strength 5/5 throughout Psych affect normal Results Lab / Micro Data 05/06/24 08:05 05/06/24 08:05 Labs: Laboratory Results - last 24 hr 05/06/24 08:05: WBC 7.2, RBC 4.18 L, Hgb 13.0, Hct 40.3, MCV 96.4 H, MCH 31.1, MCHC 32.3, RDW Std Deviation 53.1 H, RDW Coeff of Arabella 15.0 H, Plt Count 191, MPV 10.2, Immature Gran % (Auto) 0.400, Neut % (Auto) 64.6, Lymph % (Auto) 23.5, [place] % (Auto) 8.9, Eos % (Auto) 1.5, Baso % (Auto) 1.1 H, Absolute Neuts (auto) 4.6, Absolute Lymphs (auto) 1.68, Nucleated RBC % 0, Sodium 139, Potassium 4.3, Chloride 108 H, Carbon Dioxide 25.0, Anion Gap 6, BUN 31 H, Creatinine 1.13, Estim Creat Clear Calc 50.85, Est GFR (MDRD) Af Amer 80, Est GFR (MDRD) Non-Af 66, BUN/Creatinine Ratio 27.4 H, Glucose 125 H, Calcium 9.1, Troponin I High Sens 26, B-Natriuretic Peptide 490.6 H, TSH 1.610 05/06/24 10:35: Troponin I High Sens 26 05/06/24 14:02: Troponin I High Sens 24 Micro: Microbiology 05/06/24 08:20 Mucosa - Nose SARS-CoV-2, Influenza & RSV (PCR) - Final Imaging Radiology Impression Chest X-Ray 05/06/24 08:47 IMPRESSION: Chronic interstitial changes in both lung kang without a superimposed acute pulmonary process. Electronically Signed: Henrik Arthur MD at 9:02 EDT , Assessment & Plan Assessment/Plan (1) Hypoxia: (2) CHF exacerbation: PLAN: Plan #Acute on chronic systolic and diastolic heart failure * Admit to PCU. BNP is elevated at 419 chest x-ray showed evidence of fluid overload. * Diuresed with IV Lasix 40 mg twice daily. Monitor intake and output. Fluid restriction to 1500 cc daily. * 2D echo from 02/15/2024 showed EF of 20% with moderately dilated left ventricle and severe global hypokinesis of the left ventricle with moderately enlarged left atrium and stage II diastolic dysfunction. * He is also supposed to be on Entresto and metoprolol though there is no listed on the med rec. * #Hypoxia due to acute on chronic combined heart failure: Management as above. #History of CAD s/p stents * Had stent to the LAD in 2007 and also had a cath in 2015 which showed significant triple-vessel disease and medical management was recommended. He again had a cath in 2017 at [place] and ended up having a quintuple bypass surgery. * On aspirin and high intensity statin * #History of carotid stenosis s/p right carotid endarterectomy * Had surgery done on 03/13/2024 at [facility]. On aspirin and high intensity statin. * #Paroxysmal A-fib: On Entresto. Not anticoagulated. Unclear why. #Benign essential hypertension: On metoprolol and Entresto DVT prophylaxis: Lovenox CODE STATUS: Full code * Patient and counseled extensively about different types of CODE STATUS including full code, DNR CCA and DNR CCA. * Patient elects to be full code * Total [id number] time 17 minutes. Charges/Coding Visit Charges Inpatient E&M: 08245 Init Hosp L3 Procedures Hospitalists Procedures: 28582 Advncd Care Plan 30 Min
[2024-05-06] MEDS: 0.9% Saline Lock 10 ML Syringe IV (18:37)
[2024-05-07] VITALS (8 sets, daily range): BP systolic 92–122; BP diastolic 60–66; PULSE 74–91; RESP 16–18; TEMP 35.8–36.7; O2SAT 87–97
[2024-05-07 07:12] LABS: Absolute Lymphocyte Count 1.34 X10^3/uL (0.83-4.51); Absolute Neutrophil Count 5.1 X10^3/uL (2.0-7.7); Basophil# 0.07 X10^3/uL; Basophil% 0.9 % (0-1); Eosinophil# 0.14 X10^3/uL; Eosinophils% 1.9 % (0-5); Hemoglobin 12.7 g/dL (13.0-16.5); Lymphocyte # 1.34 X10^3/ul (0.83-4.51); Lymphocyte % 18.1 % (19-41); Mean Corp Hgb Conc 31.8 g/dL (32-36); Mean Corpuscular Hgb 30.7 pg (27.0-32.0); Mean Corpuscular Volume 96.6 fL (80-94); Mean Platelet Vol. 10.4 fl (6.2-12.0); Monocyte# 0.72 X10^3/uL; Monocyte% 9.7 % (0-10); NRBC Flagged by Analyzer 0 % (0-5); Neutrophil # 5.09 X10^3/uL (2.7-7.7); Platelet Count 209 K/mm3 (150-450); RBC Distribution Width CV 14.9 % (11.6-14.6); RBC Distribution Width SD 53.6 fl (35.1-43.9); Red Blood Count 4.14 M/mm3 (4.6-6.2); White Blood Count 7.4 K/mm3 (4.4-11.0)
[2024-05-07 07:52] LABS: Anion Gap 7 (5-15); BUN 30 mg/dL (7-18); BUN/Creat Ratio 27.3 RATIO (10-20); Calcium,Total 10.2 mg/dL (8.5-10.1); Chloride 105 mmol/L (98-107); EST Glomerular Filtration Rate 68 mL/min (>60); Est Glom Filt Rate - Afr Amer 83 mL/min (>60); Estimated Creatinine Clearance 51.88 ml/min; Glucose 115 mg/dL (74-106); Potassium 3.9 mmol/L (3.5-5.1); Sodium Level 139 mmol/L (136-145)
[2024-05-07] MEDS: Enoxaparin 40 MG/0.4 ML Syringe SC (08:22)
[2024-05-07] MEDS: Metoprolol(XL)Succ 50 MG Tablet PO (08:23)
[2024-05-07] MEDS: Furosemide 40 MG/4 ML Vial IV ×2 (08:23→17:39)
[2024-05-07] MEDS: Aspirin E.C. 81 MG Tablet PO (08:24)
[2024-05-07] MEDS: Venlafaxine XR 37.5 MG Capsule PO (08:24)
[2024-05-07] MEDS: 0.9% Saline Lock 10 ML Syringe IV ×2 (08:30→17:39)
[2024-05-07] MEDS: SACUBITRIL/VALSARTAN 24/26 MG TABLET 1 EACH PO (08:42)
--- NOTE | 2024-05-07 11:30 | CASEMGMT ---
RN CM Face to Face with patient for initial transition planning/care coordination assessment. RN CM introduced self and role at [facility]. Patient lying in bed, alert and oriented. Patient willing to participate in assessment and is able to answer all questions appropriately. Care providers, pharmacy, and demographics verified. Strata: 2 PCP: Hari Specialists: Mariana, vp care management; Preferred Pharmacy: [facility], [facility] retail at discharge. Insurance: [employer] Prescription Benefit: none Living Will/HPOA: none LNOK: , daughter Living Arrangements: Patient lives with in a single story home with 2 steps and railing to enter the home. Patient is independent at home. Transportation: Driving Service DME/HHC: Patient has raised toilet, walker, and generator at home. No previous HHC or SNF. Prefers [facility] if oxygen is needed. Patient wishes to discharge home, denies need for home health at this time. Patient states he has no further needs or concerns at this time. CM to follow for discharge planning needs that may arise. Disposition Plan: Patient to discharge home with family support and follow-up plans in place. Jennifer OLSON, RN, CM
--- NOTE | 2024-05-07 17:02 | PCM.PN.HOSP ---
Reason for Visit Reason for Visit: Shortness of breath Subjective Subjective Patient is an 79-year-old [place] male who presented to the emergency department at [facility] on 05/06/2024 with a chief complaint of shortness of breath. It started on the night prior to admission. He reported the shortness of breath came on acutely and was worse with lying down and relieved with sitting up. He also has been having some mild lower extremity edema which is worse than his baseline. He denies any chest pain, palpitations, nausea or vomiting and had no dizziness or lightheadedness. Patient reported that he was compliant with his Lasix and is taking 20 mg daily. He does have a known cardiomyopathy with a baseline EF of 20 to 25% on most recent echo from 2023. He was seen by cardiology but is not on goal-directed therapy and it does not appear that he is on goal-directed therapy at the time of admission. An appointment was pending to get him on appropriate therapy however it does not appear he is yet had that appointment as he is not on appropriate goal-directed therapy at this time. At the time of admission his vital signs were unremarkable and his oxygen saturation was 91% on room air. He was placed on 2 L nasal cannula which improved his saturation at 93%. He was markedly dyspneic with exertion. Upon admission he was placed on IV diuretics, metoprolol, and Entresto. Repeat echocardiogram was not done at this time since he had a recent echo. Today in follow-up he states he is improving significantly. We did an ambulatory pulse ox and he still requiring some oxygen with exertion but he does report that he is feeling much better. Patient admits that he is not compliant with his sodium restriction or fluid restriction at home. Objective Data Objective Data Vital Signs: Vital Signs Temp Pulse Resp BP Pulse Ox O2 Del Method O2 Flow Rate 96.9 F L 74 16 92/60 97 Room Air 2 05/07/24 15:00 05/07/24 15:00 05/07/24 15:05/07/24 15:05/07/24 15:05/07/24 15:05/07/24 13:15 Oxygen Flow Rate (L/min) [ 2 AMBULATING with Oxygen #1] Oxygen Flow Rate (L/min) 2 Oxygen Delivery Method Room Air Weight: 85.3 kg Body Mass Index (BMI) 32.3 Intake & Output: Intake and Output for Last 24 Hours 05/05/24 05/06/24 05/07/24 23:59 23:59 23:59 Intake Total 1420 / 1420 Output Total 700 / 700 400 / 400 Balance 720 / 720 -400 / -400 Lab / Micro Data 05/07/24 06:29 05/07/24 06:21 Labs: Laboratory Results - last 24 hr 05/07/24 06:21: Sodium 139, Potassium 3.9, Chloride 105, Carbon Dioxide 27.0, Anion Gap 7, BUN 30 H, Creatinine 1.10, Estim Creat Clear Calc 51.88, Est GFR (MDRD) Af Amer 83, Est GFR (MDRD) Non-Af 68, BUN/Creatinine Ratio 27.3 H, Glucose 115 H, Calcium 10.2 H 05/07/24 06:29: WBC 7.4, RBC 4.14 L, Hgb 12.7 L, Hct 40.0, MCV 96.6 H, MCH 30.7, MCHC 31.8 L, RDW Std Deviation 53.6 H, RDW Coeff of Arabella 14.9 H, Plt Count 209, MPV 10.4, Immature Gran % (Auto) 0.400, Neut % (Auto) 69.0, Lymph % (Auto) 18.1 L, [place] % (Auto) 9.7, Eos % (Auto) 1.9, Baso % (Auto) 0.9, Absolute Neuts (auto) 5.1, Absolute Lymphs (auto) 1.34, Nucleated RBC % 0 Micro: Microbiology 05/06/24 08:20 Mucosa - Nose SARS-CoV-2, Influenza & RSV (PCR) - Final Physical Exam Const alert, oriented x3 and no apparent distress Constitutional Narrative: Very pleasant, elderly, [place] male, sitting up on the edge of the bed, eating lunch, appears comfortable, not toxic appearing HEENT head/scalp atraumatic and moist oral mucous membranes HEENT Narrative: Dentition is poor, Mallampati is 2, no thrush Head and Scalp: normocephalic Resp normal respiratory effort, no retractions, no use of accessory muscles and clear to auscultation bilaterally Resp Narrative: Slightly diminished at bases but clear with no crackles present Auscultation: Negative for rales, rhonchi or wheezes Cardio regular rate, regular rhythm, S1 normal heart sound, S2 normal heart sound, no murmurs, no rub, no gallops and no clicks GI normal to inspection, nondistended, normoactive bowel sounds, soft to palpation and non-tender Extremity Extremity Narrative: Trace to 1+ bilateral lower extremity pedal edema, no cyanosis or clubbing, radial pulses are 2+ bilaterally Neuro oriented x3, moves all extremities and no focal motor deficits Speech: speech normal Psych affect normal Psych Narrative: Very pleasant, interacts appropriately Assessment & Plan Assessment/Plan (1) CHF exacerbation: (2) Hypoxia: PLAN: Plan Acute on chronic HFrEF secondary to systolic and diastolic dysfunction -Patient is not on goal-directed therapy at home -BNP was markedly elevated and chest x-ray shows evidence of volume overload -Continue daily weights -Continue sodium restricted diet -Continue fluid restriction -Continue IV diuretics -Continue Entresto -Hold home oral metoprolol and start Coreg 3.125 twice daily -most recent echocardiogram on 02/15/2024 showed an EF of 20%, moderate dilation of the left ventricle, severe global hypokinesis of the LV, moderate left atrial enlargement, moderate eccentric mitral valve insufficiency, stage II diastolic dysfunction -Once patient is on appropriate goal-directed therapy this will need to be followed up as an outpatient -Will schedule appointment prior to discharge to be seen with cardiology within 1 week -If EF does not improve patient will need to be considered for ICD Nonsustained wide-complex tachycardia -Highly suspicious for monomorphic VT -Patient is high risk with EF -Now on goal-directed therapy -Patient was asymptomatic during this episode -Replace potassium to achieve KCl greater than 4.0--currently 3.9 -Check stat magnesium and if less than 2 we will give IV mag -Continue to monitor on telemetry CAD/essential HTN/HPL -Previous quintuple bypass in 2017 at [place] -Continue aspirin -Patient is currently not on a statin--> will start atorvastatin 40 -Discontinue metoprolol as ordered and substitute carvedilol -Continue Entresto as ordered Carotid artery stenosis -Status post right carotid endarterectomy 03/13/[address] Alcocer -Continue aspirin -Start atorvastatin 40 mg Paroxysmal atrial fibrillation -Previous history -Suspect may be postoperatively after bypass -Continue beta-danny as ordered but transition from metoprolol to carvedilol History of ASD -Continue outpatient follow-up with cardiology -Continue aspirin Depression -Continue home Pristiq Obesity -BMI 32.3 -Recommend weight loss -Complicates treatment, prognosis, outcomes DVT prophylaxis -Continue subcu enoxaparin CODE STATUS -Full code as verified on admission Charges/Coding Visit Charges Inpatient E&M: 42683 Subs Hosp L2
[2024-05-07 17:25] LABS: Magnesium 2.1 mg/dL (1.6-2.6)
[2024-05-07] MEDS: Potassium Chloride Oral Tablet 20 MEQ 40 MEQ PO (17:39)
[2024-05-07] MEDS: Carvedilol 3.125 MG TABLET PO (21:27)
[2024-05-07] MEDS: Atorvastatin Calcium 40 MG Tablet PO (21:27)
[2024-05-07] MEDS: MELATONIN 3 MG TABLET 6 MG PO (23:06)
[2024-05-08 03:25] VITALS: BP 108/62; PULSE 70; RESP 16; TEMP 36.7; O2SAT 92
[2024-05-08 07:27] LABS: Hemoglobin 13.3 g/dL (13.0-16.5); Mean Corp Hgb Conc 32.4 g/dL (32-36); Mean Corpuscular Hgb 31.1 pg (27.0-32.0); Mean Corpuscular Volume 95.8 fL (80-94); Mean Platelet Vol. 10.6 fl (6.2-12.0); Platelet Count 204 K/mm3 (150-450); RBC Distribution Width CV 14.6 % (11.6-14.6); RBC Distribution Width SD 51.1 fl (35.1-43.9); Red Blood Count 4.28 M/mm3 (4.6-6.2); White Blood Count 7.7 K/mm3 (4.4-11.0)
[2024-05-08 08:12] LABS: Anion Gap 7 (5-15); BUN 46 mg/dL (7-18); BUN/Creat Ratio 36.8 RATIO (10-20); Calcium,Total 9.6 mg/dL (8.5-10.1); Chloride 104 mmol/L (98-107); Creatinine, Serum 1.25 mg/dL (0.70-1.30); EST Glomerular Filtration Rate 59 mL/min (>60); Est Glom Filt Rate - Afr Amer 71 mL/min (>60); Estimated Creatinine Clearance 45.65 ml/min; Glucose 123 mg/dL (74-106); Potassium 4.5 mmol/L (3.5-5.1); Sodium Level 136 mmol/L (136-145)
[2024-05-08 09:22] VITALS: BP 99/50; PULSE 71; RESP 15; TEMP 36.6; O2SAT 93
[2024-05-08 10:50] VITALS: BP 91/73; PULSE 92
[2024-05-08 10:53] VITALS: O2SAT 89; O2SAT 93
[2024-05-08] MEDS: Enoxaparin 40 MG/0.4 ML Syringe SC (11:02)
[2024-05-08] MEDS: Furosemide 40 MG/4 ML Vial IV (11:02)
[2024-05-08] MEDS: Carvedilol 3.125 MG TABLET PO (11:03)
[2024-05-08] MEDS: Venlafaxine XR 37.5 MG Capsule PO (11:03)
[2024-05-08] MEDS: Aspirin E.C. 81 MG Tablet PO (11:03)
[2024-05-08 11:38] VITALS: BMI 31.3
--- NOTE | 2024-05-08 13:31 | DS.PCM_ITS ---
Providers Date of Admission: 05/06/24 Date of Discharge: 05/08/24 Primary Care Physician: KATHERINE Bustillos Reason For Visit: HYPOXIA, CHF EXACERBATION Diagnosis Discharge Diagnosis (1) CHF exacerbation: Status: Chronic Code(s): I50.9 - Heart failure, unspecified (2) Hypoxia: Status: Acute Code(s): R09.02 - Hypoxemia Medications at Discharge Home Medications desvenlafaxine succinate 50 mg tablet,extended release 24 hr (Pristiq) 50 mg PO DAILY DEPRESSION 12/29/23 NATAKENSIS 3 cap PO DAILY SUPPLEMENT 02/15/24 aspirin 81 mg tablet,delayed release 81 mg PO DAILY heart health 05/06/24 sacubitril 24 mg-valsartan 26 mg tablet (Entresto) 1 tab PO DAILY heart failure 05/06/24 atorvastatin 40 mg tablet 40 mg PO QHS #30 tabs 05/08/24 carvedilol 3.125 mg tablet 3.125 mg PO BID #60 tabs 05/08/24 furosemide 40 mg tablet (Lasix) 40 mg PO DAILY #30 tabs 05/08/24 Hospital Course Operations None Procedures EKG and - (Chest x-ray) Summary of Care Provided Minutes Spent on Discharge: 41 Hospital Course: Mr. Alvarado is an 79-year-old [employer] male who presented to the emergency department at [facility] on 05/06/2024 with a chief complaint of shortness of breath. It started on the night prior to admission. He reported the shortness of breath came on acutely and was worse with lying down and relieved with sitting up. He also has been having some mild lower extremity edema which is worse than his baseline. He denies any chest pain, palpitations, nausea or vomiting and had no dizziness or lightheadedness. Patient reported that he was compliant with his Lasix and is taking 20 mg daily. He does have a known cardiomyopathy with a baseline EF of 20 to 25% on most recent echo from 2023. He was seen by cardiology but is not on goal-directed therapy and it does not appear that he is on goal-directed therapy at the time of admission. An appointment was pending to get him on appropriate therapy however it does not appear he is yet had that appointment as he is not on appropriate goal-directed therapy at this time. At the time of admission his vital signs were unremarkable and his oxygen saturation was 91% on room air. He was placed on 2 L nasal cannula which improved his saturation at 93%. He was markedly dyspneic with exertion. Upon admission he was placed on IV diuretics, metoprolol, and Entresto. Repeat echocardiogram was not done at this time since he had a recent echo. He was placed on IV Lasix twice daily and diuresed well. Weight is down 2.3 kg for hospitalization. Patient was able to ambulate without requiring supplemental oxygen and states that his overall shortness of breath and lower extremity edema is much better. He did have a few short asymptomatic runs of wide-complex tachycardia. I do suspect this is VT with his EF. If he does not respond to goal-directed therapy with improved EF he may be a candidate for ICD placement. As noted above, he has not been on any goal-directed therapy. He was started on the Entresto he was to be taking at home. We added carvedilol 3.125 mg daily. Will leave outpatient follow-up with cardiology to assess ability to add Aldactone. Unfortunately, Jardiance is too expensive for them to afford at this time. In addition to these medications he was also discharged on Lasix 40 mg daily increased from 20 mg daily. I have asked that he obtain a basic metabolic profile in the next 5 to 7 days to reevaluate his renal function and his potassium level. He was advised to decrease his sodium intake and fluid intake to 2 g and less than 2 L daily respectively. We have also asked that he weigh himself on a daily basis in the morning with no close on and keep track of this. He was told if he gains more than 2 to 3 pounds in a 24-hour period to take an extra dose of Lasix and to call the web production manager office. He was maintained on his home aspirin and added atorvastatin to his regimen. We made an appointment for him to follow-up with cardiology on 05/16/2024 at 2 PM. I have also asked that he follow-up with his primary care physician within the next week. Prescriptions for his new medications were sent to local pharmacy. 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 Nonsustained wide-complex tachycardia CAD Essential hypertension Hyperlipidemia Carotid artery stenosis Proximal atrial fibrillation History of ASD Depression Obesity Physical Exam Const alert, oriented x3, no apparent distress, no limitations and well nourished Constitutional Narrative: Obese, very pleasant, elderly, [employer] male, sitting up in bed, appears comfortable, nontoxic, family at bedside, patient with intermittent joking and very jovial General Appearance: cooperative, comfortable, well kempt and well developed Orientation / Consciousness: awake, oriented to person, oriented to place and oriented to time Exam Limitations: no limitations Nutritional Appearance: obese HEENT normocephalic, head/scalp atraumatic and moist oral mucous membranes HEENT Narrative: Mild to moderate hearing loss, dentures in place, Mallampati 2-3, no thrush Eyes PERRL, EOMs intact bilaterally and conjunctivae normal Eyes Narrative: No scleral icterus Neck no lymphadenopathy and supple Neck Narrative: Neck veins are flat Resp normal respiratory effort, no retractions, no use of accessory muscles and clear to auscultation bilaterally Auscultation: Negative for rales, rhonchi or wheezes Cardio regular rate, regular rhythm, S1 normal heart sound, S2 normal heart sound, no murmurs, no rub, no gallops and no clicks GI normal to inspection, nondistended, normoactive bowel sounds, soft to palpation and non-tender Extremity normal to inspection and full ROM Extremity Narrative: Trace bilateral lower extremity pedal edema, no cyanosis or clubbing, radial pulses are 2+ bilaterally Skin no wounds, skin turgor normal and no jaundice Neuro oriented x3, moves all extremities and no focal motor deficits Speech: speech normal Psych affect normal Psych Narrative: Very pleasant, interacts appropriately Weight / BMI Weight Weight: 83.2 kg Body Mass Index (BMI) 31.3 ABG / Lab / Microbiology Data 05/08/24 07:04 05/08/24 07:04 Laboratory: Laboratory Results - last 24 hr 05/07/24 06:21: Magnesium 2.1 05/08/24 07:04: WBC 7.7, RBC 4.28 L, Hgb 13.3, Hct 41.0, MCV 95.8 H, MCH 31.1, MCHC 32.4, RDW Std Deviation 51.1 H, RDW Coeff of Arabella 14.6, Plt Count 204, MPV 10.6, Sodium 136, Potassium 4.5, Chloride 104, Carbon Dioxide 25.0, Anion Gap 7, BUN 46 H, Creatinine 1.25, Estim Creat Clear Calc 45.65, Est GFR (MDRD) Af Amer 71, Est GFR (MDRD) Non-Af 59 L, BUN/Creatinine Ratio 36.8 H, Glucose 123 H, Calcium 9.6 Microbiology: Microbiology 05/06/24 08:20 Mucosa - Nose SARS-CoV-2, Influenza & RSV (PCR) - Final D/C Instructions Discharge Diet: Low fat / Low cholesterol (Limit fluid intake to 2 L or less daily/limit sodium intake to 3 g or less daily) Discharge Activity: Return to Normal Activity and No Restrictions Meaningful Use Info Meaningful Use Meaningful Use Diagnoses (Choose all that apply): CHF CHF KAREN/ARB ordered at discharge?: Yes Documented LVEF (%): 20 Ischemic Stroke Statin Dosing Therapy Reference: STATIN DOSE THERAPY REFERENCE: * Patients > 75 years receive moderate or high dose statin therapy. * Patients 75 years or YOUNGER should receive HIGH intensity statin dose unless contraindicated. You will be required to document reason for non-treatment if statin daily dose does not meet guidelines. HIGH DOSE STATIN THERAPY DAILY Atorvastatin > than or = to 40 mg Rosuvastatin > than or = to 20 mg Amlodipine + Atorvastatin > than or = to 2.5/40 mg Ezetimibe + Simvastatin 10/80 mg Simvastatin 80mg Discharge Plan Admission Admit Date/Time: 05/06/24 11:18 Primary Reason for Your Visit: Shortness of breath Attending Provider: Mikaela Krueger Primary Care Provider: Gamaliel Noriega Consulting Providers: Tayla Quezada Instructions Additional Instructions / Restrictions: 1. Please ask that a basic metabolic profile be done in the next 5 to 7 days 2. Please weigh yourself daily in the morning without clothes on and if you gain more than 2 to 3 pounds in a 24-hour period please take an extra dose of Lasix and call your web production manager office 3. Please do not drink more than 2 L in a 24-hour period 4. Monitor your sodium intake with a goal sodium intake of less than 3 g daily 5. Please take all of your medicines to your cardiology appointment Discharge Orders/Prescriptions Prescriptions: New atorvastatin 40 mg Tablet 40 mg PO QHS Qty: 30 1RF carvedilol 3.125 mg Tablet 3.125 mg PO BID Qty: 60 1RF furosemide [Lasix] 40 mg tablet 40 mg PO DAILY Qty: 30 1RF Continued desvenlafaxine succinate [Pristiq] 50 mg tablet extended release 24 hr 50 mg PO DAILY aspirin 81 mg tablet,delayed release (DR/EC) 81 mg PO DAILY Patient Comments: PT TRIES TO REMEMBER TO TAKE, BUT FORGETS OFTEN Entresto 24-26 mg tablet 1 tab PO DAILY NATAKENSIS 3 cap PO DAILY Discontinued furosemide [Lasix] 20 mg tablet 20 mg PO DAILY furosemide 20 mg tablet 20 mg PO DAILY Qty: 90 3RF Referrals / Follow Up: Lidia Gaona [employer]SEMBLER, [employer]SEMBLER-[employer] [Non-Staff -Ordering Privileges] - 05/16/24 2:00 pm Gamaliel Noriega PA [Primary Care Provider] - Within 1 Week (please call tomorrow and see in 1 week. Please ask that a basic metabolic profile be done in the next 5 to 7 days) Disposition Disposition (needs filled in before D/C Order can be placed): Home, Self Care Charges/Coding Visit Charges Inpatient E&M: 13417 Disch Hosp >30min
--- NOTE | 2024-05-08 14:50 | CASEMGMT ---
Patient has order for discharge. Patient does not qualify for home oxygen at discharge. RN CM in to discuss needs at discharge, at bedside. Patient denies needs or help at discharge. Patient and had no further questions or concerns.
[2024-05-08 15:16] VITALS: BP 108/51; PULSE 60; RESP 16; TEMP 36.6; O2SAT 92
[2024-05-08] MEDS: SACUBITRIL/VALSARTAN 24/26 MG TABLET 1 EACH PO (15:33)
== END 2024-05-08 17:15 | disposition home or self-care (01) | DRG 291 ==
LOC: ED 08:32 → PCU 12:14
PROVIDERS: Admitting Provider Student in an Organized Health Care Education/Training Program; Emergency Provider Emergency Medicine; PCP Physician Assistant; Visit Provider Internal Medicine
DX: I11.0 Hypertensive heart disease with heart failure (principal); I50.43 Acute on chronic combined systolic (congestive) and diastolic (congestive) heart failure; I47.29 Other ventricular tachycardia; Z79.01 Long term (current) use of anticoagulants; I65.21 Occlusion and stenosis of right carotid artery; F32.A Depression, unspecified; Z68.32 Body mass index [BMI] 32.0-32.9, adult; I48.0 Paroxysmal atrial fibrillation; I25.10 Atherosclerotic heart disease of native coronary artery without angina pectoris; E78.5 Hyperlipidemia, unspecified; E66.9 Obesity, unspecified; R09.02 Hypoxemia; Z95.1 Presence of aortocoronary bypass graft; Z95.5 Presence of coronary angioplasty implant and graft; Z79.82 Long term (current) use of aspirin; Z79.899 Other long term (current) drug therapy; Z86.718 Personal history of other venous thrombosis and embolism; Z86.73 Personal history of transient ischemic attack (TIA), and cerebral infarction without residual deficits; Z87.891 Personal history of nicotine dependence
CPT/HCPCS: 36415; 71046; 80048; 83735; 83880; 84443; 84484; 85025; 85027; 87631; 93005; 99285; J7030; J7040; A4216; J1940

== ENCOUNTER → 2024-05-31 | Outpatient (CLI) | payer SELFPAY, OTHER ==
--- NOTE | 2024-05-31 11:00 | RAD_ITS ---
INDICATION: VELASQUEZ COMPARISON: 05/06/2024 chest radiograph. Findings: Frontal and lateral views of the chest. LUNG PARENCHYMA: Bibasilar interstitial thickening. PLEURA: No pleural effusion. No pneumothorax. HEART/GREAT VESSELS: Cardiomegaly. Prominence of the central vasculature suggesting venous congestion. Epicardial leads in place. BONES: Median sternotomy wires. RAD/Chest PA and Lateral IMPRESSION: Bibasilar interstitial process, suggesting pulmonary edema given venous congestion and cardiomegaly. Infectious etiology is not excluded. Electronically Signed: Castro Portlilo MD at 21:32 EDT ,
[2024-05-31 11:23] LABS: Absolute Lymphocyte Count 1.98 X10^3/uL (0.83-4.51); Absolute Neutrophil Count 4.6 X10^3/uL (2.0-7.7); Basophil# 0.08 X10^3/uL; Basophil% 1.1 % (0-1); Eosinophil# 0.13 X10^3/uL; Eosinophils% 1.8 % (0-5); Hematocrit 42.9 % (40-54); Hemoglobin 13.8 g/dL (13.0-16.5); Lymphocyte # 1.98 X10^3/ul (0.83-4.51); Mean Corp Hgb Conc 32.2 g/dL (32-36); Mean Corpuscular Volume 96.4 fL (80-94); Mean Platelet Vol. 10.3 fl (6.2-12.0); Monocyte# 0.58 X10^3/uL; Monocyte% 7.9 % (0-10); NRBC Flagged by Analyzer 0 % (0-5); Neutrophil # 4.55 X10^3/uL (2.7-7.7); Neutrophil % 62.1 % (47-70); Platelet Count 175 K/mm3 (150-450); RBC Distribution Width CV 14.2 % (11.6-14.6); RBC Distribution Width SD 50.5 fl (35.1-43.9); Red Blood Count 4.45 M/mm3 (4.6-6.2); White Blood Count 7.3 K/mm3 (4.4-11.0)
[2024-05-31 11:45] LABS: Anion Gap 6 (5-15); BUN 38 mg/dL (7-18); BUN/Creat Ratio 30.6 RATIO (10-20); Calcium,Total 9.5 mg/dL (8.5-10.1); Chloride 107 mmol/L (98-107); Creatinine, Serum 1.24 mg/dL (0.70-1.30); EST Glomerular Filtration Rate 59 mL/min (>60); Est Glom Filt Rate - Afr Amer 72 mL/min (>60); Glucose 111 mg/dL (74-106); Potassium 4.5 mmol/L (3.5-5.1); Sodium Level 139 mmol/L (136-145)
[2024-05-31 22:27] LABS: BNP,B-Type NATRIURETIC PEPTIDE 276.7 pg/mL (0-100)
== END | disposition home or self-care (01) ==
PROVIDERS: PCP Physician Assistant; Referring Provider Nurse Practitioner Gerontology; Visit Provider Nurse Practitioner Gerontology
DX: R06.02 Shortness of breath (principal)
CPT/HCPCS: 36415; 71046; 80048; 83880; 85025

== ENCOUNTER → 2024-07-02 | Outpatient (CLI) | payer SELFPAY, OTHER ==
--- NOTE | 2024-07-02 10:38 | ECHOLC_ITS ---
Version 2 Reason For Study: Cardiomyopathy Procedure This was a limited 2D transthoracic echocardiogram. The study was technically difficult. Contrast injection was performed. Exam performed in department. Left Ventricle Mildly dilated left ventricle. The estimated ejection fraction is 25 %. There is severe global hypokinesis of the left ventricle. Right Ventricle Normal RV size. Normal systolic function. Atria The left atrium is moderately enlarged. Normal right atrium. Bubble contrast study negative for right to left interatrial shunt. Mitral Valve There is mild to moderate mitral annular calcification. Moderately severe (3+) eccentric mitral valve insufficiency. Tricuspid Valve Normal tricuspid valve. Mild to moderate (1-2+) tricuspid valve insufficiency. Right ventricular systolic pressure estimated to be 34 mmHg. Aortic Valve Trisinus/trileaflet aortic valve. Moderate focal aortic valve calcification. Pulmonic Valve Normal pulmonic valve. Great Vessels Normal aortic root. The pulmonary artery is normal size. Inferior vena cava collapse with respiration. Pericardium/Pleural No pericardial effusion. Medication 22 gauge I.V. with prn adaptor inserted into left arm. Diluted definity 2.5ml given slow IV push to enhance endocardial definition. Performed a rapid injection of agitated mix of 9 cc saline and 1cc air to assess for atrial septal defect. MMode/2D Measurements & Calculations LVIDd: 5.8 cm IVSd: 0.97 cm LAV(MOD-bp): 93.8 ml LVIDs: 5.0 cm LVPWd: 1.0 cm FS: 15.1 % LAV(MOD-bp) Indexed: 49.3 ml/m2 LAV(MOD-sp2): 92.6 ml LAV(MOD-sp4): 97.2 ml SV(MOD-sp4): 54.3 ml SV(sp4-el): 59.4 ml LVAd ap4: 42.7 cm2 LVLd ap4: 9.0 cm SI(MOD-sp4): 28.6 ml/m2 EDV(MOD-sp4): 167.5 ml EDV(sp4-el): 171.4 ml LVAs ap4: 32.4 cm2 LVLs ap4: 7.9 cm ESV(MOD-sp4): 113.1 ml ESV(sp4-el): 112.0 ml EF(MOD-sp4): 32.4 % EF(sp4-el): 34.6 % LA A4 area: 26.8 cm2 RA A4 area: 17.4 cm2 Doppler Measurements & Calculations MR max nader: 576.5 cm/sec TR max nader: 269.5 cm/sec MR max P.9 mmHg TR max P.1 mmHg MR mean nader: 405.5 cm/sec MR mean P.8 mmHg MR VTI: 189.6 cm ECHO/Echo Limited w/Contrast Interpretation Summary Mildly dilated left ventricle. The estimated ejection fraction is 25 %. There is severe global hypokinesis of the left ventricle. Moderately severe (3+) eccentric mitral valve insufficiency. There is mild to moderate mitral annular calcification. Mild to moderate (1-2+) tricuspid valve insufficiency. Contrast injection was performed. Ordering Physician: Lidia Gaona Referring Physician: Lidia Gaona Performed By: Marcellus Solano RCS
== END | disposition home or self-care (01) ==
LOC: CVS 10:37
PROVIDERS: PCP Physician Assistant; Referring Provider Nurse Practitioner Gerontology; Visit Provider Nurse Practitioner Gerontology
DX: I08.1 Rheumatic disorders of both mitral and tricuspid valves (principal); I42.9 Cardiomyopathy, unspecified
CPT/HCPCS: 93308; Q9957; A4216; C8924

== ENCOUNTER → 2024-11-29 | Outpatient (CLI) | payer SELFPAY, OTHER ==
--- NOTE | 2024-11-29 13:02 | CDU_ITS ---
Reason For Study Reason For Study: S/P Rt CEA Rt. Velocities/BP Lt. Velocities/BP Prox CCA 113.3/20 cm/sec. Prox CCA 76.8/23.9 cm/sec. Mid CCA 83.9/18.8 cm/sec. Mid CCA 93.8/27.8 cm/sec. Dist CCA 104.7/18.8 cm/sec. Dist CCA 87.2/25.6 cm/sec. Prox ICA 49.8/8 cm/sec. Prox ICA 114.8/20.4 cm/sec. Mid ICA 72.9/21.2 cm/sec. Mid ICA 158.7/51.1 cm/sec. Dist ICA 65.8/18.7 cm/sec. Dist ICA 97.4/24.3 cm/sec. Rt. ICA/CCA = 0.87. Lt. ICA/CCA = 1.69. Prox ECA 110.9/5.3 cm/sec. Prox ECA 166.7/8.6 cm/sec. Rt. Vert. 28/6.6 cm/sec. Lt. Vert. 56.4/11.3 cm/sec. Right Extracranial There is heterogeneous, irregular atherosclerotic plaque noted in the right common carotid artery. There is intimal thickening but no significant atherosclerotic plaque noted in the right internal carotid artery. There is intimal thickening but no significant atherosclerotic plaque noted in the right external carotid artery. Antegrade flow is noted in the right vertebral artery. Left Extracranial There is heterogeneous, irregular atherosclerotic plaque noted in the left common carotid artery. There is intimal thickening but no significant atherosclerotic plaque noted in the left internal carotid artery. The atherosclerotic plaque causes acoustic shadowing. There is heterogeneous, irregular atherosclerotic plaque noted in the left external carotid artery. Antegrade flow is noted in the left vertebral artery. Procedure Carotid Duplex [id number]. This is a Carotid Duplex examination using B-mode, color flow and specral Doppler. Exam performed in department. VL/Carotid Duplex Ultrasound Interpretation Summary Normal right extracranial internal carotid. Normal left extracranial internal carotid. Elevated velocities without visualiz ed plaque. Patent and antegrade vertebrals bilaterally. Ordering Physician: Keyona Rodriguez Referring Physician: Gamaliel Noriega Performed By: Jennifer Barbosa RVT
== END | disposition home or self-care (01) ==
LOC: CVS 13:01
PROVIDERS: PCP Physician Assistant; Referring Provider Physician Assistant; Visit Provider Physician Assistant
DX: Z48.812 Encounter for surgical aftercare following surgery on the circulatory system (principal)
CPT/HCPCS: 93880

== ENCOUNTER → 2025-07-02 | Outpatient (CLI) | payer SELFPAY, OTHER ==
--- NOTE | 2025-07-02 06:47 | CDU_ITS ---
Reason For Study Reason For Study: S/P Rt CEA Rt. Velocities/BP Lt. Velocities/BP Prox CCA 59.3/7.6 cm/sec. Prox CCA 69.6/17.9 cm/sec. Mid CCA 90/17 cm/sec. Mid CCA 75.1/21.2 cm/sec. Dist CCA 86.3/15.1 cm/sec. Dist CCA 88.3/25.6 cm/sec. Prox ICA 63/18.8 cm/sec. Prox ICA 77.5/18.2 cm/sec. Mid ICA 79/23.7 cm/sec. Mid ICA 148.5/42.6 cm/sec. Dist ICA 71.6/18.8 cm/sec. Dist ICA 106.5/33.4 cm/sec. Rt. ICA/CCA = 0.88. Lt. ICA/CCA = 1.98. Prox ECA 75.3/6.5 cm/sec. Prox ECA 269.3/10.7 cm/sec. Rt. Vert. 34.4/9.1 cm/sec. Lt. Vert. 69.6/13.5 cm/sec. Right Extracranial There is heterogeneous, irregular atherosclerotic plaque noted in the right common carotid artery. There is intimal thickening but no significant atherosclerotic plaque noted in the right internal carotid artery. The right internal carotid artery is very tortuous. There is intimal thickening but no significant atherosclerotic plaque noted in the right external carotid artery. Antegrade flow is noted in the right vertebral artery. Left Extracranial There is heterogeneous, irregular atherosclerotic plaque noted in the left common carotid artery. There is heterogeneous, irregular atherosclerotic plaque noted in the left internal carotid artery. There is heterogeneous, irregular atherosclerotic plaque noted in the left external carotid artery. Antegrade flow is noted in the left vertebral artery. Procedure Carotid Duplex [id number]. This is a Carotid Duplex examination using B-mode, color flow and specral Doppler. Exam performed in department. VL/Carotid Duplex Ultrasound Interpretation Summary Normal right extracranial internal carotid. Moderate (50-69%) stenosis left extracranial internal carotid. Patent and antegrade vertebrals bilaterally. Ordering Physician: Keyona Rodriguez Referring Physician: Gamaliel Noriega Performed By: Jennifer Barbosa RVT
--- OUTSIDE RECORDS SUMMARY | 2025-07-02 06:47 | XMS RPT_ITS | CCD ---
Author Organization [facility] Care Team Providers Care Gridcap Machine Operator Name Role Phone DANIEL ANDERS Unavailable Unavailable DANIEL ANDERS Unavailable Unavailable KYM RIVAS (RISK CONTROL CONSULTANT) Unavailable Unavailable Dr. Boy Peralta Referring Provider Roof RISK CONTROL CONSULTANT, TRESA Martínez Attending Provider KATHERINE Egan Primary Care Provider KATHERINE Egan Referring Provider Dr. Nirav Peña Attending Provider Gamaliel Egan PA-C Unavailable Sleep Disorder Provider Unavailable Unavaila ble Jordan CREDIT ASSOCIATE, Piedad Unavailable Baudilio SNYDER, Noman Lewis Unavailable Greg KRUSEN, Andie Lundberg Unavailable Unavailable Gita Taylor MA Unavailable Unavailable Gogoi (scribe), Hemanta Unavailable Unavaila sam Peralta MD, Boy Carpio Unavailable Clifton GREENFIELD, Elidia Carpio Unavailable Unavaila ble Bradley CREDIT ASSOCIATE, Aryan Unavailable Unavailable Mutersbaugh CREDIT ASSOCIATE, Monica K Unavailable Unavai radha Garza (Scribe), Johnathon Unavailable Unavailab le Linda CREDIT ASSOCIATE, Stormy Abbasi Unavailable Unavailab le [place] CREDIT ASSOCIATE, Radha Becerra Unavailable Unavailab le Wengermirza CREDIT ASSOCIATE, Courtney Unavailable Unavailabl e Izyz KRUSEN, Sophie Grover Unavailable Unavaila ble Unavailable Unavailable KADEN JETT Attending Unavailable KADEN JETT Admitting Unavailable KADEN JETT Primary Care Unavailable GAMALIEL EGAN Consulting Unavailable PROVIDER, UNKNOWN Consulting Unavailable JIGNESH, LUKE E Consulting Unavailable JIGNESH, LUKE E Attending Unavailable JIGNESH, LUKE E Admitting Unavailable JIGNESH, LUKE E Primary Care Unavailable PROVIDER, UNKNOWN Consulting Unavailable JIGNESH, LUKE E Attending Unavailable JIGNESH, LUKE E Admitting Unavailable JIGNESH, LUKE E Primary Care Unavailable JIGNESH, LUKE E Consulting Unavailable PROVIDER, UNKNOWN Consulting Unavailable Dr. Josh Alcocer Unavailable Seda Alejo MA Unavailable Unavailable Jignesh PA, Luke Primary Care Provider Jignesh PA, Luke Referring Provider David Kiserison Attending Provider [phone] Malou Galindo Attending Provider [phone] Jignesh PA, Luke Primary Care Provider Jennifer PA, Keyona Referring Provider [phone] Josh Alcocer MD Attending Provider [phone] Jignesh PA, Luke Primary Care Physician [phone] Jingesh PA, Luke Referring Provider [phone] Malou Galindo Attending Physician [phone] Jignesh, Luke Primary Care Unavailable Rodriguez, Keyona Referring Unavailable Rodriguez, Keyona Attending Unavailable Lidia Gaona NP Attending Unavailable Jignesh, Luke Primary Care Unavailable Rodriguez, Keyona Referring Unavailable Jignesh, Luke Primary Care Unavailable Josh Alcocer Attending Unavailable Malou Galindo Attending Unavail able Jignesh, Luke Primary Care Unavailable Jignesh, Luke Referring Unavailable Rodriguez, Keyona Referring Unavailable Jignesh, Luke Primary Care Unavailable Rodriguez, Keyona Attending Unavailable Jignesh, Luke Referring Unavailable Jignesh, Luke Primary Care Unavailable Geoff Virk NP Attending Unavailable Jignesh, Luke Referring Unavailable Jignesh, Luke Primary Care Unavailable Rodriguez, Keyona Attending Unavailable Malou Galindo Attending Unavail able Jignesh, Luke Primary Care Unavailable Jignesh, Luke Referring Unavailable Nirav Peña Attending Unavailable Jignesh, Luke Primary Care Unavailable Lidia Gaona NP Attending Unavailable Lidia Gaona NP Referring Unavailable Gamaliel Egan Primary Care Unavailable Medications Current Medications Medication Drug Class(es) Dates Sig (Normalized) Sig (Original) carvedilol 6.25 mg oral tablet (14 sources) alpha-Adrenergic Piedad, beta-Adrenergic Piedad Start: 06-04-2024 take 1 tablet by mouth twice daily Carvedilol 6.25 mg tablet Active 6.25 mg PO TWICE A DAY 60 June 04, 2024 11:37am Complies with drug therapy Start: 05-31-2024 End: 06-04-2024 take 2 tablets by mouth twice daily Carvedilol 3.125 mg tablet Discontinued 6.25 mg PO TWICE A DAY 60 May 31, 2024 10:43am June 04, 2024 11:37am Start: 05-08-2024 End: 05-31-2024 take 1 tablet by mouth twice daily Carvedilol 3.125 mg Tablet Discontinued 3.125 mg PO TWICE A DAY 60 May 08, 2024 12:00am May 31, 2024 10:43am 24 hr desvenlafaxine succinate 100 mg extended release oral tablet (20 sources) Serotonin and Norepinephrine Reuptake Inhibitor Start: 03-15-2025 desvenlafaxine succinate ER 100 mg tablet,extended release 24 hr ; 1 (one) tablet daily for 0 days Quantity: 90 {Tablet} Refills: 1 Ordered: 15-Mar-2025 KATE Egan Start: 15-Mar-2025 Start: 07-18-2024 take 1 tablet by micha once daily Desvenlafaxine Succinate 100 mg tablet extended release 24 hr Active 100 mg PO daily July 18, 2024 1:00am Complies with drug therapy Start: 06-22-2024 desvenlafaxine succinate ER 100 mg tablet,extended release 24 hr ; 1 (one) tablet daily for 0 days Quantity: 30 {Tablet} Refills: 2 Ordered: 22-Jun-2024 KATE Egan Start: 22-Jun-2024 Start: 05-05-2023 End: 07-18-2024 take 1 tablet by mouth once daily, then take 1 tablet by mouth every twenty-four hours Desvenlafaxine Succinate (Pristiq) 50 mg tablet extended release 24 hr Discontinued 50 mg PO DAILY December 29, 2023 12:00am July 18, 2024 12:19pm DEPRESSION Start: 02-16-2023 End: 05-05-2023 desvenlafaxine succinate ER 25 mg tablet,extended release 24 hr ; 1 (one) tablet daily for 0 days Quantity: 5 {Tablet} Refills: 0 Ordered: 05-May-2023 KATE Egan Start: 16-Feb-2023 End: 05-May-2023 Status: Discontinued furosemide 40 mg oral tablet (20 sources) Loop Diuretic Start: 11-23-2024 furosemide 40 mg tablet ; 1 (one) Tablet daily on Tuesday, Tuesday, and Tuesday for 0 days Quantity: 30 {Tablet} Refills: 1 Ordered: 20-Dec-2024 KATE Egan Start: 20-Dec-2024 Start: 07-27-2024 End: 11-23-2024 take 1 tablet by mouth twice daily Furosemide (Lasix) 40 mg tablet Discontinued 40 mg PO TWICE A DAY 180 July 27, 2024 10:15am November 23, 2024 11:48am Start: 05-08-2024 End: 07-27-2024 take 1 tablet by mouth once daily Furosemide (Lasix) 40 mg tablet Discontinued 40 mg PO DAILY 90 3 May 31, 2024 10:43am July 27, 2024 10:15am Start: 08-12-2023 End: 05-08-2024 take 1 tablet by mouth once daily Furosemide (Lasix) 20 mg tablet Discontinued 20 mg PO DAILY May 06, 2024 12:00am May 08, 2024 1:32pm edema Start: 08-12-2023 End: 08-12-2023 take 1 tablet by mouth once daily Furosemide 40 mg tablet Discontinued 40 mg PO DAILY 90 August 12, 2023 1:00am August 12, 2023 1:22pm Start: 02-25-2023 End: 08-12-2023 Furosemide (Lasix) 40 mg tab let Discontinued 20 mg PO DAILY February 25, 2023 10:28am August 12, 2023 10:49am Start: 11-02-2022 End: 02-25-2023 take 1 tablet by mouth once daily Furosemide (Lasix) 40 mg tablet Discontinued 40 mg PO DAILY November 02, 2022 12:00am February 25, 2023 10:28am Start: 07-26-2018 End: 11-30-2018 take 1 tablet by mouth once daily Furosemide (Lasix) 20 mg tablet Discontinued 20 mg PO DAILY 90 2 July 26, 2018 1:00am November 30, 2018 11:50am Start: 09-23-2016 End: 01-28-2017 take 1 tablet by mouth once daily Furosemide 20 MG Oral Tablet ; 1 (one) Tablet Tablet daily on Tuesday, Tuesday, and Tuesday for 0 days Quantity: 30 {Tablet} Refills: 3 Ordered: 28-Jan-2017 JEAN PIERRE Lazo Start: 23-Sep-2016 End: 28-Jan-2017 Status: Inactive Start: 09-23-2016 End: 01-28-2017 furosemide 40 mg tablet ; 1 (one) Tablet Tablet daily on Tuesday, Tuesday, and Tuesday for 0 days Quantity: 30 {Tablet} Refills: 3 Ordered: 28-Jan-2017 JERMAINE Huerta Start: 23-Sep-2016 End: 28-Jan-2017 Status: Inactive losartan potassium 50 mg oral tablet (1 source) Angiotensin 2 Receptor Piedad Start: 05-24-2025 take 1 tablet by mouth once daily Losartan 50 mg tablet Active 50 mg PO daily 90 May 24, 2025 12:00am Complies with drug therapy NATAKENSIS (2 sources) Start: 02-15-2024 NATAKENSIS Act madalyn 3 NMA PO DAILY February 15, 2024 12:00am SUPPLEMENT Complies with drug therapy Start: 02-15-2024 NATAKENSIS Act madalyn 3 NMA PO DAILY February 15, 2024 12:00am spironolactone 25 mg oral tablet (2 sources) Aldosterone Antagonist Start: 07-27-2024 take 1 tablet by mouth once daily Spironolactone 25 mg tablet Active 25 mg PO daily 30 July 27, 2024 1:00am Complies with drug therapy Completed/Discontinued Medications Medication Drug Class(es) Dates Sig (Normalized) Sig (Original) acetaminophen 325 mg / HYDROcodone bitartrate 5 mg oral tablet (4 sources) Opioid Agonist Start: 02-24-2020 End: 07-19-2020 Hydrocodone-Acetami nophen 1 EACH tablet Discontinued 1 NMA PO EVERY 4 HOURS NEEDED as needed for Pain Score 1-10/10 14 0 February 24, 2020 July 19, 2020 7:41pm Personal history of urinary calculi Start: 02-24-2020 End: 07-19-2020 Hydrocodone-Acetaminophen Di scontinued 1 EACH PO EVERY 4 HOURS NEEDED 14 February 24, 2020 July 19, 2020 7:41pm Aloe Vera Nector (4 sources) Start: 07-14-2018 End: 07-19-2020 Start: 07-14-2018 End: 07-19-2020 Aloe Vera Nector Discontinue d July 14, 2018 1:00am July 19, 2020 7:41pm Aloe Vera (8 sources) Start: 04-23-2022 End: 11-02-2022 take 1 capsule by mouth once daily Aloe Vera 5,000 mg capsule Discontinued 5000 mg PO DAILY April 23, 2022 2:04pm November 02, 2022 1:49pm Start: 04-23-2022 End: 11-02-2022 take 5000 mg by mouth once daily Aloe Vera Discontinued 5000 MG PO DAILY April 23, 2022 2:04pm November 02, 2022 1:49pm Start: 07-19-2020 End: 04-23-2022 Aloe Vera 5,000 mg capsule Discontinued mg PO July 19, 2020 1:00am April 23, 2022 2:07pm Start: 07-19-2020 End: 04-23-2022 Aloe Vera Discontinued MG PO July 19, 2020 1:00am April 23, 2022 2:07pm amiodarone hydrochloride 200 mg oral tablet (20 sources) Antiarrhythmic take 2 tablets by mouth twice daily Amiodarone HCl 200 MG Oral Tablet ; 2 tabs bid (200 MG) Status: Inactive amLODIPine 5 mg oral tablet (20 sources) Dihydropyridine Calcium Channel Piedad take 1 tablet by mouth once daily AMLODIPINE BESYLATE, 5MG (Oral Tablet) ; 1 daily (5 MG) Status: Inactive amoxicillin 875 mg / clavulanate 125 mg oral tablet (20 sources) Penicillin-class Antibacterial Start: 11-26-19 16 End: 04-13-20 16 take 1 tablet by mouth twice daily Augmentin 875-125 MG Oral Tablet ; 1 (one) Tablet Tablet bid for 0 days Quantity: 20 {Tablet} Refills: 0 Ordered: 13-Apr-2016 JERMAINE Pulido Courtney Start: 26-Nov-2015 End: 13-Apr-2016 Status: Inactive aspirin 81 mg delayed release oral tablet (20 sources) Platelet Aggregation Inhibitor, Nonsteroidal Anti-inflammatory Drug Start: 05-06-20 End: 07-18-20 take 1 tablet by mouth once daily Aspirin 81 mg tablet,delayed release (DR/EC) Discontinued 81 mg PO DAILY May 06, 2024 12:00am July 18, 2024 12:18pm heart health Start: 02-15-2024 End: 05-06-2024 take 1 capsule by mouth once daily Aspirin 81 mg capsule Discontinued 81 mg PO DAILY February 15, 2024 12:00am May 06, 2024 11:01am HEART Start: 11-02-2022 End: 12-29-2023 Aspirin (Adult Low Dose Aspi rin) 81 mg tablet,delayed release (DR/EC) Discontinued 81 mg PO DAILY November 02, 2022 12:00am December 29, 2023 9:34am Start: 04-13-2021 End: 04-23-2022 take 1 tablet by mouth once Aspirin 81 mg tablet,chewa ble Discontinued 81 mg PO ONCE 90 April 13, 2021 12:00am April 23, 2022 2:04pm Start: 07-14-2018 End: 06-19-2019 take 2 tablets by mouth once daily Aspirin 81 MG tablet Discontinued 162 mg PO DAILY@799July 14, 2018 1:00am June 19, 2019 3:25pm HEART HEALTH Start: 07-14-2018 End: 06-19-2019 take 162 mg by mouth once daily Aspirin Discontinued 1 62 MG PO DAILY@799July 14, 2018 1:00am June 19, 2019 3:25pm atorvastatin 40 mg oral tablet (20 sources) HMG-CoA Reductase Inhibitor Start: 05-08-2024 End: 05-31-2024 take 1 tablet by mouth at bedtime Atorvastatin 40 mg Tablet Discontinued 40 mg PO AT BEDTIME 13 09May 08, 2024 12:00am May 31, 2024 10:37am Start: 11-02-2022 End: 12-29-2023 take 1 tablet by mouth once daily Atorvastatin 40 mg tablet Discontinued 40 mg PO DAILY November 02, 2022 12:00am December 29, 2023 9:37am cefdinir 300 mg oral capsule (20 sources) Cephalosporin Antibacterial Start: 07-26-2018 End: 11-30-2018 take 1 capsule by mouth every twelve hours Cefdinir 300 mg capsule Discontinued 300 mg PO Q12H July 26, 2018 1:00am November 30, 2018 11:49am End: 12-15-2023 take 1 capsule by mouth twice daily Cefdinir 300 MG Oral Capsule ; 1 two times daily (300 MG) End: 15-Dec-2023 Status: Discontinued cephalexin 500 mg oral capsule (20 sources) Cephalosporin Antibacterial Start: 06-28-2019 End: 05-29-2020 take 2 capsules by mouth twice daily Cephalexin 500 MG Oral Capsule ; 2 (two) Capsule two times daily for 10 days Quantity: 40 {Capsule} Refills: 1 Ordered: 29-May-2020 JEAN PIERRE Lazo Start: 28-Jun-2019 End: 29-May-2020 Status: Inactive ciprofloxacin 500 mg oral tablet (4 sources) Quinolone Antimicrobial Start: 02-24-2020 End: 07-19-2020 take 1 tablet by mouth twice daily Ciprofloxacin Hcl 500 MG tablet Discontinued 500 mg PO TWICE A DAY 6 February 24, 2020 12:00am July 19, 2020 7:40pm citalopram 10 mg oral tablet (20 sources) Serotonin Reuptake Inhibitor Start: 07-28-2015 End: 04-13-2016 take 1 tablet by mouth once daily CeleXA 10 MG Oral Tablet ; 1 Tablet daily for 0 days Quantity: 30 {Tablet} Refills: 5 Ordered: 13-Apr-2016 JERMAINE Pulido Start: 28-Jul-2015 End: 13-Apr-2016 Status: Inactive clopidogrel 75 mg oral tablet (20 sources) [id number] Platelet Inhibitor Start: 02-15-2024 End: 03-23-2024 take 1 tablet by mouth once daily Clopidogrel 75 mg tablet Discontinued 75 mg PO DAILY February 15, 2024 12:00am March 23, 2024 11:49am BLOOD THINNER Start: 12-29-2023 End: 02-07-2024 take 1 tablet by mouth once daily Clopidogrel (Plavix) 75 mg tablet Discontinued 75 mg PO DAILY December 29, 2023 12:00am February 07, 2024 10:52am Start: 08-18-2015 End: 04-26-2016 take 1 tablet by mouth once daily Clopidogrel Bisulfate 75 MG Oral Tablet ; 1 (one) Tablet Tablet daily for 0 days Quantity: 30 {Tablet} Refills: 5 Ordered: 26-Apr-2016 JERMAINE Maganaisten Lizzy Start: 18-Aug-2015 End: 26-Apr-2016 Status: Inactive Co Q10 (4 sources) Start: 07-14-2018 End: 07-19-2020 Co Q10 Discontinued 1 NMA PO DAILY July 14, 2018 1:00am July 19, 2020 7:41pm vitamin Start: 07-14-2018 End: 07-19-2020 Co Q10 Discontinued 1 NMA PO DAILY July 14, 2018 1:00am July 19, 2020 7:41pm Start: 07-14-2018 End: 07-19-2020 take 1 capsule by mouth once daily Co Q10 Discontinued 1 CAP PO DAILY July 14, 2018 1:00am July 19, 2020 7:41pm cyclobenzaprine hydrochloride 10 mg oral tablet (20 sources) Muscle Relaxant Start: 07-21-2015 End: 04-13-2016 take 1 tablet by mouth three times daily as needed for pain Cyclobenzaprine HCl 10 MG Oral Tablet ; 1 (one) Tablet Tablet three times daily PRN neck pain or spasm for 0 days Quantity: 30 {Tablet} Refills: 0 Ordered: 13-Apr-2016 JERMAINE Pulido Start: 21-Jul-2015 End: 13-Apr-2016 Status: Inactive Comments: causes drowsiness Comment on above: causes drowsiness donepezil hydrochloride 5 mg oral tablet (20 sources) Start: 01-07-2023 End: 12-15-2023 donepeziL 5 mg tablet ; 1 (one) Tablet daily for 0 days Quantity: 30 {Tablet} Refills: 0 Ordered: 15-Dec-2023 KATE Egan Start: 07-Jan-2023 End: 15-Dec-2023 Status: Discontinued ezetimibe 10 mg oral tablet (20 sources) Dietary Cholesterol Absorption Inhibitor Start: 12-21-2023 End: 06-22-2024 ezetimibe 10 mg tablet ; 1 (one) tablet daily for 30 days Quantity: 30 {Tablet} Refills: 2 Ordered: 22-Jun-2024 JEAN PIERRE Lazo Start: 21-Dec-2023 End: 22-Jun-2024 Status: Inactive ferrous fumarate 18 mg oral tablet (20 sources) take 1 tablet by mouth once daily Iron 18 MG Oral Tablet Extended Release ; 1 daily (18 MG) Status: Inactive ferrous sulfate (20 sources) Start: 07-14-2018 End: 11-30-2018 Ferrous Sulfate Discontinued 2 {tbl} PO DAILY July 14, 2018 1:00am November 30, 2018 11:49am Start: 07-14-2018 End: 11-30-2018 take 2 tablets by mouth once daily Ferrous Sulfate Discontinued 2 TABLET PO DAILY July 14, 2018 1:00am November 30, 2018 11:49am Ferrous Sulfate ; 2 daily Status: Inactive Ferrous Sulfate ; 2 daily Fish Oils (4 sources) Start: 07-14-2018 End: 07-19-2020 Fish Oil Discontinued 4 NMA PO TWICE A DAY July 14, 2018 1:00am July 19, 2020 7:41pm Check with primary doctor Start: 07-14-2018 End: 07-19-2020 Fish Oil Discontinued 4 NMA PO TWICE A DAY July 14, 2018 1:00am July 19, 2020 7:41pm Start: 07-14-2018 End: 07-19-2020 take 4 capsules by mouth twice daily Fish Oil Discontinued 4 CAP PO TWICE A DAY July 14, 2018 1:00am July 19, 2020 7:41pm isosorbide dinitrate 30 mg oral tablet (20 sources) Nitrate Vasodilator take 1 tablet by mouth once daily ISOSORBIDE DINITRATE, 30MG (Oral Tablet) ; 1 daily (30 MG) Status: Inactive meclizine hydrochloride 12.5 mg oral tablet (20 sources) Antiemetic take 1 tablet by mouth every six hours as needed MECLIZINE HCL, 12.5MG (Oral Tablet) ; 1 every 6hrs as needed (12.5 MG) Status: Inactive Comments: Medication taken as needed. Comment on above: Medication taken as needed. mecobalamin 1 mg sublingual tablet (4 sources) Start: 2 End: 3 Mecobalamin (Vitamin B12) 1,000 mcg tablet,disintegratin g Discontinued 1000 ug SL DAILY April 23, 2022 12:00am November 02, 2022 1:[address] tablet under tongue and allow to dissolve for at least30 secs before swallowing Start: 04-23-2022 End: 11-02-2022 Mecobalamin (Vitamin B12) Di scontinued 1000 MCG SL DAILY April 23, 2022 12:00am November 02, 2022 1:[address] tablet under tongue and allow to dissolve for at least30 secs before swallowing memantine hydrochloride 5 mg oral tablet (20 sources) T-qfegdc-L-aspartate Receptor Antagonist Start: 01-07-2023 End: 12-15-2023 memantine 5 mg tablet ; 1 (one) Tablet daily for 0 days Quantity: 30 {Tablet} Refills: 0 Ordered: 15-Dec-2023 KATE Egan Start: 07-Jan-2023 End: 15-Dec-2023 Status: Discontinued metFORMIN hydrochloride 500 mg oral tablet (20 sources) Biguanide take 1 tablet by mouth twice daily MetFORMIN HCl 500 MG Oral Tablet ; 1 bid (500 MG) Status: Inactive 24 hr metoprolol succinate 50 mg extended release oral tablet (20 sources) beta-Adrenergic Piedad Start: 11-02-2022 End: 12-29-2023 take 1 tablet by mouth twice daily Metoprolol Succinate 50 mg tablet extended release 24 hr Discontinued 50 mg PO TWICE A DAY November 02, 2022 12:00am December 29, 2023 9:37am Start: 07-26-2018 End: 11-30-2018 take 1 tablet by mouth once daily Metoprolol Succinate (Toprol Xl) 25 mg tablet extended release 24 hr Discontinued 25 mg PO DAILY July 26, 2018 1:00am November 30, 2018 11:50am End: 12-15-2023 take 1 tablet by mouth every twenty-four hours Metoprolol Succinate ER 25 MG Oral Tablet Extended Release 24 Hour ; 1 daily (25 MG) End: 15-Dec-2023 Status: Discontinued take 1 tablet by micha th every twenty-four hours Metoprolol Succinate ER 50 MG Oral Tablet Extended Release 24 Hour ; 1 qd (50 MG) Status: Inactive take 1 tablet by micha th once daily Metoprolol Tartrate 25 MG Oral Tablet ; 1 daily (25 MG) Status: Inactive mirtazapine 15 mg oral tablet (20 sources) Start: 10-07-2016 End: 01-28-2017 take 1 tablet by mouth once daily in the evening Mirtazapine 15 MG Oral Tablet ; 1 (one) Tablet daily in the evening for 0 days Quantity: 30 {Tablet} Refills: 2 Ordered: 28-Jan-2017 JEAN PIERRE Lazo Start: 07-Oct-2016 End: 28-Jan-2017 Status: Inactive Nattovena (4 sources) Start: 07-14-2018 End: 11-02-2022 Nattovena Discontinued 2 {tbl} PO DAILY July 14, 2018 1:00am November 02, 2022 1:49pm vitamin Start: 07-14-2018 End: 11-02-2022 Nattovena Discontinued 2 {tb l} PO DAILY July 14, 2018 1:00am November 02, 2022 1:49pm Start: 07-14-2018 End: 11-02-2022 take 2 tablets by mouth once daily Nattovena Discontinued 2 TABLET PO DAILY July 14, 2018 1:00am November 02, 2022 1:49pm [place]-3 Fatty Acids (Fish Oi l Concentrate) 1,000 mg capsule (4 sources) Start: 07-19-2020 End: 11-02-2022 [place]-3 Fatty Acids (Fish Oi l Concentrate) 1,000 mg capsule Discontinued 4000 mg PO TWICE A DAY July 19, 2020 1:00am November 02, 2022 1:49pm Start: 07-19-2020 End: 11-02-2022 [place]-3 Fatty Acids (Fish Oi l Concentrate) 1,000 mg capsule Discontinued 4000 MG PO TWICE A DAY July 19, 2020 1:00am November 02, 2022 1:49pm ondansetron 4 mg oral tablet (20 sources) Serotonin-3 Receptor Antagonist take 1 tablet by mouth every four hours as needed ZOFRAN, 4MG (Oral Tablet) ; 1 every 4 hours as needed (4 MG) Status: Inactive Comments: Medication taken as needed. Comment on above: Medication taken as needed. oxyCODONE hydrochloride 5 mg oral tablet (2 sources) Opioid Agonist Start: 03-14-20 24 End: 03-23-20 24 take 1 tablet by mouth every eight hours as needed for pain Oxycodone 5 mg Tablet Discontinued 5 mg PO EVERY 8 HOURS NEEDED as needed for Pain Score 4-10 9 3 0 March 14, 2024 March 23, 2024 11:50am Postoperative pain Other acute postprocedural pain pantoprazole 40 mg delayed release oral tablet (20 sources) Proton Pump Inhibitor Start: 07-15-20 End: 12-01-19 19 take 1 tablet by mouth twice daily Pantoprazole 40 MG tablet,delayed release (DR/EC) Discontinued 40 mg PO TWICE A DAY 60 0 July 15, 2018 1:00am November 30, 2018 11:51am rivaroxaban 20 mg oral tablet (20 sources) Factor Xa Inhibitor take 1 tablet by mouth once daily Xarelto 20 MG Oral Tablet ; 1 qd (20 MG) Status: Inactive royal jelly (20 sources) Bronson Jelly ; da tommie Status: Inactive sacubitril / valsartan (20 sources) Angiotensin 2 Receptor Piedad Start: 07-24-20 End: 05-24-20 Sacubitril-Valsartan (Entresto) 49-51 mg tablet Discontinued 1 {tbl} PO .COMPLEX 180 3 July 24, 2024 10:30am May 24, 2025 11:13am 1 TAB orally twice daily. Fax to [facility] ; Start: 07-24-2024 Sacubitril-Echo sartan (Entresto) 49-51 mg tablet Active 1 {tbl} PO .COMPLEX 180 July 24, 2024 10:30am 1 TAB orally twice daily. Fax to [facility] ; Start: 07-18-2024 End: 07-24-2024 Sacubitril-Valsartan (Entres to) 49-51 mg tablet Discontinued 1 {tbl} PO TWICE A DAY 60 July 18, 2024 1:00am July 24, 2024 10:31am Start: 07-18-2024 End: 07-24-2024 Sacubitril-Valsartan (Entres to) 49-51 mg tablet Discontinued 1 {tbl} PO TWICE A DAY 60 July 18, 2024 1:00am July 24, 2024 10:31am Start: 05-06-2024 End: 07-18-2024 Sacubitril-Valsartan (Entres to) 24-26 mg tablet Discontinued 1 {tbl} PO DAILY 90 3 June 12, 2024 12:58pm July 18, 2024 1:12pm Fax to [facility] Start: 12-29-2023 End: 05-06-2024 Sacubitril-Valsartan (Entres to) 24-26 mg tablet Discontinued 1 {tbl} PO TWICE A DAY 180 3 February 01, 2024 3:13pm May 06, 2024 11:03am BP Start: 11-05-2022 End: 12-29-2023 Sacubitril-Valsartan (Entres to) 49-51 mg tablet Discontinued 1 {tbl} PO TWICE A DAY 180 December 09, 2022 4:38pm December 29, 2023 9:36am Start: 11-02-2022 End: 11-05-2022 Sacubitril-Valsartan (Entres to) 24-26 mg tablet Discontinued 1 {tbl} PO TWICE A DAY November 02, 2022 12:00am November 05, 2022 4:48pm Entresto 49 mg-5 1 mg tablet ; daily (49-51 mg) silver sulfADIAZINE 10 mg/ml topical cream (20 sources) Sulfonamide Antibacterial Start: 02-16-2023 End: 12-15-2023 Silvadene 1 % topical cream ; 1 application 2 times per day;apply a 1.5 mm thickness for 0 days Quantity: 25 {Gram} Refills: 0 Ordered: 15-Dec-2023 KATE Egan Start: 16-Feb-2023 End: 15-Dec-2023 Status: Discontinued ubidecarenone 100 mg oral capsule (4 sources) Start: 07-19-2020 End: 04-23-2022 Coenzyme Q10 (Co Q-10) 100 mg capsule Discontinued 100 mg PO DAILY July 19, 2020 1:00am April 23, 2022 2:05pm ubidecarenone 100 mg / vitamin e 5 unt oral capsule (20 sources) Co Q 10 ; daily Status: Inactive warfarin sodium 5 mg oral tablet (20 sources) Vitamin K Antagonist Start: 03-16-2016 End: 09-22-2016 Coumadin 5 MG Oral Tablet ; 1 Tablet as directed for 0 days Quantity: 60 {Tablet} Refills: 5 Ordered: 8-b-2017 JERMAINE Pulido Courtney Start: 16-Mar-2016 End: 22-Sep-2016 Status: Inactive zolpidem tartrate 5 mg oral tablet (20 sources) gamma-Aminobutyric Acid-ergic Agonist take 1 tablet by mouth at bedtime Zolpidem Tartrate 5 MG Oral Tablet ; 1 at bedtime (5 MG) Status: Inactive Problems Active Problems Problem Classification Problem Date Documented Date Episodic/Chronic Acute and unspecified renal failure (20 sources) Acute renal failure syndrome; Translations: [Acute kidney failure, unspecified] 07-04-2023 Episodic Acute cerebrovascular disease (20 sources) Cerebrovascular accident; Translations: [Cerebral infarction, unspecified] Onset: 08-15-2014 02-24-2020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 Reason For Study: S/P Rt CEA Rt. Velocities/BP Lt. Velocities/BP Prox CCA 113.3/20 cm/sec. Prox CCA 76.8/23.9 cm/sec. Mid CCA 83.9/18.8 cm/sec. Mid CCA 93.8/27.8 cm/sec. Dist CCA 104.7/18.8 cm/sec. Dist CCA 87.2/25.6 cm/sec. Prox ICA 49.8/8 cm/sec. Prox ICA 114.8/20.4 cm/sec. Mid ICA 72.9/21.2 cm/sec. Mid ICA 158.7/51.1 cm/sec. Dist ICA 65.8/18.7 cm/sec. Dist ICA 97.4/24.3 cm/sec. Rt. ICA/CCA = 0.87. Lt. ICA/CCA = 1.69. Prox ECA 110.9/5.3 cm/sec. Prox ECA 166.7/8.6 cm/sec. Rt. Vert. 28/6.6 cm/sec. Lt. Vert. 56.4/11.3 cm/sec. Right Extracranial There is heterogeneous, irregular atherosclerotic plaque noted in the right common carotid artery. There is intimal thickening but no significant atherosclerotic plaque noted in the right internal carotid artery. There is intimal thickening but no significant atherosclerotic plaque noted in the right external carotid artery. Antegrade flow is noted in the right vertebral artery. Left Extracranial There is heterogeneous, irregular atherosclerotic plaque noted in the left common carotid artery. There is intimal thickening but no significant atherosclerotic plaque noted in the left internal carotid artery. The atherosclerotic plaque causes acoustic shadowing. There is heterogeneous, irregular atherosclerotic plaque noted in the left external carotid artery. Antegrade flow is noted in the left vertebral artery. Procedure Carotid Duplex 17030. This is a Carotid Duplex examination using B-mode, color flow and specral Doppler. Exam performed in department. VL/Carotid Duplex Ultrasound Interpretation Summary Normal right extracranial internal carotid. Normal left extracranial internal carotid. Elevated velocities without visualized plaque. Patent and antegrade vertebrals bilaterally. Ordering Physician: Keyona Rodriguez Referring Physician: Gamaliel Egan Performed By: Jennifer Barbosa RVT 11/29/24 173 Date Josh Alcocer MD CC: KATHERINE Mabry; KATHERINE Bustillos Date Dictated: 11/29/24 1305 Date Transcribed: 11/29/241731 Retail Product Advisor: Signed Normal [facility] Duplex ultrasound of carotid artery reportOrdered By: Josh Alcocer on 11-29-2024 Study report [facility] [address] [place] [address] Carotid Duplex Ultrasound 11/29/24 1305 MR#: [id number] Acct: [id number] Name: MARGARETJUWAN Shirin Rep #:[id number] : 1945 79 From: Josh Rowell Attending Dr: KATHERINE Mabry Stat us: REG CLI Ordering Dr: Keyona Rodriguez Date: Location: [facility] Sex: M C Admitted: Reason For Study Reason For Study: S/P Rt CEA Rt. Velocities/BP Lt. Velocities/BP Prox CCA 113.3/20 cm/sec. Prox CCA 76.8/23.9 cm/sec. Mid CCA 83.9/18.8 cm/sec. Mid CCA 93.8/27.8 cm/sec. Dist CCA 104.7/18.8 cm/sec. Dist CCA 87.2/25.6 cm/sec. Prox ICA 49.8/8 cm/sec. Prox ICA 114.8/20.4 cm/sec. Mid ICA 72.9/21.2 cm/sec. Mid ICA 158.7/51.1 cm/sec. Dist ICA 65.8/18.7 cm/sec. Dist ICA 97.4/24.3 cm/sec. Rt. ICA/CCA = 0.87. Lt. ICA/CCA = 1.69. Prox ECA 110.9/5.3 cm/sec. Prox ECA 166.7/8.6 cm/sec. Rt. Vert. 28/6.6 cm/sec. Lt. Vert. 56.4/11.3 cm/sec. Right Extracranial There is heterogeneous, irregular atherosclerotic plaque noted in the right common carotid artery. There is intimal thickening but no significant atherosclerotic plaque noted in the right internalcarotid artery. There is intimal thickening but no significant atherosclerotic plaque noted in the right externalcarotid artery. Antegrade flow is noted in the right vertebral artery. Left Extracranial There is heterogeneous, irregular atherosclerotic plaque noted in the left common carotid artery. There is intimal thickening but no significant atherosclerotic plaque noted in the left internal carotid artery. The atherosclerotic plaque causes acoustic shadowing. There is heterogeneous, irregular atherosclerotic plaque noted in the left external carotid artery. Antegrade flow is noted in the left vertebral artery. Procedure Carotid Duplex 96702. This is a Carotid Duplex examination using B-mode, color flow and specral Doppler. Exam performed in department. VL/Carotid Duplex Ultrasound Interpretation Summary Normal right extracranial internal carotid. Normal left extracranial internal carotid. Elevated velocities without visualized plaque. Patent and antegrade vertebrals bilaterally. Ordering Physician: Keyona Rodriguez Referring Physician: Gamaliel Egan Performed By: Jennifer Barbosa [facility] 11/29/24 173 Date _ Josh Alcocer MD CC: KATHERINE Mabry; KATHERINE Bustillos ~ Date Dictated: 11/29/24 1305 Date Transcribed: 11/29/241731 Retail Product Advisor: Signed [facility] Work Phone: Cardiology Visit Reporton Cardiology Visit Report [facility] [address] [place] [address] OFFICE VISIT Date of Service: 11/23/24 MR#: [id number] Acct: [id number] Name: JUWAN ROBLES Rep #: [id number] : 1945 Provider: KATHERINE Peng Age/Sex: 79/M Location: [facility] [place] Status: Signed HPI HPI History of Present Illness Details: JUWAN ROBLES, is a 79 M who presents to the office today for a cardiovascular outpatient follow-up. He has history of coronary artery disease diagnosed in 2007 with stenting to his LAD at that time. In 2015, he underwent repeat heart catheterization that showed significant triple-vessel artery disease and medical management was recommended. 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 He was evaluated at [facility] in 2017 with a heart catheterization that resulted in a 5 vessel bypass surgery and atrial septal defect repair. His bypass included LOPEZ to LAD, SVG to first diagonal branch, SVG to first obtuse marginal branch, SVG to posterior descending artery, and SVG to acute marginal. He developed postoperative atrial fibrillation. He was seen at outside facility, [facility], with cardiology team for congestive heart failure. He presented with progressive shortness of breath. His proBNP upon admission was greater than 3800. Chest x-ray was consistent with pulmonary overload with small pleural effusions. Troponin negative at 38 and 32. Echocardiogram on 10/05/2022 showed an estimated ejection fraction at 20-25%, no regional wall motion abnormalities were noted, moderately enlarged left ventricle, mild to moderate mitral stenosis with a mean gradient 6 mmHg, and moderate to severe mitral valve regurgitation. On account of reduced ejection fraction, he underwent stress test on 10/07/2022 that showed severe global hypokinesis with ejection fraction of 36% and was considered a normal myocardial perfusion without ischemia or infarct". A repeat echocardiogram in December 2022 demonstrated an ejection fraction of 50%. He was started on metoprolol succinate and Entresto therapy. He also has a history of hypertension and hyperlipidemia. Intake Vital Signs 07/18/24 11:01 11/23/24 08:08 Height 5 ft 4 in 5 ft 4 in Weight: 193 lb BMI 33.1 BP 99/60 Blood Pressure Location Lt brachial Position Sitting Respiration 18 Pulse 75 Pulse Source NIBP Intake Visit Reasons: 4 M FU Billet Worker Required: No Accompanied by: Is patient in pain?: No Allergies No Known Allergies Allergy (Verified 11/23/24 11:22) Medications ???Medication ???Instructions ???Recorded ???Confirmed ???Type NATAKENSIS 3 cap PO DAILY SUPPLEMENT 02/15/24 11/23/24 History carvedilol 6.25 mg tablet 6.25 mg PO BID #60 tabs 06/04/24 0 11/23/24 Rx desvenlafaxine succinate 100 mg 100 mg PO QDAY 07/18/24 11/23/24 H istory tablet,extended release 24 hr sacubitril 49 mg-valsartan 51 mg 1 tab PO .COMPLEX #180 tabs 11/23/24 Rx tablet (Entresto) spironolactone 25 mg tablet 25 mg PO QDAY #30 tabs 07/27/24 Rx furosemide 40 mg tablet (Lasix) 40 mg PO QAM #90 tabs 11/23/2407/09 Rx Ejection fraction %: 25 Have you fallen in the past year?: No PFSH Medical History (Updated 11/15/24 @ 07:51 by KATHERINE Mabry) Loss of hearing Wears glasses Wears dentures Depression Cellulitis Prostate disease Back pain Migraine headache Injury of head and neck Syncope History of IBS Former smoker History of edema History of stress test History of echocardiogram Cardiology follow-up encounter History of CHF (congestive heart failure) Postoperative atrial fibrillation (08/2016) Right ureteral calculus Nonrheumatic mitral (valve) insufficiency History of cataract History of nephrolithiasis Type 2 diabetes mellitus without complication History of ileus Paradoxical embolus History of diverticulitis History of DVT (deep vein thrombosis) Paroxysmal atrial fibrillation Atrial septal defect Hyperlipidemia 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 CVA (cerebral vascular accident) (2014) CAD (coronary artery disease) Essential (primary) hypertension Surgical History (Updated 11/23/24 @ 11:21 by Gurinder Plunkett RN) History of carotid endarterectomy History of ureter stent (02/2020) History of lithotripsy (02/2020) History of tonsillectomy History of hemorrhoidectomy History of atrial septal defect repair (09/10/16) History of coronary artery stent placement (08/22/08) H/O coronary artery bypass surgery (09/10/16) Family History Father , Age 76 CVA (cerebral vascular accident) Uncle , age 83 Myocardial infarction Social Histo (more content not included)... Normal [facility] MR/BMS.Nico 11-14-2024 MR/BMS.BVS [facility] [address] [place] [address] OFFICE VISIT Date of Service: 11/14/24 MR#: [id number] Acct: [id number] Name: JUWAN ROBLES Rep #: [id number] : 1945 Provider: KATHERINE Mabry Age/Sex: 79/M Location: [facility] [place] [facility] Status: Signed Intake Vital Signs 03/16/24 07:14 07/18/24 11:01 11/14/24 15:14 Height 5 ft 4.17 in 5 ft 4 in Weight: 189 lb 195 lb BMI 32.4 BP 111/71 103/60 Blood Pressure Location Lt brachial Lt brachial Position Sitting Sitting Respiration 16 16 Pulse 75 82 Pulse Source NIBP Monitor Temp 97.5 F L Temp Source Temporal Pulse Oximetry (%) 92 Oxygen Delivery Method room air Intake Visit Reasons: 6 M F/U Is patient in pain?: No Allergies No Known Allergies Allergy (Verified 11/14/24 15:16) Medications ???Medication ???Instructions ???Recorded ???Confirmed ???Type NATAKENSIS 3 cap PO DAILY SUPPLEMENT 02/15/24 11/14/24 History carvedilol 6.25 mg tablet 6.25 mg PO BID #60 tabs 06/04/24 0 11/14/24 Rx desvenlafaxine succinate 100 mg 100 mg PO QDAY 07/18/24 11/14/24 H istory tablet,extended release 24 hr sacubitril 49 mg-valsartan 51 mg 1 tab PO .COMPLEX #180 tabs 11/14/24 Rx tablet (Entresto) furosemide 40 mg tablet (Lasix) 40 mg PO BID #180 tabs 07/27/24 Rx spironolactone 25 mg tablet 25 mg PO QDAY #30 tabs 07/27/24 Rx Have you fallen in the past year?: No PFSH Medical History Loss of hearing Wears glasses Wears dentures Depression Cellulitis Prostate disease Back pain Migraine headache Injury of head and neck Syncope History of IBS Former smoker History of edema History of stress test History of echocardiogram Cardiology follow-up encounter History of CHF (congestive heart failure) Postoperative atrial fibrillation (08/2016) Right ureteral calculus Nonrheumatic mitral (valve) insufficiency History of cataract History of nephrolithiasis Type 2 diabetes mellitus without complication History of ileus Paradoxical embolus History of diverticulitis History of DVT (deep vein thrombosis) Paroxysmal atrial fibrillation Atrial septal defect Hyperlipidemia 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 CVA (cerebral vascular accident) (2014) CAD (coronary artery disease) Essential (primary) hypertension Surgical History History of ureter stent (02/2020) History of lithotripsy (02/2020) History of tonsillectomy History of hemorrhoidectomy History of atrial septal defect repair (09/10/16) History of coronary artery stent placement (08/22/08) H/O coronary artery bypass surgery (09/10/16) Family History Father , Age 76 CVA (cerebral vascular accident) Uncle , age 83 Myocardial infarction Social History Smoking Status: Former smoker quit date: 06/15/15 alcohol intake: never substance use type: does not use caffeine: Yes Type: coffee Number of servings: 5 HPI HPI HPI: JUWAN ROBLES, is a 79 M who presents to the office today for follow-up s/p right carotid endarterectomy on 03/14/2024. He is overdue for his 6 month postoperative duplex. His incision site healed well, he has no lingering concerns there. He denies any episodes of focal neurologic symptoms since his surgery. He is not taking ASA 81mg anymore, he is not sure why or when he stopped this. His only concern/complaint today is his weight gain of 5-6 pounds since his last OV. His notes he has a sweet tooth; he denies any other associated symptoms. He is not diabetic. ROS General General: Yes fatigue; No weight change, appetite, colon cancer, breast cancer or weakness HEENT HEENT: No difficulty swallowing, eye injury, eye surgery, swollen glands or hoarseness Endo Endocrine: No thyroid disease, diabetes mellitus, thyroid cancer, Hair loss, heat intolerance or cold intolerance Skin Skin: Yes changing moles; No rash Musc Musculoskeletal: No back problems, arthritis, rheumatoid arthritis, gout or joint pain Cardio Cardiovascular: Yes heart disease and shortness of breath with exertion; No murmur, pacemaker, atrial fibrillation, high blood pressure, heart attack, heart stent, palpitations or chest pain Psych Psychiatric: No depression, anxiety or hearing voices Resp Respiratory: No shortness of breath, Yes sleep apnea, No cough, No COPD, No asthma, No emphysema and No wheezing Gastro Gastrointestinal: No abdominal pain, No nausea or vomiting, Yes diarrhea, No constipation, No blood in stool, No acid reflux, No hemorrhoids, No ulce (more content not included)... Normal [facility] Cardiology Visit Reporton Cardiology Visit Report [facility] [address] [place] [address] OFFICE VISIT Date of Service: 07/18/24 MR#: [id number] Acct: [id number] Name: JUWAN ROBLES Rep #: [id number] : 1945 Provider: TRESA lewis Age/Sex: 79/M Location: [facility] [place] Status: Signed HPI HPI History of Present Illness Details: JUWAN ROBLES, is a 79 M who presents to the office today for a cardiovascular outpatient follow-up. He has history of coronary artery disease diagnosed in 2007 with stenting to his LAD at that time. In 2015, he underwent repeat heart catheterization that showed significant triple-vessel artery disease and medical management was recommended. 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 He was evaluated at [facility] in 2017 with a heart catheterization that resulted in a 5 vessel bypass surgery and atrial septal defect repair. His bypass included LOPEZ to LAD, SVG to first diagonal branch, SVG to first obtuse marginal branch, SVG to posterior descending artery, and SVG to acute marginal. He developed postoperative atrial fibrillation. He was seen at outside facility, [facility], with cardiology team for congestive heart failure. He presented with progressive shortness of breath. His proBNP upon admission was greater than 3800. Chest x-ray was consistent with pulmonary overload with small pleural effusions. Troponin negative at 38 and 32. Echocardiogram on 10/05/2022 showed an estimated ejection fraction at 20-25%, no regional wall motion abnormalities were noted, moderately enlarged left ventricle, mild to moderate mitral stenosis with a mean gradient 6 mmHg, and moderate to severe mitral valve regurgitation. On account of reduced ejection fraction, he underwent stress test on 10/07/2022 that showed severe global hypokinesis with ejection fraction of 36% and was considered a normal myocardial perfusion without ischemia or infarct". A repeat echocardiogram in December 2022 demonstrated an ejection fraction of 50%. He was started on metoprolol succinate and Entresto therapy. He also has a history of hypertension and hyperlipidemia. She denies chest, arm, jaw, or neck discomfort. She denies palpitations. She states bilateral lower extremity edema. She denies claudication. He states intermittent shallow breathing at night. She denies shortness of breath with activity, shortness of breath at rest, orthopnea, or PND. She denies chronic cough. She denies significant, sudden weight gain. She denies lightheadedness, dizziness, near-syncope, or syncope. She denies blood in urine, blood in stool, or epistaxis. He denies fever with chills. She denies myalgia. She states fatigue. Her exercise level has remained stable. He notes feeling depression. Intake Vital Signs 02/07/24 10:37 05/31/24 10:16 07/18/24 11:01 Height 5 ft 4 in 5 ft 4 in 5 ft 4 in Weight: 189 lb BMI 32.4 BP 111/71 Blood Pressure Location Lt brachial Position Sitting Respiration 16 Pulse 75 Pulse Source NIBP Intake Visit Reasons: 6 M Billet Worker Required: No Accompanied by: Is patient in pain?: No Allergies No Known Allergies Allergy (Verified 07/18/24 11:17) Medications ???Medication ???Instructions ???Recorded ???Confirmed ???Type NATAKENSIS 3 cap PO DAILY SUPPLEMENT 02/15/24 07/18/24 History furosemide 40 mg tablet (Lasix) 40 mg PO DAILY #90 tabs 05/31/24 07/18/24 Rx carvedilol 6.25 mg tablet 6.25 mg PO BID #60 tabs 06/04/24 07/18/24 Rx desvenlafaxine succinate 100 mg 100 mg PO QDAY 07/18/24 07/18/24 History tablet,extended release 24 hr sacubitril 49 mg-valsartan 51 mg 1 tab PO BID #60 tabs 07/18/24 07/18/24 Rx tablet (Entresto) Ejection fraction %: 25 Have you fallen in the past year?: No Nurse's Note: Patient's have questions about possible defibrillator that was brought up by Lidia Gaona at last visit. FOR[facility]LY [facility] Medical History Loss of hearing Wears glasses Wears dentures Depression Cellulitis Prostate disease Back pain Migraine headache Injury of head and neck Syncope History of IBS Former smoker History of edema History of stress test History of echocardiogram Cardiology follow-up encounter History of CHF (congestive heart failure) Postoperative atrial fibrillation (08/2016) Right ureteral calculus Nonrheumatic mitral (valve) insufficiency History of cataract History of nephrolithiasis Type 2 diabetes mellitus without complication History of ileus Paradoxical embolus History of diverticulitis History of DVT (deep vein thrombosis) Paroxysmal atrial fibrillation Atrial septal defect Hyperlipidemia 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 CVA (cerebral vasc (more content not included)... Normal [facility] Echo Limited w/Contraston Echo Limited w/Contrast [facility] [address] [place] [address] Echo Limited w/Contrast 07/02/24 1057 MR#: [id number] Acct: [id number] Name: JUWAN ROBLES Rep #: [id number] : 1945 79 From: Nirav Peña MD Attending Dr: Lidia Gaona RISK CONTROL CONSULTANT-C Status: ABDI LARSEN Ordering Dr: Lidia Gaona RISK CONTROL CONSULTANT RISK CONTROL CONSULTANT-C Date: 07/02/24 Location: [facility] Sex: M C Admitted: Version 2 Reason For Study: Cardiomyopathy Procedure This was a limited 2D transthoracic echocardiogram. The study was technically difficult. Contrast injection was performed. Exam performed in department. Left Ventricle Mildly dilated left ventricle. The estimated ejection fraction is 25 %. There is severe global hypokinesis of the left ventricle. Right Ventricle Normal RV size. Normal systolic function. Atria The left atrium is moderately enlarged. Normal right atrium. Bubble contrast study negative for right to left interatrial shunt. Mitral Valve There is mild to moderate mitral annular calcification. Moderately severe (3+) eccentric mitral valve insufficiency. Tricuspid Valve Normal tricuspid valve. Mild to moderate (1-2+) tricuspid valve insufficiency. Right ventricular systolic pressure estimated to be 34 mmHg. Aortic Valve Trisinus/trileaflet aortic valve. Moderate focal aortic valve calcification. Pulmonic Valve Normal pulmonic valve. Great Vessels Normal aortic root. The pulmonary artery is normal size. Inferior vena cava collapse with respiration. Pericardium/Pleural No pericardial effusion. Medication 22 gauge I.V. with prn adaptor inserted into left arm. Diluted definity 2.5ml given slow IV push to enhance endocardial definition. Performed a rapid injection of agitated mix of 9 cc saline and 1cc air to assess for atrial septal defect. MMode/2D Measurements Calculations LVIDd: 5.8 cm IVSd: 0.97 cm LAV(MOD-bp): 93.8 ml LVIDs: 5.0 cm LVPWd: 1.0 cm FS: 15.1 % LAV(MOD-bp) Indexed: 49.3 ml/m2 LAV(MOD-sp2): 92.6 ml LAV(MOD-sp4): 97.2 ml ___ SV(MOD-sp4): 54.3 ml SV(sp4-el): 59.4 ml LVAd ap4: 42.7 cm2 LVLd ap4: 9.0 cm SI(MOD-sp4): 28.6 ml/m2 EDV(MOD-sp4): 167.5 ml EDV(sp4-el): 171.4 ml LVAs ap4: 32.4 cm2 LVLs ap4: 7.9 cm ESV(MOD-sp4): 113.1 ml ESV(sp4-el): 112.0 ml EF(MOD-sp4): 32.4 % EF(sp4-el): 34.6 % ___ LA A4 area: 26.8 cm2 RA A4 area: 17.4 cm2 Doppler Measurements Calculations MR max nader: 576.5 cm/sec TR max nader: 269.5 cm/sec MR max P.9 mmHg TR max P.1 mmHg MR mean nader: 405.5 cm/sec MR mean P.8 mmHg MR VTI: 189.6 cm ECHO/Echo Limited w/Contrast Interpretation Summary Mildly dilated left ventricle. The estimated ejection fraction is 25 %. There is severe global hypokinesis of the left ventricle. Moderately severe (3+) eccentric mitral valve insufficiency. There is mild to moderate mitral annular calcification. Mild to moderate (1-2+) tricuspid valve insufficiency. Contrast injection was performed. Ordering Physician: Lidia Gaona Referring Physician: Lidia Gaona Performed By: Marcellus Solano RCS 07/02/24 1316 Date Nirav Peña MD CC: TRESA Gaona; KATHERINE Bustillos Date Dictated: 07/02/24 1057 Date Transcribed: 07/02/24 1315 Retail Product Advisor: Signed Normal [facility] Laboratory - Chemistry and C hemistry - challengeon 05-14-2024 Calcium [Mass/Vol] 9.5 mg/dL Normal 8.6 - 10. 3 mg/dL [employer] Chloride [Moles/Vol] 102 mmol/L Normal 98 - 11 0 mmol/L [employer] CO2 [Moles/Vol] 26 mmol/L Normal 20 - 32 mmol/L [employer] Creatinine [Mass/Vol] 1.27 mg/dL Abnormal 0.70 - 1.22 mg/dL [employer] GFR/1.73 sq M.predicted among non-blacks MDRD (S/P/Bld) [Vol rate/Area] 57 mL/min/{1.73_m2} Abnormal [facility] Glucose [Mass/Vol] 113 mg/dL Abnormal 65 - 99 mg/dL [facility], [facility], [employer]. Potassium [Moles/Vol] 4.5 mmol/L Normal 3.5 - 5.3 mmol/L [facility], [facility].; [facility], [employer]. Sodium [Moles/Vol] 139 mmol/L Normal 135 - 146 mmol/L [facility].; [place] [employer] [facility], [employer]. Urea nitrogen [Mass/Vol] 35 mg/dL Abnormal 7 - 25 mg/dL [facility].; [facility]. Urea nitrogen/Creatinine [Mass ratio] 28 mg/mg Abnormal 6 - 22 [facility].; [place] [employer] [facility]. CV CAROTID STUDYon CV CAROTID STUDY [place] [address] Patient: JUWAN ROBLES Phone#: : 1945 Age: 78 Gender: M Pt. Type: Out Account: [id number] Location: [facility] Ordering: GAMALIEL EGAN Exam Date: 12/22/2023/8:51 Family Phys: Charge Code: [id number] Physician: Kay Order #: [id number] Dose#: PROCEDURE: CAROTID FLOW STUDY COMPARISON: [facility], CAROTID FLOW STUDY, 09/06/2016, 13:32. INDICATIONS: BRUIT TECHNIQUE: Color duplex Doppler ultrasound and pulsed Doppler analysis were performed to evaluate the cervical carotid arteries and vertebral flow. All measurements for carotid artery narrowing or stenosis were obtained using the ipsilateral distal internal carotid artery as the reference value. NICKEL PLATER: JANET ROSSI HISTORY: Bruit RIGHT IMAGING FINDINGS: CCA: Moderate homogenous plaque is present. ICA: A hemodynamically significant stenosis is present. ECA: Moderate heterogenous plaque is present. Vertebral A: Antegrade flow Comments: Category: IV. 70% or greater stenosis to near occlusion. ICA PSV is greater than 230cm/s and visible plaque and lumen narrowing are seen. LEFT IMAGING FINDINGS: CCA: Moderate homogenous plaque is present. ICA: Marked heterogenous plaque without hemodynamically significant stenosis.Mostly near the bifurcation. ECA: Moderate heterogenous plaque is present. Vertebral A: Antegrade flow. Comments: Category: II Less than 50% stenosis. ICA PSV less than 180cm/s. Plaque and/or intimal thickening present. RIGHT VELOCITY RECORDINGS Prox CCA: 56.46 cm/s Prox CCA EDV: 11.81 cm/s Mid CCA: 46.60 cm/s Mid CCA EDV: 14.04 cm/s Distal CCA: 41.02 cm/s Distal CCA EDV: 13.11 cm/s ECA: 171.18 cm/s ECA EDV: 22.08 cm/s Prox ICA: 467.49 cm/s Prox ICA EDV: 182.89 cm/s Continued Report - Page 2 of 2 Patient: JUWAN ROBLES Phone#: : 1945 Age: 78 Gender: M Pt. Type: Out Account: [id number] Location: [facility] Ordering: GAMALIEL EGAN Exam Date: 12/22/2023/8:51 Family Phys: Charge Code: [id number] Physician: Kay Order #: [id number] Dose#: Mid ICA: 44.74 cm/s Mid ICA EDV: 25.21 cm/s Distal ICA: 25.90 cm/s Distal ICA EDV: 14.28 cm/s Vertebral Artery: 38.78 cm/s Vertebral Artery EDV: 8.09 cm/s Subclavian Artery: 57.39 cm/s LEFT VELOCITY RECORDINGS Prox CCA: 59.62 cm/s Prox CCA EDV: 18.69 cm/s Mid CCA: 70.78 cm/s Mid CCA EDV: 28.00 cm/s Distal CCA: 72.64 cm/s Distal CCA EDV: 27.07 cm/s ECA: 120.46 cm/s ECA EDV: 9.18 cm/s Prox ICA: 166.18 cm/s Prox ICA EDV: 56.20 cm/s Mid ICA: 100.86 cm/s Mid ICA EDV: 29.62 cm/s Distal ICA: 75.99 cm/s Distal ICA EDV: 21.11 cm/s Vertebral Artery: 46.70 cm/s Vertebral Artery EDV: 16.08 cm/s Subclavian Artery: 154.43 cm/s CONCLUSION: 1. Moderate right-sided heterogeneous plaque is present. There is elevated Doppler signal in the proximal ICA consistent with stenosis of greater than 70% to occlusion. 2. Mixed irregular plaque is present in the left carotid artery without significant stenosis. Dictated by: Nancy Souza MD on 12/22/2023 at 12:41 Approved by: Nancy Souza MD on 12/22/2023 at 12:49 Normal [facility] Laboratory - Chemistry and C hemistry - challengeon 12-15-2023 Albumin [Mass/Vol] 4.2 g/dL Normal 3.6 - 5.1 g/dL [facility], [facility].; [place] [employer] [facility], [facility]. Albumin/Globulin [Mass ratio] 1.3 {ratio} Normal 1.0 - 2.5 [facility], [facility].; [place] [employer], [facility]. ALP [Catalytic activity/Vol] 62 U/L Normal 35 - 144 U/L [facility].; [place] [employer] [facility], [facility]. ALT [Catalytic activity/Vol] 21 U/L Normal 9 - 46 U/L [facility].; [place] [employer], [employer]. AST [Catalytic activity/Vol] 20 U/L Normal 10 - 35 U/L [facility], [facility].; [employer], [facility]. Bilirubin [Mass/Vol] 0.5 mg/dL Normal 0.2 - 1 .2 mg/dL [facility], [facility].; [employer], [employer]. Calcium [Mass/Vol] 9.8 mg/dL Normal 8.6 - 10. 3 mg/dL [facility], [facility].; [employer], [facility]. Chloride [Moles/Vol] 103 mmol/L Normal 98 - 11 0 mmol/L [place] [employer] [facility], [facility].; [employer] Cholesterol [Mass/Vol] 252 mg/dL Abnormal [facility], [facility].; [place] [employer] Cholesterol in HDL [Mass/Vol] 44 mg/dL Normal [place] [employer], [facility].; [employer], [facility]. Cholesterol in LDL [Mass/Vol] 172 mg/dL Abnormal [facility], [facility].; [facility], [facility]. CO2 [Moles/Vol] 27 mmol/L Normal 20 - 32 mmol/L [facility], [facility].; [facility], [facility]. Cobalamin (Vitamin B12) [Mass/Vol] 918 pg/mL Normal 200 - 1100 pg/mL [facility], [facility].; [place] [employer] [facility], [facility]. Creatinine [Mass/Vol] 1.02 mg/dL Normal 0.70 - 1.22 mg/dL [facility], [facility].; [facility], [facility]. GFR/1.73 sq M.predicted among non-blacks MDRD (S/P/Bld) [Vol rate/Area] 74 mL/min/{1.73_m2} Normal [facility], [facility].; [place] [employer] [facility], [employer] Glucose [Mass/Vol] 105 mg/dL Abnormal 65 - 99 mg/dL [facility], [facility].; [facility], [facility]. Potassium [Moles/Vol] 4.7 mmol/L Normal 3.5 - 5.3 mmol/L [facility], [facility].; [place] [employer] [facility], [facility]. Protein [Mass/Vol] 7.5 g/dL Normal 6.1 - 8.1 g/dL [facility], [facility].; [place] [employer] [facility], [facility]. Sodium [Moles/Vol] 138 mmol/L Normal 135 - 146 mmol/L [facility], [facility].; [place] [employer], [facility]. Triglyceride [Mass/Vol] 198 mg/dL Abnormal [facility].; [place] [employer], [facility]. Urea nitrogen [Mass/Vol] 34 mg/dL Abnormal 7 - 25 mg/dL [facility], [facility].; [place] [employer] [facility], [facility]. Urea nitrogen/Creatinine [Mass ratio] 33 mg/mg Abnormal 6 - 22 [facility].; [place] [employer], [employer]. Laboratory - Hematology and Cell countson 12-15-2023 Basophils (Bld) [#/Vol] 0.079 10*3/uL Normal 0 - 200 {cells/uL} [facility], [facility].; [place] [employer], [employer]. Basophils/100 WBC (Bld) 1.2 % Normal [facility].; [place] [employer] [facility]. Eosinophils (Bld) [#/Vol] 0.158 10*3/uL Normal 15 - 500 {cells/uL} [facility].; [facility] Eosinophils/100 WBC (Bld) 2.4 % Normal [facility].; [place] [employer] [facility]. Erythrocyte distribution width (RBC) [Ratio] 12.9 % Normal 11.0 - 15.0 % [facility].; [facility] Hematocrit (Bld) [Volume fraction] 43.3 % Normal 38.5 - 50.0 % [facility].; [place] [employer] [facility], [facility] Hemoglobin (Bld) [Mass/Vol] 13.8 g/dL Normal 13.2 - 17.1 g/dL [facility]; [facility] Lymphocytes (Bld) [#/Vol] 1.564 10*3/uL Normal 850 - 3900 {cells/uL} [facility].; [place] [facility] Lymphocytes/100 WBC (Bld) 23.7 % Normal [facility]; [place] [employer] [facility]. MCH (RBC) [Entitic mass] 30.9 pg Normal 27.0 - 33.0 pg [facility].; [place] [employer] [facility], [facility]. MCHC (RBC) [Mass/Vol] 31.9 g/dL Abnormal 32.0 - 36.0 g/dL [facility].; [place] [employer] [facility], [facility]. MCV (RBC) [Entitic vol] 97.1 fL Normal 80.0 - 100.0 fL [facility].; [place] [employer] [facility]. Monocytes (Bld) [#/Vol] 0.548 10*3/uL Normal 200 - 950 {cells/uL} [place] [employer] [facility].; [place] [employer] [facility]. Monocytes/100 WBC (Bld) 8.3 % Normal [facility].; [place] [employer] [facility], [facility]. Neutrophils (Bld) [#/Vol] 4.25 10*3/uL Normal 1500 - 7800 {cells/uL} [place] [employer] [facility].; [place] [employer], [facility]. Neutrophils/100 WBC (Bld) 64.4 % Normal [facility].; [place] [employer] [facility] Platelet mean volume (Bld) [Entitic vol] 10.1 fL Normal 7.5 - 12.5 fL [facility].; [place] [employer] [facility] Platelets (Bld) [#/Vol] 238 10*3/uL Normal 140 - 400 [facility].; [place] [employer] [facility] RBC (Bld) [#/Vol] 4.46 10*6/uL Normal 4.20 - 5.8 0 {Million/uL } [facility].; [place] [facility] [facility]. WBC (Bld) [#/Vol] 6.6 10*3/uL Normal 3.8 - 10.8 [facility].; [place] [employer] [facility]. No Panel Informationon 12-14 CHOL/HDLC RATIO 5.7 Abnormal [facility].; [place] [facility] GLOBULIN 3.3 Normal 1.9 - 3.7 [facility].; [place] [employer]. NON HDL CHOLESTEROL 208 Abnormal [facility].; [place] [employer]. TSH W/REFLEX TO FT4 1.66 {mIU/L} Normal 0.40 - 4 .50 {mIU/L} [facility].; [place] [employer]. Laboratory - Hematology and Cell countson 07-04-2023 HbA1c (Bld) [Mass fraction] 6.2 % Normal 4.6 - 7.1 % [facility]; [place] [facility]. CBC (NO DIFF)on 03-22-2023 CBC panel Auto (Bld) Normal [facility] Comment on above: Result Comment: CBC( WITHOUT DIFFERENTIAL) Performed By: #### 2 [id number] #### [place] [address] Erythrocyte distribution width (RBC) [Ratio] 13.2 % Normal 12.0 - 15.6 [facility] Comment on above: Performed By: #### 2 [id number] #### [place] [id number] Hematocrit (Bld) [Volume fraction] 43.4 % Normal 40.0 - 52.0 [facility] Comment on above: Performed By: #### 2 [id number] #### [facility],[address] [place] [address] Hemoglobin (Bld) [Mass/Vol] 14.5 g/dL Normal 13.0 - 17.5 [facility] Comment on above: Performed By: #### 2 37813 #### [facility],[address] [place] [address] MCH (RBC) [Entitic mass] 32 pg Normal 27 - 33 [facility] Comment on above: Performed By: #### 2 97051 #### [facility],[address] [place] [address] MCHC 33 X10 3 Normal 32 - 36 [facility] Comment on above: Performed By: #### 2 68735 #### [facility],[address] [place] [address]2453 MCV (RBC) [Entitic vol] 97 fL Normal 81 - 98 [facility] Comment on above: Performed By: #### 2 67351 #### [facility],[address] [place] [address] 06423 PLATELET 210 x10EE3/UL Normal 150 - 450 [facility] Comment on above: Performed By: #### 2 89614 #### [facility],[address] [place] [address] 93079 Platelet mean volume (Bld) [Entitic vol] 8.2 fL Normal 6.4 - 10.5 [facility] Comment on above: Result Comment: {CB] Performed By: #### 2 45131 #### [facility],[address] [place] [address] 62223 RBC 4.49 x 10EE6/UL Low 4.50 - 6.00 [facility] Comment on above: Performed By: #### 2 66937 #### [facility],[address] [place] [address] 06590 WBC 7.8 x 10EE3/UL Normal 4.5 - 10.8 [facility] Comment on above: Performed By: #### 2 81855 #### [facility],[address] [place] [address] 10304 CMP with eGFRon 03-22-2023 AGE 77 years Normal [facility] Comment on above: Performed By: #### 2 03163 #### [facility],[address] [place] [address] 51854 Albumin [Mass/Vol] 3.9 g/dL Normal 3.4 - 5.0 [facility] Comment on above: Performed By: #### 2 95748 #### [facility],[address] [place] [address] 43431 Albumin/Globulin [Mass ratio] 0.9 {ratio} Normal 0.9 - 1.6 [facility] Comment on above: Performed By: #### 2 23776 #### [facility],[address] [place] [address] 05760 ALK PHOS 74 U/L Normal 46 - 116 [facility] Comment on above: Performed By: #### 2 14476 #### [facility],[address] [place] [address] 00579 ALT [Catalytic activity/Vol] 24 U/L Normal 16 - 63 [facility] Comment on above: Performed By: #### 2 22301 #### [facility],[address] [place] [address] 13365 Anion gap [Moles/Vol] 16 mmol/L Normal 10 - 20 [facility] Comment on above: Performed By: #### 2 92981 #### [facility],[address] [place] [address] 87361 AST [Catalytic activity/Vol] 24 U/L Normal 15 - 37 [facility] Comment on above: Performed By: #### 2 44166 #### [facility],[address] [place] [address] 99907 B/C RATIO 27 ratio Normal 0 - 30 [facility] Comment on above: Performed By: #### 2 31430 #### [facility],[address] [place] [address] 16810 Bilirubin [Mass/Vol] 0.4 mg/dL Normal 0.2 - 1.0 [facility] Comment on above: Performed By: #### 2 53453 #### [facility],[address] [place] [address] 28957 Calcium [Mass/Vol] 9.1 mg/dL Normal 8.5 - 10.1 [facility] Comment on above: Performed By: #### 2 22151 #### [facility],[address] [place] [address] 15402 Chloride [Moles/Vol] 102 mmol/L Normal 98 - 107 [facility] Comment on above: Performed By: #### 2 64331 #### [facility],[address] [place] [address] 94388 CMP with eGFR Normal [facility] Comment on above: Result Comment: COMP REHENSIVE METABOLIC PANEL Performed By: #### 2 87492 #### [facility],[address] [place] [address] 16068 CO2 [Moles/Vol] 27.4 mmol/L Normal 21.0 - 32.0 [facility] Comment on above: Performed By: #### 2 00485 #### [facility],[address] [place] [address] 05531 Creatinine [Mass/Vol] 1.03 mg/dL Normal 0.70 - 1.30 [facility] Comment on above: Performed By: #### 2 59121 #### [facility],[address] [place] [address] 82687 GFR/1.73 sq M.predicted among non-blacks MDRD (S/P/Bld) [Vol rate/Area] mL/min/{1.73_m2} Normal 60 - 999 [facility] Comment on above: Performed By: #### 2 44569 #### [facility],[address] [place] [address] 43638 Result Comment: ACCO RDING TO THE NATIONAL KIDNEY DISEASE EDUCATION PROGRAM(NKDE), A NORMAL eGFR IS A VALUE GREATER THAN OR EQUAL TO 60 ML/MIN/1.73 SQ METERS. CHRONIC KIDNEY DISEASE: <60mL/MIN/1.73 SQ METERS KIDNEY FAILURE: <15mL/MIN/1.73 SQ METERS THIS TEST SHOULD ONLY BE USED FOR PATIENTS 18 YEARS OF AGE AND OLDER. Globulin (S) [Mass/Vol] 4.3 g/dL High 1.5 - 3.8 [facility] Comment on above: Performed By: #### 2 30148 #### [facility],[address] [place] [address] 24364 Glucose [Mass/Vol] 114 mg/dL High 74 - 106 [facility] Comment on above: Performed By: #### 2 12411 #### [facility],[address] [place] [address] 27301 Potassium [Moles/Vol] 4.6 mmol/L Normal 3.5 - 5.1 [facility] Comment on above: Performed By: #### 2 77734 #### [facility],[address] [place] [address] 80237 Protein [Mass/Vol] 8.2 g/dL Normal 6.4 - 8.2 [facility] Comment on above: Performed By: #### 2 31751 #### [facility],[address] [place] [address] 84104 Sodium [Moles/Vol] 141 mmol/L Normal 136 - 145 [facility] Comment on above: Performed By: #### 2 52581 #### [facility],[address] [place] [address] 29785 Urea nitrogen [Mass/Vol] 28 mg/dL High 7 - 18 [facility] Comment on above: Performed By: #### 2 17781 #### [facility],[address] [place] [address] BRAIN W/O CONTRASTon 08-0 CT BRAIN W/O CONTRAST [facility] [address] [place], [place] [address] Patient: JUWAN ROBLES Phone#: : 1945 Age: 77 Gender: M Pt. Type: ER Account: [id number] Location: [facility] Ordering: KADEN JETT Exam Date: 03/22/2023/13:19 Family Phys: GAMALIEL EGAN Charge Code: [id number] Physician: Kay Order #: [id number] Dose#: PROCEDURE: CT BRAIN WITHOUT CONTRAST COMPARISON: [facility], CT, BRAIN W/O CON, 07/19/2018, 12:45. INDICATIONS: Dizziness. TECHNIQUE: CT images were obtained without contrast material. All CT scans at this facility use dose modulation, iterative reconstruction, and/or weight based dosing when appropriate to reduce radiation dose to as low as reasonably achievable. IV CONTRAST: No IV contrast used,ml TOTAL DOSE: 52.3 CTDIvol(mGy) FINDINGS: CEREBRUM: No edema, hemorrhage, mass. Mild global atrophy. Periventricular patchy deep cerebral white matter hypodensities, similar in distribution to prior. Most consistent with chronic small vessel ischemic disease CEREBELLUM: No edema, hemorrhage, mass. Mild global atrophy. BRAINSTEM: No edema, hemorrhage, mass, or inappropriate atrophy. CSF SPACES: Ventricles, cisterns, and sulci are appropriate for age. No hydrocephalus, subarachnoid hemorrhage, or mass. SKULL: No mass or other significant visible lesion. SINUSES: Limited views demonstrate no significant mucosal thickening or fluid. ORBITS: Limited views are unremarkable. OTHER: Atherosclerotic calcifications of the intracranial arteries. CONCLUSION: 1. No appreciable acute intracranial abnormality or interval change. Note: An acute ischemic event may not be initially evident on CT. 2. Small vessel ischemic disease 3. Atherosclerosis and global atrophy Dictated by: Sully Stock MD on 03/22/2023 at 13:28 Continued Report - Page 2 of 2 Patient: JUWAN ROBLES Phone#: : 1945 Age: 77 Gender: M Pt. Type: ER Account: [id number] Location: 052 Ordering: KADEN BEARISINGER Exam Date: 03/22/2023/13:19 Family Phys: GASPERKE JIGNESH Charge Code: [id number] Physician: Kay Order #: [id number] Dose#: Approved by: Sully Stock MD on 03/22/2023 at 13:31 Normal [facility] MR MRI BRAIN W/O CONTRASTon 03-22-2023 MR MRI BRAIN W/O CONTRAST [place] [address] Patient: JUWAN ROBLES Phone#: : 1945 Age: 77 Gender: M Pt. Type: ER Account: [id number] Location: 052 Ordering: [facility] Exam Date: 03/22/2023/14:01 Family Phys: GAMALIEL GALVEZJIGNESH Charge Code: [id number] Physician: Kay Order #: [id number] Dose#: PROCEDURE: MRI BRAIN WITHOUT CONTRAST COMPARISON: [facility], , BRAIN W/O CON, 12/30/2022, 10:44. INDICATIONS: Altered sensory function TECHNIQUE: A variety of imaging planes and parameters were utilized for visualization of suspected pathology. Images were performed without contrast. FINDINGS: Patient motion somewhat limits the evaluation. CEREBRUM: No edema, hemorrhage, mass, acute infarction. Global atrophy. Deras in the basal ganglia on hemo sequence, consistent physiologic mineralization. Patchy deep cerebral T2 and FLAIR signal hyperintensity, similar in distribution to prior consistent with small vessel ischemic disease. CEREBELLUM: No edema, hemorrhage, mass, acute infarction. Global atrophy. Left cerebellum encephalomalacia and gliosis from prior infarct. BRAINSTEM: No edema, hemorrhage, mass, acute infarction, or inappropriate atrophy. CSF SPACES: Ventricles, cisterns, and sulci are not to the degree of atrophy and symmetric in size and configuration. No subarachnoid hemorrhage or mass. SKULL: No mass or other significant visible lesion. SINUSES: Limited views demonstrate no significant mucosal thickening or fluid. ORBITS: Limited views are unremarkable. OTHER: Negative. CONCLUSION: 1. No acute intracranial abnormality 2. Small vessel ischemic disease 3. Global atrophy 4. Remote left cerebellar infarct Dictated by: Sully Stock MD on 03/22/2023 at 14:28 Approved by: Sully Stock MD on 03/22/2023 at 14:34 Normal [facility] TROPONIN I, HIGH SENSITIVITY on 03-22-2023 HS TROPONIN 14.5 pg/mL Normal 0.0 - 76.2 [facility] Comment on above: Performed By: #### 2 [id number] #### [facility],[address] [place] [address] MR MRI BRAIN W/O CONTRASTon 12-30-2022 MR MRI BRAIN W/O CONTRAST [place] [address] Patient: JUWAN ROBLES Phone#: : 1945 Age: 77 Gender: M Pt. Type: Out Account: [id number] Location: [facility] [place] Ordering: GAMALIEL EGAN Exam Date: 12/30/2022/10:44 Family Phys: Charge Code: [id number] Physician: Kay Order #: [id number] Dose#: PROCEDURE: MRI BRAIN WITHOUT CONTRAST COMPARISON: None. INDICATIONS: Memory loss TECHNIQUE: A variety of imaging planes and parameters were utilized for visualization of suspected pathology. Images were performed without contrast. FINDINGS: CEREBRUM: Periventricular foci of abnormal signal on FLAIR imaging are present and considering patient age likely related to small vessel disease. Other etiologies such as remote infectious or inflammatory process cannot be excluded. There is remote infarct in the left cerebellum. Mild age-appropriate atrophic changes are present. CEREBELLUM: Remote infarct in the left cerebellum with encephalomalacia. BRAINSTEM: No edema, hemorrhage, mass, acute infarction, or inappropriate atrophy. CSF SPACES: Ventricles, cisterns, and sulci are appropriate for age. No hydrocephalus, subarachnoid hemorrhage, or mass. SKULL: No mass or other significant visible lesion. SINUSES: There is mucosal thickening in the ethmoid sinuses. ORBITS: Limited views are unremarkable. OTHER: Negative. CONCLUSION: 1. Deep white matter small vessel disease changes. 2. There is no evidence of acute intracranial abnormality. Dictated by: Nancy Souza MD on 01/04/2023 at 15:04 Approved by: Nancy Souza MD on 01/04/2023 at 15:14 Normal [facility] Laboratory - Chemistry and C hemistry - challengeon 12-29-2022 Cobalamin (Vitamin B12) [Mass/Vol] 660 pg/mL Normal 200 - 1100 pg/mL [facility].; [employer] [facility]. Laboratory - Hematology and Cell countson 12-29-2022 Basophils (Bld) [#/Vol] 0.03 10*3/uL Normal 0 - 200 {cells/uL} [facility].; [employer], [employer]. Basophils/100 WBC (Bld) 0.4 % Normal [place] [employer] [facility].; [employer], [employer]. Eosinophils (Bld) [#/Vol] 0 10*3/uL Abnormal 15 - 500 {cells/uL} [employer] [facility].; [employer]. Eosinophils/100 WBC (Bld) 0.0 % Normal [place] [employer] [facility].; [employer], [employer]. Erythrocyte distribution width (RBC) [Ratio] 14.2 % Normal 11.0 - 15.0 % [place] [employer] [facility].; [employer], [employer]. Hematocrit (Bld) [Volume fraction] 41.6 % Normal 38.5 - 50.0 % [employer], [employer]. Hemoglobin (Bld) [Mass/Vol] 14.4 g/dL Normal 13.2 - 17.1 g/dL [place] [employer] [facility].; [employer], [employer]. Lymphocytes (Bld) [#/Vol] 1.005 10*3/uL Normal 850 - 3900 {cells/uL} [employer] [facility].; [employer], [employer]. Lymphocytes/100 WBC (Bld) 13.4 % Normal [employer], [employer]. MCH (RBC) [Entitic mass] 31.9 pg Normal 27.0 - 33.0 pg [employer].; [employer], [employer]. MCHC (RBC) [Mass/Vol] 34.6 g/dL Normal 32.0 - 36.0 g/dL [facility].; [employer], [employer]. MCV (RBC) [Entitic vol] 92.0 fL Normal 80.0 - 100.0 fL [facility], [facility].; [employer], [employer]. Monocytes (Bld) [#/Vol] 0.158 10*3/uL Abnormal 200 - 950 {cells/uL} [place] [employer] Monocytes/100 WBC (Bld) 2.1 % Normal [place] [employer] [facility].; [place] [employer], [employer]. Neutrophils (Bld) [#/Vol] 6.308 10*3/uL Normal 1500 - 7800 {cells/uL} [place] [employer] [facility], [facility].; [employer], [employer]. Neutrophils/100 WBC (Bld) 84.1 % Normal [place] [facility].; [employer], [employer]. Platelet mean volume (Bld) [Entitic vol] 10.3 fL Normal 7.5 - 12.5 fL [place] [employer].; [employer], [employer]. Platelets (Bld) [#/Vol] 269 10*3/uL Normal 140 - 400 [place] [employer].; [employer] RBC (Bld) [#/Vol] 4.52 10*6/uL Normal 4.20 - 5.8 0 {Million/uL } [place] [employer].; [employer] WBC (Bld) [#/Vol] 7.5 10*3/uL Normal 3.8 - 10.8 [place] [employer] [employer], [employer]. No Panel Informationon 12-29 TSH W/REFLEX TO FT4 0.70 {mIU/L} Normal 0.40 - 4 .50 {mIU/L} [place] [employer].; [employer], [employer]. Basophil percentageOrdered B y: Geoff Virk on 11-02-2022 Chloride [Moles/Vol] 107 mmol/L 98-107 [place] [facility] Glucose [Mass/Vol] 121 mg/dL 74-106 [facility] Comment on above: Fasting Glucose resu lt from 100 to 125 mg/dL suggests IMPAIRED HOMEOSTASIS per A.D.A. criteria. Potassium [Moles/Vol] 4.2 mmol/L 3.5-5.1 [facility] Sodium [Moles/Vol] 139 mmol/L 136-145 [facility] Laboratory - Chemistry and C hemistry - challengeOrdered By: Geoff Virk on 11-02-2022 CO2 [Moles/Vol] 25.0 mmol/L 21.0-32.0 [facility] Urea nitrogen/Creatinine [Mass ratio] 40.3 mg/mg 10-20 [facility] No Panel InformationOrdered By: Geoff Virk on 11-02-2022 Estimated GFR (MDRD) Amer 66 mL/min >60 [facility] Comment on above: GFR Calc Estimated GFR (MDRD) Non-Af Amer 55 mL/min >60 [facility] Comment on above: Non- GFR Calc Serum or plasma calcium jermain urement (mass/volume)Ordered By: Geoff Virk on 11-02-2022 Calcium [Mass/Vol] 9.1 mg/dL 8.5-10.1 [facility] Serum or plasma creatinine m easurement (mass/volume)Ordered By: Geoff Virk on 11-02-2022 Creatinine [Mass/Vol] 1.34 mg/dL 0.70-1.30 [facility] Comment on above: The validity of the calculated GFR & GFRAA in patients over 70 years has not been determined. Clinical correlation is essential. Serum or plasma urea nitroge n measurement (mass/volume)Ordered By: Geoff Virk on 11-02-2022 Urea nitrogen [Mass/Vol] 54 mg/dL 03-01 [facility] Thin prep Papanicolaou smear with manual screeningOrdered By: Geoff Virk on 11-02-2022 Thin prep Papanicolaou smear with manual screening 12-[address] [facility] [address] HEAD OR BRAIN W/O CONTRAS Ton 02-20-2019 CT HEAD OR BRAIN W/O CONTRAST ORIGINAL CT HEAD OR BRAIN W/O CONTRAST TECHNIQUE: Images were obtained without contrast. This exam was performed according to our departmental dose optimization program, and includes the following measures where applicable: automated exposure control, adjustment of the mAs and/or kVp according to patient size and/or exam, and an iterative reconstruction algorithm. CLINICAL STATEMENT: INJURY. Right-sided laceration. COMPARISON: None FINDINGS: There is a small amount of soft tissue air at the RIGHT infratemporal fossa compatible with the history of laceration. There is no calvarial fracture identified. Within the brain, no hemorrhage or mass is identified. Ventricles, sulci and whittington-white junctions are preserved. There are areas of low density present within the white matter compatible with chronic ischemic small vessel changes. This also involves the LEFT cerebellum. No other contributory finding. IMPRESSION: 1. RIGHT infratemporal fossa area compatible with nearby laceration. 2. No calvarial fracture, no intracranial hemorrhage. 3. Post ischemic white matter changes as described. Interpreted By: Tre Murcia MD Preliminary Report By: Tre Murcia MD Electronically Signed By: Tre Murcia MD Dictated Date: 02/19/2019 10:23:19 PM Prelim Date: 02/19/2019 10:23:19 PM Sign Date: 02/19/2019 10:25:28 PM Normal [facility] ([place] MAXILLOFACIAL W/O CONTRAS Ton 02-20-2019 CT MAXILLOFACIAL W/O CONTRAST ORIGINAL CT MAXILLOFACIAL W/O CONTRAST TECHNIQUE: Images were obtained without contrast. This exam was performed according to our departmental dose optimization program, and includes the following measures where applicable: automated exposure control, adjustment of the mAs and/or kVp according to patient size and/or exam, and an iterative reconstruction algorithm. CLINICAL STATEMENT: INJURY. COMPARISON: None FINDINGS: There is some air at the RIGHT infratemporal fossa, compatible with the history of laceration. I do not identify any facial bone fracture. The orbits, zygomatic arches and mandible are intact. The paranasal sinuses appear well aerated. No additional contributory abnormality. IMPRESSION: Right-sided soft tissue swelling with infratemporal fossa air compatible with laceration. No facial bone fracture seen. Interpreted By: Tre Murcia MD Preliminary Report By: Tre Murcia MD Electronically Signed By: Tre Murcia MD Dictated Date: 02/19/2019 10:28:53 PM Prelim Date: 02/19/2019 10:28:53 PM Sign Date: 02/19/2019 10:30:37 PM Normal [facility] ([place]) [place] SPINE CERVICAL W/O CONTRA STon 02-20-2019 CT SPINE CERVICAL W/O CONTRAST ORIGINAL CT SPINE CERVICAL W/O CONTRAST CLINICAL STATEMENT: Injury, right-sided laceration, birdhouse fell on head TECHNIQUE: Multiple-row detector helical CT examination of the cervical spine without IV contrast. Axial, sagittal, and coronal reconstructed images. This exam was performed according to our departmental dose optimization program, and includes the following measures where applicable: automated exposure control, adjustment of the mAs and/or kVp according to patient size and/or exam, and an iterative reconstruction algorithm. COMPARISON: None. FINDINGS: No fracture or traumatic malalignment. Vertebral body heights are maintained. No aggressive osseous lesions are identified. There is multilevel intervertebral disc height loss, most prominent at C4-C5, C5-C6, and C6-C7 with marginal osteophytosis at those levels. The prevertebral and paraspinal soft tissues demonstrate no acute abnormality. IMPRESSION: No acute fracture or traumatic malalignment. I have personally reviewed the images of this examination and agree with the resident's findings and interpretation. Interpreted By: Tre Murcia MD Preliminary Report By: Hari Akers DO Electronically Signed By: Tre Murcia MD Dictated Date: 02/19/2019 10:34:24 PM Prelim Date: 02/19/2019 10:36:05 PM Sign Date: 02/19/2019 10:43:43 PM Normal [facility] ([place]) [facility] 03-02-2017 Erythrocyte distribution width Auto Ratio (RBC) Letter TextDepartment of General [address] [place], [place] [address]Fsjve: Boy Peralat MD ([facility])[address] [place] [address]Hamxk: [phone]: [phone] Boy Peralta MD :Thank you for allowing me to participate in the care of your patient, Antione.I saw Juwan on 03/02/2017 and performed lower endoscopy. Enclosed is a copyof my procedure dictation for Juwan.The colonoscopy was unremarkable. I recommended 10 year follow up endoscopyAgain, thank you for the referral of Juwan Robles. If I can be of anyassistance to you in the future, please don't hesitate to call.Sincerely yours,Daniel Anders MD, FACS Normal [facility] HISTORY PHYSICALon 7 HISTORY PHYSICAL HNO ID: [id number] thor: Daniel Causeyervice: General SurgeryAuthor Type: PhysicianType: HANDPFiled: 02/25/2017 1:45 PMNote Text:HANDPEncounter Date: 01/21/2017Cynthia (Protection Specialist) ThorpeGastroenterologyExpa nd All Collapse AllHide copied Adeola Robles a 71 year old male who is returning for surveillancecolonoscopy. His PCP is Dr Ran Peralta. He has a history of polyps.?The patient was seen by Dr. Monzon for colonoscopy 02/08/14. Theprocedure report has been reviewed and findings as follows:Impression: ? ?- Preparation of the colon was poor.? - Diverticulosis in the sigmoid colon and in the? descending colon.? - Melanotic mucosa in the entire examined colon.?Three year surveillance was recommended due to the poor prep.??Presenting complaint: The patient denies change in bowel habits or rectalbleeding. Having a bowel movement about every day.?The patient reports that he has occasional discomfort (LLQ) that heattributes to diverticulosis. Uses aloe vera juice with good relief.??REVIEW OF SYSTEMS:GENERAL: No weight loss, malaise or feversRESPIRATORY: Negative for cough, hemoptysis, wheezing, COPD, dyspnea orshortness of breathCARDIOVASCULAR: Negative for chest pain, leg swelling, hypertension, CHFor palpitationsGI: The patient states that his appetite has been good. He does gethungry. There has been no nausea, no vomiting. He denies dysphagia anddenies odynophagia. There has not been indigestion or heartburn. There hasnot been regurgitation. Bowel habits have been regular. There has not beendiarrhea. There has not been constipation. The patient denies rectalbleeding. There has not been melena. Intermittent abdominal pain that islocated in the left lower quadrant.MUSCULOSKELETAL: Negative for new or worsening joint pain or swelling,back pain or muscle painHEMATOLOGY/LYMPHOLOGY Negative for prolonged bleeding, bruising easily orswollen nodesNEURO: No history of headaches, syncope, paralysis, seizures or tremorsAll other reviewed and negative other than HPI.?? PAST?MEDICAL?HISTORYPAST MEDICAL HISTORYDiagnosis Date- Chest pain, unspecified ?- Hemorrhage of rectum and anus ?- Hypercholesteremia ?- Kidney stone ?- Personal history of colonic polyps 2002?? 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 FAMILY?HISTORY ?FAMILY HISTORY? Cancer Mother ?? Comment: colon? Stroke Father ?? Heart Brother ??? CURRENT?MEDICATIONS ?Current Outpatient Prescriptions:metoprolol succinate ER (TOPROL XL) 25 mg 24 hr tablet Take 25 mg by mouthonce daily. Disp: Rfl:atorvastatin (LIPITOR) 40 mg tablet Take 40 mg by mouth once daily. Disp:Rfl:aspirin, enteric coated 81 mg EC tablet Take 81 mg by mouth once daily.Disp: Rfl:[place]-3 Fatty Acids (FISH OIL) 500 mg ORAL Cap Take 1,000 mg by mouth oncedaily. Disp: Rfl:?No current facility-administered medications for this visit.??SOCIAL HISTORY:Patient is . He quit smoking years ago. Juwan reports his alcoholuse as very rarely.??PHYSICAL EXAMINATION:Blood pressure 113/72, pulse 67, height 162.6 cm (5' 4"), weight 79.8 kg(176 lb).General Appearance: Well appearing, alert, in no acute distress,well-hydrated, well nourished.Skin: Skin color, texture, turgor normal, no suspicious rashes or lesions.Eyes: Anicteric sclera.Oropharynx: Lips, mucosa, and tongue normal, teeth and gums normal,oropharynx normal.Lungs: Lungs clear to auscultation. No wheezing, rhonchi, rales.Heart: RRR without murmur.Abdomen: Abdomen soft, non-tender. Bowel sounds normal. No masses,organomegaly.Extrem ities: No deformities, edema, skin discoloration, clubbing orcyanosis.Peripheral Pulses: Normal.??Impression: history of polyps 2)diverticulosis??Plan: This patient will be scheduled for a colonoscopy using a modifiedMiralax and Dulcolax prep. The preparation, as well as the procedure, hasbeen explained in detail. The risks, benefits, anticipated outcomes andpossible complications were mentioned. I explained the procedure inunderstandable terms and the patient was given printed material concerningthe planned procedure. The patient had the opportunity to ask questionsconcerning the planned procedure. The patient freely consents to theplanned procedure.?The patient is asked to call with any questions for concerns, or shouldthere be any change in health status between now and the scheduledprocedure.?I have personally interviewed and examined this patient. I have read theinformation the CREDIT ASSOCIATE documented in this encounter. This visit was at least25 minutes in length with a majority of the time spent in review of thepast records with the patient, discussion and counseling.?Kym Rivas RN CNP Office Visit on 01/21/2017 ? Normal [facility] NURSING PROGon 02-25-2017 NURSING PROG HNO ID: [id number] thor: Román Avila Rnice: (none)Author Type: Registered NurseType: Nursing Progress NoteFiled: 02/25/2017 3:42 PMNote Text:Patient did not experience a fall prior to discharge.Patient did not experience a burn prior to discharge.Shayy Ochoa RN Normal [facility] NURSING PROG HNO ID: [id number] Author: Shayy Ochoa RN Service: (none) Author Type: Registered Nurse Type: Nursing Progress Note Filed: 02/25/2017 3:31 PM Note Text: Dressing at bedside with family present. Normal [facility] NURSING PROG HNO ID: [id number] thor: JEFFREY Avila Rnervice: (none)Author Type: Registered NurseType: Nursing Progress NoteFiled: 02/25/2017 3:31 PMNote Text:Sitting upright in bed with HOB elevated. Denies nausea. Deniesabdominal pain. Family at bedside. Normal [facility] NURSING PROG HNO ID: [id number] Author: Shayy Ochoa RN Service: (none) Author Type: Registered Nurse Type: Nursing Progress Note Filed: 02/25/2017 3:22 PM Note Text: Dr. Anders visits. [facility] NURSING PROG HNO ID: [id number] thor: Román Avila Rnice: (none)Author Type: Registered NurseType: Nursing Progress NoteFiled: 02/25/2017 3:27 PMNote Text:Sitting upright in bed with HOB elevated. Denies nausea. Deniesabdominal pain. Finished with snack and fluids . Family at bedside. [facility] NURSING PRO HNO ID: [id number] thor: Shayy Reyes) Román Ochoaice: (none)Author Type: Registered NurseType: Nursing Progress NoteFiled: 02/25/2017 3:08 PMNote Text:Awake per self. Rolled to back, HOB elevated. Denies nausea. Deniesabdominal pain. Family at bedside [facility] NURSING PROG HNO ID: [id number] thor: Román Avila Rnice: (none)Author Type: Registered NurseType: Nursing Progress NoteFiled: 02/25/2017 2:56 PMNote Text:In bed resting on left side. Respirations easy and even. Drowsy, arouseseasily to verbal stimuli. Denies nausea. Denies abdominal pain. Familyat bedside. [facility] NURSING PROG HNO ID: [id number] thor: Román Avila Rnice: (none)Author Type: Registered NurseType: Nursing Progress NoteFiled: 02/25/2017 2:50 PMNote Text:Received from OR on left side. Respirations easy and even. Drowsy,arouses easily to verbal stimuli. Denies nausea. Denies abdominal pain.Abdomen softly distended. Family at bedside. [facility] NURSING PROG HNO ID: [id number] thor: Marina Harris Rn: (none)Author Type: Registered NurseType: Nursing Progress NoteFiled: 02/25/2017 2:42 PMNote Text:Patient did not experience a fall within the Intraoperative area.Patient did not experience a burn within the Intraoperative area.Courtney Byers RN Normal [facility] NURSING PROG HNO ID: [id number] thor: Sujey Soriano (Rn) JEFFREY Walkerervice: NursingAuthor Type: Registered NurseType: Nursing Progress NoteFiled: 02/25/2017 1:57 PMNote Text:[facility] PRE-OP NURSING HAND OFF NOTESBAR Hand off given to Courtney Byers RN.Hand off was communicated verbally and at the patient's bedside and allquestions were answered. FALLS/BURNSPatient did not experience a fall within the Preoperative area.Patient did not experience a burn within the Preoperative area.Sujey Walker RN Normal [facility] Laboratory - Chemistry and C hemistry - challengeon 09-23-2016 Calcium [Mass/Vol] 9.3 mg/dL Normal 8.6 - 10. 3 mg/dL [employer] Chloride [Moles/Vol] 104 mmol/L Normal 98 - 11 0 mmol/L [employer], [employer] CO2 [Moles/Vol] 27 mmol/L Normal 20 - 31 mmol/L [employer] Creatinine [Mass/Vol] 1.15 mg/dL Normal 0.70 - 1.18 mg/dL [employer] GFR/1.73 sq M.predicted among blacks MDRD (S/P/Bld) [Vol rate/Area] 73 {ML/MIN/1.73M2} Normal [employer] GFR/1.73 sq M.predicted MDRD (S/P/Bld) [Vol rate/Area] 63 {ML/MIN/1.73M2} Normal [employer] Glucose [Mass/Vol] 113 mg/dL Abnormal 65 - 99 mg/dL [employer] Potassium [Moles/Vol] 4.3 mmol/L Normal 3.5 - 5.3 mmol/L [facility].; [facility], [facility] Sodium [Moles/Vol] 140 mmol/L Normal 135 - 146 mmol/L [facility].; [facility], [facility] Urea nitrogen [Mass/Vol] 23 mg/dL Normal 7 - 25 mg/dL [facility], [facility].; [place] [employer] [facility], [facility] Urea nitrogen/Creatinine [Mass ratio] 19.7 mg/mg Normal 6 - 22 [facility].; [place] [employer]. Laboratory - Hematology and Cell countson 09-23-2016 Basophils (Bld) [#/Vol] 60 {Cells}/uL Normal 0 - 200 {Cells}/uL [facility].; [place] [employer], [facility] Basophils/100 WBC (Bld) 1 % Normal 0 - 1 % [facility].; [place] [employer], [facility] Eosinophils (Bld) [#/Vol] 70 {Cells}/uL Normal 15 - 500 {Cells}/uL [facility].; [place] [employer], [employer]. Eosinophils/100 WBC (Bld) 1 % Normal 0 - 4 % [facility].; [place] [employer], [employer] Erythrocyte distribution width (RBC) [Ratio] 14.1 % Normal 11.0 - 15.0 % [facility].; [place] [employer], [employer]. Hematocrit (Bld) [Volume fraction] 29.0 % Abnormal 38.5 - 50.0 % [facility], [facility].; [place] [employer], [facility]. Hemoglobin (Bld) [Mass/Vol] 9.5 g/dL Abnormal 13.2 - 17.1 g/dL [facility].; [place] [employer], [facility]. Lymphocytes (Bld) [#/Vol] 850 {Cells}/uL Normal 850 - 3900 {Cells}/uL [place] [employer] [facility].; [place] [employer], [facility]. Lymphocytes/100 WBC (Bld) 12 % Normal 12 - 47 % [facility], [facility].; [place] [employer], [employer]. MCH (RBC) [Entitic mass] 30.7 pg Normal 27.0 - 33.0 PG [facility].; [employer], [employer]. MCHC (RBC) [Mass/Vol] 32.6 g/dL Normal 32.0 - 36.0 g/dL [employer], [employer]. MCV (RBC) [Entitic vol] 94.1 fL Normal 80.0 - 100.0 fL [employer].; PrismaStar, [employer]. Monocytes (Bld) [#/Vol] 390 {Cells}/uL Normal 200 - 950 {Cells}/uL PreciadoDorsaVI.; [employer]ado[employer] Damn Channel, [employer]. Monocytes/100 WBC (Bld) 5 % Normal 4 - 12 % [employer]DorsaVI.; [employer], [employer]. Neutrophils (Bld) [#/Vol] 5910 {Cells}/uL Normal 1500 - 7800 {Cells}/uL [employer]DorsaVI.; PrismaStar, Inc. Neutrophils/100 WBC (Bld) 81 % Abnormal 40 - 75 % [employer]DorsaVI.; [employer], [employer]. Platelet mean volume (Bld) [Entitic vol] 8.6 fL Normal 7.5 - 12.5 fL [employer]DorsaVI.; [employer], [employer]. Platelets (Bld) [#/Vol] 368 10*3/uL Normal 140 - 400 10*3/uL [employer]DorsaVI.; PrismaStar, Inc. RBC (Bld) [#/Vol] 3.09 10*6/uL Abnormal 4.20 - 5.8 0 10*6/uL [employer]DorsaVI.; [employer], [employer]. WBC (Bld) [#/Vol] 7.3 10*3/uL Normal 3.8 - 10.8 10*3/uL [employer], [employer].; PrismaStar, Inc. Laboratory - Coagulationon 0 04-13-2016 INR Coag (PPP) [Relative time] 2.2 {INR} Normal [facility] [facility].; [employer], [employer]. No Panel Informationon 04-13 COMMENTS - Normal [facility].; [employer]ismaStar, Inc. COMMENTS 2 - Normal [facility].; [employer], [employer]. COMMENTS 3 - Normal [facility].; [employer], [employer]. DIAGNOSIS cva Normal [employer] Inc.; PrismaStar, Inc. DOSE 35mg/wk Normal PrismaStar, Inc.; [employer], Inc. NEW DOSE no change Normal [employer] Inc.; [employer]Star, Inc. NEXT APPT 4wks Normal [employer] Inc.; [employer]ismaStar, Inc. NURSE INITIALS nkechi Normal [employer].; PrismaStar, Inc. SUPERVISING PROVIDER [facility] Normal [employer].; PrismaStar, Inc. TARGET RANGE 2-3 Normal [employer]il [employer], Inc.; PrismaStar, Inc. Laboratory - Coagulationon 0 03-16-2016 INR Coag (PPP) [Relative time] 2.4 {INR} Normal [employer] Inc.; PrismaStar, Inc. No Panel Informationon 03-16 COMMENTS - Normal [employer] Inc.; [employer]ismaStar, Inc. COMMENTS 2 - Normal [facility].; [employer]ismaStar, Inc. COMMENTS 3 - Normal [facility].; [employer], Inc. DIAGNOSIS cva Normal [facility].; [employer], Inc. DOSE 35mg/wk Normal [facility].; [employer], Inc. NEW DOSE no change Normal [facility].; [employer], Inc. NEXT APPT 4 wks Normal [facility].; [employer], Inc. NURSE INITIALS jw Normal [employer].; PrismaStar, Inc. SUPERVISING PROVIDER [facility] Normal [employer].; PrismaStar, Inc. TARGET RANGE 2-3 Normal [employer] Inc.; PrismaStar, Inc. Laboratory - Coagulationon 0 02-13-2016 INR Coag (PPP) [Relative time] 2.8 {INR} Normal [facility].; [employer]Star, Inc. No Panel Informationon 02-12 COMMENTS - Normal [employer] Inc.; [employer]ismaStar, Inc. COMMENTS 2 - Normal [facility].; [employer], Inc. COMMENTS 3 - Normal [facility].; [employer], Inc. DIAGNOSIS cva Normal [employer] Inc.; [employer]Star, Inc. DOSE 35mg/wk Normal [employer] Inc.; [employer]ismaStar, Inc. NEW DOSE same Normal [employer] Apokalyyis, Inc.; [employer]ismaStar, Inc. NEXT APPT 4 weeks Normal [employer] Apokalyyis, Inc.; [employer], Inc. NURSE INITIALS kw Normal [facility] [employer].; [employer]ismaStar, Inc. SUPERVISING PROVIDER [facility] Normal [facility] [employer].; PrismaStar, Inc. TARGET RANGE 2-3 Normal [facility] [employer] Consult, Inc.; PrismaStar, Inc. Laboratory - Coagulationon 0 01-16-2016 INR Coag (PPP) [Relative time] 1.9 {INR} Normal [employer]ado[employer] Damn Channel, Inc.; PrismaStar, Inc. No Panel Informationon 01-15 COMMENTS extra 1/2 tab today Normal [facility] [employer].; PrismaStar, Inc. COMMENTS 2 then continue Normal [facility] [employer].; [employer], Inc. DIAGNOSIS cva Normal [employer] Inc.; [employer]ismaStar, Inc. DOSE 35mg/wk Normal [facility].; [employer]ismaStar, Inc. NEW DOSE same Normal [employer]n [employer], [employer].; PrismaStar, Inc. NEXT APPT 4 wks Normal [employer] Inc.; [employer]ismaStar, Inc. NURSE INITIALS akm Normal [facility] [employer].; [employer]ismaStar, Inc. SUPERVISING PROVIDER [facility] Normal [facility] [employer].; PrismaStar, Inc. TARGET RANGE 2-3 Normal [facility] [employer], Inc.; PrismaStar, Inc. Laboratory - Coagulationon 0 12-08-2015 INR Coag (PPP) [Relative time] 2.0 {INR} Normal [facility].; [employer]ismaStar, Inc. No Panel Informationon 12-07 DIAGNOSIS cva Normal PreciadoMy Damn Channel, Inc.; [employer]ismaStar, Inc. DOSE 35mg/wk Normal [facility].; [employer]ismaStar, Inc. NEW DOSE same Normal [facility].; [employer]ismaStar, Inc. NEXT APPT 4 wks Normal [facility].; [employer]ismaStar, Inc. NURSE INITIALS akm Normal [employer].; PrismaStar, [employer]. SUPERVISING PROVIDER [facility] DorsaVI.; PrismaStar, Inc. TARGET RANGE 2-3 Normal [employer], Inc.; PrismaStar, Inc. Laboratory - Coagulationon 0 11-03-2015 INR Coag (PPP) [Relative time] 2.1 {INR} Normal [employer] Inc.; PrismaStar, Inc. No Panel Informationon 11-02 COMMENTS - Normal [facility].; [employer]ismaStar, Inc. COMMENTS 2 - Normal [facility].; [employer]ismaStar, Inc. COMMENTS 3 - Normal [facility].; [employer]Star, Inc. DIAGNOSIS cva Normal [facility].; [employer]ismaStar, Inc. DOSE 35mg/wk Normal [employer] Inc.; [employer]ismaStar, Inc. NEW DOSE no change Normal [facility].; [employer]ismaStar, Inc. NEXT APPT 4 wks Normal [facility].; [employer]ismaStar, Inc. NURSE INITIALS jw Normal [employer].; PrismaStar, Inc. SUPERVISING PROVIDER [facility] Normal [employer].; PrismaStar, Inc. TARGET RANGE 2-3 Normal [email or web address].; PrismaStar, Inc. Laboratory - Coagulationon 0 09-29-2015 INR Coag (PPP) [Relative time] 2.3 {INR} Normal [employer] Inc.; PrismaStar, Inc. No Panel Informationon 09-29 DIAGNOSIS cva Normal [employer] Inc.; [employer]ismaStar, Inc. DOSE 35mg/wk Normal [employer] Inc.; PrismaStar, Inc. NEW DOSE same Normal [facility].; [employer]ismaStar, Inc. NEXT APPT 4 wks Normal [facility].; [employer]ismaStar, Inc. NURSE INITIALS akm Normal [employer].; PrismaStar, Inc. SUPERVISING PROVIDER [facility] Normal [employer].; PrismaStar, Inc. TARGET RANGE 2-3 Normal [employer] Inc.; PrismaStar, Inc. Laboratory - Coagulationon 0 09-08-2015 INR Coag (PPP) [Relative time] 2.1 {INR} Normal PrismaStar, Inc.; PrismaStar, Inc. No Panel Informationon 09-08 DIAGNOSIS cva Normal [employer] Inc.; PrismaStar, Inc. DOSE 35mg/wk Normal [employer] Inc.; PrismaStar, Inc. NEW DOSE same Normal [facility].; [employer]ismaStar, Inc. NEXT APPT 4 wks Normal [facility].; [employer]ismaStar, Inc. NURSE INITIALS akm Normal [employer].; PrismaStar, Inc. SUPERVISING PROVIDER [facility] [employer].; [employer]ismaStar, Inc. TARGET RANGE 2-3 Normal [employer]il [employer], Inc.; PrismaStar, Inc. Laboratory - Coagulationon 0 08-18-2015 INR Coag (PPP) [Relative time] 2.0 {INR} Normal [employer] Inc.; PrismaStar, Inc. No Panel Informationon 08-18 DIAGNOSIS cva Normal [employer] Inc.; PrismaStar, Inc. DOSE 35mg/wk Normal [employer] Inc.; PrismaStar, Inc. NEW DOSE same Normal [facility].; [employer]ismaStar, Inc. NEXT APPT 3 wks Normal [facility].; [employer]ismaStar, Inc. NURSE INITIALS akm Normal [employer].; PrismaStar, Inc. SUPERVISING PROVIDER [facility] Normal [employer].; PrismaStar, Inc. TARGET RANGE 2-3 Normal [employer], Inc.; PrismaStar, Inc. Laboratory - Coagulationon 1 10-05-2014 INR Coag (PPP) [Relative time] 4.2 {INR} Normal [employer] Inc.; PrismaStar, Inc. No Panel Informationon 08-04 COMMENTS 35mg/wk Normal [employer] Inc.; PrismaStar, Inc. COMMENTS 2 - Normal [employer] Inc.; PrismaStar, Inc. COMMENTS 3 - Normal [facility].; PrismaStar, Inc. DIAGNOSIS cva Normal PrismaStar, Inc.; PrismaStar, Inc. DOSE 40mg/wk Normal PrismaStar, Inc.; PrismaStar, Inc. NEW DOSE hold today Normal [employer] Inc.; PrismaStar, Inc. NEXT APPT 2 weeks Normal [employer] Inc.; PrismaStar, Inc. NURSE INITIALS kw Normal [employer].; PrismaStar, [employer]. SUPERVISING PROVIDER terrie Normal [employer].; PrismaStar, Inc. TARGET RANGE 2-3 Normal [employer], Inc.; PrismaStar, Inc. Laboratory - Coagulationon 1 09-28-2014 INR Coag (PPP) [Relative time] 2.9 {INR} Normal PrismaStar, Inc.; PrismaStar, Inc. No Panel Informationon 07-28 DIAGNOSIS stroke Normal [employer] Inc.; [employer]ismaStar, Inc. DOSE 40mg/wk Normal [facility].; PrismaStar, Inc. NEW DOSE same Normal [facility].; PrismaStar, Inc. NEXT APPT 1 wk only due to appt here Normal PrismaStar, Inc.; PrismaStar, Inc. NURSE INITIALS akm Normal [facility] [employer].; PrismaStar, Inc. SUPERVISING PROVIDER terrie Normal [employer].; PrismaStar, Inc. TARGET RANGE 2-3 Normal [employer]il [employer], Inc.; PrismaStar, Inc. Laboratory - Coagulationon 1 09-21-2014 INR Coag (PPP) [Relative time] 4.2 {INR} Normal PrismaStar, [employer].; PrismaStar, Inc. No Panel Informationon 07-21 COMMENTS hold today Normal PrismaStar, Inc.; PrismaStar, Inc. COMMENTS 2 then continue Normal [facility] [employer].; [employer]ismaStar, Inc. DIAGNOSIS stroke Normal [facility].; [employer]ismaStar, Inc. DOSE alt 5/7.5mg Normal [facility].; PrismaStar, Inc. NEW DOSE 40mg/wk Normal [facility].; [employer]ismaStar, Inc. NEXT APPT 1 wk Normal [facility].; [employer]ismaStar, Inc. NURSE INITIALS akm Normal [facility].; PrismaStar, [employer]. SUPERVISING PROVIDER [facility] DorsaVI.; PrismaStar, Inc. TARGET RANGE 2-3 Normal [employer] Inc.; PrismaStar, Inc. Laboratory - Coagulationon 1 09-17-2014 INR Coag (PPP) [Relative time] 2.9 {INR} Normal PrismaStar, Inc.; PrismaStar, Inc. No Panel Informationon 07-17 DIAGNOSIS stroke Normal PrismaStar, Inc.; PrismaStar, Inc. DOSE 7.5 Normal [facility].; [employer]ismaStar, Inc. NEW DOSE alt 5/7.5 Normal [facility].; [employer]ismaStar, Inc. NEXT APPT 07-21-15 Normal [facility].; [employer]ismaStar, Inc. NURSE INITIALS mbs Normal [facility] [employer].; PrismaStar, Inc. SUPERVISING PROVIDER [facility] Normal [facility] [employer].; PrismaStar, Inc. TARGET RANGE 2-3 Normal [facility] [employer] Consult, Inc.; PrismaStar, Inc. Laboratory - Coagulationon 1 09-15-2014 INR Coag (PPP) [Relative time] 3.0 {INR} Normal [facility].; PrismaStar, Inc. No Panel Informationon 07-15 DIAGNOSIS stroke Normal [facility].; [employer]ismaStar, Inc. DOSE 5mg today Normal [employer] Inc.; PrismaStar, Inc. NEW DOSE 7.5mg tomorrow Normal [facility] [employer].; PrismaStar, Inc. NEXT APPT 07/17/15 Normal [facility].; PrismaStar, Inc. NURSE INITIALS akm Normal [employer].; PrismaStar, [employer]. SUPERVISING PROVIDER Eddie [employer].; PrismaStar, [employer]ora[employer]. TARGET RANGE 2-3 Normal [email or web address].; PrismaStar, Inc. Laboratory - Coagulationon 1 09-13-2014 INR Coag (PPP) [Relative time] 2.5 {INR} Normal [facility].; PrismaStar, Inc. No Panel Informationon 07-14 COMMENTS stop lovenox Normal [email or web address].; PrismaStar, Inc. DIAGNOSIS stroke Normal [facility].; PrismaStar, Inc. DOSE 10mg/lovenox Normal [email or web address].; PrismaStar, Inc. NEW DOSE 7.5mg today Normal [facility].; PrismaStar, Inc. NEXT APPT 07-15-15 Normal [facility].; PrismaStar, Inc. NURSE INITIALS bill Normal [employer].; PrismaStar, [employer]. SUPERVISING PROVIDER [facility] Normal [employer].; PrismaStar, [employer]ora[employer]. TARGET RANGE 2-3 Normal [email or web address].; PrismaStar, Inc. Laboratory - Coagulationon 1 09-11-2014 INR Coag (PPP) [Relative time] 1.2 {INR} Normal [facility].; PrismaStar, Inc. No Panel Informationon 07-12 COMMENTS pt is doing Normal [facility].; PrismaStar, Inc. COMMENTS 2 lovenox bid Normal [facility].; PrismaStar, Inc. COMMENTS 3 - Normal [facility].; PrismaStar, Inc. DIAGNOSIS stroke Normal [facility].; PrismaStar, Inc. DOSE 5mg qd Normal [facility].; PrismaStar, Inc. NEW DOSE 10mg qd Normal [facility].; PrismaStar, Inc. NEXT APPT 2 days Normal [facility].; PrismaStar, Inc. NURSE INITIALS lms Normal [employer].; PrismaStar, Inc. SUPERVISING PROVIDER terrie [facility], [facility].; [facility], [facility]. TARGET RANGE 2-3 Normal [facility], [facility]. Vital Signs Date Time Vital Sign Value Performing Clinician Facility 05-24-2025 08:53-0400 Body height 162.56 cm Luke Jignesh PA Work Phone: [facility] 05-24-2025 08:53-0400 Body mass index (BMI) [Ratio] 33.5 kg/m2 Luke Jignesh PA Work Phone: [facility] 05-24-2025 08:53-0400 Body weight 88.45 kg Luke Jignesh PA Work Phone: [facility] 05-24-2025 08:53-0400 Diastolic blood pressure 47 mm[Hg] Luke Jignesh PA Work Phone: [facility] 05-24-2025 08:53-0400 Heart rate 68 /min Luke Jignesh PA Work Phone: [facility] 05-24-2025 08:53-0400 Respiratory rate 18 /min Luke Jignesh PA Work Phone: [facility] 05-24-2025 08:53-0400 SaO2% (BldA) [Mass fraction] 92 % Luke Jignesh PA Work Phone: [facility] 05-24-2025 08:53-0400 Systolic blood pressure 83 mm[Hg] Luke Jignesh PA Work Phone: [facility] 11-23-2024 08:08-0400 Body mass index (BMI) [Ratio] 33.1 kg/m2 Luke Jignesh PA Work Phone: [facility] 11-23-2024 08:08-0400 Body weight 87.54 kg Luke Jignesh PA Work Phone: [facility] 11-23-2024 08:08-0400 Diastolic blood pressure 60 mm[Hg] Luke Jignesh PA Work Phone: [facility] 11-23-2024 08:08-0400 Heart rate 75 /min Luke Jignesh PA Work Phone: [facility] 11-23-2024 08:08-0400 Respiratory rate 18 /min Luke Jignesh PA Work Phone: [facility] 11-23-2024 08:08-0400 Systolic blood pressure 99 mm[Hg] Luke Jignesh PA Work Phone: [facility] 11-14-2024 15:14-0400 Body temperature 97.5 [degF] Luke Jignesh PA Work Phone: [facility] 11-14-2024 15:14-0400 Body weight 88.45 kg Luke Jignesh PA Work Phone: [facility] 11-14-2024 15:14-0400 Diastolic blood pressure 60 mm[Hg] Luke Jignesh PA Work Phone: [facility] 11-14-2024 15:14-0400 Heart rate 82 /min Luke Jignesh PA Work Phone: [facility] 11-14-2024 15:14-0400 Respiratory rate 16 /min Luke Jignesh PA Work Phone: [facility] 11-14-2024 15:14-0400 SaO2% (BldA) [Mass fraction] 92 % Luke Jignesh PA Work Phone: [facility] 11-14-2024 15:14-0400 Systolic blood pressure 103 mm[Hg] Luke Jignesh PA Work Phone: [facility] 06-22-2024 08:22-0500 Body height 162.56 cm Elidia Lazo RN [facility], Inc.; [facility], [facility]. 06-22-2024 08:22-0500 Body mass index (BMI) [Ratio] 32.1 kg/m2 Elidia Lazo RN [facility] HospitalN[facility].; [facility]. 06-22-2024 08:22-0500 Body surface area Derived from formula 1.9 m2 Elidia Lazo RN [facility] HospitalN[facility].; [place] [employer] [facility]. 06-22-2024 08:22-0500 Body weight 84.82 kg Elidia Lazo RN [facility] HospitalN[facility].; [place] [employer] [facility]. 06-22-2024 08:22-0500 Diastolic blood pressure 54 mm[Hg] Elidia Lazo RN [facility] HospitalN[facility].; [employer] [facility]woodsDiff[facility] [employer]. Comment on above: Patient Position: Sitting; Cuff Location : Left Arm; Cuff Size: Standard 06-22-2024 08:22-0500 Heart rate 68 /min Elidia Lazo RN [facility] HospitalN[facility].; [employer]. Comment on above: Pattern: Regular 06-22-2024 08:22-0500 Inhaled oxygen concentration 21 % Elidia Lazo RN [facility] HospitalN[facility].; [employer]. Comment on above: Room air 06-22-2024 08:22-0500 SaO2% (BldA) [Mass fraction] 97 % Elidia Lazo RN [facility] HospitalN[facility].; [employer]. 06-22-2024 08:22-0500 Systolic blood pressure 104 mm[Hg] Elidia Lazo RN [facility] HospitalN[facility].; PreciadoDorsaVI. Comment on above: Patient Position: Sitting; Cuff Location : Left Arm; Cuff Size: Standard 05-10-2024 21:50-0400 Diastolic blood pressure 74 mm[Hg] Gamaliel Egan PA-C Work Phone: [facility] [employer].; PreciadoDorsaVI. Comment on above: Patient Position: Sitting; Cuff Location : Right Arm; Cuff Size: Standard 05-10-2024 21:50-0400 Systolic blood pressure 100 mm[Hg] Gamaliel Egan PA-C Work Phone: [facility]; [facility]Diff[facility]. Comment on above: Patient Position: Sitting; Cuff Location : Right Arm; Cuff Size: Standard 05-10-2024 14:20-0400 Body height 162.56 cm Luke Toño GalvezJignesh PA-C Work Phone: [facility] Hospital[facility]; [place] [employer] 05-10-2024 14:20-0400 Body mass index (BMI) [Ratio] 31.24 kg/m2 Luke E Jignesh PA-C Work Phone: [facility]; [place] [employer] [facility] [facility] 05-10-2024 14:20-0400 Body surface area Derived from formula 1.88 m2 Luke E Jignesh PA-C Work Phone: [facility]; [place] [employer] 05-10-2024 14:20-0400 Body weight 82.56 kg Luke E Jignesh PA-C Work Phone: [facility]; [place] [employer] [facility] 05-10-2024 14:20-0400 Diastolic blood pressure 43 mm[Hg] Luke E Jignesh PA-C Work Phone: [place] [employer] [facility]woodsLem[facility] [employer]; PreciadoDorsaVI. Comment on above: Patient Position: Sitting; Cuff Location : Left Arm; Cuff Size: Standard 05-10-2024 14:20-0400 Heart rate 76 /min Luke Toño GalvezJignesh PA-C Work Phone: [facility] [employer]; [employer]ado[employer] Comment on above: Pattern: Regular 05-10-2024 14:20-0400 Inhaled oxygen concentration 21 % Luke E Jignesh PA-C Work Phone: [place] [employer]; PreciadoDorsaVI. Comment on above: Room air 05-10-2024 14:20-0400 SaO2% (BldA) [Mass fraction] 96 % Luke Toño GalvezJignesh PA-C Work Phone: [facility] HospitalN[facility].; PreciadoINDOM [facility]woodsDiff[facility]. 05-10-2024 14:20-0400 Systolic blood pressure 85 mm[Hg] Gamaliel Egan PA-C Work Phone: [facility] HospitalN[facility].; PreciadoDorsaVI. Comment on above: Patient Position: Sitting; Cuff Location : Left Arm; Cuff Size: Standard 03-28-2024 13:51-0400 Body height 162.56 cm Gita Taylor MA [facility] HospitalN[facility].; [place] [employer]. 03-28-2024 13:51-0400 Body mass index (BMI) [Ratio] 31.93 kg/m2 Gita Taylor MA [facility] HospitalN[facility].; [place] [employer] [facility]. 03-28-2024 13:51-0400 Body surface area Derived from formula 1.9 m2 Gita Taylor MA [facility] HospitalN[facility].; [employer]. 03-28-2024 13:51-0400 Body weight 84.37 kg Gita Taylor MA [facility] HospitalN[facility].; [employer]DorsaVI. 03-28-2024 13:51-0400 Diastolic blood pressure 67 mm[Hg] Gita Taylor MA [facility] HospitalN[facility].; [employer]. Comment on above: Patient Position: Sitting; Cuff Location : Left Arm; Cuff Size: Standard 03-28-2024 13:51-0400 Heart rate 93 /min Gita Taylor MA [facility] HospitalN[facility].; [employer]iadoDorsaVI. Comment on above: Pattern: Regular 03-28-2024 13:51-0400 Systolic blood pressure 119 mm[Hg] Gita Taylor MA [facility] HospitalN[facility].; [employer]DorsaVI. Comment on above: Patient Position: Sitting; Cuff Location : Left Arm; Cuff Size: Standard 12-21-2023 11:13-0400 Diastolic blood pressure 60 mm[Hg] Gamaliel Egan PA-C Work Phone: [facility] HospitalDiff[facility].; [employer]adoDorsaVI. Comment on above: Patient Position: Sitting; Cuff Location : Left Arm; Cuff Size: Standard 12-21-2023 11:13-0400 Systolic blood pressure 100 mm[Hg] Gamaliel Egan PA-C Work Phone: [facility]; [facility] HospitalN[facility] Comment on above: Patient Position: Sitting; Cuff Location : Left Arm; Cuff Size: Standard 12-21-2023 09:08-0400 Body height 162.56 cm Aryan Huerta CREDIT ASSOCIATE [facility], [facility].; [facility]. 12-21-2023 09:08-0400 Body mass index (BMI) [Ratio] 32.1 kg/m2 Aryan Huerta [facility], [facility].; [facility], [facility]. 12-21-2023 09:08-0400 Body surface area Derived from formula 1.9 m2 Aryan Huerta [facility], [facility].; [facility], [facility]. 12-21-2023 09:08-0400 Body weight 84.82 kg Aryan Huerta CREDIT ASSOCIATE [facility], [facility].; [facility], [facility]. 12-21-2023 09:08-0400 Diastolic blood pressure 43 mm[Hg] Aryan Huerta [facility].; [facility] HospitalDiff[facility]. Comment on above: Patient Position: Sitting; Cuff Location : Left Arm; Cuff Size: Standard 12-21-2023 09:08-0400 Heart rate 85 /min Aryan Huerta CREDIT ASSOCIATE [facility], [facility].; [place] [employer] [facility], [employer]. Comment on above: Pattern: Regular 12-21-2023 09:08-0400 Systolic blood pressure 88 mm[Hg] Aryan Huerta CREDIT ASSOCIATE [facility], [facility].; [facility] HospitalDiff[facility]. Comment on above: Patient Position: Sitting; Cuff Location : Left Arm; Cuff Size: Standard 12-15-2023 08:57-0400 Body height 162.56 cm Aryan Huerta CREDIT ASSOCIATE [facility], [facility].; [facility], [facility]. 12-15-2023 08:57-0400 Body mass index (BMI) [Ratio] 32.1 kg/m2 Aryan Huerta LPN [facility], [facility].; [facility], [facility]. 12-15-2023 08:57-0400 Body surface area Derived from formula 1.9 m2 Aryan Huerta LPN [facility].; [facility], [facility]. 12-15-2023 08:57-0400 Body weight 84.82 kg Aryan Huerta LPN [facility].; [facility] 12-15-2023 08:57-0400 Diastolic blood pressure 65 mm[Hg] Aryan Huerta LPN [facility].; [employer] [facility], Inc. Comment on above: Patient Position: Sitting; Cuff Location : Left Arm; Cuff Size: Standard 12-15-2023 08:57-0400 Heart rate 80 /min Aryan Huerta LPN [facility].; [place] [employer] [facility], Inc. Comment on above: Pattern: Regular 12-15-2023 08:57-0400 Systolic blood pressure 108 mm[Hg] Aryan Huerta LPN [facility] [employer] [facility] Comment on above: Patient Position: Sitting; Cuff Location : Left Arm; Cuff Size: Standard 07-04-2023 10:59-0500 Body weight 83.46 kg Aryan Huerta LPN [facility], [facility]. 07-04-2023 10:59-0500 Diastolic blood pressure 63 mm[Hg] Aryan Huerta LPN [facility] [employer] [employer] Comment on above: Patient Position: Sitting; Cuff Location : Left Arm; Cuff Size: Standard 07-04-2023 10:59-0500 Heart rate 93 /min Aryan Huerta LPN [facility] [employer] [facility] Comment on above: Pattern: Regular 07-04-2023 10:59-0500 Systolic blood pressure 118 mm[Hg] Aryan Huerta LPN [facility] [place] [employer] [facility], [employer]. Comment on above: Patient Position: Sitting; Cuff Location : Left Arm; Cuff Size: Standard 05-05-2023 14:20-0400 Body height 162.56 cm Gita Taylor MA [facility], [facility].; [facility], [employer]. 05-05-2023 14:20-0400 Body mass index (BMI) [Ratio] 32.44 kg/m2 Gita Galford [facility], [facility].; [facility], [facility]. 05-05-2023 14:20-0400 Body surface area Derived from formula 1.91 m2 Gita Claudia [facility].; [facility], [facility]. 05-05-2023 14:20-0400 Body weight 85.73 kg Gitaoswaldo Parrycarisa [facility].; [facility], [facility]. 05-05-2023 14:20-0400 Diastolic blood pressure 71 mm[Hg] Gitaoswaldo Parrycarisa [facility].; [facility], [facility]. Comment on above: Patient Position: Sitting; Cuff Location : Left Arm; Cuff Size: Standard 05-05-2023 14:20-0400 Heart rate 90 /min Gitaoswaldo Parrycarisa [facility], [facility].; [place] [employer] [facility], [facility] Comment on above: Pattern: Regular 05-05-2023 14:20-0400 Systolic blood pressure 111 mm[Hg] Gita Claudia [facility], [facility].; [place] [employer] [facility], [facility] Comment on above: Patient Position: Sitting; Cuff Location : Left Arm; Cuff Size: Standard 12-29-2022 14:57-0400 Body weight 87.54 kg Aryan Huerta LPN [facility], [facility].; [place] [employer] [facility], [facility] 12-29-2022 14:57-0400 Diastolic blood pressure 67 mm[Hg] Aryan Huerta CREDIT ASSOCIATE [facility], [facility].; [place] [employer] [facility], [employer]. Comment on above: Patient Position: Sitting; Cuff Location : Left Arm; Cuff Size: Standard 12-29-2022 14:57-0400 Heart rate 70 /min Aryan Huerta LPN [facility], [facility].; [employer], [employer]. Comment on above: Pattern: Regular 12-29-2022 14:57-0400 Systolic blood pressure 120 mm[Hg] Aryan Bradley KRUSEN [facility] [place] [employer] [employer] Comment on above: Patient Position: Sitting; Cuff Location : Left Arm; Cuff Size: Standard 12-06-2022 10:03-0400 Body height 162.[address] Boy Peralta Work Phone: 3([phone] [place] [address] 12-06-2022 10:03-0400 Body mass index (BMI) [Ratio] 32.9 kg/m2 Dr. Boy Peralta Work Phone: [facility] 12-06-2022 10:03-0400 Body weight 87.[address] Boy Peralta Work Phone: [facility] 12-06-2022 10:03-0400 Diastolic blood pressure 51 mm[Hg] Dr. Boy Peralta Work Phone: 6(464)[phone] [place] [address] 12-06-2022 10:03-0400 Heart rate 72 /min Dr. Boy Peralta Work Phone: 6(628)[phone] [place] [address] 12-06-2022 10:03-0400 Respiratory rate 16 /min Dr. Boy Peralta Work Phone: [facility] 12-06-2022 10:03-0400 Systolic blood pressure 88 mm[Hg] Dr. Boy Peralta Work Phone: 1(202)[phone] [place] [address] 11-02-2022 13:50-0400 Body height 162.[address] Boy Peralta Work Phone: 6(012)[phone] [address] 11-02-2022 13:47-0400 Body mass index (BMI) [Ratio] 32.9 kg/m2 Dr. Boy Peralta Work Phone: [facility] 11-02-2022 13:47-0400 Body weight 87.[address] Boy Peralta Work Phone: [facility] 11-02-2022 13:47-0400 Diastolic blood pressure 67 mm[Hg] Dr. Boy Peralta Work Phone: [facility] 11-02-2022 13:47-0400 Heart rate 64 /min Dr. Boy Peralta Work Phone: [facility] 11-02-2022 13:47-0400 Respiratory rate 18 /min Dr. Boy Peralta Work Phone: [facility] 11-02-2022 13:47-0400 SaO2% (BldA) [Mass fraction] 92 % Dr. Boy Peralta Work Phone: [facility] 11-02-2022 13:47-0400 Systolic blood pressure 115 mm[Hg] Dr. Boy Peralta Work Phone: [facility] 02-26-2019 10:51-0400 Body height 162.56 cm Radha Graves [facility], [facility].; [employer] [employer] 02-26-2019 10:51-0400 Body mass index (BMI) [Ratio] 32.61 kg/m2 [facility] [employer] [employer] 02-26-2019 10:51-0400 Body surface area Derived from formula 1.91 m2 [facility].; [employer] [employer] 02-26-2019 10:51-0400 Body weight 86.18 kg [facility] [employer] [facility] [employer] [employer] 02-26-2019 10:51-0400 Diastolic blood pressure 71 mm[Hg] LucinaMariam Graves [facility] [employer] [facility], [facility].; [employer], [employer] Comment on above: Patient Position: Sitting; Cuff Location : Left Arm; Cuff Size: Large 02-26-2019 10:51-0400 Heart rate 94 /min [facility] [employer], [employer] Comment on above: Pattern: Regular 02-26-2019 10:51-0400 Systolic blood pressure 135 mm[Hg] Radha Graves [facility].; [employer] [employer] Comment on above: Patient Position: Sitting; Cuff Location : Left Arm; Cuff Size: Large 07-27-2018 09:30-0500 Body height 162.56 cm Elidia Lazo RN [place] [employer] [facility], [facility] [employer] [employer] 07-27-2018 09:30-0500 Body mass index (BMI) [Ratio] 29.87 kg/m2 Elidia Lazo RN [place] [employer] [facility], [facility].; [employer] [employer] 07-27-2018 09:30-0500 Body surface area Derived from formula 1.84 m2 Elidia Lazo RN [employer] [employer] [employer] 07-27-2018 09:30-0500 Body weight 78.93 kg Elidia Lazo RN [employer], [employer] 07-27-2018 09:30-0500 Diastolic blood pressure 64 mm[Hg] Elidia Lazo RN [id number]. Comment on above: Patient Position: Sitting; Cuff Location : Left Arm; Cuff Size: Standard 07-27-2018 09:30-0500 Heart rate 93 /min Elidai Lazo RN [id number], [employer]. Comment on above: Pattern: Regular 07-27-2018 09:30-0500 Systolic blood pressure 114 mm[Hg] Elidia Lazo RN [employer] [employer]. Comment on above: Patient Position: Sitting; Cuff Location : Left Arm; Cuff Size: Standard 07-19-2018 11:09-0500 Body height 162.56 cm Stormy Mckeon LPN [employer] [employer].; [employer] [employer] 07-19-2018 11:09-0500 Body mass index (BMI) [Ratio] 30.72 kg/m2 Stormy Mckeon LPN [employer] [employer] [employer] [employer] 07-19-2018 11:09-0500 Body surface area Derived from formula 1.87 m2 Stormy Mckeon LPN [employer] [employer] [employer] 07-19-2018 11:09-0500 Body weight 81.19 kg Stormy Mckeon LPN [employer]. 07-19-2018 11:09-0500 Diastolic blood pressure 56 mm[Hg] Stormy Mkceon LPN [id number]. Comment on above: Patient Position: Sitting; Cuff Location : Left Arm; Cuff Size: Standard 07-19-2018 11:09-0500 Heart rate 111 /min Stormy Mckeon LPN [employer] [employer]. Comment on above: Pattern: Regular 07-19-2018 11:09-0500 Inhaled oxygen concentration 21 % Stormy Musaach [facility].; [employer]. Comment on above: Room air 07-19-2018 11:09-0500 SaO2% (BldA) [Mass fraction] 89 % Stormy Abbasi Linda [facility] [employer] [facility]. 07-19-2018 11:09-0500 Systolic blood pressure 139 mm[Hg] Stormy Abbasi Linda [facility] [employer] [facility]. Comment on above: Patient Position: Sitting; Cuff Location : Left Arm; Cuff Size: Standard 04-18-2018 11:38-0400 Body height 162.56 cm Monicahimanshu Toledorima [facility] [employer] [facility], [facility]. 04-18-2018 11:38-0400 Body mass index (BMI) [Ratio] 31.75 kg/m2 Monica Toledoriam [facility] [employer] [facility], [facility]. 04-18-2018 11:38-0400 Body surface area Derived from formula 1.89 m2 Monicahimanshu Toledorima [facility] [employer], [facility].; [employer], [employer]. 04-18-2018 11:38-0400 Body weight 83.92 kg Monicahimanshu Toledorima [facility] [employer], [facility].; [facility]. 04-18-2018 11:38-0400 Diastolic blood pressure 70 mm[Hg] [facility]imanshu [facility]ima [facility]. Comment on above: Patient Position: Sitting; Cuff Location : Left Arm; Cuff Size: Standard 04-18-2018 11:38-0400 Heart rate 98 /min Monicahimanshu [facility]orima [facility], [employer]. Comment on above: Pattern: Regular 04-18-2018 11:38-0400 Inhaled oxygen concentration 21 % Monicahimanshu Toledobaugh [facility]. Comment on above: Room air 04-18-2018 11:38-0400 SaO2% (BldA) [Mass fraction] 91 % Monica Toledorima DEAN [employer]. 04-18-2018 11:38-0400 Systolic blood pressure 141 mm[Hg] Monicahimanshu Toledorima KRUSEN [employer] [facility]. Comment on above: Patient Position: Sitting; Cuff Location : Left Arm; Cuff Size: Standard 09-21-2017 13:32-0500 Body height 162.56 cm Luke Jignesh PA-C Work Phone: [employer]. 09-21-2017 13:32-0500 Body mass index (BMI) [Ratio] 31.41 kg/m2 Luke Jignesh PA-C Work Phone: [employer]. 09-21-2017 13:32-0500 Body surface area Derived from formula 1.88 m2 Luke Jignesh PA-C Work Phone: [facility].; [facility]. 09-21-2017 13:32-0500 Body weight 83.01 kg Luke Jignesh PA-C Work Phone: [employer]. 09-21-2017 13:32-0500 Diastolic blood pressure 79 mm[Hg] Luke Jignesh PA-C Work Phone: [employer]. Comment on above: Patient Position: Sitting; Cuff Location : Left Arm; Cuff Size: Standard 09-21-2017 13:32-0500 Heart rate 108 /min Luke Jignesh PA-C Work Phone: [facility].; [facility]. Comment on above: Pattern: Regular 09-21-2017 13:32-0500 Systolic blood pressure 121 mm[Hg] Luke Jignesh PA-C Work Phone: [employer]. Comment on above: Patient Position: Sitting; Cuff Location : Left Arm; Cuff Size: Standard 07-20-2017 11:12-0500 Body height 162.56 cm Stormy Abbasi Linda CREDIT ASSOCIATE [employer] [employer] [facility]. 07-20-2017 11:12-0500 Body mass index (BMI) [Ratio] 31.58 kg/m2 Stormy M Linda CREDIT ASSOCIATE [facility]. 07-20-2017 11:12-0500 Body surface area Derived from formula 1.89 m2 Stormy Abbasi Linda CREDIT ASSOCIATE [employer]. 07-20-2017 11:12-0500 Body weight 83.46 kg Stormy Abbasi Linda CREDIT ASSOCIATE [employer]. 07-20-2017 11:12-0500 Diastolic blood pressure 68 mm[Hg] Stormy Monteirolabach CREDIT ASSOCIATE [employer]. Comment on above: Patient Position: Sitting; Cuff Location : Right Arm; Cuff Size: Standard 07-20-2017 11:12-0500 Heart rate 96 /min Stormy Monteirolabach CREDIT ASSOCIATE [employer]. Comment on above: Pattern: Regular 07-20-2017 11:12-0500 Systolic blood pressure 130 mm[Hg] Stormy M Linda CREDIT ASSOCIATE [employer]. Comment on above: Patient Position: Sitting; Cuff Location : Right Arm; Cuff Size: Standard 01-28-2017 15:31-0400 Body height 162.56 cm Elidia Lazo RN [employer]. 01-28-2017 15:31-0400 Body mass index (BMI) [Ratio] 29.87 kg/m2 Elidia Lazo RN [place] [employer], [employer] [facility]. 01-28-2017 15:31-0400 Body surface area Derived from formula 1.84 m2 Elidia Laoz RN [facility], [employer]. 01-28-2017 15:31-0400 Body weight 78.93 kg Elidia Lazo RN [employer], [employer].; [facility]. 01-28-2017 15:31-0400 Diastolic blood pressure 57 mm[Hg] Elidia Lazo RN [employer]. Comment on above: Patient Position: Sitting; Cuff Location : Right Arm; Cuff Size: Standard 01-28-2017 15:31-0400 Heart rate 81 /min Elidia Lazo RN [employer]. Comment on above: Pattern: Regular 01-28-2017 15:31-0400 Systolic blood pressure 120 mm[Hg] Elidia Lazo RN [employer], [employer].; [facility]. Comment on above: Patient Position: Sitting; Cuff Location : Right Arm; Cuff Size: Standard 10-07-2016 13:52-0500 Body height 162.56 cm Sophie Magana LPN [employer], [employer].; [employer], [employer]. 10-07-2016 13:52-0500 Body mass index (BMI) [Ratio] 29.52 kg/m2 Sophie Magana LPN [employer] [employer] [employer] [employer] 10-07-2016 13:52-0500 Body surface area Derived from formula 1.83 m2 Sophie Magana LPN [employer] [employer] [employer], [employer]. 10-07-2016 13:52-0500 Body temperature 98.7 [degF] Sophie Magana LPN [employer]. Comment on above: Method: Tympanic 10-07-2016 13:52-0500 Body weight 78.02 kg Sophie Magana LPN [employer] [employer] [employer] [employer] 10-07-2016 13:52-0500 Diastolic blood pressure 76 mm[Hg] Sophie Magana LPN [employer] [employer]. Comment on above: Patient Position: Sitting; Cuff Location : Left Arm; Cuff Size: Standard 10-07-2016 13:52-0500 Heart rate 78 /min Sophie Lizzy Magana LPN [employer] [facility], [facility]. Comment on above: Pattern: Regular 10-07-2016 13:52-0500 Systolic blood pressure 129 mm[Hg] Sophie Lizzy Magana LPN [place] [employer] [facility], [facility].; [employer] [employer] Comment on above: Patient Position: Sitting; Cuff Location : Left Arm; Cuff Size: Standard 09-23-2016 10:52-0500 Body height 162.56 cm Sophie Lizzy Magana LPN [place] [employer] [facility], [facility] [employer], [employer]. 09-23-2016 10:52-0500 Body mass index (BMI) [Ratio] 31.75 kg/m2 Sophie Magana CREDIT ASSOCIATE [place] [employer] [facility], [facility].; [employer] [employer] 09-23-2016 10:52-0500 Body surface area Derived from formula 1.89 m2 Sophie Magana LPN [place] [employer] [facility], [facility] [employer] [employer] 09-23-2016 10:52-0500 Body temperature 97.9 [degF] Sophie Lizzy Magana CREDIT ASSOCIATE [employer] [employer], [employer]. Comment on above: Method: Tympanic 09-23-2016 10:52-0500 Body weight 83.92 kg Sophieac Magana LPN [employer] [employer] [employer] [employer] 09-23-2016 10:52-0500 Diastolic blood pressure 61 mm[Hg] Sophieac Magana LPN [employer] [employer], [employer]. Comment on above: Patient Position: Sitting; Cuff Location : Left Arm; Cuff Size: Standard 09-23-2016 10:52-0500 Heart rate 76 /min Sophieac Magana LPN [employer] [employer] [facility]. Comment on above: Pattern: Regular 09-23-2016 10:52-0500 Inhaled oxygen concentration 21 % Sophie Magana LPN [employer] [facility], [facility]. Comment on above: Room air 09-23-2016 10:52-0500 SaO2% (BldA) [Mass fraction] 92 % Sophie Magana [facility] [employer], [employer]. 09-23-2016 10:52-0500 Systolic blood pressure 113 mm[Hg] Sophie Magana CREDIT ASSOCIATE [facility] [employer], [employer]. Comment on above: Patient Position: Sitting; Cuff Location : Left Arm; Cuff Size: Standard 04-26-2016 12:57-0400 Body height 162.56 cm Sophie Magana [facility] [employer], [employer]. 04-26-2016 12:57-0400 Body mass index (BMI) [Ratio] 31.75 kg/m2 Sophie Magana [facility] [employer], [employer]. 04-26-2016 12:57-0400 Body surface area Derived from formula 1.89 m2 Sophie Magana CREDIT ASSOCIATE [place] [employer] [facility] [employer], [employer]. 04-26-2016 12:57-0400 Body weight 83.92 kg Sophieac Magana [facility] [employer] [facility], [facility] [employer], [employer]. 04-26-2016 12:57-0400 Diastolic blood pressure 73 mm[Hg] Sophieac Magana CREDIT ASSOCIATE [place] [employer] [facility], [facility] [employer], [employer]. Comment on above: Patient Position: Sitting; Cuff Location : Right Arm; Cuff Size: Standard 04-26-2016 12:57-0400 Heart rate 98 /min Sophie Magana CREDIT ASSOCIATE [place] [employer] [facility] [employer], [employer]. Comment on above: Pattern: Regular 04-26-2016 12:57-0400 Systolic blood pressure 143 mm[Hg] Sophie Lizzy Magana [facility] [facility], [facility] [employer], [employer]. Comment on above: Patient Position: Sitting; Cuff Location : Right Arm; Cuff Size: Standard 04-05-2016 14:55-0400 Body weight 86.64 kg Andie Garza CREDIT ASSOCIATE [employer] [facility], [facility] [employer], [employer]. 04-05-2016 14:55-0400 Diastolic blood pressure 71 mm[Hg] Andie Garza JERMAINE [facility] [employer] [facility], [employer]. Comment on above: Patient Position: Sitting; Cuff Location : Left Arm; Cuff Size: Standard 04-05-2016 14:55-0400 Heart rate 97 /min Andie Garza [facility] [employer], [employer]. Comment on above: Pattern: Regular 04-05-2016 14:55-0400 Systolic blood pressure 120 mm[Hg] Andie Garza CREDIT ASSOCIATE [facility] [employer], [employer]. Comment on above: Patient Position: Sitting; Cuff Location : Left Arm; Cuff Size: Standard 11-26-2015 13:59-0400 Body height 162.56 cm Radha Graves [facility], [facility].; [employer] 11-26-2015 13:59-0400 Body mass index (BMI) [Ratio] 31.75 kg/m2 Radha Graves [facility] [employer] [facility] 11-26-2015 13:59-0400 Body surface area Derived from formula 1.89 m2 Radha Graves [facility] [employer], [employer]. 11-26-2015 13:59-0400 Body temperature 98.9 [degF] LucinaMariam Graves [facility] [employer], [employer]. Comment on above: Method: Tympanic 11-26-2015 13:59-0400 Body weight 83.92 kg Radha Graves [facility] [employer] [facility] 11-26-2015 13:59-0400 Diastolic blood pressure 73 mm[Hg] Radha Graves [facility] [employer], [employer]. Comment on above: Patient Position: Sitting; Cuff Location : Left Arm; Cuff Size: Large 11-26-2015 13:59-0400 Heart rate 106 /min Radha Graves [facility] [employer], [employer]. Comment on above: Pattern: Regular 11-26-2015 13:59-0400 Systolic blood pressure 146 mm[Hg] Radha Graves [facility] [employer] [facility], [employer]. Comment on above: Patient Position: Sitting; Cuff Location : Left Arm; Cuff Size: Large 09-16-2015 08:52-0500 Body height 162.56 cm Radha Graves JERMAINE [facility] [employer] [employer] 09-16-2015 08:52-0500 Body mass index (BMI) [Ratio] 29.87 kg/m2 Radha Graves CREDIT ASSOCIATE [facility] [employer] [facility] 09-16-2015 08:52-0500 Body surface area Derived from formula 1.84 m2 Radha Graves CREDIT ASSOCIATE [facility] [employer] 09-16-2015 08:52-0500 Body weight 78.93 kg Radha Graves CREDIT ASSOCIATE [facility] [employer] [employer] 09-16-2015 08:52-0500 Diastolic blood pressure 78 mm[Hg] Radha Graves CREDIT ASSOCIATE [facility] [employer] [employer] Comment on above: Patient Position: Sitting; Cuff Location : Left Arm; Cuff Size: Large 09-16-2015 08:52-0500 Heart rate 102 /min Radha Graves CREDIT ASSOCIATE [facility] [employer] [employer] Comment on above: Pattern: Regular 09-16-2015 08:52-0500 Systolic blood pressure 122 mm[Hg] Radha Graves CREDIT ASSOCIATE [facility] [employer] [employer] Comment on above: Patient Position: Sitting; Cuff Location : Left Arm; Cuff Size: Large 08-04-2015 09:33-0500 Body height 162.56 cm Sophie Magana LPN [facility] [employer] [employer] 08-04-2015 09:33-0500 Body mass index (BMI) [Ratio] 28.67 kg/m2 Sophie Magana LPN [facility] [employer] [employer] 08-04-2015 09:33-0500 Body surface area Derived from formula 1.81 m2 Sophie Magana LPN [place] [employer] [facility], [facility] [employer] [employer] 08-04-2015 09:33-0500 Body weight 75.75 kg Sophie Lizzy Magana CREDIT ASSOCIATE [employer] [employer] 08-04-2015 09:33-0500 Diastolic blood pressure 74 mm[Hg] Sophie Lizzy Magana LPN [employer] [employer] [employer] [employer] Comment on above: Patient Position: Sitting; Cuff Location : Left Arm; Cuff Size: Standard 08-04-2015 09:33-0500 Heart rate 84 /min Sophie Lizzy Magana LPN [employer] [employer] [employer] [employer] Comment on above: Pattern: Regular 08-04-2015 09:33-0500 Systolic blood pressure 121 mm[Hg] Sophie Lizzy Magana CREDIT ASSOCIATE [employer] [employer] [employer] Comment on above: Patient Position: Sitting; Cuff Location : Left Arm; Cuff Size: Standard 07-17-2015 10:33-0500 Body weight 76.2 kg Radha Graves CREDIT ASSOCIATE [employer] [employer] [employer] 07-17-2015 10:33-0500 Diastolic blood pressure 68 mm[Hg] Radha Graves CREDIT ASSOCIATE [employer] [employer] [employer] [employer] Comment on above: Patient Position: Sitting; Cuff Location : Left Arm; Cuff Size: Large 07-17-2015 10:33-0500 Heart rate 77 /min Radha Graves CREDIT ASSOCIATE [facility] [employer] [employer] Comment on above: Pattern: Regular 07-17-2015 10:33-0500 Systolic blood pressure 122 mm[Hg] Radha Graves CREDIT ASSOCIATE [employer] [employer]. Comment on above: Patient Position: Sitting; Cuff Location : Left Arm; Cuff Size: Large 07-12-2015 09:42-0500 Body weight 76.2 kg Stormy Mckeon LPN [facility] [employer] [employer] 07-12-2015 09:42-0500 Diastolic blood pressure 70 mm[Hg] Stormy Mckeon LPN [employer] [facility] Comment on above: Patient Position: Sitting; Cuff Location : Left Arm; Cuff Size: Standard 07-12-2015 09:42-0500 Heart rate 91 /min Stormy Mckeon LPN [facility], [facility], [facility]. Comment on above: Pattern: Regular 07-12-2015 09:42-0500 Systolic blood pressure 119 mm[Hg] Stormy Mckeon LPN [facility], [facility].; [facility], [facility]. Comment on above: Patient Position: Sitting; Cuff Location : Left Arm; Cuff Size: Standard Encounters Encounter Date Encounter Type Care Provider Facility Start: 07-02-2025 ambulatory Gamaliel Valeroi ty:[facility] Start: 05-24-2025 End: 05-24-2025 Patient encounter procedure Malou MURPHY -[facility] Work Phone: Start: 05-24-2025 End: 05-24-2025 ambulatory Gamaliel MURPHY Work Phone: -[facility] Start: 11-29-2024 Non-patient / Non-visit Dr. Josh monreal MD -[facility] Start: 11-29-2024 End: 11-29-2024 ambulatory Gamaliel MURPHY Work Phone: [facility] Work Phone: Start: 11-29-2024 End: 11-29-2024 Patient encounter procedure Keyona MURPHY -Cardiovascular Services Work Phone: Start: 11-29-2024 End: 11-29-2024 ambulatory Keyona Rodriguez Facility:[facility] Start: 11-23-2024 End: 11-23-2024 Patient encounter procedure Malou MURPHY -[facility] Work Phone: Start: 11-23-2024 End: 11-23-2024 ambulatory Malou MURPHY Facility:[facility] Start: 11-14-2024 End: 11-14-2024 Patient encounter procedure Keyona MURPHY -[facility] Work Phone: Start: 11-14-2024 End: 11-14-2024 ambulatory Luparas SteveJignesh Facility:[facility] Start: 07-18-2024 End: 07-18-2024 ambulatory Luke Jignesh Facility:[facility] Start: 07-02-2024 ambulatory Lidia Gaona RISK CONTROL CONSULTANT Facili ty:[facility] Start: 07-02-2024 ambulatory Nirva Peña Facility:[facility] Start: 07-02-2024 End: 07-02-2024 ambulatory Lidia Gaona NP Facility:[facility] Start: 06-22-2024 End: 06-22-2024 Office outpatient visit 25 minutes Luke Jignesh PA-C Work Phone: [facility]. Start: 06-22-2024 Review Luke Hochstetl er PA-C Work Phone: [facility]. Start: 05-14-2024 End: 05-14-2024 Orders Luke Jignesh PA-C Work Phone: [facility]. Start: 05-10-2024 End: 05-10-2024 Office outpatient visit 25 minutes Luke Jignesh PA-C Work Phone: [facility]. Start: 05-09-2024 End: 05-09-2024 Telephone follow-up Luke Jignesh PA-C Work Phone: [facility]. Start: 03-28-2024 End: 03-28-2024 Office outpatient visit 15 minutes Luke Jignesh PA-C Work Phone: [facility]. Start: 03-28-2024 Review Luke Hochstetl er PA-C Work Phone: [facility]. Start: 03-16-2024 End: 03-16-2024 Telephone follow-up Luke Jignesh PA-C Work Phone: [facility]. Start: 02-27-2024 End: 02-27-2024 Historical Summary Luke Jignesh PA-C Work Phone: [facility]. Start: 12-26-2023 End: 12-26-2023 Orders Luke Jignesh PA-C Work Phone: [facility]. Start: 12-22-2023 End: 12-22-2023 ambulatory GAMALIEL EGAN [facility] Start: 12-21-2023 End: 12-21-2023 Patient encounter procedure Luke Jignesh PA-C Work Phone: [facility]. Start: 12-21-2023 End: 12-21-2023 Physical examination Luke E Jignesh PA-C Work Phone: [employer]; [facility]. Start: 12-21-2023 Review Luke Hochstetl er PA-C Work Phone: [facility] Start: 12-15-2023 End: 12-16-2023 Office outpatient visit 25 minutes Luke Jignesh PA-C Work Phone: [facility]. Start: 12-15-2023 Review Luke Hochstetl er PA-C Work Phone: [employer] Start: 11-23-2023 End: 11-23-2023 Orders Luke Jignesh PA-C Work Phone: [facility] Start: 07-04-2023 End: 07-04-2023 Office outpatient visit 15 minutes Luke Jignesh PA-C Work Phone: [facility]. Start: 05-05-2023 End: 05-05-2023 Office outpatient visit 25 minutes Luke Jignesh PA-C Work Phone: [employer] Start: 03-22-2023 End: 03-22-2023 Emergency department patient visit KADEN JETT [facility] Start: 02-16-2023 End: 02-16-2023 Office outpatient visit 25 minutes Luke [facility]ignesh [facility]C [facility] Start: 01-07-2023 End: 01-07-2023 Medication Gamaliel MURPHY-C Work Phone[facility] Start: 12-30-2022 End: 12-30-2022 ambulatory GAMALIEL EGAN [facility] Start: 12-29-2022 End: 12-30-2022 Patient encounter procedure Gamaliel MURPHY-C [facility] Start: 12-17-2022 Non-patient / Non-visit Dr. Trinidad Peralta Work Phone: [facility] Start: 12-17-2022 End: 12-17-[address] Boy Peralta Work Phone: [facility] Work Phone: Start: 12-17-2022 End: 12-17-[address] Boy Peralta Work Phone: [facility]-Cardiovascul ar Services Start: 12-06-2022 End: 12-06-[address] Boy Peralta Work Phone: [facility] Start: 11-02-2022 End: 11-02-[address] Boy Peralta Work Phone: [facility] Work Phone: Start: 11-02-2022 End: 11-02-[address] Boy Peralta Work Phone: [facility] Start: 05-29-2020 End: 05-29-2020 Phys/qhp telephone evaluation 5-10 min Gamaliel MURPHY-C Work Phone: [facility] Start: 05-27-2020 End: 05-27-2020 Telephone follow-up Gamaliel MURPHY-C Work Phone: [facility]. Start: 03-13-2020 End: 03-13-2020 Telephone follow-up Luke Jignesh PA-C Work Phone: [facility]. Start: 02-27-2020 End: 02-27-2020 Telephone follow-up Luke Jigensh PA-C Work Phone: [facility]. Start: 06-28-2019 End: 06-28-2019 Medication Luke Jignesh PA-C Work Phone: [facility]. Start: 02-26-2019 End: 02-26-2019 Office outpatient visit 15 minutes Luke Jignesh PA-C Work Phone: [facility]. Start: 02-21-2019 End: 02-21-2019 Telephone follow-up Luke Jignesh PA-C Work Phone: [employer] Start: 07-27-2018 End: 07-27-2018 Office outpatient visit 15 minutes Luke Jignesh PA-C Work Phone: [facility]. Start: 07-25-2018 End: 07-25-2018 Telephone follow-up Luke Jignesh PA-C Work Phone: [employer] Start: 07-19-2018 End: 07-21-2018 Office outpatient visit 25 minutes Luke Jignesh PA-C Work Phone: [facility]. Start: 04-18-2018 End: 04-18-2018 Office outpatient visit 15 minutes Luke Jignesh PA-C Work Phone: [facility]. Start: 09-21-2017 End: 09-21-2017 Office outpatient visit 15 minutes Luke Jignesh PA-C Work Phone: [employer] Start: 07-20-2017 End: 07-21-2017 Office outpatient visit 15 minutes Luke Jignesh PA-C Work Phone: [facility]. Start: 02-28-2017 End: 02-28-2017 Historical Summary Luke Jignesh PA-C Work Phone: [facility]. Start: 02-25-2017 End: 02-25-2017 Ambulatory ADNIEL Kohli ERIC [facility] Start: 01-28-2017 End: 01-28-2017 Office outpatient visit 15 minutes Luke Jignesh PA-C Work Phone: [facility]. Start: 10-07-2016 End: 10-07-2016 Patient encounter procedure Luke Jignesh PA-C Work Phone: [facility]. Start: 09-23-2016 End: 09-23-2016 Patient encounter procedure Luke Jignesh PA-C Work Phone: [employer] Start: 09-22-2016 End: 09-22-2016 Historical Summary Luke Jignesh PA-C Work Phone: [employer] Start: 04-26-2016 End: 04-26-2016 Patient encounter procedure Luke Jignesh PA-C Work Phone: [facility]. Start: 04-16-2016 End: 04-20-2016 Orders Luke Jignesh PA-C Work Phone: [facility]. Start: 04-15-2016 End: 04-15-2016 Orders Luke Jignesh PA-C Work Phone: [facility]. Start: 04-13-2016 End: 04-13-2016 Nursing evaluation of patient and report Luke Jignesh PA-C Work Phone: [facility]. Start: 04-05-2016 End: 04-05-2016 Office outpatient visit 15 minutes Luke Jignesh PA-C Work Phone: [employer] Start: 03-16-2016 End: 03-16-2016 Nursing evaluation of patient and report Luke Jignesh PA-C Work Phone: [facility]. Start: 02-13-2016 End: 02-13-2016 Orders Luke Jignesh PA-C Work Phone: [facility]. Start: 01-16-2016 End: 01-16-2016 Nursing evaluation of patient and report Luke Jignesh PA-C Work Phone: [facility]. Start: 12-08-2015 End: 12-08-2015 Nursing evaluation of patient and report Luke Jignesh PA-C Work Phone: [employer] Start: 11-26-2015 End: 11-26-2015 Office outpatient visit 15 minutes Luke Jignesh PA-C Work Phone: [employer] Start: 11-03-2015 End: 11-03-2015 Nursing evaluation of patient and report Luke Jignesh PA-C Work Phone: [employer] Start: 09-29-2015 End: 09-29-2015 Nursing evaluation of patient and report Luke Jignesh PA-C Work Phone: [facility]. Start: 09-16-2015 End: 09-16-2015 Office outpatient visit 15 minutes Luke Jignesh PA-C Work Phone: [employer] Start: 09-08-2015 End: 09-08-2015 Nursing evaluation of patient and report Luke Jignesh PA-C Work Phone: [employer] Start: 08-18-2015 End: 08-18-2015 Medication Luke Jignesh PA-C Work Phone: [facility]. Start: 08-18-2015 End: 08-18-2015 Nursing evaluation of patient and report Luke Jignesh PA-C Work Phone: [employer] Start: 08-04-2015 End: 08-04-2015 Office outpatient visit 15 minutes Luke Jignesh PA-C Work Phone: [employer] Start: 08-01-2015 End: 08-01-2015 Orders Luke Jignesh PA-C Work Phone: [facility] Start: 07-28-2015 End: 07-28-2015 Orders Luke Jignesh PA-C Work Phone: [facility] Start: 07-21-2015 End: 07-21-2015 Medication Luke Jignesh PA-C Work Phone: [facility] Start: 07-21-2015 End: 07-21-2015 Nursing evaluation of patient and report Luke Jignesh PA-C Work Phone: [employer] Start: 07-17-2015 End: 07-17-2015 Office outpatient visit 15 minutes Luke Jignesh PA-C Work Phone: [employer] Start: 07-15-2015 End: 07-15-2015 Nursing evaluation of patient and report Luke Jignesh PA-C Work Phone: [employer] Start: 07-14-2015 End: 07-14-2015 Medication Luke Jignesh PA-C Work Phone: [employer] Start: 07-14-2015 End: 07-14-2015 Nursing evaluation of patient and report Luke Jignesh PA-C Work Phone: [employer] Start: 07-12-2015 End: 07-12-2015 Patient encounter procedure Luke Jignesh PA-C Work Phone: [employer] Procedures Date Procedure Procedure Detail Performing Clinician Start: 02-24-2024 End: 02-24-2024 Examination of retina Elidia grover RN Comment on above: Negative Finding. Start: 12-21-2023 End: 12-21-2023 Depression screening Gasperparas Lundberg Jignesh PA-C Work Phone: Start: 12-21-2023 End: 12-21-2023 Falls risk assessment documented Gamaliel Toño Jignesh PA-C Work Phone: Start: 12-21-2023 End: 12-21-2023 Pos clin depres scrn f/u doc Gasperke Toño Jignesh PA-C Work Phone: Start: 12-21-2023 End: 12-21-2023 Pt falls assess docd w/o fall/injury past year Gasperke Toño Jignesh PA-C Work Phone: Start: 12-15-2023 End: 12-22-2023 Duplex scan extracranial art compl bi study Gamaliel Steveetler PA-C Work Phone: Start: 12-15-2023 End: 12-15-2023 Cobalamin (Vitamin B12) [Mass/volume] in Serum or Plasma Aryan Huerta LPN Comment on above: 918 Start: 12-15-2023 End: 12-15-2023 Lab findings surveillance Aryan Huerta LPN Comment on above: CMP 105 Start: 12-15-2023 End: 12-15-2023 Lipid panel Aryan Huerta LPN Comment on above: Results:. TC 252, HD L 44, TRI 198, LDL 172 Start: 12-15-2023 End: 12-15-2023 Thyrotropin [Units/volume] in Serum or Plasma Aryan Huerta LPN Comment on above: 1.66 Start: 12-29-2022 End: 01-07-2023 Mri brain brain stem w/o contrast material Gamaliel Galvezstetler PA-C Work Phone: Start: 12-29-2022 End: 12-29-2022 Scr dep neg, no plan reqd Gamaliel Lundberg Jignesh PA-C Work Phone: Start: 07-27-2018 End: 07-27-2018 Docrev cur meds by puma Peralta MD Work Phone: Start: 07-25-2018 End: 07-25-2018 Dischrg meds reconciled w/current med list Piedad Ortega LPN Work Phone: Start: 04-18-2018 End: 04-24-2018 Radiologic exam chest 2 views Boy Peralta MD Work Phone: Start: 07-20-2017 End: 07-20-2017 Body mass index documented Boy Peralta MD Work Phone: Start: 02-25-2017 End: 02-25-2017 Screening colonoscopy Elidia grover RN Comment on above: diverticula Start: 09-23-2016 End: 09-23-2016 Lab findings surveillance Elidia Lazo RN Comment on above: glucose-113 Start: 09-10-2016 History of coronary artery bypass grafting H/O coronary artery bypass surgery Malou MURPHY Comment on above: CABG x 5-LOPEZ to LAD , SVG-D1, SVG-OM1, Sequential SVG-RPDA and acute marginal 09/10/2016 Start: 09-07-2016 End: 09-07-2016 Lipid panel Elidia Lazo RN Comment on above: Results:. chol-265, Trig-234, HDL-37, LDL-181 Start: 04-26-2016 End: 04-26-2016 Triamcinolone acet inj NOS Boy Peralta MD Work Phone: Start: 04-16-2016 End: 04-22-2016 Ct cervical spine w/o contrast material Boy Peralta MD Work Phone: Start: 04-15-2016 End: 04-22-2016 Ct head/brain w/o contrast material Boy Peralta MD Work Phone: Start: 08-22-2008 History of placement of stent for coronary artery disease History of coronary artery stent placement Dr. Boy Peralta Work Phone: Comment on above: EVL-YHT-Eodl LCx 12/14; JVH-LTKY-Qlmr Ramus 08/22/2008 History of carotid endarterectomy History of carotid endarterectomy Gamaliel MURPHY Work Phone: Plan of Treatment Date Care Activity Detail Author Start: 06-05-2025 Patient encounter procedure Me dical; EXTENDED RTN - rtn [facility] Start: 05-Jun-2025 10:00-04:00 KATE Egan Appointment Request [facility] Start: 06-22-2024 Patient encounter procedure Me dical; EXTENDED RTN - 6 mo rtn [facility] Start: 22-Jun-2024 09:50-05:00 KATE Egan Appointment Request [facility] Start: 05-14-2024 Basic metabolic pane l calcium total BMP w/ GFR (M) (31834) Start: 14-May-2024 Request [facility] Start: 05-14-2024 Nursing evaluation o f patient and report Medical; Nurse visit - fasting labs-[facility] Start: 14-May-2024 08:30-04:00 NURSE, FLOAT Appointment Request [facility] Start: 05-10-2024 Patient encounter procedure Me dical; [facility] 05/08 HF, [facility], [facility] Start: 10-May-2024 14:20-04:00 KATE Egan Appointment Request [facility] Start: 03-28-2024 Patient encounter procedure Me dical; [facility] Start: 28-Mar-2024 14:00-04:00 KATE Egan Appointment Request [facility] Start: 12-21-2023 Patient encounter procedure Me dical; [facility] Start: 21-Dec-2023 09:00-04:00 KATE Egan Appointment Request [facility] Start: 12-15-2023 End: 12-16-2023 Duplex scan extracranial art compl bi study [facility]. Start: 12-15-2023 Assay of thyroid stimulating hormone tsh [facility]. Start: 12-15-2023 Blood count complete auto&auto difrntl wbc [facility]; [facility] Start: 12-15-2023 Comprehensive metabo lic panel [facility]; [facility] Start: 12-15-2023 Lipid panel [facility]; [facility] Start: 12-15-2023 Cyanocobalamin vitamin b-12 TAMIN B-12 SERUM (92495) Start: 15-Dec-2023 09:51-04:00 Request [facility]; [facility] Start: 12-15-2023 Nursing evaluation o f patient and report Medical; Nurse visit - [facility] Start: 15-Dec-2023 09:00-04:00 NURSE, FLOAT Appointment Request [facility] Payers Date Payer Category Payer Self-pay [id number] 2024 Unknown [id number] 1945 Unknown [id number] 2.16.8 [id number] 1945 Unknown [id number] 2.16.8 [id number] 1945 Unknown [id number] 2.16.84 [id number] Unknown [facility] [employer] . [id number] Unknown [id number] Unknown Unknown [id number] 2.16.8 [id number] Unknown [id number] 2.16.8 [id number] Unknown [id number] 2.16.8 [id number] Unknown [id number] 2.16.8 [id number] Unknown [id number] 2.16.8 [id number] Unknown [id number] 2.16.8 [id number] Unknown [id number] 2.16.8 [id number] Unknown [id number] 2.16.8 [id number] Unknown [id number] 2.16.8 [id number] Unknown [id number] 2.16.8 [id number] Social History Date Type Detail Facility Start: 11-02-2022 End: 12-06-2022 Tobacco smoking status NHIS Unknown if ever smoked [facility] Start: 02-24-2020 None [facility] Start: 02-24-2020 Spouse/ Signif icant Other [facility] Start: 02-24-2020 Non-smoker [facility] Start: 1945 Sex Assigned At Male W [facility] Tobacco Use: Tobacco Use: ; F ormer smoker. [facility], [facility], [facility]. Start: 05-06-2024 Ex-smoker [facility] Start: 12-03-2024 Sex Male (finding) [facility] Sex Male [facility] Medical Equipment Procedure Code Equipment Code Equipment Origin al Text Equipment Identifier Dates Endarterectomy, carotid Collagen haemostatic agent, non-antimicrobial [id number] FDA Start: 03-13-2024 Endarterectomy, carotid Cardiovascular patch, animal-derived ()[id number] FDA Start: 03-13-2024 Endarterectomy, carotid Ligation clip, metallic [id number] FDA Start: 03-13-2024 Endarterectomy, carotid Ligation clip, metallic ()[id number] FDA Start: 03-13-2024 Endarterectomy, carotid Ligation clip, metallic ()[id number] FDA Start: 03-13-2024 Endarterectomy, carotid Ligation clip, metallic ()[id number] FDA Start: 03-13-2024 Endarterectomy, carotid Ligation clip, metallic ()[id number] FDA Start: 03-13-2024 Cystoscopic insertion of stent STENT,URETERAL PIGTAIL [id number] FDA Start: 02-24-2020 Cystoscopic insertion of stent STENT,URETERAL PIGTAIL [id number] FDA Start: 02-24-2020 Cystoscopic insertion of stent STENT,URETERAL PIGTAIL [id number] FDA Start: 02-24-2020 Cystoscopic insertion of stent STENT,URETERAL PIGTAIL [id number] FDA Start: 02-24-2020 Mental Status Date Assessment Result Facility Memory loss [employer] Memory loss [employer] Memory loss [employer] Memory loss [employer] Memory loss [employer] Memory loss [employer] Progress note 05-24-2025 Note Date & Type Note Facility 05-24-[address] [facility] Evaluation note 11-14-2024 Note Date & Type Note Facility 11-14-2024 Evaluation note Diagnosis Onset Date Resolution Carotid stenosis, left acute November 14, 2024 2:59pm Carotid stenosis, right acute November 14, 2024 2:59pm Cardiomyopathy acute November 11:11am Essential (primary) hypertension chronic November 23, 2024 11:11am Hyperlipidemia chronic November 11:11am Atrial septal defect resolved Apri l 2024 11:11am H/O coronary artery bypass surgery September 10, 2016 resolved November 23, 2024 11:11am [facility] Work Phone: Evaluation note 09-10-2016 Note Date & Type Note Facility 09-10-2016 Evaluation note Diagnosis Onset Date Cardiomyopathy acute Essential (primary) hypertension chronic Hyperlipidemia chronic Atrial septal defect resolve d H/O coronary artery bypass surgery September 10, 2016 resolved [facility] Work Phone: Evaluation note 09-10-2016 Note Date & Type Note Facility 09-10-2016 Evaluation note Diagnosis Onset Date Cardiomyopathy acute Essential (primary) hypertension chronic Hyperlipidemia chronic Atrial septal defect resolve d H/O coronary artery bypass surgery September 10, 2016 resolved Cardiomyopathy acute Essential (primary) hypertension chronic Hyperlipidemia chronic Atrial septal defect resolve d CVA (cerebral vascular accident) 2014 resolved H/O coronary artery bypass surgery September 10, 2016 resolved [facility] Work Phone: Evaluation note Note Date & Type Note Facility Evaluation note Diagnosis Onset Date Resolution Cardiomyopathy acute May 242024 10:13am Hypotension acute May 24, 2025 10:13am Essential (primary) hypertension chronic May 24, 2025 10:13am Hyperlipidemia chronic May 242024 10:13am Atrial septal defect resolved Octo 2024 10:13am H/O coronary artery bypass surgery September 10, 2016 resolved May 24, 2025 10:13am [facility] Work Phone: Progress note Note Date & Type Note Facility Progress note Note Date/Time May 24, 2025 11:21am [facility] [place] [address] [facility] [address] [place] [address] OFFICE VISIT Date of Service: 05/24/25 MR#: [id number] Acct: [id number] Name: JUWAN ROBLES Rep #: [id number] : 1945 Provider: KATHERINE Andrea Age/Sex: 80/M Location: [facility] Status: Signed HPI HPI History of Present Illness Details: JUWAN ROBLES, is a 80 M who presents to the office today for a cardiovascular outpatient follow-up. He has history of coronary artery disease diagnosed in 2007 with stenting to his LAD at that time. In 2015, he underwent repeat heart catheterization that showed significant triple-vessel artery disease and medicalmanagement was recommended. 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 He was evaluated at [facility] in 2017 with a heart catheterization that resulted in a 5 vessel bypass surgery andatrial septal defect repair. His bypass included LOPEZ to LAD, SVG to first diagonal branch, SVG to first obtuse marginal branch, SVG to posterior descending artery, and SVG to acute marginal. He developed postoperative atrialfibrillation. He was seen at outside facility, [facility], with cardiology team for congestive heart failure. He presented with progressive shortness of breath. His proBNP upon admission was greater than 3800. Chest x-ray was consistent with pulmonary overload with small pleural effusions. Troponin negative at 38 and 32. Echocardiogram on 10/05/2022 showed an estimatedejection fraction at 20-25%, no regional wall motion abnormalities were noted, moderately enlarged left ventricle, mild to moderate mitral stenosis with a meangradient 6 mmHg, and moderate to severe mitral valve regurgitation. On account of reduced ejection fraction, he underwent stress test on 10/07/2022 that showed severe global hypokinesis with ejection fraction of 36% and was considered a "normal myocardial perfusion without ischemia or infarct". A repeat echocardiogram in December 2022 demonstrated an ejection fraction of 50%. He was started on metoprolol succinate and Entresto therapy. He also has a history of hypertension and hyperlipidemia. He reports intermittent dizziness, but denies any episodes of syncope. He also reports intermittent chest pain, which his notes is not frequent but can besevere when it occurs. He denies any chest heaviness or tightness. He reports occasional ankle edema in the evenings. He is currently taking Entresto BID, carvedilol, spironolactone, and Lasix. He does not monitor his blood pressure at home. 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: No Accompanied by: Is patient in pain?: No Allergies No Known Allergies Allergy (Verified 05/24/25 10:24) Medications ?Medication ?Instructions ?Recorded ?Confirmed ?Type NATAKENSIS 3 cap PO DAILY SUPPLEMENT 05/24/25 History carvedilol 6.25 mg tablet 6.25 mg PO BID #60 tabs 05/1605/24/25 Rx desvenlafaxine succinate 100 mg 100 mg PO QDAY 4 05/24/25 History tablet,extended release 24 hr spironolactone 25 mg tablet 25 mg PO QDAY #30 tabs 05/24/25 Rx furosemide 40 mg tablet (Lasix) 40 mg PO QAM #90 tabs 11/23/24 05/24/25 Rx losartan 50 mg tablet 50 mg PO QDAY #90 tabs 05/2405/24/25 Rx Ejection fraction %: 25 Have you fallen in the past year?: No Nurse's Note: Pt's SPo2 was dropping to 86%. I tried different fingers, and they were all the same. Patient's hands were warm. After some deep breaths it would go up to 92%, but after deep breathing it would drop again. FORMERLY [facility] Medical History Loss of hearing Wears glasses Wears dentures Depression Cellulitis Prostate disease Back pain Migraine headache Injury of head and neck Syncope History of IBS Former smoker History of edema History of stress test History of echocardiogram Cardiology follow-up encounter History of CHF (congestive heart failure) Postoperative atrial fibrillation (08/2016) Right ureteral calculus Nonrheumatic mitral (valve) insufficiency History of cataract History of nephrolithiasis Type 2 diabetes mellitus without complication History of ileus Paradoxical embolus History of diverticulitis History of DVT (deep vein thrombosis) Paroxysmal atrial fibrillation Atrial septal defect Hyperlipidemia 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 CVA (cerebral vascular accident) (2014) CAD (coronary artery disease) Essential (primary) hypertension Surgical History History of carotid endarterectomy History of ureter stent (02/2020) History of lithotripsy (02/2020) History of tonsillectomy History of hemorrhoidectomy History of atrial septal defect repair (09/10/16) History of coronary artery stent placement (08/22/08) H/O coronary artery bypass surgery (09/10/16) Family History Father , Age 76 CVA (cerebral vascular accident) Uncle , age 83 Myocardial infarction Social History Smoking Status: Former smoker quit date: 06/15/15 alcohol intake: never substance use type: does not use caffeine: Yes Type: coffee Number of servings: 5 ROS Const Const: Negative for fatigue, weakness or headache(s) Eyes Eyes: Negative for change in vision ENT ENT: Positive for dizziness (In the AM at times); Negative for headache(s) or Nosebleed/epistaxis Cardio Chest Pain: Yes Palpitations: No Edema: Bilateral (In evenings) Resp Respiratory: Positive for SOB with activity GI GI: Negative nausea, vomiting, heartburn or bright, red blood in stools : Negative for hematuria Neuro Neuro: Positive for dizziness (In the AM at times); Negative for lightheadedness, syncope, headache(s) or weakness Endo Endo: Negative for fatigue Cardiology Exam Const Appearance: cooperative, healthy appearing, comfortable and no acute distress Nutritional Appearance: well nourished and obese Orientation: alert, awake and oriented x3 Head Head: normal to inspection Ears: hearing grossly normal bilaterally Nose: external nose normal Face and Sinus: face symmetric Eyes General: appearance normal, both eyes and all related structures Eyelids: eyelids normal EOM: EOM intact bilaterally Neck Neck: normal visual inspection and no JVD Carotids: normal carotid upstroke Chest Chest inspection: normal inspection of the chest, symmetric chest movement and normal respiratory effort; Negative cough Auscultation: Bilateral: Clear to Auscultation Cardio Rate: regular rate Rhythm: regular rhythm Heart sounds: S1 normal and S2 normal; Negative rub, gallop or murmur GI GI: normal to inspection and obese Neuro General: patient alert, patient awake, patient oriented x3 and CN's II-XI intactbilaterally Skin Skin: no rashes or lesions noted Extremities Pulses: Normal: Right Posterior Tibial Pulse, Left Posterior Tibial Pulse, RightRadial Pulse and Left Radial Pulse Lower Extremity Edema: None: Bilateral Psych Psychological: normal affect Supplemental Info Supplemental Information Echocardiogram 07/02/2024: Interpretation Summary Mildly dilated left ventricle. The estimated ejection fraction is 25 %. There is severe global hypokinesis of the left ventricle. Moderately severe (3+) eccentric mitral valve insufficiency. There is mild to moderate mitral annular calcification. Mild to moderate (1-2+) tricuspid valve insufficiency. Contrast injection was performed. Stress Test 03/05/2024: Conclusion: Normal pharmacologic myocardial perfusion stress test. Reduced ejection fraction. Cardiomyopathy present Echocardiogram 02/15/2024: Interpretation Summary The left ventricular ejection fraction is 20 %. Moderately dilated left ventricle. There is severe global hypokinesis of the left ventricle. The left atrium is moderately enlarged. Moderate (2+) eccentric mitral valve insufficiency. Stage 2 diastolic dysfunction. Compared to previous study, the left ventricular systolic function has worsened. Echocardiogram from 12/17/2022: Interpretation Summary Normal LV size. Left ventricular systolic function is lower limits of normal. The estimated ejection fraction is 50 %. Stage 1 diastolic dysfunction. Mild (1+) tricuspid valve insufficiency. The left atrium is mildly enlarged. Contrast injection was performed. Stress Test 10/07/22 ([facility]) Findings: Normal myocardial perfusion without ischemia or infarct. There is severe global hypokinesis. LVEF is 36%. Heart size with LV dilatation. Normal stress perfusionexamination without evidence of significant myocardial ischemia or prior infarct. Abnormal left ventricular function without evidence if ischemia. Pharmacologic stress nuclear imaging study?07/15/2018 Impression: 1.? Rest and stress SPECT Cardiolite nuclear imaging demonstrate relative uniform tracer uptake and myocardial perfusion appearing within normal limits. 2.? The gated Cardiolite study reports an LVEF of 48 % CAROTID DUPLEX 09/06/2016 CONCLUSION: 1. Irregular mixed plaque is present in the internal carotid arteries bilaterally. Doppler velocity is elevated consistent with stenosis in the 50-69%range. 2. Mild plaque is present in the common carotid artery bilaterally. CARDIAC CATHETERIZATION 01/05/2016 LEFT VENTRICULOGRAM: The left ventriculogram demonstrated ejection fraction of approximately 50%. There was mild basal inferior hypokinesis noted. CONCLUSION: 1. Left main coronary artery with eccentric 30% stenosis. 2. Left anterior descending artery with calcification and [id number] disease. 3. Left circumflex artery with first obtuse marginal branch with a 60% stenosis and mid AV groove with moderate disease. 4. Right coronary artery, which is a dominant with 80% stenosis in the distal posterolateral vessel. Based on the above angiographic findings, I would recommend optimizing medical therapy. If the patient continues to have chest discomfort, then we will consider angioplasty to the distal right coronary artery. Assessment and Plan Assessment and Plan (1) Cardiomyopathy: Status: Acute Qualifiers: Cardiomyopathy type: ischemic Qualified Code(s): I25.5 - Ischemic cardiomyopathy Plan: Ischemic Cardiomyopathy: Echocardiogram 07/02/2024-EF: 25% Twelve-lead EC05/06/2024-Normal sinus rhythm at 100 bpm and QRS 114 [employer] Functional Class: II-III ACC/AHA stage: C Guideline Directed Medical Therapy: Carvedilol 6.25 mg p.o. twice daily Lasix 40 mg p.o. daily Losartan 50 mg QD Will switch his entresto to Losaran 50 mg daily. will continue with his lasix and carvedilol. Pt currently does not have any symptoms of CHF. He has previously declined SGLT2 inhibitor on account of financial concerns. (2) H/O coronary artery bypass surgery: Status: Resolved Comment: CABG x 5-LOPEZ to LAD, SVG-D1, SVG-OM1, Sequential SVG-RPDA and acute marginal 09/10/2016 Plan: Patient has a history of coronary artery disease with CABG x5 in 2017. His most recent stress test from 03/05/2024 was negative for ischemia. He has discontinued aspirin on his own accord. The importance of such reviewed with him. Risk factor lifestyle modification encouraged. (3) Atrial septal defect: Status: Resolved Plan: Echocardiogram in June 2024 showed injection showed 25% and negative bubble contrast study for right to left intra-atrial shunt. Will continue to monitor. (4) Essential (primary) hypertension: Status: Chronic Comment: CONTROLLED WITH MED Plan: Patient's blood pressure is on the low side. Finically we will switch his entresto to Losartan, this should help increase his BP. He is not symptomatic with lower readings. (5) Hyperlipidemia: Status: Chronic Qualifiers: Hyperlipidemia type: unspecified Qualified Code(s): E78.5 - Hyperlipidemia, unspecified Plan: His PCP monitors this. Restarting atorvastatin was discussed, and he declines any statin use at this time. He will continue with aggressive risk factor and lifestyle modifications. (6) Hypotension: Status: Acute Medications: New losartan 50 mg PO QDAY 90 tabs 3RF Discontinued sacubitril-valsartan 49-51 mg (Entresto) Discontinued Reason: Order Completed 1 TAB orally twice daily. Fax to [facility] ; 180 tabs 3RF Patient Instructions: stop your entresto Start losartan 50 mg a day Plan Details Additional Comments: Thank you for allowing us to participate in the patients plan of care, if you have any questions please do not hesitate to call. This note was generated using a voice recognition system and there may be incorrect words, spelling or punctuation that were not noted when reviewing the office note prior to saving. Portions of this documentation were copied and pasted from previous office visitnotes to provide a cohesive continuity of the history. The note has been reviewed, edited, and updated, as necessary. Coding Level of Care Code Off vis,est,level 4 Diagnoses Ischemic cardiomyopathy I25.5 Cardiomyopathy type: ischemic H/O coronary artery bypass surgery Z95.1 Atrial septal defect Q21.1 Essential (primary) hypertension I10 Hyperlipidemia, unspecified hyperlipidemia type E78.5 Hyperlipidemia type: unspecified Hypotension I95.9 Coding Level of Care Code Off vis,est,level 4 Diagnoses Ischemic cardiomyopathy I25.5 Cardiomyopathy type: ischemic H/O coronary artery bypass surgery Z95.1 Atrial septal defect Q21.1 Essential (primary) hypertension I10 Hyperlipidemia, unspecified hyperlipidemia type E78.5 Hyperlipidemia type: unspecified Hypotension I95.9 Clinical Quality Measures Falls Risk Screening/Assistive Devices Have you fallen in the past year?: No Cardiac Ejection fraction %: 25 05/28/25 1542 <Electronically signed by Malou Miranda> Date _ Malou MURPHY Cosigner Signature: Date (if applicable) CC: KATHERINE Bustillos ~ [place] [employer] Work Phone: Reason for referral (narrative) Note Date & Type Note Facility Reason for referral (narrative) No reason for referral information available [facility] Work Phone: Summary Purpose Family History No Family History Records Found Relationship Condition Age at Onset Recorded Date/T bernadette father Cerebrovascular accident (CVA) Unknown uncle Myocardial infarction Unknown Advance Directives No Advanced Directives Records Found Advance Directive Response Recorded Date/ Time Living Will No February 24, 2020 5:39pm Power of Relay Associate No February 23 5:39pm Advance Directive Response Recorded Date/ Time Living Will No March 16, 2024 7:14am Do you have a Healthcare Power of Relay Associate? No March 16, 2024 7:14am Chief Complaint and Reason for Visit Chief Complaint S/P [facility] Reason for Visit Cardiomyopathy Essential (primary) hypertension Hyperlipidemia Atrial septal defect H/O coronary artery bypass surgery Chief Complaint S/P [facility] E[facility] CP, see clinical note Rajeev DYSPNEA Reason for Visit Cardiomyopathy Essential (primary) hypertension Hyperlipidemia Atrial septal defect H/O coronary artery bypass surgery Cardiomyopathy Essential (primary) hypertension Hyperlipidemia Atrial septal defect CVA (cerebral vascular accident) H/O coronary artery bypass surgery Chief Complaint Admit Date 6 M F/U November 14, 2024 2:59 pm 4 M FU November 23, 2024 11: 11am S/P R CEA - 6 MONTH F/U November 29, 2024 1:00pm Reason for Visit Admit Date Carotid stenosis, left November 14, 2024 2 :59pm Carotid stenosis, right November 14, 2024 2:59pm Cardiomyopathy November 23, 2024 11: 11am Essential (primary) hypertension November 132024 11:11am Hyperlipidemia November 23, 2024 11: 11am Atrial septal defect November 23, 2024 11 :11am H/O coronary artery bypass surgery November 23, 2024 11:11am Chief Complaint Admit Date 6 M FU May 24, 2025 1 0:13am Reason for Visit Admit Date Cardiomyopathy May 24, 2025 1 0:13am Hypotension May 24, 2025 1 0:13am Essential (primary) hypertension May 24, 2025 10:13am Hyperlipidemia May 24, 2025 1 0:13am Atrial septal defect May 24, 2025 10:13am H/O coronary artery bypass surgery Octob er 2024 10:13am Additional Source Comments (unrecognized sect ion and content) No Status Records FoundNo Status Records FoundNo Status Records FoundNo Status Records FoundNo Status Records Found INFORMATION SOURCE (unrecogn ized section and content) DATE CREATED AUTHOR 02/08/2018 [facility] DATE CREATED AUTHOR AUTHOR'S ORGANIZ ATION 02/20/2019 [facility] ([place]) DATE CREATED AUTHOR AUTHOR'S ORGANIZ ATION 12/23/2023 [facility] DATE CREATED AUTHOR AUTHOR'S ORGANIZ ATION 06/15/2025 [facility] DATE CREATED AUTHOR AUTHOR'S ORGANIZ ATION 06/22/2025 [facility] Care Teams (unrecognized sec tion and content) Team Status: Active Member Role Status Dates Dr. Boy Peralta MD Family Provider Active KATHERINE Bustillos Primary Care Provider Active Team Status: Inactive Member Role Status Dates Dr. Boy Peralta MD Referring Provider Active Geoff Virk RISK CONTROL CONSULTANT, RISK CONTROL CONSULTANT-C Attending Provider Active KATHERINE Bustillos Primary Care Provider Active Team Status: Inactive Member Role Status Dates KATHERINE Bustillos Primary Care Provider Active Geoff Virk RISK CONTROL CONSULTANT, RISK CONTROL CONSULTANT-C Attending Provider, Referring Pro vider Active Team Status: Inactive Member Role Status Dates KATHERINE Bustillos Primary Care Provider, Referring Provider Active Geoff Virk RISK CONTROL CONSULTANT, RISK CONTROL CONSULTANT-C Attending Provider Active Team Status: Active Member Role Status Dates KATHERINE Bustillos Primary Care Provider Active Dr. Nirav Peña MD Attending Provider Active Team Status: Active Member Role Status Dates KATHERINE Bustillos Primary Care Provider Active Team Status: Inactive Member Role Status Dates KATHERINE Bustillos Primary Care Provider Active Start: November 14, 2024 End: November 14, 2024 KATHERINE Bustillos Referring Provider Active Start: November 14, 2024 End: November 14, 2024 KATHERINE Mabry Attending Provider Active Star t: November 14, 2024 End: November 14, 2024 Team Status: Inactive Member Role Status Dates KATHERINE Bustillos Primary Care Provider Active Start: November 23, 2024 End: November 23, 2024 KATHERINE Bustillos Referring Provider Active Start: November 23, 2024 End: November 23, 2024 KATHERINE Simpson Attending Provider Active Start: November 23, 2024 End: November 23, 2024 Team Status: Inactive Member Role Status Dates KATHERINE Bustillos Primary Care Provider Active Start: November 29, 2024 End: November 29, 2024 KATHERINE Mabry Attending Provider Active Star t: November 29, 2024 End: November 29, 2024 KATHERINE Mabry Referring Provider Active Star t: November 29, 2024 End: November 29, 2024 Team Status: Active Member Role Status Dates KATHERINE Bustillos Primary Care Provider Active Start: November 29, 2024 Dr. Josh Alcocer MD Attending Provider Active S tart: November 29, 2024 Team Status: Active Member Role/Relationship Status Dates KATHERINE Bustillos Primary care physician Active Team Status: Inactive Member Role/Relationship Status Dates KATHERINE Bustillos Primary care physician Active Start: May 24, 2025 End: May 24, 2025 KATHERINE Bustillos Referring Provider Active Start: May 24, 2025 End: May 24, 2025 KATHERINE Simpson Attending physician Active Start: May 24, 2025 End: May 24, 2025 Goals (unrecognized section and content) Goals may be documented in a n alternate sectionGoals may be documented in an alternate sectionGoals may be documented in an alternate sectionGoals may be documented in an alternate section FOR RECORDS PERTAINING TO PATIENTS WHO ARE OR HAVE BEEN ENROLLED IN A CHEMICAL DEPENDENCY/SUBSTANCEABUSE PROGRAM, SOME INFORMATION MAY BE OMITTED. This clinical summary was aggregated from multiple sources. Caution should be exercised in using it in the provision of clinical care. This summary normalizes information from multiple sources, and as a consequence, information in this document may materially change the coding, format and clinical context of patient data. In addition, data may be omitted in some cases. CLINICAL DECISIONS SHOULD BE BASED ON THE PRIMARY CLINICAL RECORDS. [email or web address] provides no warranty or guarantee of the accuracy or completeness of information in this document.
== END | disposition home or self-care (01) ==
LOC: CVS 06:44
PROVIDERS: PCP Physician Assistant; Referring Provider Physician Assistant; Visit Provider Physician Assistant
DX: Z48.812 Encounter for surgical aftercare following surgery on the circulatory system (principal); I65.23 Occlusion and stenosis of bilateral carotid arteries
CPT/HCPCS: 93880